=== PATIENT | female | born 1960 | race Caucasian/White ===

== ENCOUNTER 2021-05-20 06:47 | Inpatient (IN) | payer SELFPAY ==
[2021-05-20] MEDS ORDERED: LORazepam 2 MG/ML VIAL ONE (06:48)
--- OUTSIDE RECORDS SUMMARY | 2021-05-20 06:49 | XMS REPORT | Continuity of Care Document ---
:1960 Author Organization [facility] t Address [address] [place] [address] Care Team Providers Name Role Phone Martha Attending Clinician Unavailable HERMELINDO Attending Clinician Unavailable TERRELL Attending Clinician Unavailable VALDO Attending Clinician Unavailable Martha Admitting Clinician Unavailable Payers Payer Name Policy Type Policy Number Effective Date Expiration Date Jose G SMALL [id number] Problems Condition Condition Condition Status Onset Resolution Last Treating Co mments Source Name Details Category Date Date Treatment Clinician Date Hypokalemi Hypokalemi Problem Active [facility] Chronic Chronic Problem Active [facility] low back Low Back da pain [facility] Status Status Problem Active Univers post post ity of cervical cervical [place] spinal spinal Physici arthrodesi arthrodesi an s s s Osteoporos Osteoporos Problem Active U nivers [place] [facility] [place] Left knee Left knee Problem Active Uni vers pain pain ity of [place] [facility] ans Open Open Problem Active Univers Salter-Keagan Salter[facility] it y of ris type ris type [place] IV physeal IV physeal Ph ysici fracture fracture ans of second of second metatarsal metatarsal bone of bone of right foot right foot with with delayed delayed healing, healing, subsequent subsequent encounter encounter Fracture Fracture Problem Active Unive rs of 2nd of 2nd ity of [place] [facility] Pain of Pain of Problem Active [facility] right hand right hand it y of [place] [facility] ans Pain of Pain of Problem Active [facility] left left ity of shoulder shoulder [place] region region Physici ans Allergies, Adverse Reactions, Alerts Allergy Allergy Status Severity Reaction(s) Onset Inactive Treating Comm ents Source Name Type Date Date Clinician A[place]ox Allergy Active [facility] Dilantin Allergy Active [facility] Latex Allergy Active [facility] Phenobar Allergy Active [facility] bital to [facility] Social History Smoking Status Start Date Stop Date Source Heavy Tobacco Smoker [facility] Medications Ordered Filled Start Stop Current Ordering Indication Dosage Frequency Signature Comments Components Source Medication Medication Date Date Medication? Clinician (SIG) Name Name amitriptyli amitriptyli No 1 Q1D amitriptyl [place] ne 100 mg ne 100 mg ine 100 mg da tablet Take tablet Take tablet Medical 1 tablet 1 tablet Take 1 Group every day every day tablet by oral by oral every day route for route for by oral 30 days. 30 days. route for 30 days. amitriptyli amitriptyli No 1 Q1D amitriptyl [place] ne 50 mg ne 50 mg ine 50 mg da tablet Take tablet Take tablet Medical 1 tablet 1 tablet Take 1 Group every day every day tablet by oral by oral every day route at route at by oral bedtime for bedtime for route at 30 days. 30 days. bedtime for 30 days. cyclobenzap cyclobenzap No cyclobenza [place] rine 10 mg rine 10 mg trae 10 da tablet TAKE tablet TAKE mg tablet Medical 1 TABLET BY 1 TABLET BY TAKE 1 Group MOUTH THREE MOUTH THREE TABLET BY TIMES DAILY TIMES DAILY MOUTH NEEDED NEEDED THREE TIMES DAILY NEEDED gabapentin gabapentin No 1 QID gabapentin [facility] 800 mg 800 mg 800 mg da tablet Take tablet Take tablet Medical 1 tablet 4 1 tablet 4 Take 1 G roup times a day times a day tablet 4 by oral by oral times a route for route for day by 30 days. 30 days. oral route for 30 days. levetiracet levetiracet No 2 BID levetirace [facility] am 500 mg am 500 mg vera 500 mg da tablet Take tablet Take tablet Medical 2 tablets 2 tablets Take 2 [place]ino up twice a day twice a day tablets by oral by oral twice a route for route for day by 30 days. 30 days. oral route for 30 days. Lyrica 150 Lyrica 150 No 1capsul TID Lyrica 150 [facility] mg capsule mg capsule e(s) mg capsule da Take 1 Take 1 Take 1 Medical capsule 3 capsule 3 capsule 3 Group times a day times a day times a by oral by oral day by route for route for oral route 30 days. 30 days. for 30 days. pantoprazol pantoprazol No 1 BID pantoprazo [place] e 40 mg e 40 mg le 40 mg da tablet,annalee tablet,annalee tablet,del Medical yed release yed release ayed G roup Take 1 Take 1 release tablet tablet Take 1 twice a day twice a day tablet by oral by oral twice a route for route for day by 30 days. 30 days. oral route for 30 days. triamterene triamterene No 1 Q1D triamteren [facility] 75 75 e 75 da mg-hydrochl mg-hydrochl mg-hydroch Medical orothiazide orothiazide lorothiazi Group 50 mg 50 mg de 50 mg tablet Take tablet Take tablet 1 tablet 1 tablet Take 1 every day every day tablet by oral by oral every day route for route for by oral 30 days. 30 days. route for 30 days. venlafaxine venlafaxine No venlafaxin [facility] ER 150 mg ER 150 mg e ER 150 d a capsule,ext capsule,ext mg M edical ended ended capsule,ex Group release 24 release 24 tended hr TAKE 1 hr TAKE 1 release 24 CAPSULE BY CAPSULE BY hr TAKE 1 MOUTH THREE MOUTH THREE CAPSULE BY TIMES DAILY TIMES DAILY MOUTH THREE TIMES DAILY Immunizations Ordered Immunization Filled Immunization Date Status Commen ts Source Name Name influenza, influenza, 2018-02-02 Completed [place] injectable, injectable, 00:00:00 [facility] Gr[facility] p quadrivalent quadrivalent Tdap Tdap 2014-05-26 Completed [place] 00:00:00 [facility] Vital Signs Vital Name Observation Time Observation Value Comments Source BP Diastolic 2019-12-06 00:00:00 73 mm[Hg] [facility] Height 2019-12-06 00:00:00 66 [in_i] [facility] BMI (Body Mass 2019-12-06 00:00:00 21.6 kg/m2 [facility] Medical Index) Group BP Systolic 2019-12-06 00:00:00 113 mm[Hg] [facility] Body Weight 2019-12-06 00:00:00 2145.6 [oz_av] [facility] BP Diastolic 2019-04-07 00:00:00 75 mm[Hg] [facility] Height 2019-04-07 00:00:00 66 [in_i] [facility] BMI (Body Mass 2019-04-07 00:00:00 22.8 kg/m2 [facility] Medical Index) Group BP Systolic 2019-04-07 00:00:00 112 mm[Hg] [facility] Body Weight 2019-04-07 00:00:00 2256 [oz_av] [facility] BP Diastolic 2019-03-10 00:00:00 77 mm[Hg] [facility] Height 2019-03-10 00:00:00 66 [in_i] [facility] BMI (Body Mass 2019-03-10 00:00:00 21.8 kg/m2 [facility] Medical Index) Group BP Systolic 2019-03-10 00:00:00 120 mm[Hg] [facility] Body Weight 2019-03-10 00:00:00 2160 [oz_av] [facility] BP Diastolic 2018-08-11 00:00:00 60 mm[Hg] [facility] Height 2018-08-11 00:00:00 66 [in_i] [facility] BMI (Body Mass 2018-08-11 00:00:00 21.5 kg/m2 [facility] Medical Index) Group BP Systolic 2018-08-11 00:00:00 98 mm[Hg] [facility] Body Weight 2018-08-11 00:00:00 2128 [oz_av] [facility] Procedures Procedure Date / Time Performing Clinician Source Performed [U] XRAY SPINE CERVICAL 2 2019-07[facility]26 [facility] [id number] [facility] [U] XRAY FOOT MIN 3 S 2019-05-04 00:[facility] [id number] [facility] [U] XRAY KNEE 1 OR 2 S 2019-05-04 00:00:00 Uni [facility] LEFT [id number] Physicians Physical Therapy 2019-04-27 00:00:00 [facility]icians [U] XRAY SPINE CERVICAL 2 2019-04-26 00:00[facility] [address] Physicians [U] XRAY SPINE CERVICAL 2 2019-03-09 00:00:00 Un [facility] OR 3 [facility] [address] Physicians MA Bone Density Scan [id number] 2019-02-12 00:00[facility] KNEE 1 OR 2 [facility] 2019-02-12 00:00:00 [facility] LEFT [address] Physicians DEXA Bone Density with WB 2019-02-10 00:00:00 Un [facility] Composition DX Physicians [U] XRAY SPINE CERVICAL 2 2019-02-08 00:00:00 Un [facility] OR 3 [facility] [address] Physicians Tibial Arthroscopy/surgery 2018-12-26 00:00:00 [facility] Primary Fusion of Cervical 2018-12-24 00:00:00 [facility] Gastric Bypass 2012-05-26 00:00:00 [place] [facility] Colonoscopy 2011-05-26 00:00:00 [place] [facility] [place] [facility] Cholecyst[facility] [facility] Tonsillectomy [place] [facility] Hysterectomy [place] [facility] Plan of Care Planned Activity Planned Date Details Comments Source Diagnostic Test 2019-04-07 BMP, serum or [place] [facility] Pending 00:00:00 plasma [code = Group BMP, serum or plasma] Encounters Start End Encounter Admission Attending Care Care Encounter Source Date/Time Date/Time Type Type Clinicians Facility Department ID 2020-06-29 2020-06-29 Outpatient [facility]un[facility]_F [facility] [id number] [facility] 01:08:00 01:08:00 0204 [facility] Group 2020-04-27 2020-04-27 Outpatient [facility] [id number] [facility] 01:04:00 01:04:00 1203 [facility] Group 2020-04-12 2020-04-12 Outpatient [facility]_F [facility] MMG [id number] [facility] 02:32:00 02:32:00 1118 Medical Group 2020-03-23 2020-03-23 Outpatient [facility]_F [facility] MMG [id number] [facility] 01:04:00 01:04:00 1029 Medical Group 2020-02-17 2020-02-17 Outpatient [facility]_F [facility] MMG [id number] [facility] 03:07:00 03:07:00 0924 Medical Group 2020-02-16 2020-02-16 Outpatient [facility]_F [facility] MMG [id number] [facility] 11:05:00 11:05:00 0923 Medical Group 2020-02-14 2020-02-14 Outpatient [facility]_F MM[facility] MMG [id number] 2019 [facility] 09:30:00 09:30:00 0921 Medical Group 2020-02-08 2020-02-08 Outpatient [facility]_F [facility] MMG [id number] [facility] 05:04:00 05:04:00 0915 Medical Group 2020-01-12 2020-01-12 Outpatient [facility]_F [facility] MMG [id number] [facility] 12:39:00 12:39:00 0819 Medical Group 2019-12-08 2019-12-08 Outpatient [facility]_F MM[facility] MMG [id number] [facility] 12:57:00 12:57:00 0715 Medical Group 2019-12-06 2019-12-06 Outpatient Zuniga_F MMG MMG [id number] [facility] 08:05:00 08:05:00 0713 Medical Group 2019-12-06 2019-12-06 [place] [facility] [place] - [id number] M [facility] 00:00:00 00:00:00 Noman Watkins Medical APPLICATION PENETRATION TESTER: [address] [facility] [address], [place] [address] , Ph. 2019-07-27 2019-07-27 [facility] [id number] Univers 11:00:00 11:00:00 t; HIRO CASAREZ, at [facility] HIRO Morton M.D. Orthopedic Physi ci and Spine [facility] 2019-06-25 2019-06-25 Outpatient Zuniga_F [facility] [id number] [facility] 12:04:00 12:04:00 0131 [facility] 2019-05-10 2019-05-10 [facility] [id number] Univers 10:30:00 10:30:00 t; LINA ETJADA PA Trauma ity of [place] [facility] 2019-04-27 2019-04-27 [facility] [id number] Univers 09:30:00 09:30:00 t; HIRO CASAREZ, at [facility] HIRO Morton M.D. [facility] 2019-04-07 2019-04-07 [facility] [place] - [id number] [facility] 00:00:00 00:00:00 Noman Echeverria MD: [address] [place] [address] [address], [place] [address] , Ph. 2019-03-29 2019-03-29 [facility] [id number] Univers 10:30:00 10:30:00 t; LINA TEJADA PA Trauma ity of [place] [facility] 2019-03-15 2019-03-15 [facility] Ignacio [facility] [id number] Univers 10:45:00 10:45:00 t; LINA TEJADA PA ity of [place] [facility] 2019-03-11 2019-03-11 [facility] 5 [id number] Univers 12:40:00 12:40:00 t; WES at [facility] Rosa LYLE [place] WES, Orthopedic Ph juniorici P.AAmber and Spine [facility] 2019-03-10 2019-03-10 [facility] [place] - [id number] [facility] 00:00:00 00:00:00 Noman Echeverria Medical MD: [address] [facility] [address], [place] [address] , Ph. 2019-02-15 2019-02-15 Appointmen [facility] TE[facility]ADA [facility] [id number] [facility] 09:15:00 09:15:00 t; LINA TEJADA PA Trauma ity [place] [facility] 2019-02-10 2019-02-10 Appointmen [facility] L[facility] [id number] [facility] 15:20:00 15:20:00 t; WES [facility] Rosa LYLE [facility] WES Orthopedic Ph jennifer P.AAmber and Spine [facility] 2018-08-11 2018-08-11 [facility] [place] - [id number] [facility] 00:00:00 00:00:00 Noman Echeverria Medical MD: [address] [facility] [address], [place] [address] , Ph. Results Test Description Test Time Test Comments Results Result Sourc e Comments [U] XRAY SPINE 2019-04-27 Images [facility] 2 OR 3 09:42:00 acquired, not [facility] [id number] reported on Physicians this accession number. Basic metabolic 2000 panel - Serum or Plasma 2019-04-07 09:0 5:00 Test Item Value Reference Range Interpretation Comme nts glucose (test code = glucose) 57 mg/dL 74-106 L Urea nitrogen [Mass/volume] in Serum or Plasma (test code = 23 mg/d L 6-20 H 3094-0) osmolality calculated,serum (test code = osmolality 279 mOsm/kg 28 0-300 L calculated,serum) creatinine (test code = creatinine) 0.9 mg/dL 0.50-0.90 glomerular filtration rate (test code = glomerular >60.00 filtration rate) Urea nitrogen/Creatinine [Mass Ratio] in Serum or Plasma 25.6 12-20 H (test code = 3097-3) sodium level (test code = sodium level) 139 mmol/L 135-145 Potassium [Moles/volume] in Body fluid (test code = 2821-7) 4.0 mmo l/L 3.5-5.2 chloride level (test code = chloride level) 101 mmol/L 98-108 CO2 (test code = CO2) 28 mmol/L 21-32 anion gap (test code = anion gap) 14.0 mEq/L 12-20 calcium level (test code = calcium level) 9.0 mg/dL 8.6-10.0 [facility][U] XRAY HAND MIN 3 VWS RIGHT [id number] 12:19:00 Images acquired, not reported on this accession number.[facility][U] XRAY FOOT MIN 3 VWS RIGHT [id number] 10:36:00Images acquired, not reported on this accession number.[facility][U] XRAY KNEE 1 OR 2 VWS LEFT [id number] 10:36:00Images acquired, not reported on this accession number.[facility] W Auto Differential panel - [id number] 10:50:00 Test Item Value Reference Range Interpretation Comments white blood count (test code = 5.6 K/uL 4.0-11.5 white blood count) red blood count (test code = red 5.09 M/uL 3.80-5.20 blood count) hemoglobin (test code = 14.2 g/dL 10.5-15.7 hemoglobin) hematocrit (test code = 45.1 % 34.0-50.0 hematocrit) Erythrocyte mean corpuscular 88.6 fL 86-100 volume [Entitic volume] (test code = 24603-1) mean corpuscular hemoglobin (test 27.9 pg 26.2-33.4 code = mean corpuscular hemoglobin) mean corpuscular HGB conc (test 31.5 g/dL 30-34 code = mean corpuscular HGB conc) red cell distribution width (test 15.3 % 12.0-15.5 code = red cell distribution width) platelet count (test code = 349 K/uL 165-450 platelet count) mean platelet volume (test code = 8.8 fL 9.4-12.6 L mean platelet volume) Neutrophils.segmented/100 56.5 % 44.4-80.1 leukocytes in Blood (test code = 74305-8) Granulocytes Immature [#/volume] 0.0 K/uL 0.0-0.03 in Blood (test code = 58348-8) lymphocyte% (test code = 31.8 % 10.0-50.0 lymphocyte%) mono % (test code = mono %) 7.9 % 3.6-12.0 eos % (test code = eos %) 2.1 % 0.0-5.4 Basophils/100 leukocytes in 1.3 % 0.1-1.2 H Unspecified specimen (test code = 84710-9) Neutrophils.band form [#/volume] 3.17 K/uL 1.56-6.13 in Blood (test code = 77111-6) Lymphocytes [#/volume] in 1.8 K/uL 1.18-3.74 Unspecified specimen by Automated count (test code = 73518-5) mono # (test code = mono #) 0.44 K/uL 0.24-0.86 eos # (test code = eos #) 0.12 K/uL 0.04-0.36 basophil # (test code = basophil 0.07 K/uL 0.01-0.08 #) NRBC% (test code = NRBC%) 0 /100 WBC 0-0.2 NRBC# (test code = NRBC#) 0 K/uL [facility], [id number] 10:50:00 NeutrophilsBandLymphocyteAtypical LymphMonocyteEosinophilBasophilPlatelet EstimatePlatelet MorphologyHypochromasiaMatagoTallahatchie General HospitalBasic metabolic 2000 panel - Serum or [id number] 10:50:00 Test Item Value Reference Range Interpretation Comments Glucose [Mass/volume] in Serum or 74 mg/dL 74-106 Plasma (test code = 2345-7) Urea nitrogen [Mass/volume] in 33 mg/dL 6-20 H Serum or Plasma (test code = 3094-0) osmolality calculated, serum (test 276 280-300 L code = osmolality calculated, serum) creatinine (test code = 1.7 mg/dL 0.50-0.90 H creatinine) glomerular filtration rate (test 30.98 L code = glomerular filtration rate) Urea nitrogen/Creatinine [Mass 19.4 12-20 Ratio] in Serum or Plasma (test code = 3097-3) sodium level (test code = sodium 135 mmol/L 135-145 level) potassium level (test code = 4.0 mmol/L 3.5-5.2 potassium level) chloride level (test code = 99 mmol/L 98-108 chloride level) CO2 (test code = CO2) 23 mmol/L 21-32 anion gap (test code = anion gap) 17.0 mEq/L 12-20 calcium level (test code = calcium 9.2 mg/dL 8.6-10.0 level) [facility] W Auto Differential panel - [id number] 10:50:00 Test Item Value Reference Range Interpretation Comments white blood count (test code = 5.6 K/uL 4.0-11.5 white blood count) red blood count (test code = red 5.09 M/uL 3.80-5.20 blood count) hemoglobin (test code = 14.2 g/dL 10.5-15.7 hemoglobin) hematocrit (test code = 45.1 % 34.0-50.0 hematocrit) Erythrocyte mean corpuscular 88.6 fL 86-100 volume [Entitic volume] (test code = 21019-8) mean corpuscular hemoglobin (test 27.9 pg 26.2-33.4 code = mean corpuscular hemoglobin) mean corpuscular HGB conc (test 31.5 g/dL 30-34 code = mean corpuscular HGB conc) red cell distribution width (test 15.3 % 12.0-15.5 code = red cell distribution width) platelet count (test code = 349 K/uL 165-450 platelet count) mean platelet volume (test code = 8.8 fL 9.4-12.6 L mean platelet volume) Neutrophils.segmented/100 56.5 % 44.4-80.1 leukocytes in Blood (test code = 03986-6) Granulocytes Immature [#/volume] 0.0 K/uL 0.0-0.03 in Blood (test code = 46770-2) lymphocyte% (test code = 31.8 % 10.0-50.0 lymphocyte%) mono % (test code = mono %) 7.9 % 3.6-12.0 eos % (test code = eos %) 2.1 % 0.0-5.4 Basophils/100 leukocytes in 1.3 % 0.1-1.2 H Unspecified specimen (test code = 57239-5) Neutrophils.band form [#/volume] 3.17 K/uL 1.56-6.13 in Blood (test code = 53695-0) Lymphocytes [#/volume] in 1.8 K/uL 1.18-3.74 Unspecified specimen by Automated count (test code = 63957-9) mono # (test code = mono #) 0.44 K/uL 0.24-0.86 eos # (test code = eos #) 0.12 K/uL 0.04-0.36 basophil # (test code = basophil 0.07 K/uL 0.01-0.08 #) NRBC% (test code = NRBC%) 0 /100 WBC 0-0.2 NRBC# (test code = NRBC#) 0 K/uL [facility], [id number] 10:50:00 NeutrophilsBandLymphocyteAtypical LymphMonocyteEosinophilBasophilPlatelet EstimatePlatelet MorphologyHypochromasiaMatagoTallahatchie General HospitalBasic metabolic 2000 panel - Serum or [id number] 10:50:00 Test Item Value Reference Range Interpretation Comments Glucose [Mass/volume] in Serum or 74 mg/dL 74-106 Plasma (test code = 2345-7) Urea nitrogen [Mass/volume] in 33 mg/dL 6-20 H Serum or Plasma (test code = 3094-0) osmolality calculated, serum (test 276 280-300 L code = osmolality calculated, serum) creatinine (test code = 1.7 mg/dL 0.50-0.90 H creatinine) glomerular filtration rate (test 30.98 L code = glomerular filtration rate) Urea nitrogen/Creatinine [Mass 19.4 12-20 Ratio] in Serum or Plasma (test code = 3097-3) sodium level (test code = sodium 135 mmol/L 135-145 level) potassium level (test code = 4.0 mmol/L 3.5-5.2 potassium level) chloride level (test code = 99 mmol/L 98-108 chloride level) CO2 (test code = CO2) 23 mmol/L 21-32 anion gap (test code = anion gap) 17.0 mEq/L 12-20 calcium level (test code = calcium 9.2 mg/dL 8.6-10.0 level) [facility] W Auto Differential panel - [id number] 10:50:00 Test Item Value Reference Range Interpretation Comments white blood count (test code = 5.6 K/uL 4.0-11.5 white blood count) red blood count (test code = red 5.09 M/uL 3.80-5.20 blood count) hemoglobin (test code = 14.2 g/dL 10.5-15.7 hemoglobin) hematocrit (test code = 45.1 % 34.0-50.0 hematocrit) Erythrocyte mean corpuscular 88.6 fL 86-100 volume [Entitic volume] (test code = 84815-3) mean corpuscular hemoglobin (test 27.9 pg 26.2-33.4 code = mean corpuscular hemoglobin) mean corpuscular HGB conc (test 31.5 g/dL 30-34 code = mean corpuscular HGB conc) red cell distribution width (test 15.3 % 12.0-15.5 code = red cell distribution width) platelet count (test code = 349 K/uL 165-450 platelet count) mean platelet volume (test code = 8.8 fL 9.4-12.6 L mean platelet volume) Neutrophils.segmented/100 56.5 % 44.4-80.1 leukocytes in Blood (test code = 15347-1) Granulocytes Immature [#/volume] 0.0 K/uL 0.0-0.03 in Blood (test code = 51538-1) lymphocyte% (test code = 31.8 % 10.0-50.0 lymphocyte%) mono % (test code = mono %) 7.9 % 3.6-12.0 eos % (test code = eos %) 2.1 % 0.0-5.4 Basophils/100 leukocytes in 1.3 % 0.1-1.2 H Unspecified specimen (test code = 30725-1) Neutrophils.band form [#/volume] 3.17 K/uL 1.56-6.13 in Blood (test code = 52210-2) Lymphocytes [#/volume] in 1.8 K/uL 1.18-3.74 Unspecified specimen by Automated count (test code = 66605-6) mono # (test code = mono #) 0.44 K/uL 0.24-0.86 eos # (test code = eos #) 0.12 K/uL 0.04-0.36 basophil # (test code = basophil 0.07 K/uL 0.01-0.08 #) NRBC% (test code = NRBC%) 0 /100 WBC 0-0.2 NRBC# (test code = NRBC#) 0 K/uL [facility], [id number] 10:50:00 NeutrophilsBandLymphocyteAtypical LymphMonocyteEosinophilBasophilPlatelet EstimatePlatelet MorphologyHypochromasiaMaNorthwest Mississippi Medical CenterBasic metabolic 2000 panel - Serum or [id number] 10:50:00 Test Item Value Reference Range Interpretation Comments Glucose [Mass/volume] in Serum or 74 mg/dL 74-106 Plasma (test code = 2345-7) Urea nitrogen [Mass/volume] in 33 mg/dL 6-20 H Serum or Plasma (test code = 3094-0) osmolality calculated, serum (test 276 280-300 L code = osmolality calculated, serum) creatinine (test code = 1.7 mg/dL 0.50-0.90 H creatinine) glomerular filtration rate (test 30.98 L code = glomerular filtration rate) Urea nitrogen/Creatinine [Mass 19.4 12-20 Ratio] in Serum or Plasma (test code = 3097-3) sodium level (test code = sodium 135 mmol/L 135-145 level) potassium level (test code = 4.0 mmol/L 3.5-5.2 potassium level) chloride level (test code = 99 mmol/L 98-108 chloride level) CO2 (test code = CO2) 23 mmol/L 21-32 anion gap (test code = anion gap) 17.0 mEq/L 12-20 calcium level (test code = calcium 9.2 mg/dL 8.6-10.0 level) [facility] W Auto Differential panel - [id number] 10:50:00 Test Item Value Reference Range Interpretation Comments white blood count (test code = 5.6 K/uL 4.0-11.5 white blood count) red blood count (test code = red 5.09 M/uL 3.80-5.20 blood count) hemoglobin (test code = 14.2 g/dL 10.5-15.7 hemoglobin) hematocrit (test code = 45.1 % 34.0-50.0 hematocrit) MCV [Entitic volume] (test code = 88.6 fL 86-100 74235-7) mean corpuscular hemoglobin (test 27.9 pg 26.2-33.4 code = mean corpuscular hemoglobin) mean corpuscular HGB conc (test 31.5 g/dL 30-34 code = mean corpuscular HGB conc) red cell distribution width (test 15.3 % 12.0-15.5 code = red cell distribution width) platelet count (test code = 349 K/uL 165-450 platelet count) mean platelet volume (test code = 8.8 fL 9.4-12.6 L mean platelet volume) Segmented neutrophils/100 56.5 % 44.4-80.1 leukocytes in Blood (test code = 43883-5) Immature granulocytes [#/volume] 0.0 K/uL 0.0-0.03 in Blood (test code = 67311-8) lymphocyte% (test code = 31.8 % 10.0-50.0 lymphocyte%) mono % (test code = mono %) 7.9 % 3.6-12.0 eos % (test code = eos %) 2.1 % 0.0-5.4 Basophils/100 leukocytes in 1.3 % 0.1-1.2 H Unspecified specimen (test code = 75789-2) Band form neutrophils [#/volume] 3.17 K/uL 1.56-6.13 in Blood (test code = 08127-5) Lymphocytes [#/volume] in 1.8 K/uL 1.18-3.74 Unspecified specimen by Automated count (test code = 28532-8) mono # (test code = mono #) 0.44 K/uL 0.24-0.86 eos # (test code = eos #) 0.12 K/uL 0.04-0.36 basophil # (test code = basophil 0.07 K/uL 0.01-0.08 #) NRBC% (test code = NRBC%) 0 /100 WBC 0-0.2 NRBC# (test code = NRBC#) 0 K/uL [facility], method unspecified - [id number] 10:50:00NeutrophilsBandLymphocyteAtypical LymphMonocyteEosinophilBasophilPlatelet EstimatePlatelet MorphologyHypochromasia [facility] 2000 panel - Serum or [id number] 10:50:00 Test Item Value Reference Range Interpretation Comments Glucose [Mass/volume] in Serum or 74 mg/dL 74-106 Plasma (test code = 2345-7) Urea nitrogen [Mass/volume] in 33 mg/dL 6-20 H Serum or Plasma (test code = 3094-0) osmolality calculated, serum (test 276 280-300 L code = osmolality calculated, serum) creatinine (test code = 1.7 mg/dL 0.50-0.90 H creatinine) glomerular filtration rate (test 30.98 L code = glomerular filtration rate) Urea nitrogen/Creatinine [Mass 19.4 12-20 Ratio] in Serum or Plasma (test code = 3097-3) sodium level (test code = sodium 135 mmol/L 135-145 level) potassium level (test code = 4.0 mmol/L 3.5-5.2 potassium level) chloride level (test code = 99 mmol/L 98-108 chloride level) CO2 (test code = CO2) 23 mmol/L 21-32 anion gap (test code = anion gap) 17.0 mEq/L 12-20 calcium level (test code = calcium 9.2 mg/dL 8.6-10.0 level) [facility][U] XRAY KNEE 1 OR 2 VWS LEFT [id number] 10:36:00 Images acquired, not reported on this accession number.[facility]
[2021-05-20] MEDS ORDERED: LEVETIRACETAM 500 MG/5 ML VIAL IV ONE (06:51)
[2021-05-20] MEDS ORDERED: NA CHLORIDE 0.9% 50 ML ONE (06:51)
--- NOTE | 2021-05-20 07:55 | RAD REPORT ---
EXAM DESCRIPTION: CT - CTHCSPWOC - 05/20/2021 7:26 am CLINICAL HISTORY: Trauma, head and neck injury. PAIN COMPARISON: No comparisons TECHNIQUE: Axial 5 mm thick images of the head were obtained. Axial 2 mm thick images of the cervical spine were obtained with sagittal and coronal reconstruction images generated and reviewed. All CT scans are performed using dose optimization technique as appropriate and may include automated exposure control or mA/KV adjustment according to patient size. FINDINGS: CT HEAD WITHOUT CONTRAST: No acute hemorrhage, hydrocephalus or extra-axial collection is identified.Mild generalized brain atr ophy is noted.No areas of brain edema or midline shift. The paranasal sinuses and mastoids are clear.The calvarium is intact. CT CERVICAL SPINE WITHOUT CONTRAST: No fracture or subluxation.Postsurgical changes with hardware place spanning C4-6. Bony fusion has no t yet occurred.No prevertebral soft tissues swelling is identified. IMPRESSION: No acute intracranial or cervical spine findings.
[2021-05-20] MEDS ORDERED: NA CHLORIDE 0.9% 500 ML ONE (08:16)
[2021-05-20] MEDS ORDERED: FAMOTIDINE 20 MG/2 ML VIAL IV ONE (08:17)
[2021-05-20 08:24] LABS: Absolute Lymphocytes (CBC) 2.4 K/uL (0.7-4.9); Hematocrit 35.1 % (36.0-45.0); MPV 6.5 fL (7.6-11.3); RBC Red Blood Cell Count 4.04 M/uL (3.86-4.86)
[2021-05-20 08:27] LABS: Protime INR 0.98
[2021-05-20 08:56] LABS: ALT/SGPT 21 U/L (12-78); AST/SGOT 19 U/L (15-37); Albumin 3.3 g/dL (3.4-5.0); Alkaline Phosphatase 97 U/L (45-117); BUN Blood Urea Nitrogen 38 mg/dL (7-18); Bicarbonate 30 mmol/L (21-32); Bilirubin Direct < 0.1 mg/dL (0-0.2); Bilirubin Total 0.2 mg/dL (0.2-1.0); Glucose Level 84 mg/dL (74-106); Lipase 156 U/L (73-393); Magnesium 2.9 mg/dL (1.8-2.4); NT PRO-BNP 274 pg/mL (<125); Protein, Total 7.6 g/dL (6.4-8.2); Sodium Level 134 mmol/L (136-145); Troponin (Emerg Dept Use Only) < 0.02 ng/mL (0.0-0.045)
[2021-05-20 08:58] LABS: Potassium 2.4 mmol/L (3.5-5.1)
[2021-05-20] MEDS: [UNRECOGNIZED DRUG - OTHER] IV SCH ×4 (10:00→18:48)
[2021-05-20] MEDS: KCL IV SCH ×4 (10:00→18:48)
--- NOTE | 2021-05-20 10:01 | ER ---
Nurse's Notes [facility] Name: Stefanie Rudd Age: 61 yrs Sex: Female : 1960 Arrival Date: 05/20/2021 Time: 06:48 Bed 7 Private MD: Diagnosis: Chest pain, unspecified;Hypokalemia;Epileptic seizures related to external causes, not intractable Presentation: 05/20 06:55 Chief complaint: Patient states: "I was at work and I had a seizure". Coronavirus bailey screen: Vaccine status: Patient reports receiving the 2nd dose of the covid vaccine. Ebola Screen: Patient negative for fever greater than or equal to 101.5 degrees Fahrenheit, and additional compatible Ebola Virus Disease symptoms Patient denies exposure to infectious person. Patient denies travel to an Ebola-affected area in the 21 days before illness onset. No symptoms or risks identified at this time. Initial Sepsis Screen: Does the patient meet any 2 criteria? No. Patient's initial sepsis screen is negative. Risk Assessment: Do you want to hurt yourself or someone else? Patient reports no desire to harm self or others. Onset of symptoms was May 20, 2021. 06:55 Method Of Arrival: EMS: [facility] bailey 06:55 Acuity: PIPER 2 bailey Triage Assessment: 06:59 General: Appears in no apparent distress. Pt had a seizure upon arrival. . Pain: Denies bailey pain. Historical: - Allergies: 06:50 Latex, Natural Rubber; as6 06:50 Promethazine; as6 06:50 avalox; as6 06:50 Morphine; as6 - Immunization history:: Adult Immunizations unknown. - Social history:: Smoking status: Patient reports the use of cigarette tobacco products, unknown amount. Screenin:02 Abuse screen: Denies threats or abuse. Denies injuries from another. Nutritional bailey screening: No deficits noted. Tuberculosis screening: No symptoms or risk factors identified. Fall Risk Fall in past 12 months (25 points). IV access (20 points). Assessment: 07:01 General: Appears in no apparent distress. Pain: Denies pain. Neuro: No deficits noted. bailey Injury Description: No injuries sustained during seizures. 07:15 General: Appears in no apparent distress. slender, Behavior is listless. Pain: Unable bp to use pain scale. Patient is disoriented. Neuro: Level of Consciousness is stuporous. Cardiovascular: Rhythm is sinus bradycardia. Respiratory: No deficits noted. GI: No signs and/or symptoms were reported involving the gastrointestinal system. : No signs and/or symptoms were reported regarding the genitourinary system. EENT: No deficits noted. Derm: No deficits noted. Musculoskeletal: No deficits noted. 08:15 Reassessment: No changes from previously documented assessment. Patient and/or family bp updated on plan of care and expected duration. Pain level reassessed. 10:19 Reassessment: No changes from previously documented assessment. Patient and/or family bp updated on plan of care and expected duration. Pain level reassessed. ADMIT INITIATED. 12:00 Reassessment: No changes from previously documented assessment. Patient and/or family bp updated on plan of care and expected duration. Pain level reassessed. PT CLEANED OF URINARY INCONTINENCE WITH LINEN CHANGE. 13:00 Reassessment: REPORT TO HA MAGDALENO FOR RM 205. bp Vital Signs: 06:55 BP 142 / 82; Pulse 64; Resp 12; Temp 98.6; Pulse Ox 100% on NC; Weight 44.45 kg; Height bailey 5 ft. 3 in. (160.02 cm); Pain 0/10; 07:00 BP 142 / 82; Pulse 64; Resp 12; Temp 98.5; Pulse Ox 100% on 2 lpm NC; Weight 44.45 kg; bailey Height 5 ft. 3 in. (160.02 cm); Pain 0/10; 08:00 BP 132 / 79; Pulse 59; Resp 12; Pulse Ox 100% ; bp 09:00 BP 135 / 84; Pulse 59; Resp 14; Pulse Ox 100% ; bp 10:00 BP 134 / 78; Pulse 59; Resp 12; Pulse Ox 100% ; bp 12:00 BP 114 / 76; Pulse 59; Resp 12; Pulse Ox 100% ; bp 13:56 BP 150 / 78; Pulse 55; Resp 17; Pulse Ox 100% ; bp 07:00 Body Mass Index 17.36 (44.45 kg, 160.02 cm) ED Course: 06:48 Patient arrived in ED. yobani 06:48 Luis Gusman MD is Attending Physician. yobani 06:50 Side rails up X2. Seizure precautions initiated. as6 06:55 Karmen Seaman, RN is Primary Nurse. bailey 06:58 Triage completed. bailey 07:00 Arm band placed on. bp 07:06 XRAY Chest (1 view) In Process Unspecified. EDMS 07:11 Suze Holbrook FNP-C is PHCP. kb 07:26 CT Head C Spine In Process Unspecified. EDMS 08:20 Initial lab(s) drawn, by me, sent to lab. dh3 08:33 EKG done, by ED staff, reviewed by Suze LEYVA. dh3 08:44 Primary Nurse role handed off by Karmen Seaman, RASTA bp 08:44 Isaak Monroe, RASTA is Primary Nurse. bp 10:00 Bala Toussaint MD is Hospitalizing Provider. kb 13:56 No provider procedures requiring assistance completed. Patient admitted, IV remains in bp place. Administered Medications: 06:47 Drug: Ativan (LORazepam) 2 mg Route: IVP; Site: left antecubital; as6 08:51 Follow up: Response: No adverse reaction; Marked relief of symptoms bp 06:53 Drug: Keppra (levETIRAcetam) 1000 mg Route: IV; Rate: per protocol; Site: left as6 antecubital; 07:15 Follow up: IV Status: Completed infusion; IV Intake: 100ml bp 07:15 Drug: NS 0.9% 500 ml Route: IV; Rate: bolus; Site: right antecubital; bp 08:00 Follow up: IV Status: Completed infusion; IV Intake: 500ml bp 07:15 Drug: Pepcid (famotidine) 20 mg Route: IVP; Site: right antecubital; bp 10:16 Follow up: Response: No adverse reaction bp 09:15 Drug: NS 0.9% with KCl 40 mEq/L 1000 ml Route: IV; Rate: 125 ml/hr; Site: left bp antecubital; 13:58 Follow up: IV Status: Infusion continued upon admission bp 10:16 Not Given (pt somnolent): Potassium Chloride 40 mEq PO once bp Intake: 07:15 IV: 100ml; Total: 100ml. bp 08:00 IV: 500ml; Total: 600ml. bp Outcome: 10:01 Decision to Hospitalize by Provider. kb 13:56 Admitted to Med/surg accompanied by tech, via stretcher, room 202, with chart, Report bp called to HA MAGDALENO 13:56 Condition: stable 13:56 Instructed on the need for admit. 13:59 Patient left the ED. bp Signatures: Dispatcher [employer] EDSuze Escoto, BAND AID MACHINE OPERATOR-C BAND AID MACHINE OPERATOR-Ckb Luis Gusman MD MD cha Herrera, Deanna 3 Isaak Monroe RN RN bp Brown Saenz RN RN as6 Karmen Seaman RN RN bailey Corrections: (The following items were deleted from the chart) 10:16 09:15 Potassium Chloride 40 mEq PO bp bp 13:58 13:57 Arm band placed on bp bp
--- NOTE | 2021-05-20 10:02 | EDPHYS ---
Physician Documentation [facility] Name: Stefanie Rudd Age: 61 yrs Sex: Female : 1960 Arrival Date: 05/20/2021 Time: 06:48 Bed 7 Private MD: ORACIO Physician Luis Gusman HPI: 05/20 07:04 This 61 yrs old Female presents to ER via EMS with complaints of seizure. kb 07:04 The patient presents with a history of multiple seizures, a total of 2. Character of kb seizure(s): Loss of consciousness: the patient experienced loss of consciousness, Motor activity: generalized, shaking all over, Incontinence: none. Seizure onset: this morning. Context: the seizure(s) was witnessed, by co-worker(s), occurred at work, occurred while the patient was sitting, Contributing factors: missed recent doses of medications. Seizure Hx: Original onset: longstanding. Associated injury: The patient did not suffer any apparent associated injury. Current symptoms: headache, that is moderate. The patient has experienced similar episodes in the past. The patient has not recently seen a physician. Pt reports seizure x2 prior to arrival. States she has been out of her keppra for a few days. Also reports chest pain that started yesterday. . Historical: - Allergies: 06:50 Latex, Natural Rubber; as6 06:50 Promethazine; as6 06:50 avalox; as6 06:50 Morphine; as6 - Immunization history:: Adult Immunizations unknown. - Social history:: Smoking status: Patient reports the use of cigarette tobacco products, unknown amount. ROS: 07:03 Constitutional: Negative for fever, chills, and weight loss. kb 07:03 Neuro: Positive for seizure activity. 07:03 All other systems are negative. 07:06 Cardiovascular: Positive for chest pain, Negative for edema, orthopnea, palpitations, kb paroxysmal nocturnal dyspnea. Exam: 07:04 Constitutional: This is a well developed, well nourished patient who is awake, alert, kb and in no acute distress. Head/Face: Normocephalic, atraumatic. Eyes: Pupils equal round and reactive to light, extra-ocular motions intact. Lids and lashes normal. Conjunctiva and sclera are non-icteric and not injected. Cornea within normal limits. Periorbital areas with no swelling, redness, or edema. Neck: Trachea midline, no thyromegaly or masses palpated, and no cervical lymphadenopathy. Supple, full range of motion without nuchal rigidity, or vertebral point tenderness. No Meningismus. Cardiovascular: Regular rate and rhythm with a normal S1 and S2. No gallops, murmurs, or rubs. No pulse deficits. Respiratory: Respirations even and unlabored. No increased work of breathing. Talking in full sentences Skin: Warm, dry with normal turgor. Normal color. MS/ Extremity: Pulses equal, no cyanosis. Neurovascular intact. Full, normal range of motion. Neuro: Awake and alert, GCS 15, oriented to person, place, time, and situation. Moves all extremities. Normal gait. Psych: Awake, alert, with orientation to person, place and time. Behavior, mood, and affect are within normal limits. 08:45 ECG was reviewed by the Attending Physician. Vital Signs: 06:55 BP 142 / 82; Pulse 64; Resp 12; Temp 98.6; Pulse Ox 100% on NC; Weight 44.45 kg; Height bailey 5 ft. 3 in. (160.02 cm); Pain 0/10; 07:00 BP 142 / 82; Pulse 64; Resp 12; Temp 98.5; Pulse Ox 100% on 2 lpm NC; Weight 44.45 kg; bailey Height 5 ft. 3 in. (160.02 cm); Pain 0/10; 08:00 BP 132 / 79; Pulse 59; Resp 12; Pulse Ox 100% ; bp 09:00 BP 135 / 84; Pulse 59; Resp 14; Pulse Ox 100% ; bp 10:00 BP 134 / 78; Pulse 59; Resp 12; Pulse Ox 100% ; bp 12:00 BP 114 / 76; Pulse 59; Resp 12; Pulse Ox 100% ; bp 13:56 BP 150 / 78; Pulse 55; Resp 17; Pulse Ox 100% ; bp 07:00 Body Mass Index 17.36 (44.45 kg, 160.02 cm) bailey MDM: 06:48 Patient medically screened. [facility] 07:03 Data reviewed: vital signs, nurses notes. Data interpreted: Pulse oximetry: on room air kb is 100 %. Interpretation: normal. 09:59 Counseling: I had a detailed discussion with the patient and/or guardian regarding: the kb historical points, exam findings, and any diagnostic results supporting the discharge/admit diagnosis, lab results, radiology results, the need for further work-up and treatment in the hospital. Physician consultation: Bala Toussaint MD was contacted at 09:59, regarding admission, to the telemetry unit. patient's condition, and will see patient in ED. 05/20 06:51 Order name: Basic Metabolic Panel; Complete Time: 08:58 [facility] 05/20 06:51 Order name: CBC with Diff; Complete Time: 08:30 [facility] 05/20 06:51 Order name: LFT's; Complete Time: 08:58 [facility] 05/20 06:51 Order name: Magnesium; Complete Time: 08:58 [facility] 05/20 06:51 Order name: NT PRO-BNP; Complete Time: 08:58 [facility] 05/20 06:51 Order name: PT-INR; Complete Time: 08:30 [facility] 05/20 06:51 Order name: Troponin (emerg Dept Use Only); Complete Time: 08:58 [facility] 05/20 06:51 Order name: Lipase; Complete Time: 08:58 [facility] 05/20 06:51 Order name: SARS-COV-2 RT PCR (Document "Date of Onset" if Symptomatic); Complete Time: [facility] 09:17 05/20 06:53 Order name: Urine Culture [facility] 05/20 11:26 Order name: Urine Dipstick-Ancillary; Complete Time: 11:27 [facility] 05/20 11:37 Order name: Comprehensive Metabolic Panel [facility] 05/20 11:37 Order name: Comprehensive Metabolic Panel [facility] 05/20 11:37 Order name: CBC with Automated Diff [facility] 05/20 06:51 Order name: XRAY Chest (1 view); Complete Time: 12:14 [facility] 05/20 06:51 Order name: EKG; Complete Time: 06:52 [facility] 05/20 06:51 Order name: Cardiac monitoring; Complete Time: 07:07 [facility] 05/20 06:51 Order name: EKG - Nurse/Tech; Complete Time: 07:07 [facility] 05/20 06:51 Order name: IV Saline Lock; Complete Time: 07:07 [facility] 05/20 06:51 Order name: Labs collected and sent; Complete Time: 07:07 [facility] 05/20 06:51 Order name: O2 Per Protocol; Complete Time: 07:07 [facility] 05/20 06:51 Order name: CT Head C Spine; Complete Time: 08:01 [facility] 05/20 11:37 Order name: NPO EDMS 05/20 11:37 Order name: CBC with Automated Diff EDMS 05/20 06:51 Order name: O2 Sat Monitoring; Complete Time: 07:07 [facility] 05/20 06:51 Order name: Urine Dipstick-Ancillary (obtain specimen); Complete Time: 11:53 yobani EC:45 Rate is 60 beats/min. Rhythm is regular. QRS [place] is Normal. VT interval is normal at kb 166 msec. QRS interval is normal at 92 msec. QT interval is normal at 474 msec. Administered Medications: 06:47 Drug: Ativan (LORazepam) 2 mg Route: IVP; Site: left antecubital; as6 08:51 Follow up: Response: No adverse reaction; Marked relief of symptoms bp 06:53 Drug: Keppra (levETIRAcetam) 1000 mg Route: IV; Rate: per protocol; Site: left as6 antecubital; 07:15 Follow up: IV Status: Completed infusion; IV Intake: 100ml bp 07:15 Drug: NS 0.9% 500 ml Route: IV; Rate: bolus; Site: right antecubital; bp 08:00 Follow up: IV Status: Completed infusion; IV Intake: 500ml bp 07:15 Drug: Pepcid (famotidine) 20 mg Route: IVP; Site: right antecubital; bp 10:16 Follow up: Response: No adverse reaction bp 09:15 Drug: NS 0.9% with KCl 40 mEq/L 1000 ml Route: IV; Rate: 125 ml/hr; Site: left bp antecubital; 13:58 Follow up: IV Status: Infusion continued upon admission bp 10:16 Not Given (pt somnolent): Potassium Chloride 40 mEq PO once bp Disposition Summary: 05/20/21 10:01 Hospitalization Ordered Hospitalization Status: Observation kb Provider: Bala Toussaint Location: Telemetry/MedSurg (observation) kb Condition: Stable kb Problem: new kb Symptoms: are unchanged kb Bed/Room Type: Standard Room Assignment: 201(05/20/21 12:34) eb Diagnosis - Chest pain, unspecified kb - Hypokalemia kb - Epileptic seizures related to external causes, not intractable kb Forms: - Medication Reconciliation Form kb - SBAR form kb Addendum: 05/22/2021 12:49 Co-signature as Attending Physician, Luis Gusman MD I agree with the assessment and c trujillo plan of care. Signatures: Dispatcher [employer] Suze Flores, CHECK EXAMINER-C CHECK EXAMINER-Luis Beasley MD MD cha Peltier, Brian, RN RN Anna Harris Ashby, RN RN as6 Corrections: (The following items were deleted from the chart) 05/20 12:34 10:01 sandro pino
[2021-05-20 11:26] LABS: Urine Blood Negative (Negative); Urine Glucose Negative (Negative); Urine Protein Negative (Negative); Urine pH 5.5 (5.0-7.0)
--- NOTE | 2021-05-20 11:46 | P.HP ---
Certification for Inpatient Patient admitted to: Observation With expected LOS: <2 Midnights Practitioner: I am a practitioner with admitting privileges, knowledge of patient current condition, hospital course, and medical plan of care. Services: Services provided to patient in accordance with Admission requirements found in Title 42 Section 412.3 of the Code of Federal Regulations Patient History Date of Service: 05/20/21 Reason for admission: Seizures and hypokalemia History of Present Illness: Patient is 61 years of age currently unresponsive she was given some dose of b enzodiazepines apparently has a history of seizures she ran out of her medication patient had a seizure at work currently stable unresponsive unable to obtain any further information apparently she was alert on admission discussed with the admitting physician - Past Medical/Surgical History -: Seizures Review of Systems is unable to be obtained Physical Examination - Vital Signs Temperature: 98.6 F Blood Pressure: 142/82 Pulse: 64 Respirations: 12 Pulse Ox (%): 100 - Physical Exam General: Unresponsive Neck: Supple Respiratory: Clear to auscultation bilaterally Cardiovascular: No edema, Regular rate/rhythm, Normal S1 S2 Gastrointestinal: Normal bowel sounds, Soft and benign Musculoskeletal: No clubbing, No swelling - Studies Laboratory Data (last 24 hrs) 05/20/21 08:12: PT 11.3, INR 0.98 05/20/21 08:12: WBC 8.40, Hgb 11.9 L, Hct 35.1 L, Plt Count 484 H 05/20/21 08:12: Sodium 134 L, Potassium 2.4 L*, BUN 38 H, Creatinine 1.68 H, Glucose 84, Magnesium 2.9 H, Total Bilirubin 0.2, AST 19, ALT 21, Alkaline Phosphatase 97, Lipase 156 Assessment and Plan - Problems (Diagnosis) (1) Seizures Current Visit: Yes Status: Acute Plan: Patient has a history of seizures ran out of her medication had a seizure at work came here to the hospital she was given 1 dose of Keppra 1000 mg in addition to some Ativan 2 mg IV currently patient is stable patient has mild hypokalemia renal insufficiency may be volume depleted continue with IV fluid potassium replacement protocol has been ordered chest x-ray clear CT of the head and neck is also negative Discharge Plan: Home Plan to discharge in: 24 Hours - Advance Directives Does patient have a Living Will: No Does patient have a Durable POA for Healthcare: No
--- NOTE | 2021-05-20 11:58 | RAD REPORT ---
EXAM DESCRIPTION: RAD - Chest Single View - 05/20/2021 7:06 am CLINICAL HISTORY: COUGH Chest pain. COMPARISON: No comparisons FINDINGS: Portable technique limits examination quality. Interstitial lung markings are slightly prominent which is nonspecific but can be seen in a mild archie l infection. The heart is normal in size. No displaced fractures.
[2021-05-20] MEDS ORDERED: NA CHLORIDE 0.9% 1,000 ML IV SCH (12:00)
[2021-05-20 14:56] VITALS: BMI 29.5
[2021-05-20] MEDS ORDERED: INFLUENZA VACCINE (for 6+ mo) 0.5 ML DOSE IMVAC ONE (16:00)
[2021-05-20] MEDS ORDERED: PNEUMOCOCCAL VACCINE 0.5 ML IMVAC ONE (16:00)
[2021-05-20] MEDS ORDERED: levETIRAcetam 500 MG in NA CHLORIDE 0.9% 100 ML IV SCH (21:00)
[2021-05-20] MEDS ORDERED: POTASSIUM CL SA 10 MEQ TAB PO ONE (23:27)
[2021-05-20] MEDS: PREGABALIN 150 MG CAP PO SCH (23:58)
[2021-05-21] MEDS: KCL IV SCH ×4 (03:36→09:59)
[2021-05-21] MEDS: [UNRECOGNIZED DRUG - OTHER] IV SCH ×4 (03:36→09:59)
[2021-05-21 05:10] LABS: Absolute Lymphocytes (CBC) 2.5 K/uL (0.7-4.9); Hematocrit 35.5 % (36.0-45.0); Lymphocytes % 38.1 % (15.3-44.8); MPV 6.8 fL (7.6-11.3); RBC Red Blood Cell Count 4.04 M/uL (3.86-4.86)
[2021-05-21 05:27] LABS: Bilirubin Total 0.2 mg/dL (0.2-1.0); Magnesium 2.6 mg/dL (1.8-2.4); Potassium 3.4 mmol/L (3.5-5.1); Protein, Total 7.2 g/dL (6.4-8.2)
[2021-05-21] MEDS ORDERED: POTASSIUM CL SA 10 MEQ TAB PO ONE (05:38)
[2021-05-21] MEDS: LORazepam 2 MG/ML VIAL IV PRN (05:47)
--- NOTE | 2021-05-21 06:14 | P.PN ---
Date of Service: 05/21/21 Subjective: Patient feels a little bit better this morning. Still sleepy, not thinking completely clearly/slow to answer Loaded with Keppra yesterday. States she ran out of Keppra weeks ago. Lost insurance a year ago, and has not found a new neurologist. Ran out of prescription No seizure activity since admission States she also takes gabapentin and Lyrica, but not for seizures ROS: 10 point ROS as noted above, otherwise negative Physical exam GEN: Alert, orientedx3, slow to answer, loses train of thought HEENT: Normal conjunctiva, sclera anicteric CV: Regular rate and rhythm, no edema Pulm: Nonlabored respirations on room air ABD: Soft, nontender, nondistended Integumentary: No rashes Neuro: moves all extremities, PERLL, slow to respond, drowsy Problem List Breakthrough seizure with history of seizures (grand mal) Chronic pain Scoliosis History of seizures, ran out of her medication a few weeks ago, lost insurance and has not found a new neurologist Loaded with 1000 mg of Keppra in the ED yesterday and IV Ativan, which made the patient less responsive/aware More awake/alert this morning Continue Keppra, Ativan as needed Neurology consulted CT head negative Continue IV fluids, potassium replacement Full liquid diet, advance as tolerated Seizure precautions Code: full Dispo: Anticipate DC home in ~24 hours Time Spent Managing Pts Care (In Minutes): 35
[2021-05-21] MEDS ORDERED: levETIRAcetam 500 MG in NA CHLORIDE 0.9% 100 ML IV SCH (09:00)
[2021-05-21] MEDS ORDERED: NS KCL 20MEQ 1,000 ML IV ONE (09:59)
[2021-05-21] MEDS: BACLOFEN 10 MG TAB PO SCH ×3 (10:27→22:08)
[2021-05-21] MEDS: NICOTINE 21 MG/PAT TD SCH (15:59)
[2021-05-21] MEDS: GABAPENTIN 400 MG CAP PO SCH ×2 (18:11→22:03)
[2021-05-21] MEDS: levETIRAcetam 500 MG TAB PO SCH (21:00)
[2021-05-21] MEDS: PREGABALIN 150 MG CAP PO SCH (22:04)
--- NOTE | 2021-05-22 00:35 | CON ---
Reason For Consultation: Consultation called because of seizures. History Of Present Illness: Ms. Rudd is a 61-year-old right-handed patient reported long history of seizures who has been poorly compliant with her antiepileptic medication, Keppra, which s he says is up to 1000 mg 3 times daily. She said due to running out of money and not have the medica tion about 3 days prior to a seizure at work, she had stopped the Keppra. There was a reported seizu re at work with generalized shaking all over, and there was no incontinence. The seizure occurred at work in the morning, was witnessed by coworkers. She was sitting when the event occurred. She came to [facility]. Her workup included a trauma series involving her head and cervical spine, which showed no acute ischemic or hemorrhagic change. She was loaded with Keppra and replaced on a 1 000 mg 3 times daily, which is now oral. She has also been on Lyrica 150 mg twice daily. She is see n in the ICU. Since the load of Keppra, the patient has had no additional seizures. She did not get an EEG or brain MRI. She is from out of town and is followed by a primary care physician who refill s the medications. It should be noted, she is also on gabapentin 800 mg every 6 hours. Past Medical History: As noted. Allergies: LATEX, PROMETHAZINE, AVELOX, AND MORPHINE. Social History: Currently a smoker, and occasional alcohol use. Family History: Noncontributory. Review of Systems: She denies any recent fevers, chills, nausea, vomiting, myalgias, arthralgias, rash, headache, weight change, and active psychiatric issues. Physical Examination: Vital Signs: Blood pressure 108/64, pulse 78, respiratory rate 16, temperature 99.2. Oxygen saturat ion 100% on room air. Weight 167 pounds, height 5 feet 3 inches, BMI 29.6. General: Ms. Rudd is resting in bed. She says she is ready to be discharge. HEENT: She is normocephalic, atraumatic. Sclerae anicteric. Oropharynx is pink and moist. Neck: Supple. Chest: Clear. Heart: Regular. Extremities: Show no significant edema, cyanosis, or clubbing. Neurologic: She is alert and oriented to situation, place, and person. Follows commands appropriate ly. Cranial nerves show no focal deficits. On motor exam, no focal deficit in upper and lower extre mities. Sensory exam, no sensory deficit. Reflexes symmetric. Coordination is slow, but intact in upper and lower extremities. She is in ICU bed, was not isolated, and was not ambulatory. Laboratory Studies: Complete blood count with differential is essentially unremarkable except for sl ightly low hemoglobin at 11.8. Coagulation panel is normal. Chemistries on admission on the , p otassium was low at 2.4, now corrected to 5.0. Creatinine was elevated to 1.68 consistent with dehyd ration, now corrected to 0.81 after hydration. Her magnesium was slightly elevated at 2.9, now is 2. 6, otherwise liver function studies are normal. Urinalysis was unremarkable. COVID-19 test is negat marcela. Chest x-ray showed interstitial lung markings slightly prominent, may be seen in mild viral inf ection. Assessment: Ms. Rudd is a 61-year-old patient with longstanding epilepsy who was out of her medica tions and has likely had withdrawal seizure. She is now back on multiple medications for seizures an d does not have additional seizures. She did have significant electrolyte abnormalities, which may be a contributing factor to seizures. Plan: 1.Continue all medications as indicated. 2.Continue with potassium supplementation, and this may require a recheck within a week of discharge . 3.After discharge, she may follow up in Dr. Erazo's clinic within a month and may have an EEG and brain MRI done as indicated. ELLEN/AURY Voice ID: [id number] Report ID: [id number]
[2021-05-22] MEDS ORDERED: D50W 25 GM/50 ML SYRINGE IV ONE (00:53)
[2021-05-22] MEDS: LORazepam 2 MG/ML VIAL IV PRN ×2 (01:01→05:42)
[2021-05-22 05:20] LABS: Magnesium 2.4 mg/dL (1.8-2.4); Potassium 3.9 mmol/L (3.5-5.1)
[2021-05-22] MEDS ORDERED: POTASSIUM CL SA 10 MEQ TAB PO ONE (06:41)
[2021-05-22] MEDS: GABAPENTIN 400 MG CAP PO SCH ×2 (07:11→11:57)
[2021-05-22] MEDS: BACLOFEN 10 MG TAB PO SCH (08:22)
[2021-05-22] MEDS: levETIRAcetam 500 MG TAB PO SCH (08:22)
[2021-05-22] MEDS: PREGABALIN 150 MG CAP PO SCH (08:22)
[2021-05-22] MEDS: NICOTINE 21 MG/PAT TD SCH (08:23)
[2021-05-22 08:54] VITALS: O2SAT 98
[2021-05-22] MEDS ORDERED: VENLAFAXINE HCL XR 75 MG CAP PO SCH (09:24)
[2021-05-22] MEDS: PANTOPRAZOLE 40MG TABLET PO SCH ×2 (09:24→10:09)
[2021-05-22] MEDS ORDERED: HOME MED 1 EA UNK (Gabapentin [Neurontin] 800 MG Tablet) PO SCH (09:30)
[2021-05-22 09:41] VITALS: TEMP 97
--- NOTE | 2021-05-22 12:33 | P.DS ---
Admission Date: 05/20/21 Discharge Date: 05/22/21 Disposition: ROUTINE DISCHARGE Discharge Condition: FAIR Reason for Admission: Seizures and hypokalemia Consultations: Neurology-Dr. Erazo. - Problems (1) Anxiety disorder Current Visit: Yes Status: Acute (2) Depression Current Visit: Yes Status: Acute (3) Seizures Current Visit: Yes Status: Acute Brief History of Present Illness: 61-year-old woman with a history of seizure disorder was brought to the emergency department unresponsive. Patient is reported to have had a seizure at work. There is a report of noncompliance with her antiseizure medications. Patient was not able to provide any history. Her potassium level was not noted to be low. She was given a loading dose of Keppra IV, potassium replacement and admitted for further evaluation and management. Hospital Course: Patient admitted to the medical floor and put on Keppra 1000 mg 3 times daily which is a dose she takes at home she is also on gabapentin and baclofen. She became fully awake and did not experience any more seizure episodes. Patient seen in consultation by neurology who recommended to continue home medications, no changes recommended given patient was noncompliant with her medications and the seizure episode likely related to noncompliance. Her mental status was stable on her home dose antiepileptics and other psychotropic medications. Dr. Erazo recommended follow-up with him in the office within 1 month. EEG done and results to be followed by Dr. Erazo. He also recommend MRI of the brain as an outpatient. Patient is clinically stable for discharge. Vital Signs/Physical Exam: Temp Pulse Resp BP Pulse Ox 97.0 F 74 17 103/73 96 05/22/21 08:00 05/22/21 09:00 05/22/21 09:00 05/22/21 09:00 05/22/21 09:00 General: Alert, In no apparent distress, Oriented x3 HEENT: PERRLA, Mucous membr. moist/pink, EOMI Neck: JVD not distended Respiratory: Clear to auscultation bilaterally, Normal air movement Cardiovascular: No edema, Regular rate/rhythm, Normal S1 S2 Gastrointestinal: Normal bowel sounds, Soft and benign, Non-distended, No tenderness Musculoskeletal: No swelling Integumentary: No rashes, No erythema Neurological: Normal gait, Normal speech, Normal strength at 5/5 x4 extr, Cranial nerves 3-12 intact Laboratory Data at Discharge: WBC 6.60 K/uL (4.3-10.9) D 05/21/21 03:58 Hgb 11.8 g/dL (12.0-15.0) L 05/21/21 03:58 Hct 35.5 % (36.0-45.0) L 05/21/21 03:58 Plt Count 518 K/uL (152-406) H 05/21/21 03:58 PT 11.3 SECONDS (9.5-12.5) 05/20/21 08:12 INR 0.98 05/20/21 08:12 Sodium 144 mmol/L (136-145) 05/22/21 04:51 Potassium 3.9 mmol/L (3.5-5.1) 05/22/21 04:51 BUN 30 mg/dL (7-18) H 05/22/21 04:51 Creatinine 0.82 mg/dL (0.55-1.3) 05/22/21 04:51 Glucose 79 mg/dL (74-106) 05/22/21 04:51 Magnesium 2.4 mg/dL (1.8-2.4) 05/22/21 04:51 Total Bilirubin 0.2 mg/dL (0.2-1.0) 05/21/21 03:58 AST 15 U/L (15-37) 05/21/21 03:58 ALT 19 U/L (12-78) 05/21/21 03:58 Alkaline Phosphatase 92 U/L (45-117) 05/21/21 03:58 Lipase 156 U/L (73-393) 05/20/21 08:12 Home Medications: Acetaminophen [Tylenol Extra Strength] 1,000 mg PO Q8H PRN #30 05/22/21 Baclofen 20 mg PO TID #90 05/22/21 Furosemide [Lasix*] 40 mg PO DAILY #30 tab 05/22/21 Gabapentin [Neurontin] 800 mg PO Q6H #120 05/22/21 Ibuprofen 800 mg PO Q8HP #30 05/22/21 Levetiracetam [Keppra] 1,000 mg PO TID #90 05/22/21 Multivit-Min/Iron/Folic/Lutein [Centrum Silver Women Tablet] 1 each PO DAILY #30 05/22/21 Pantoprazole [Protonix Tab*] 40 mg PO BID #60 tab 05/22/21 Potassium Chloride [Klor-Con] 40 meq PO DAILY #60 packet 05/22/21 Pregabalin [Lyrica] 150 mg PO TID #90 05/22/21 Triamterene/Hydrochlorothiazid [Maxzide 75 mg-50 mg Tablet] 1 each PO DAILY #30 05/22/21 Venlafaxine HCl [Effexor XR] 150 mg PO TID #90 05/22/21 New Medications: Ibuprofen 800 mg PO Q8HP #30 Baclofen 20 mg PO TID #90 Multivit-Min/Iron/Folic/Lutein [Centrum Silver Women Tablet] 1 each PO DAILY #30 Venlafaxine HCl [Effexor XR] 150 mg PO TID #90 Levetiracetam [Keppra] 1,000 mg PO TID #90 Potassium Chloride [Klor-Con] 40 meq PO DAILY #60 packet Furosemide [Lasix*] 40 mg PO DAILY #30 tab Pregabalin [Lyrica] 150 mg PO TID #90 Triamterene/Hydrochlorothiazid [Maxzide 75 mg-50 mg Tablet] 1 each PO DAILY #30 Gabapentin [Neurontin] 800 mg PO Q6H #120 Pantoprazole [Protonix Tab*] 40 mg PO BID #60 tab Acetaminophen [Tylenol Extra Strength] 1,000 mg PO Q8H PRN #30 PRN Reason: sciatic pain Physician Discharge Instructions: Follow up with an Internal Medicine Physician of your choice: CHARISSE ACOSTA, SAMUEL [address] [place] [address] [place] [address] FABIO ACOSTA, ROSS [address] [place] [address] JESSICA DIAZ MD [address] [place] [address] HUMBERTO ACOSTA, MERCEDES [address] [facility] [address] [place], [place] [address] ELIDA ACOSTA, ESTEE [address] [place] [address] SONJA ACOSTA, MOUIN [address] [place] [address] Follow up with a Family Medicine Physician of your choice: TRINITY ACOSTA, ROSA T [address] [place] [address] RHONDA Gomes O, THERESA [address] [address] FAITH ACOSTA, KARSON Whittaker [address] [facility], [facility] [address] [place] [address] DERIC ACOSTA, REANNA [address] [place] [address] MARIBELL ACOSTA, MARITA [address] [facility], [address] [place] [address] SAPPHIRE ACOSTA, ZURI Coffey [address] [facility], [facility] [place] [address] OCTAVIO ACOSTA, YUNIOR K [address] [facility], [facility] [place] [address] KAVITA SUTTON DO LY [address] [facility], [address] [place] [address] CATHY GARCIAP, MINDY K [address] [facility], [address] [place] [address] ALENA SAMUEL JOHANN [address] [facility], [address] [place] [address] \ Do not drive until you are cleared by the Neurologist. You will need to follow with Neurology-Dr. Erazo within 1 month. Diet: AHA Activity: Seizure precautions Followup: NONE,NONE [Primary Care Provider] - Adrian Erazo MD [ASSOCIATE-ACTIVE - CAN ADMIT] - (1 month Please call [phone] for an appointment.) Time spent managing pt's care (in minutes): 34
[2021-05-22 14:11] VITALS: BP 121/69
--- NOTE | 2021-05-24 08:18 | EEG ---
CHART: [id number] TEST ID#: [id number] DATE OF STUDY: 05/22/2021 THE EEG WAS RECORDED PORTABLE IN THE ICU ON A 17 CHANNEL MACHINE. ELECTRODES WERE APPLIED IN THE USUAL MANNER USING THE INTERNATIONAL 10-20 SYSTEM. THE WAKING BACKGROUND RHYTHM IN THIS RECORD CONSISTS OF FAIRLY WELL DEVELOPED AND FAIRLY WELL ORGANIZED WAVES OF 8 HZ., MAXIMAL IN THE POSTERIOR HEAD REGIONS WHICH ATTENUATE NORMALLY WITH EYE OPENING. MODERATE VOLTAGE 1.5-3 HZ ACTIVITY IS EXPRESSED OCCASIONALLY IN THE FROTNAL REGIONS. EXCRESS LOW-VOLTAGE 15-20 HZ ACTIVITY IS EXPRESSED IN ALL REGIONS. THERE ARE NO FOCAL OR LATERALIZING FEATURES. NO EPILEPTIFORM ACTIVITY APPEARS. SLEEP OCCURRED NATURALLY. IN ADDITION NORMAL SLEEP PATTERNS ARE PRESENT. HYPERVENTILATION WAS NOT PERFORMED. PHOTIC STIMULATION PRODUCED POOR DRIVING BILATERALLY. IMPRESSION: THIS IS A MILDLY ABNORMAL EEG DUE TO A MILDLY SLOW BACKGROUND AND POSTERIOR DOMINANT RHYTHM. THESE ARE NON-SPECIFIC FINDINGS INDICATING THE PRESENCE OF A MILD DIFFUSE DISTURBANCE IN CEREBRAL ACTIVITY. THE PRESENCE IF EXCESS FAST (BETA) ACTIVITY IS LIKELY A MEDICATION EFFECT.
== END 2021-05-22 14:00 | disposition home or self-care (01) | DRG 101 ==
LOC: ER 06:47 → ERHOLD 11:35 → 2ND 13:17 → 3RD-ICU 20:15 → OBSVTOIN 20:50
PROVIDERS: ADMIT Internal Medicine Sleep Medicine; ATTEND Internal Medicine
DX: R56.9 Unspecified convulsions (principal); N17.9 Acute kidney failure, unspecified; E87.6 Hypokalemia; G89.29 Other chronic pain; F41.9 Anxiety disorder, unspecified; F32.A Depression, unspecified; M41.9 Scoliosis, unspecified; F17.210 Nicotine dependence, cigarettes, uncomplicated; Z88.5 Allergy status to narcotic agent; Z88.8 Allergy status to other drugs, medicaments and biological substances; Z88.1 Allergy status to other antibiotic agents; Z91.14 Patient's other noncompliance with medication regimen; Z91.040 Latex allergy status; Z20.822 Contact with and (suspected) exposure to COVID-19
CPT/HCPCS: 36415; 70450; 71045; 72125; 80048; 80053; 80076; 81003; 82947; 83690; 83735; 83880; 84132; 84484; 85025; 85610; 87086; 87088; 93005; 95819; 99285; G0378; J1953; J3480; J7040; U0003

== ENCOUNTER 2021-05-25 16:44 | Emergency (ER) | payer SELFPAY ==
--- OUTSIDE RECORDS SUMMARY | 2021-05-25 16:47 | XMS REPORT | Continuity of Care Document ---
:1960 Author Organization [facility] t Address [address] [place] [address] Care Team Providers Name Role Phone Daysi_F Attending Clinician Unavailable HERMELINDO Attending Clinician Unavailable TERRELL Attending Clinician Unavailable VALDO Attending Clinician Unavailable Martha Admitting Clinician Unavailable Payers Payer Name Policy Type Policy Number Effective Date Expiration Date Jose G SMALL [id number] Problems Condition Condition Condition Status Onset Resolution [...] Active Uni vers pain pain [facility] [place] [facility] ans Open Open Problem Active Univers [facility] it y of ris type ris type [place] IV physeal IV physeal Ph ysici fracture [...] Source Name Name influenza, influenza, 2018-02-02 Completed [place] injectable, injectable, 00:00:00 Medical Grou p quadrivalent quadrivalent Tdap Tdap 2014-05-26 Completed [place] 00:00:00 [facility] Vital Signs Vital Name Observation Time Observation Value Comments Source BP Diastolic 2019-12-06 00:00:00 73 mm[Hg] [facility] Height 2019-12-06 00:00:00 66 [in_i] [facility] BMI (Body Mass 2019-12-06 00:00:00 21.6 kg/m2 [facility]) Group BP Systolic 2019-12-06 00:00:00 113 mm[Hg] [facility] Body Weight 2019-12-06 00:00:00 2145.6 [facility]oz_av[facility] BP Diastolic 2019-04-07 00:00:00 75 mm[Hg] [facility] Height 2019-04-07 00:00:00 66 [in_i] [facility] BMI (Body Mass 2019-04-07 00:00:00 22.8 kg/m2 [facility] Group BP Systolic 2019-04-07 00:00:00 112 mm[Hg] [facility] Body Weight 2019-04-07 00:00:00 2256 [oz_av] [facility] BP Diastolic 2019-03-10 00:00:00 77 mm[Hg] [facility] Height 2019-03-10 00:00:00 66 [in_i] [facility] BMI (Body Mass 2019-03-10 00:00:00 21.8 kg/m2 [facility] Group BP Systolic 2019-03-10 00:00:00 120 mm[Hg] [facility] Body Weight 2019-03-10 00:00:00 2160 [oz_av] [facility] BP Diastolic 2018-08-11 00:00:00 60 mm[Hg] [facility] Height 2018-08-11 00:00:00 66 [in_i] [facility] BMI (Body Mass 2018-08-11 00:00:00 21.5 kg/m2 [facility] BP Systolic 2018-08-11 00:00:00 98 mm[Hg] [facility] Body Weight 2018-08-11 00:00:00 2128 [oz_av] [facility] Procedures Procedure Date / Time Performing Clinician Source Performed [U] XRAY SPINE CERVICAL 2 2019-07-26 00[facility] [id number] Physicians [U] XRAY FOOT MIN 3 S 2019-05-04 00:00[facility] [address] [facility] [U] XRAY KNEE 1 OR 2 S 2019-05-04 00:00:00 Uni [facility] LEFT [id number] Physicians Physical Therapy 2019-04-27 00:00:00 [facility] Physicians [U] XRAY SPINE CERVICAL 2 2019-04-26 00:00:00 Un [facility] OR 3 [facility] [address] Physicians [U] XRAY SPINE CERVICAL 2 2019-03-09 00:00:00 Un [facility] OR 3 [facility] [address] Physicians MA Bone Density Scan [id number] 2019-02-12 00:00[facility] [U] XRAY KNEE 1 OR 2 [facility] 2019-02-12 00:00:00 [facility] LEFT [address] Physicians DEXA Bone Density with WB 2019-02-10 00:00:00 Un [facility] Composition DX Physicians [U] XRAY SPINE CERVICAL 2 2019-02-08 00:00:00 Un [facility] OR 3 [facility] [address] Physicians Tibial Arthroscopy/surgery 2018-12-26 00:00:00 [facility] Primary Fusion of Cervical 2018-12-24 00:00:00 [facility] Gastric Bypass 2012-05-26 00:00:00 [facility] Colonoscopy 2011-05-26 00:00:00 [facility] Tonsillectomy [facility] Hyste[facility] Plan of Care Planned Activity Planned Date Details Comments Source Diagnostic Test 2019-04-07 BMP, serum or [place] [facility] Pending 00:00:00 plasma [code = Group BMP, serum or plasma] Encounters Start End Encounter Admission Attending Care Care Encounter Source Date/Time Date/Time Type Type Clinicians Facility Department ID 2020-06-29 2020-06-29 Outpatient Zunfransicoa_F [facility] [id number] [place] 01:08:00 01:08:00 0204 [facility] 2020-04-27 2020-04-27 Outpatient Zuniga_F [facility] MMG [id number] [place] 01:04:00 01:04:00 1203 [facility] 2020-04-12 2020-04-12 Outpatient Zuniga_F MM[facility] MMG [id number] [place] 02:32:00 02:32:00 1118 [facility] Group 2020-03-23 2020-03-23 Outpatient Zuniga_F MMG MMG [id number] [place] 01:04:00 01:04:00 1029 [facility] 2020-02-17 2020-02-17 Outpatient Zuniga_F MMG MMG [id number] [place] 03:07:00 03:07:00 0924 [facility] 2020-02-16 2020-02-16 Outpatient Zuniga_F MMG MMG [id number] [place] 11:05:00 11:05:00 0923 [facility] 2020-02-14 2020-02-14 Outpatient Zuniga_F MMG MMG [id number] [place] 09:30:00 09:30:00 0921 [facility] 2020-02-08 2020-02-08 Outpatient Zuniga_F MMG MMG [id number] [place] 05:04:00 05:04:00 0915 [facility] 2020-01-12 2020-01-12 Outpatient Zuniga_F MMG MMG [id number] [place] 12:39:00 12:39:00 0819 [facility] Group 2019-12-08 2019-12-08 Outpatient Zuniga_F MMG MMG [id number] [place] 12:57:00 12:57:00 0715 [facility] 2019-12-06 2019-12-06 Outpatient Zuniga_F MMG MMG [id number] [place] 08:05:00 08:05:00 0713 Medical [facility] 2019-12-06 2019-12-06 [place] - [id number] M [facility] 00:00:00 00:00:00 S[facility] Medical CURTAIN STITCHER: [address], [place] [address] , Ph. 2019-07-27 2019-07-27 [facility] [id number] Univers 11:00:00 11:00:00 t; HIRO CASAREZ, at [facility] HIRO Morton M.D. Orthopedic Physi ci and Spine [facility] 2019-06-25 2019-06-25 Outpatient Zuniga_F [facility] [id number] [place] 12:04:00 12:04:00 0131 [facility] 2019-05-10 2019-05-10 [facility] [id number] Univers 10:30:00 10:30:00 t; LINA TEJADA PA Trauma ity of [place] [facility] 2019-04-27 2019-04-27 [facility] [id number] Univers 09:30:00 09:30:00 t; HIRO CASAREZ, at [facility] HIRO Morton M.D. [facility] 2019-04-07 2019-04-07 [facility] [place] - [id number] [facility] 00:00:00 00:00:00 Noman Echeverria Medical MD: [address], [place] [address] , Ph. 2019-03-29 2019-03-29 [facility] [id number] Univers 10:30:00 10:30:00 t; LINA TEJADA PA Trauma ity of [place] [facility] 2019-03-15 2019-03-15 [facility] Ignacio [facility] [id number] Univers 10:45:00 10:45:00 t; LINA TEJADA PA ity of [place] [facility] 2019-03-11 2019-03-11 [facility] [id number] Univers 12:40:00 12:40:00 t; WES at [facility] Rosa LYLE [place] WES, Orthopedic Ph ysici P.AAmber and Spine [facility] 2019-03-10 2019-03-10 [facility] [place] - [id number] [facility] 00:00:00 00:00:00 Noman Echeverria Medical MD: [address] [facility] [address], [place] [address] , Ph. 2019-02-15 2019-02-15 Appointmen [facility] TE[facility]ADA [facility] [id number] Univers 09:15:00 09:15:00 t; LINA TEJADA PA Trauma ity [place] [facility] 2019-02-10 2019-02-10 Appointmen [facility] L[facility] [id number] [facility] 15:20:00 15:20:00 t; WES [facility] Rosa LYLE [place] WES, Orthopedic Ph jennifer P.AAmber and Spine [facility] 2018-08-11 2018-08-11 [facility] [place] - [id number] [place] 00:00:00 00:00:00 Noman Echeverria Medical MD: [address] [facility] [address], [place] [address] , Ph. Results Test Description Test Time Test Comments Results Result Sour e Comments [U] XRAY SPINE 2019-04-27 Images University of CERVICAL 2 OR 3 09:42:00 acquired, not [place] [facility] [id number] reported on Physicians this accession number. Basic [...] code = calcium level) 9.0 mg/dL 8.6-10.0 [facility][U] XRAY HAND MIN 3 [facility] RIGHT [id number] 12:19:00 Images acquired, not reported on this accession number.[facility]icians[U] XRAY FOOT MIN 3 VWS RIGHT [id number] 10:36:00Images acquired, not reported on this accession number.[facility][U] XRAY KNEE 1 OR 2 VWS LEFT [id number] 10:36:00Images acquired, not reported on this accession number.[facility] W Auto Differential panel - [id number] 10:50:00 Test Item Value Reference Range Interpretation Comments white blood count (test code = 5.6 K/uL 4.0-11.5 white blood count) red blood count (test code = red 5.09 M/uL 3.80-5.20 blood count) hemoglobin (test code = 14.2 g/dL 10.5-15.7 hemoglobin) hematocrit (test code = 45.1 % 34.0-50.0 hematocrit) Erythrocyte mean corpuscular 88.6 fL 86-100 volume [Entitic volume] (test code = 56163-0) mean corpuscular hemoglobin (test 27.9 pg 26.2-33.4 [...] 44.4-80.1 leukocytes in Blood (test code = 13239-6) Granulocytes Immature [#/volume] 0.0 K/uL 0.0-0.03 in Blood (test code = 68379-3) lymphocyte% (test code = 31.8 % 10.0-50.0 lymphocyte%) mono % (test code = mono %) 7.9 % 3.6-12.0 eos % (test code = eos %) 2.1 % 0.0-5.4 Basophils/100 leukocytes in 1.3 % 0.1-1.2 H Unspecified specimen (test code = 78799-1) Neutrophils.band form [#/volume] 3.17 K/uL 1.56-6.13 in Blood (test code = 25840-0) Lymphocytes [#/volume] in 1.8 K/uL 1.18-3.74 Unspecified specimen by Automated count (test code = 02912-8) mono # (test code = mono #) 0.44 K/uL 0.24-0.86 eos # (test code = eos #) 0.12 K/uL 0.04-0.36 basophil # (test code = basophil 0.07 K/uL 0.01-0.08 #) NRBC% (test code = NRBC%) 0 /100 WBC 0-0.2 NRBC# (test code = NRBC#) 0 K/uL [facility], [id number] 10:50:00 NeutrophilsBandLymphocyteAtypical LymphMonocyteEosinophilBasophilPlatelet EstimatePlatelet MorphologyHypochromasiaMatagoGreene County HospitalBasic metabolic 2000 panel - Serum or [id number] 10:50:00 Test Item Value Reference Range Interpretation [...] code = calcium 9.2 mg/dL 8.6-10.0 level) [facility] W Auto Differential panel - [id number] 10:50:00 Test Item Value Reference Range Interpretation Comments white blood count (test code = 5.6 K/uL 4.0-11.5 white blood count) red blood count (test code = red 5.09 M/uL 3.80-5.20 blood count) hemoglobin (test code = 14.2 g/dL 10.5-15.7 hemoglobin) hematocrit (test code = 45.1 % 34.0-50.0 hematocrit) Erythrocyte mean corpuscular 88.6 fL 86-100 volume [Entitic volume] (test code = 00260-9) mean corpuscular hemoglobin (test 27.9 pg 26.2-33.4 [...] 44.4-80.1 leukocytes in Blood (test code = 66763-8) Granulocytes Immature [#/volume] 0.0 K/uL 0.0-0.03 in Blood (test code = 89953-0) lymphocyte% (test code = 31.8 % 10.0-50.0 lymphocyte%) mono % (test code = mono %) 7.9 % 3.6-12.0 eos % (test code = eos %) 2.1 % 0.0-5.4 Basophils/100 leukocytes in 1.3 % 0.1-1.2 H Unspecified specimen (test code = 11567-2) Neutrophils.band form [#/volume] 3.17 K/uL 1.56-6.13 in Blood (test code = 49731-5) Lymphocytes [#/volume] in 1.8 K/uL 1.18-3.74 Unspecified specimen by Automated count (test code = 84587-0) mono # (test code = mono #) 0.44 K/uL 0.24-0.86 eos # (test code = eos #) 0.12 K/uL 0.04-0.36 basophil # (test code = basophil 0.07 K/uL 0.01-0.08 #) NRBC% (test code = NRBC%) 0 /100 WBC 0-0.2 NRBC# (test code = NRBC#) 0 K/uL [facility], [id number] 10:50:00 NeutrophilsBandLymphocyteAtypical LymphMonocyteEosinophilBasophilPlatelet EstimatePlatelet MorphologyHypochromasiaMataMethodist Olive Branch HospitalBasic metabolic 2000 panel - Serum or [id number] 10:50:00 Test Item Value Reference Range Interpretation [...] code = calcium 9.2 mg/dL 8.6-10.0 level) [facility] W Auto Differential panel - [id number] 10:50:00 Test Item Value Reference Range Interpretation Comments white blood count (test code = 5.6 K/uL 4.0-11.5 white blood count) red blood count (test code = red 5.09 M/uL 3.80-5.20 blood count) hemoglobin (test code = 14.2 g/dL 10.5-15.7 hemoglobin) hematocrit (test code = 45.1 % 34.0-50.0 hematocrit) Erythrocyte mean corpuscular 88.6 fL 86-100 volume [Entitic volume] (test code = 52584-6) mean corpuscular hemoglobin (test 27.9 pg 26.2-33.4 [...] 44.4-80.1 leukocytes in Blood (test code = 71463-8) Granulocytes Immature [#/volume] 0.0 K/uL 0.0-0.03 in Blood (test code = 00778-8) lymphocyte% (test code = 31.8 % 10.0-50.0 lymphocyte%) mono % (test code = mono %) 7.9 % 3.6-12.0 eos % (test code = eos %) 2.1 % 0.0-5.4 Basophils/100 leukocytes in 1.3 % 0.1-1.2 H Unspecified specimen (test code = 20946-2) Neutrophils.band form [#/volume] 3.17 K/uL 1.56-6.13 in Blood (test code = 89157-5) Lymphocytes [#/volume] in 1.8 K/uL 1.18-3.74 Unspecified specimen by Automated count (test code = 92441-0) mono # (test code = mono #) 0.44 K/uL 0.24-0.86 eos # (test code = eos #) 0.12 K/uL 0.04-0.36 basophil # (test code = basophil 0.07 K/uL 0.01-0.08 #) NRBC% (test code = NRBC%) 0 /100 WBC 0-0.2 NRBC# (test code = NRBC#) 0 K/uL [facility], [id number] 10:50:00 NeutrophilsBandLymphocyteAtypical LymphMonocyteEosinophilBasophilPlatelet EstimatePlatelet MorphologyHypochromasiaTurning Point Mature Adult Care UnitBasi metabolic 2000 panel - Serum or [id number] 10:50:00 Test Item Value Reference Range Interpretation [...] code = calcium 9.2 mg/dL 8.6-10.0 level) [facility] W Auto Differential panel - [id number] 10:50:00 Test Item Value Reference Range Interpretation Comments white blood count (test code = 5.6 K/uL 4.0-11.5 white blood count) red blood count (test code = red 5.09 M/uL 3.80-5.20 blood count) hemoglobin (test code = 14.2 g/dL 10.5-15.7 hemoglobin) hematocrit (test code = 45.1 % 34.0-50.0 hematocrit) MCV [Entitic volume] (test code = 88.6 fL 86-100 78187-8) mean corpuscular hemoglobin (test 27.9 pg 26.2-33.4 [...] 44.4-80.1 leukocytes in Blood (test code = 54061-7) Immature granulocytes [#/volume] 0.0 K/uL 0.0-0.03 in Blood (test code = 30796-2) lymphocyte% (test code = 31.8 % 10.0-50.0 lymphocyte%) mono % (test code = mono %) 7.9 % 3.6-12.0 eos % (test code = eos %) 2.1 % 0.0-5.4 Basophils/100 leukocytes in 1.3 % 0.1-1.2 H Unspecified specimen (test code = 91866-0) Band form neutrophils [#/volume] 3.17 K/uL 1.56-6.13 in Blood (test code = 01451-1) Lymphocytes [#/volume] in 1.8 K/uL 1.18-3.74 Unspecified specimen by Automated count (test code = 80058-3) mono # (test code = mono #) 0.44 K/uL 0.24-0.86 eos # (test code = eos #) 0.12 K/uL 0.04-0.36 basophil # (test code = basophil 0.07 K/uL 0.01-0.08 #) NRBC% (test code = NRBC%) 0 /100 WBC 0-0.2 NRBC# (test code = NRBC#) 0 K/uL [facility]Different[facility], method unspecified - [id number] 10:50:00NeutrophilsBandLymphocyteAtypical LymphMonocyteEosinophilBasophilPlatelet EstimatePlatelet MorphologyHypochromasia [facility] UnitBasic metabolic 2000 panel - Serum or [id number] 10:50:00 Test Item Value Reference Range Interpretation [...] code = calcium 9.2 mg/dL 8.6-10.0 level) [facility][U] XRAY KNEE 1 OR 2 VWS LEFT [id number] 10:36:00 Images acquired, not reported on this accession number.[facility]
== END 2021-05-25 17:30 | disposition left against medical advice (07) ==
LOC: ER 16:44
DX: Z02.89 Encounter for other administrative examinations (principal)

== ENCOUNTER 2021-06-02 19:19 | Inpatient (IN) | payer OTHER, SELFPAY ==
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
[2021-06-02 22:16] LABS: Absolute Lymphocytes (CBC) 1.8 K/uL (0.7-4.9); Hematocrit 34.1 % (36.0-45.0); Lymphocytes % 27.4 % (15.3-44.8); MPV 6.8 fL (7.6-11.3); RBC Red Blood Cell Count 3.88 M/uL (3.86-4.86)
[2021-06-02 22:42] LABS: Potassium 2.5 mmol/L (3.5-5.1)
[2021-06-02] MEDS ORDERED: POTASSIUM CL SA 10 MEQ TAB PO ONE (23:26)
[2021-06-02] MEDS ORDERED: KCL 20 MEQ/100 mL IVPB 0 ML IV ONE (23:26)
[2021-06-02] MEDS ORDERED: NA CHLORIDE 0.9% 500 ML ONE (23:32)
[2021-06-02] MEDS ORDERED: POTASSIUM 25 MEQ EFFERV TAB ONE (23:48)
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
[2021-06-03] MEDS ORDERED: KCL 20 MEQ/100 mL IVPB 100 ML IV ONE (02:11)
[2021-06-03 03:15] LABS: Protime INR 0.99
[2021-06-03 03:26] LABS: ALT/SGPT 23 U/L (12-78); AST/SGOT 21 U/L (15-37); Albumin 2.6 g/dL (3.4-5.0); Alkaline Phosphatase 82 U/L (45-117); Bilirubin Direct < 0.1 mg/dL (0-0.2); Bilirubin Total 0.3 mg/dL (0.2-1.0); Protein, Total 6.4 g/dL (6.4-8.2)
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
[2021-06-03 05:53] VITALS: BMI 16.5
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
[2021-06-03 06:28] LABS: Absolute Lymphocytes (CBC) 2.3 K/uL (0.7-4.9); Hematocrit 30.2 % (36.0-45.0); Lymphocytes % 34.4 % (15.3-44.8); MPV 6.8 fL (7.6-11.3); RBC Red Blood Cell Count 3.45 M/uL (3.86-4.86)
[2021-06-03 06:51] LABS: ALT/SGPT 24 U/L (12-78); AST/SGOT 21 U/L (15-37); Albumin 2.5 g/dL (3.4-5.0); Alkaline Phosphatase 78 U/L (45-117); BUN Blood Urea Nitrogen 18 mg/dL (7-18); Bicarbonate 32 mmol/L (21-32); Bilirubin Total 0.3 mg/dL (0.2-1.0); Glucose Level 78 mg/dL (74-106); Potassium 3.5 mmol/L (3.5-5.1); Protein, Total 6.1 g/dL (6.4-8.2); Sodium Level 140 mmol/L (136-145); Thyroid Stimulating Hormone 0.552 uIU/mL (0.360-3.740); Troponin I < 0.02 ng/mL (0.0-0.045)
[2021-06-03] MEDS ORDERED: HOME MED 1 EA UNK (Gabapentin [Neurontin] 800 MG Tablet) PO SCH (07:00)
[2021-06-03] MEDS ORDERED: INFLUENZA VACCINE (for 6+ mo) 0.5 ML DOSE IMVAC ONE (09:00)
[2021-06-03] MEDS ORDERED: PNEUMOCOCCAL VACCINE 0.5 ML IMVAC ONE (09:00)
[2021-06-03] MEDS ORDERED: HOME MED 1 EA UNK (Levetiracetam [Keppra] 1,000 MG Tablet) PO SCH (09:00)
[2021-06-03] MEDS ORDERED: HOME MED 1 EA UNK (Baclofen [Baclofen] 20 MG Tablet) PO SCH (09:00)
[2021-06-03] MEDS: ENOXAPARIN 40 MG/0.4 ML SQ SCH (09:00)
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
[2021-06-03] MEDS ORDERED: NA CHLORIDE 0.9% 250 ML IV ONE (10:00)
[2021-06-03] MEDS: BACLOFEN 10 MG TAB PO SCH ×3 (10:42→21:57)
[2021-06-03] MEDS: MULTIVITAMIN TAB PO SCH (10:42)
[2021-06-03] MEDS: ONDANSETRON 4 MG/2 ML VIAL IV PRN ×2 (10:42→18:33)
[2021-06-03] MEDS: levETIRAcetam 500 MG TAB PO SCH ×3 (10:43→21:57)
[2021-06-03 10:59] LABS: Barbiturates NEGATIVE (NEGATIVE); Benzodiazepines NEGATIVE (NEGATIVE); Cocaine NEGATIVE (NEGATIVE); METHAMPHETAM NEGATIVE (NEGATIVE); Methadone NEGATIVE (NEGATIVE); Opiates NEGATIVE (NEGATIVE); Phencyclidine NEGATIVE (NEGATIVE); THC Cannibis POSITIVE (NEGATIVE)
[2021-06-03] MEDS ORDERED: BACLOFEN 10 MG TAB PO SCH (14:00)
--- NOTE | 2021-06-03 14:38 | RAD REPORT ---
EXAM DESCRIPTION: CT - Head Brain Wo Cont - 06/03/2021 2:12 pm CLINICAL HISTORY: Head injury status post fall COMPARISON: June 02, 2021 TECHNIQUE: Computed axial tomography of the head was obtained. IV contrast was not requested. All CT scans are performed using dose optimization technique as appropriate and may include automated exposure control or mA/KV adjustment according to patient size. FINDINGS: Left frontal scalp swelling. An intracranial bleed is not seen . The ventricles are normal in caliber. No extra-axial fluid collection is noted. Fluid within the sinuses/ mastoids is not seen. IMPRESSION: No acute intracranial abnormality is seen. If patient's symptoms persist MRI of the bra in would be recommended.
[2021-06-03] MEDS: GABAPENTIN 400 MG CAP PO SCH ×2 (14:59→18:33)
[2021-06-03] MEDS: TRAMADOL HCL 50 MG TAB PO PRN (15:00)
[2021-06-03 20:12] LABS: Urine Appearance CLEAR (Clear); Urine Bilirubin NEGATIVE (Negative); Urine Blood NEGATIVE (Negative); Urine Color YELLOW (Yellow); Urine Glucose NEGATIVE (Negative); Urine Protein NEGATIVE (Negative); Urine Urobilinogen 0.2 mg/dL (0.2-1.0); Urine pH 7.5 (5.0-7.0)
[2021-06-03 20:17] LABS: Urine Microscopic Reflex NO UMIC
[2021-06-04 05:17] LABS: Absolute Lymphocytes (CBC) 1.8 K/uL (0.7-4.9); Hematocrit 30.3 % (36.0-45.0); Lymphocytes % 33.6 % (15.3-44.8); RBC Red Blood Cell Count 3.43 M/uL (3.86-4.86)
[2021-06-04 05:26] LABS: Albumin 2.3 g/dL (3.4-5.0); Bilirubin Total 0.2 mg/dL (0.2-1.0); Magnesium 2.2 mg/dL (1.8-2.4); Potassium 3.6 mmol/L (3.5-5.1); Protein, Total 6.1 g/dL (6.4-8.2)
[2021-06-04] MEDS: GABAPENTIN 400 MG CAP PO SCH ×4 (06:37→17:51)
[2021-06-04] MEDS: ENOXAPARIN 40 MG/0.4 ML SQ SCH (09:00)
[2021-06-04] MEDS ORDERED: POTASSIUM CL SA 10 MEQ TAB PO ONE (09:00)
[2021-06-04] MEDS: BACLOFEN 10 MG TAB PO SCH ×3 (09:37→22:00)
[2021-06-04] MEDS: TRAMADOL HCL 50 MG TAB PO PRN (09:38)
[2021-06-04] MEDS: levETIRAcetam 500 MG TAB PO SCH ×3 (09:38→21:58)
[2021-06-04] MEDS: MULTIVITAMIN TAB PO SCH (09:41)
[2021-06-04] MEDS: HYDROCODONE/APAP 10/325 TAB PO PRN ×2 (12:35→21:59)
[2021-06-04] MEDS: VENLAFAXINE HCL 75 MG TABLET PO SCH ×2 (14:06→21:59)
[2021-06-04] MEDS: VALPROATE SODIUM INJ 500 MG in NA CHLORIDE 0.9% 100 ML IV SCH (17:51)
--- NOTE | 2021-06-04 18:54 | P.PN ---
Subjective Date of Service: 06/04/21 Patient appears to not remember much of what is happening. She states that she works at [employer]. She refuses to stand. When I tried to stand her she pulled her weight down. Her exam is incongruent. She starts crying. SHe states that she has Parkinson's. Her tremors wax and wane. Not worsened with pointing Review of Systems 10-point ROS is otherwise unremarkable Physical Examination - Vital Signs Temperature: 97.4 F Blood Pressure: 136/72 Pulse: 66 Respirations: 16 Pulse Ox (%): 93 - Physical Exam General: Alert, In no apparent distress HEENT: Atraumatic, PERRLA, EOMI Neck: Supple, JVD not distended Respiratory: Clear to auscultation bilaterally, Normal air movement Cardiovascular: Regular rate/rhythm, Normal S1 S2 Gastrointestinal: Normal bowel sounds, No tenderness Musculoskeletal: No tenderness Integumentary: No rashes Neurological: Normal speech, Normal tone, Normal affect Lymphatics: No axilla or inguinal lymphadenopathy - Studies Medications List Reviewed: Yes Assessment & Plan - Problems (Diagnosis) (1) Anxiety disorder Current Visit: No Status: Acute (2) Depression Current Visit: No Status: Acute (3) Seizures Current Visit: No Status: Acute - Plan Plan: 1. Continue with medication from mood disorder/slight psychosomatic 2. Psych consultation 3. Neurology consultation 4. Out of bed and ambulate with physical therapy 5. Anti epileptics 6. Antidepressant 7. GI and DVT prophylaxis Discharge Plan: Home Plan to discharge in: Greater than 2 days - Advance Directives Does patient have a Living Will: No Does patient have a Durable POA for Healthcare: No - Code Status/Comfort Care Code Status Assessed: Yes Code Status: Full Code Critical Care: No Time Spent Managing PTS Care (In Minutes): 45
[2021-06-04] MEDS: QUETIAPINE 25 MG TAB PO SCH (22:00)
[2021-06-04] MEDS: clonazePAM 1 MG TAB PO SCH (22:01)
[2021-06-05] MEDS: VALPROATE SODIUM INJ 500 MG in NA CHLORIDE 0.9% 100 ML IV SCH ×4 (02:05→18:00)
[2021-06-05] MEDS: GABAPENTIN 400 MG CAP PO SCH ×3 (02:07→12:10)
[2021-06-05 05:30] LABS: Absolute Lymphocytes (CBC) 2.3 K/uL (0.7-4.9); Hematocrit 29.5 % (36.0-45.0); Lymphocytes % 47.5 % (15.3-44.8); RBC Red Blood Cell Count 3.32 M/uL (3.86-4.86)
[2021-06-05 05:55] LABS: Albumin 2.2 g/dL (3.4-5.0); Bilirubin Total 0.2 mg/dL (0.2-1.0); Magnesium 2.3 mg/dL (1.8-2.4); Protein, Total 5.9 g/dL (6.4-8.2)
[2021-06-05] MEDS: ENOXAPARIN 40 MG/0.4 ML SQ SCH (09:00)
[2021-06-05] MEDS: MULTIVITAMIN TAB PO SCH (10:02)
[2021-06-05] MEDS: VENLAFAXINE HCL 75 MG TABLET PO SCH ×2 (10:02→20:58)
[2021-06-05] MEDS: levETIRAcetam 500 MG TAB PO SCH ×3 (10:03→20:58)
[2021-06-05] MEDS: BACLOFEN 10 MG TAB PO SCH ×3 (10:03→20:59)
[2021-06-05] MEDS: clonazePAM 1 MG TAB PO SCH ×3 (10:03→20:59)
[2021-06-05] MEDS: HYDROCODONE/APAP 10/325 TAB PO PRN ×2 (10:07→18:00)
[2021-06-05] MEDS: ONDANSETRON 4 MG/2 ML VIAL IV PRN (10:16)
[2021-06-05] MEDS: QUETIAPINE 25 MG TAB PO SCH (16:26)
[2021-06-05] MEDS: GABAPENTIN 300 MG CAP PO SCH (18:16)
[2021-06-05] MEDS: ARIPiprazole 5 MG TAB PO SCH (20:58)
[2021-06-06] MEDS: GABAPENTIN 300 MG CAP PO SCH ×3 (01:24→12:00)
[2021-06-06] MEDS: VALPROATE SODIUM INJ 500 MG in NA CHLORIDE 0.9% 100 ML IV SCH ×2 (01:24→10:07)
[2021-06-06 06:00] LABS: Absolute Lymphocytes (CBC) 1.7 K/uL (0.7-4.9); Hematocrit 30.8 % (36.0-45.0); Lymphocytes % 40.5 % (15.3-44.8); MPV 7.1 fL (7.6-11.3); RBC Red Blood Cell Count 3.45 M/uL (3.86-4.86)
[2021-06-06 06:18] LABS: ALT/SGPT 17 U/L (12-78); AST/SGOT 14 U/L (15-37); Albumin 2.2 g/dL (3.4-5.0); Alkaline Phosphatase 80 U/L (45-117); BUN Blood Urea Nitrogen 19 mg/dL (7-18); Bicarbonate 25 mmol/L (21-32); Bilirubin Total 0.3 mg/dL (0.2-1.0); Glucose Level 59 mg/dL (74-106); Magnesium 2.2 mg/dL (1.8-2.4); Potassium 4.2 mmol/L (3.5-5.1); Protein, Total 6.1 g/dL (6.4-8.2); Sodium Level 141 mmol/L (136-145)
[2021-06-06 06:20] LABS: BUN Blood Urea Nitrogen 19 mg/dL (7-18); Bicarbonate 25 mmol/L (21-32); Glucose Level 60 mg/dL (74-106); Potassium 4.2 mmol/L (3.5-5.1); Sodium Level 141 mmol/L (136-145)
[2021-06-06] MEDS: MULTIVITAMIN TAB PO SCH (08:11)
[2021-06-06] MEDS: levETIRAcetam 500 MG TAB PO SCH ×3 (08:11→20:01)
[2021-06-06] MEDS: HYDROCODONE/APAP 10/325 TAB PO PRN ×2 (08:12→18:21)
[2021-06-06] MEDS: BACLOFEN 10 MG TAB PO SCH (08:12)
[2021-06-06] MEDS: clonazePAM 1 MG TAB PO SCH (08:12)
[2021-06-06] MEDS: ENOXAPARIN 40 MG/0.4 ML SQ SCH (08:13)
--- NOTE | 2021-06-06 08:16 | ECHO ---
HEIGHT: 5 ft 6 in WEIGHT: 102 lb 0 oz DATE OF STUDY: 06/05/[address]: Jarod Richardson MD 2-DIMENSIONAL: YES M.MODE: YES DOPPLER: YES COLOR FLOW: YES TDS: NO PORTABLE: NO DEFINITY: NO BUBBLE STUDY: NO DIAGNOSIS: CONGESTIVE HEART FAILURE CARDIAC HISTORY: CATHERIZATION: NO SURGERY: NO PROSTHETIC VALVE: NO PACEMAKER: NO MEASUREMENTS (cm) DIASTOLIC (NORMALS) SYSTOLIC (NORMALS) IVSd 0.8 (0.6-1.2) LA Diam 2.3 (1.9-4.0) LVEF 63% LVIDd 3.3 (3.5-5.7) LVIDs 2.2 (2.0-3.5) %FS 33% LVPWd 0.8 (0.6-1.2) Ao Diam 2.7 (2.0-3.7) 2 DIMENSIONAL ASSESSMENT: RIGHT ATRIUM: NORMAL LEFT ATRIUM: NORMAL RIGHT VENTRICLE: NORMAL LEFT VENTRICLE: NORMAL TRICUSPID VALVE: NORMAL MITRAL VALVE: NORMAL PULMONIC VALVE: NORMAL AORTIC VALVE: NORMAL PERICARDIAL EFFUSION: NONE AORTIC ROOT: NORMAL LEFT VENTRICULAR WALL MOTION: NORMAL. DOPPLER/COLOR FLOW: NORMAL. COMMENTS: NORMAL 2D ECHO WITH DOPPLER. NO WALL MOTION ABNORMALITY. NO EFFUSION. TECHNOLOGIST: NAZARIO MARVIN
[2021-06-06] MEDS: VENLAFAXINE HCL 75 MG TABLET PO SCH ×2 (10:07→20:02)
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
[2021-06-06] MEDS ORDERED: NA CHLORIDE 0.9% 500 ML IV ONE (12:55)
[2021-06-06] MEDS: DIVALPROEX DR 250 MG TAB PO SCH (20:00)
[2021-06-06] MEDS: ARIPiprazole 5 MG TAB PO SCH (20:01)
[2021-06-06] MEDS: QUETIAPINE 25 MG TAB PO SCH (20:02)
[2021-06-07] MEDS: HYDROCODONE/APAP 10/325 TAB PO PRN ×2 (05:16→11:15)
[2021-06-07] MEDS: MULTIVITAMIN TAB PO SCH (08:46)
[2021-06-07] MEDS: DIVALPROEX DR 250 MG TAB PO SCH ×2 (08:46→20:06)
[2021-06-07] MEDS: levETIRAcetam 500 MG TAB PO SCH ×3 (08:51→20:06)
[2021-06-07] MEDS: VENLAFAXINE HCL 75 MG TABLET PO SCH ×2 (08:51→20:06)
[2021-06-07] MEDS: ENOXAPARIN 40 MG/0.4 ML SQ SCH (08:52)
[2021-06-07] MEDS ORDERED: HYDROCODONE/APAP 10/325 TAB PO PRN (11:14)
[2021-06-07] MEDS: METHYLPREDNISOLONE 125 MG INJ IV SCH ×2 (12:05→17:54)
[2021-06-07] MEDS: ARIPiprazole 5 MG TAB PO SCH (20:06)
[2021-06-07] MEDS: QUETIAPINE 25 MG TAB PO SCH (20:06)
[2021-06-08] MEDS: METHYLPREDNISOLONE 125 MG INJ IV SCH ×4 (00:11→17:01)
[2021-06-08] MEDS: ENOXAPARIN 40 MG/0.4 ML SQ SCH (09:00)
[2021-06-08] MEDS: DIVALPROEX DR 250 MG TAB PO SCH ×2 (09:36→21:16)
[2021-06-08] MEDS: HYDROCODONE/APAP 5/325 MG TAB PO PRN ×2 (09:36→18:38)
[2021-06-08] MEDS: MULTIVITAMIN TAB PO SCH (09:36)
[2021-06-08] MEDS: levETIRAcetam 500 MG TAB PO SCH ×3 (09:36→21:17)
[2021-06-08] MEDS: VENLAFAXINE HCL 75 MG TABLET PO SCH ×2 (09:36→21:17)
[2021-06-08] MEDS: ARIPiprazole 5 MG TAB PO SCH (21:15)
[2021-06-08] MEDS: QUETIAPINE 25 MG TAB PO SCH (21:17)
[2021-06-09] MEDS: METHYLPREDNISOLONE 125 MG INJ IV SCH ×3 (00:58→12:31)
[2021-06-09] MEDS: HYDROCODONE/APAP 5/325 MG TAB PO PRN ×2 (06:08→18:45)
[2021-06-09] MEDS: MULTIVITAMIN TAB PO SCH (08:50)
[2021-06-09] MEDS: ONDANSETRON 4 MG/2 ML VIAL IV PRN ×2 (08:50→17:14)
[2021-06-09] MEDS: levETIRAcetam 500 MG TAB PO SCH ×3 (08:50→20:47)
[2021-06-09] MEDS: DIVALPROEX DR 250 MG TAB PO SCH ×2 (08:50→20:47)
[2021-06-09] MEDS: VENLAFAXINE HCL 75 MG TABLET PO SCH ×2 (08:50→20:48)
[2021-06-09] MEDS: ENOXAPARIN 40 MG/0.4 ML SQ SCH (08:59)
[2021-06-09] MEDS: PANTOPRAZOLE 40MG TABLET PO SCH (12:54)
[2021-06-09] MEDS: NICOTINE 21 MG/PAT TD SCH (12:55)
[2021-06-09] MEDS: QUETIAPINE 25 MG TAB PO SCH (20:47)
[2021-06-09] MEDS: ARIPiprazole 5 MG TAB PO SCH (20:47)
[2021-06-09] MEDS: predniSONE 20 MG TAB PO SCH (20:48)
[2021-06-09 23:19] VITALS: O2SAT 97
[2021-06-10] MEDS: PANTOPRAZOLE 40MG TABLET PO SCH (05:30)
[2021-06-10] MEDS: HYDROCODONE/APAP 5/325 MG TAB PO PRN ×2 (06:02→18:27)
[2021-06-10] MEDS: ENOXAPARIN 40 MG/0.4 ML SQ SCH (09:00)
[2021-06-10] MEDS: MULTIVITAMIN TAB PO SCH (09:20)
[2021-06-10] MEDS: levETIRAcetam 500 MG TAB PO SCH ×3 (09:20→20:52)
[2021-06-10] MEDS: VENLAFAXINE HCL 75 MG TABLET PO SCH ×2 (09:20→20:51)
[2021-06-10] MEDS: NICOTINE 21 MG/PAT TD SCH (09:21)
[2021-06-10] MEDS: predniSONE 20 MG TAB PO SCH ×2 (09:21→20:52)
[2021-06-10] MEDS: DIVALPROEX DR 250 MG TAB PO SCH ×2 (09:21→20:51)
[2021-06-10] MEDS: ONDANSETRON 4 MG/2 ML VIAL IV PRN ×2 (14:12→20:54)
[2021-06-10] MEDS: ARIPiprazole 5 MG TAB PO SCH (20:51)
[2021-06-10] MEDS: QUETIAPINE 25 MG TAB PO SCH (20:52)
[2021-06-10] MEDS: ENSURE HIGH PROTEIN 237 ML CAN PO SCH (21:34)
--- NOTE | 2021-06-11 00:48 | P.PN ---
Date of Service: 06/05/21 Subjective Patient still crying out whenever we go talk to her. Psych eval pending. Not moving her lower extremities Review of Systems 10-point ROS is otherwise unremarkable Physical Examination - Vital Signs Reviewed - Physical Exam General: Alert, In no apparent distress; patient cries out Respiratory: Clear to auscultation bilaterally, Normal air movement Cardiovascular: Regular rate/rhythm, Normal S1 S2 Gastrointestinal: Normal bowel sounds, No tenderness Neurological: Patient not moving her lower extremities Assessment & Plan - Problems (Diagnosis) (1) Mood disorder/psychosomatic disorder Current Visit: No Status: Acute (2) Depression Current Visit: No Status: Acute (3) Seizures Current Visit: No Status: Acute - Plan Continue with plan of care as mentioned below: 1. Continue with medication from mood disorder/slight psychosomatic 2. Psych consultation pending 3. Neurology consultation pending 4. Out of bed and ambulate with physical therapy 5. Antiepileptics 6. Antidepressant 7. GI and DVT prophylaxis
--- NOTE | 2021-06-11 00:56 | P.PN ---
Date of Service: 06/06/21 Subjective Patient started on medications for psychosomatic issues. Started on antidepressant and atypical antipsychotics. Review of Systems 10-point ROS is otherwise unremarkable Physical Examination - Vital Signs Reviewed - Physical Exam General: Alert, In no apparent distress; patient cries out Respiratory: Clear to auscultation bilaterally, Normal air movement Cardiovascular: Regular rate/rhythm, Normal S1 S2 Gastrointestinal: Normal bowel sounds, No tenderness Neurological: Patient not moving her lower extremities Assessment & Plan - Problems (Diagnosis) (1) Mood disorder/psychosomatic disorder Current Visit: No Status: Acute (2) Depression Current Visit: No Status: Acute (3) Seizures Current Visit: No Status: Acute - Plan Continue with plan of care as mentioned below: 1. Continue with Seroquel, Effexor, and Abilify 2. Psych consultation appreciated 3. Continue with physical therapy evaluation 4. Monitor neuro status 5. Antiepileptics 6. Antidepressant 7. GI and DVT prophylaxis
--- NOTE | 2021-06-11 00:58 | P.PN ---
Date of Service: 06/07/21 Subjective Patient continues to improve. Clinical symptoms are much better. Patient starting to interact more appropriately. Will speak with [facility] regarding psych eval Review of Systems 10-point ROS is otherwise unremarkable Physical Examination - Vital Signs Reviewed - Physical Exam General: Alert, In no apparent distress; patient is following commands Respiratory: Clear to auscultation bilaterally, Normal air movement Cardiovascular: Regular rate/rhythm, Normal S1 S2 Gastrointestinal: Normal bowel sounds, No tenderness Neurological: Strength is slowly improving Assessment & Plan - Problems (Diagnosis) (1) Mood disorder/psychosomatic disorder Current Visit: No Status: Acute (2) Depression Current Visit: No Status: Acute (3) Seizures Current Visit: No Status: Acute - Plan Continue with plan of care as mentioned below: 1. Continue with Seroquel, Effexor, and Abilify; 2. Psych consultation appreciated; [facility] eval 3. Continue with physical therapy evaluation; patient is not complying 4. Monitor neurostatus 5. Antiepileptics 6. Antidepressant 7. GI and DVT prophylaxis
--- NOTE | 2021-06-11 00:59 | P.PN ---
Date of Service: 06/08/21 Subjective Unable to get [facility] eval. 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 Review of Systems 10-point ROS is otherwise unremarkable Physical Examination - Vital Signs Reviewed - Physical Exam General: Alert, In no apparent distress; patient is following commands Respiratory: Clear to auscultation bilaterally, Normal air movement Cardiovascular: Regular rate/rhythm, Normal S1 S2 Gastrointestinal: Normal bowel sounds, No tenderness Neurological: Strength is slowly improving Assessment & Plan - Problems (Diagnosis) (1) Mood disorder/psychosomatic disorder Current Visit: No Status: Acute (2) Depression Current Visit: No Status: Acute (3) Seizures Current Visit: No Status: Acute - Plan Continue with plan of care as mentioned below: 1. Continue with Seroquel, Effexor, and Abilify; 2. Psych consultation appreciated; [facility] rené unable to place in inpatient psych. Social work looking for insurance verification 3. Continue with physical therapy evaluation; patient is still not complying at times 4. Monitor neurostatus 5. Antiepileptics 6. Antidepressant 7. GI and DVT prophylaxis
--- NOTE | 2021-06-11 01:03 | P.PN ---
Date of Service: 06/09/21 Subjective Unable to get [facility] eval. 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 Will try to get to jail facility placement Review of Systems 10-point ROS is otherwise unremarkable Physical Examination - Vital Signs Reviewed - Physical Exam General: Alert, In no apparent distress; patient is following commands Respiratory: Clear to auscultation bilaterally, Normal air movement Cardiovascular: Regular rate/rhythm, Normal S1 S2 Gastrointestinal: Normal bowel sounds, No tenderness Neurological: Strength is slowly improving Assessment & Plan - Problems (Diagnosis) (1) Mood disorder/psychosomatic disorder Current Visit: No Status: Acute (2) Depression Current Visit: No Status: Acute (3) Seizures Current Visit: No Status: Acute - Plan Continue with plan of care as mentioned below: 1. Continue with Seroquel, Effexor, and Abilify; 2. Psych consultation appreciated; [facility] unable to place in inpatient psych. Social work looking for insurance verification and will try to get jail facility placement 3. Continue with physical therapy evaluation; patient is still not complying at times 4. Monitor neurostatus 5. Antiepileptics 6. Antidepressant 7. GI and DVT prophylaxis
--- NOTE | 2021-06-11 01:04 | P.PN ---
Date of Service: 06/10/21 Subjective Patient doing well with no new complaints. 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 Will try to get to alf facility placement Review of Systems 10-point ROS is otherwise unremarkable Physical Examination - Vital Signs Reviewed - Physical Exam General: Alert, In no apparent distress; patient is following commands Respiratory: Clear to auscultation bilaterally, Normal air movement Cardiovascular: Regular rate/rhythm, Normal S1 S2 Gastrointestinal: Normal bowel sounds, No tenderness Neurological: Strength is slowly improving Assessment & Plan - Problems (Diagnosis) (1) Mood disorder/psychosomatic disorder Current Visit: No Status: Acute (2) Depression Current Visit: No Status: Acute (3) Seizures Current Visit: No Status: Acute - Plan Continue with plan of care as mentioned below: 1. Continue with Seroquel, Effexor, and Abilify; 2. Psych consultation appreciated; Social work looking for insurance verification and will try to get alf facility placement 3. Continue with physical therapy evaluation; patient is still not complying at times 4. Monitor neurostatus 5. Antiepileptics 6. Antidepressant 7. GI and DVT prophylaxis
[2021-06-11] MEDS: PANTOPRAZOLE 40MG TABLET PO SCH (06:01)
[2021-06-11] MEDS: HYDROCODONE/APAP 5/325 MG TAB PO PRN ×2 (06:01→18:30)
[2021-06-11] MEDS: levETIRAcetam 500 MG TAB PO SCH ×3 (08:43→21:10)
[2021-06-11] MEDS: ONDANSETRON 4 MG/2 ML VIAL IV PRN (08:43)
[2021-06-11] MEDS: VENLAFAXINE HCL 75 MG TABLET PO SCH ×2 (08:44→21:10)
[2021-06-11] MEDS: MULTIVITAMIN TAB PO SCH (08:44)
[2021-06-11] MEDS: predniSONE 20 MG TAB PO SCH ×2 (08:45→21:11)
[2021-06-11] MEDS: DIVALPROEX DR 250 MG TAB PO SCH ×2 (08:45→21:11)
[2021-06-11] MEDS: NICOTINE 21 MG/PAT TD SCH (08:45)
[2021-06-11] MEDS: ENSURE HIGH PROTEIN 237 ML CAN PO SCH ×2 (08:46→21:00)
[2021-06-11] MEDS: ENOXAPARIN 40 MG/0.4 ML SQ SCH ×2 (08:46→08:52)
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
[2021-06-11] MEDS: BACLOFEN 10 MG TAB PO PRN (13:38)
[2021-06-11] MEDS: ARIPiprazole 5 MG TAB PO SCH (21:11)
[2021-06-11] MEDS: QUETIAPINE 25 MG TAB PO SCH (21:12)
[2021-06-12] MEDS: BACLOFEN 10 MG TAB PO PRN (01:53)
[2021-06-12] MEDS: HYDROCODONE/APAP 5/325 MG TAB PO PRN (05:36)
[2021-06-12] MEDS: PANTOPRAZOLE 40MG TABLET PO SCH (05:37)
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
[2021-06-12] MEDS: NICOTINE 21 MG/PAT TD SCH (08:35)
[2021-06-12] MEDS: VENLAFAXINE HCL 75 MG TABLET PO SCH (08:36)
[2021-06-12] MEDS: levETIRAcetam 500 MG TAB PO SCH (08:36)
[2021-06-12] MEDS: DIVALPROEX DR 250 MG TAB PO SCH (08:36)
[2021-06-12] MEDS: predniSONE 20 MG TAB PO SCH (08:36)
[2021-06-12] MEDS: MULTIVITAMIN TAB PO SCH (08:37)
[2021-06-12] MEDS: ENOXAPARIN 40 MG/0.4 ML SQ SCH (08:37)
[2021-06-12] MEDS: ENSURE HIGH PROTEIN 237 ML CAN PO SCH (08:42)
[2021-06-12 09:41] VITALS: BP 121/60; TEMP 96.8
== END 2021-06-12 12:18 | disposition home or self-care (01) | DRG 641 ==
LOC: ER 19:19
PROVIDERS: ADMIT Family Medicine; ATTEND Family Medicine
DX: E87.6 Hypokalemia (principal); T50.2X5A Adverse effect of carbonic-anhydrase inhibitors, benzothiadiazides and other diuretics, initial encounter; T50.1X5A Adverse effect of loop [high-ceiling] diuretics, initial encounter; Y92.009 Unspecified place in unspecified non-institutional (private) residence as the place of occurrence of the external cause; E86.0 Dehydration; R55 Syncope and collapse; H81.09 Meniere's disease, unspecified ear; G40.909 Epilepsy, unspecified, not intractable, without status epilepticus; I95.9 Hypotension, unspecified; K21.9 Gastro-esophageal reflux disease without esophagitis; G89.29 Other chronic pain; M50.30 Other cervical disc degeneration, unspecified cervical region; F32.9 Major depressive disorder, single episode, unspecified; F41.9 Anxiety disorder, unspecified; S00.83XA Contusion of other part of head, initial encounter; W06.XXXA Fall from bed, initial encounter; Y92.230 Patient room in hospital as the place of occurrence of the external cause; F12.929 Cannabis use, unspecified with intoxication, unspecified; F17.210 Nicotine dependence, cigarettes, uncomplicated; Z20.822 Contact with and (suspected) exposure to COVID-19; Z91.040 Latex allergy status
CPT/HCPCS: 36415; 70450; 72125; 80048; 80053; 80076; 80307; 80320; 80329; 81003; 83735; 84132; 84439; 84443; 84484; 85025; 85610; 85652; 85730; 93005; 93306; 96365; 97116; 97161; 97530; 99284; J1650; J2405; J2930; J3480; J7040; J7050; J7512; U0003

== ENCOUNTER 2022-03-10 19:28 | Emergency (ER) | payer OTHER ==
[2022-03-10 19:58] LABS: Absolute Lymphocytes (CBC) 2.8 K/uL (0.7-4.9); Lymphocytes % 35.9 % (15.3-44.8); MCV 85.8 fL (80-100); MPV 6.1 fL (7.6-11.3); RBC Red Blood Cell Count 3.38 M/uL (3.86-4.86)
[2022-03-10 20:15] LABS: Troponin High Sensitivity 6.4 pg/mL (<58.9)
[2022-03-10 20:24] LABS: SARS-CoV-2 Antigen Rapid Res Negative (Negative)
--- NOTE | 2022-03-10 20:59 | RAD REPORT ---
EXAM DESCRIPTION: RAD - Chest Single View - 03/10/2022 8:49 pm CLINICAL HISTORY: CHEST PAIN COMPARISON: Chest Single View dated 05/20/2021 FINDINGS: Lines: None. Lungs: No evidence of edema or pneumonia. Pleural: No significant pleural effusions or pneumothorax. Cardiac: The heart size is within normal limits. Mediastinum: Within normal limits. Bones: No acute fractures. Other: None IMPRESSION: No acute cardiopulmonary disease.
[2022-03-10] MEDS ORDERED: KETOROLAC 30 MG/ML INJ ONE (22:16)
[2022-03-10] MEDS ORDERED: levETIRAcetam 500 MG TAB ONE (22:21)
[2022-03-10] MEDS ORDERED: GABAPENTIN 400 MG CAP ONE (22:24)
--- NOTE | 2022-03-10 23:08 | RAD REPORT ---
EXAM DESCRIPTION: CT - Chest For Pe Angio - 03/10/2022 10:52 pm CLINICAL HISTORY: chest pain, shortness of breath COMPARISON: None TECHNIQUE: Dynamically enhanced axial 3 mm thick images of the chest were obtained during administra tion of <100> mL Isovue 370 IV contrast. Coronal and oblique reconstruction images were generated and reviewed. Exam utilizes a protocol for optimal evaluation of pulmonary arterial tree. Maximum intensity projections 3D imaging was utilized All CT scans are performed using dose optimization technique as appropriate and may include automated exposure control or mA/KV adjustment according to patient size. FINDINGS: Chest Wall: No suspicious thyroid nodules or pathologic lymphadenopathy. Lungs: No acute abnormality. Pleura: No significant effusions or pneumothorax. Mediastinum/karrie: No pathologic lymphadenopathy. Pulmonary arteries/Aorta: No filling defect identified. No aortic aneurysm. Pulmonary artery is enlar ged likely reflecting pulmonary artery hypertension. Heart: No significant pericardial effusion. Normal heart size. Coronary artery calcifications. Upper abdomen: No acute abnormality.Partially imaged left upper pole renal lesion which is probably a cyst. Surgical changes at the gastroesophageal junction including partial gastrectomy. Thickened mid and distal esophagus likely reflecting esophagitis. Bones: No acute abnormality. Remote rib fractures. IMPRESSION: Negative for pulmonary embolism. Main pulmonary artery enlargement which may reflect pul monary hypertension. Echocardiography could better evaluate. Other ancillary findings as noted above.
--- NOTE | 2022-03-10 23:30 | EDPHYS ---
Physician Documentation [facility] Name: Stefanie Rudd Age: 61 yrs Sex: Female : 1960 Arrival Date: 03/10/2022 Time: 19:32 Bed 3 Private MD: ED Physician Rashawn Helm HPI: 03/10 22:30 This 61 yrs old Female presents to ER via EMS with complaints of Chest Pain. ms3 22:30 61-year-old female with past medical history of right ventricular hypertrophy, ms3 congestive heart failure, systemic mastocytosis presents for chest pain that radiates to her back and left jaw that was originally an 8/10 and now has decreased to a 3/10 and described as tight. Patient states EMS administered 324 mg of aspirin, 1 sublingual nitroglycerin. Patient endorses shortness of breath. Patient denies nausea or vomiting.. Historical: - Allergies: 19:36 Morphine; tw5 19:36 Dilantin; tw5 19:36 Phenobarbital; tw5 19:36 Avelox; tw5 19:36 Latex, Natural Rubber; tw5 - PMHx: 19:36 CHF; post -chemo; tw5 - PSHx: 19:36 Appendectomy; Total abdominal hysterectomy; Cholecystectomy; spinal surgery; tw5 19:38 gastric sleeve; tw5 - Immunization history:: Flu vaccine is not up to date. - Social history:: Smoking status: Patient reports the use of cigarette tobacco products, smokes one pack cigarettes per day. ROS: 22:30 Constitutional: Negative for fever, and chills. Neck: Negative for injury, pain, and ms3 swelling, Respiratory: Negative for shortness of breath, cough, wheezing, and pleuritic chest pain, Abdomen/GI: Negative for abdominal pain, nausea, vomiting, diarrhea, and constipation, MS/Extremity: Negative for injury and deformity, Skin: Negative for injury, rash, and discoloration. Exam: 19:42 ECG was reviewed by the Attending Physician. ms3 23:34 Constitutional: This is a well developed, well nourished patient who is awake, alert, ms3 and in no acute distress. Head/Face: Normocephalic, atraumatic. Neck: Trachea midline, no cervical lymphadenopathy. Supple, full range of motion without nuchal rigidity, or vertebral point tenderness. No Meningismus. Chest/axilla: Normal chest wall appearance and motion. Nontender with no deformity. Cardiovascular: Regular rate and rhythm with a normal S1 and S2. No gallops, murmurs, or rubs. Normal PMI, no JVD. No pulse deficits. Respiratory: Lungs have equal breath sounds bilaterally, clear to auscultation and percussion. No rales, rhonchi or wheezes noted. No increased work of breathing, no retractions or nasal flaring. Abdomen/GI: Soft, non-tender, with normal bowel sounds. No distension or tympany. No guarding or rebound. No evidence of tenderness throughout. Back: No spinal tenderness. No costovertebral tenderness. Full range of motion. Skin: Warm, dry with normal turgor. Normal color with no rashes, no lesions, and no evidence of cellulitis. Neuro: Awake and alert, GCS 15, oriented to person, place, time, and situation. Cranial nerves II-XII grossly intact. Motor strength 5/5 in all extremities. Sensory grossly intact. Cerebellar exam normal. Normal gait. Psych: Awake, alert, with orientation to person, place and time. Behavior, mood, and affect are within normal limits. Vital Signs: 19:32 BP 107 / 91; Pulse 72; Resp 16; Temp 98.7; Pulse Ox 98% on R/A; Weight 50.8 kg; Height tw5 5 ft. 5 in. (165.10 cm); Pain 3/10; 20:30 BP 124 / 79; Pulse 69; Resp 22; Pulse Ox 97% on R/A; jb4 21:45 BP 144 / 86; Pulse 69; Resp 17; Pulse Ox 99% on R/A; jb4 23:15 BP 129 / 74; Pulse 71; Resp 16; Pulse Ox 99% on R/A; jb4 19:32 Body Mass Index 18.64 (50.80 kg, 165.10 cm) tw5 MDM: 20:15 Patient medically screened. ms3 23:34 Differential diagnosis: abnormal EKG, acute myocardial infarction, coronary artery ms3 disease pulmonary embolus. HEART Score: History: Slightly Suspicious (0), ECG: Normal (0), Age: > 45 and < 65 years (1), Risk Factors: 1 or 2 risk factors (1), Troponin: < or = 1 x Normal Limit (0), Total Score = 2. The patient was not given aspirin in the Emergency Department. Administered by EMS. Data reviewed: vital signs, nurses notes, lab test result(s), EKG, radiologic studies, and as a result, I will discharge patient. Counseling: I had a detailed discussion with the patient and/or guardian regarding: the historical points, exam findings, and any diagnostic results supporting the discharge/admit diagnosis, lab results, radiology results, the need for outpatient follow up, to return to the emergency department if symptoms worsen or persist or if there are any questions or concerns that arise at home. Special discussion: Based on the patient's history, exam, and Dx evaluation, there is no indication for emergent intervention or inpatient Tx. It is understood by the patient/guardian that if the Sx's persist or worsen they need to return immediately for re-evaluation. ED course: Discussed labs, imaging, physical exam findings with patient. Patient to follow-up with Dr. Barker in 1 to 2 days. Patient understands agrees with plan. All questions were answered. Return precautions discussed include worsening symptoms, or any other concerns. On reevaluation patient is alert and oriented x4, in no apparent distress, nontoxic, ambulatory in Emergency Department, speaking full sentences. 03/10 19:37 Order name: Basic Metabolic Panel; Complete Time: 20:27 ms3 03/10 19:37 Order name: CBC with Diff; Complete Time: 20:27 ms3 03/10 19:37 Order name: Troponin HS; Complete Time: 20:27 ms3 03/10 19:42 Order name: SARS-COV-2 Antigen Rapid; Complete Time: 20:27 tw5 03/10 22:03 Order name: Troponin High Sensitivity; Complete Time: 22:51 ms3 03/10 22:03 Order name: D-Dimer; Complete Time: 22:51 ms3 03/10 19:37 Order name: XRAY Chest (1 view); Complete Time: 21:42 ms3 03/10 19:37 Order name: EKG; Complete Time: 19:38 ms3 03/10 19:37 Order name: Cardiac monitoring; Complete Time: 19:49 ms3 03/10 22:33 Order name: CT Chest For PE Angio; Complete Time: 23:23 ms3 03/10 19:37 Order name: EKG - Nurse/Tech; Complete Time: 19:49 ms3 03/10 19:37 Order name: IV Saline Lock; Complete Time: 19:49 ms3 03/10 19:37 Order name: Labs collected and sent; Complete Time: 19:49 ms3 03/10 19:37 Order name: O2 Per Protocol; Complete Time: 19:49 ms3 03/10 19:37 Order name: O2 Sat Monitoring; Complete Time: 19:49 ms3 EC:42 Rate is 66 beats/min. Rhythm is regular. QRS Chloride is Normal. [place] interval is normal. QRS ms3 interval is normal. QT interval is normal. Clinical impression: Normal ECG. Interpreted by me. Reviewed by me. Administered Medications: 19:41 Not Given (Given prior to arrivall): Aspirin Chewable Tablet 324 mg PO once; 81 mg tw5 tablets x 4 22:19 Drug: Ketorolac 10 mg Route: IVP; Site: left forearm; jb4 23:49 Follow up: Response: No adverse reaction; Marked relief of symptoms jb4 22:27 Drug: Keppra (levETIRAcetam) 1000 mg Route: PO; jb4 23:49 Follow up: Response: No adverse reaction; Marked relief of symptoms jb4 22:27 Drug: Gabapentin 800 mg Route: PO; jb4 23:48 Follow up: Response: No adverse reaction; Marked relief of symptoms jb4 Disposition Summary: 03/10/22 23:29 Discharge Ordered Location: Home ms3 Condition: Stable ms3 Diagnosis - Chest pain, unspecified ms3 - Anemia, unspecified ms3 - Medication refill ms3 - Seizure d/o ms3 Followup: ms3 - With: Abel Sampson MD - When: 1 - 2 days - Reason: Recheck today's complaints Discharge Instructions: - Discharge Summary Sheet ms3 - Anemia ms3 - Nonspecific Chest Pain, Adult ms3 Forms: - Medication Reconciliation Form ms3 - Thank You Letter ms3 - Antibiotic Education ms3 - Prescription Opioid Use ms3 - Work release form tw5 Prescriptions: - GABAPENTIN 800 mg - take 1 tablet by ORAL route 4 times per day; 56 tablet; Refills: 0, Product ms3 Selection Permitted - Keppra 500 mg Oral Tablet - take 2 tablet by ORAL route every 12 hours; 56 tablet; Refills: 0, Product ms3 Selection Permitted Signatures: Dispatcher [employer] EDMS [place], Blair, RN RN jb4 Rashawn Helm DO DO ms3 Brittany Hdz tw5
--- NOTE | 2022-03-10 23:30 | ER ---
Nurse's Notes [facility] Name: Stefanie Rudd Age: 61 yrs Sex: Female : 1960 Arrival Date: 03/10/2022 Time: 19:32 Bed 3 Private MD: Diagnosis: Chest pain, unspecified;Anemia, unspecified;Medication refill;Seizure d/o Presentation: 03/10 19:32 Chief complaint: EMS states: "Chest pain that started around 1900, 324 ASA and 0.4 tw5 nitro given. Pain was not relieved. When the pain started it was 8/10, it has gone down to a 3/10 before the nitro. It remained a 3/10. Patient was at work at [employer] when this occurred. Coronavirus screen: Vaccine status: Patient reports receiving the 2nd dose of the covid vaccine. Red Blue Voice. Ebola Screen: Patient negative for fever greater than or equal to 101.5 degrees Fahrenheit, and additional compatible Ebola Virus Disease symptoms Patient denies exposure to infectious person. Patient denies travel to an Ebola-affected area in the 21 days before illness onset. Initial Sepsis Screen: Does the patient meet any 2 criteria? No. Patient's initial sepsis screen is negative. Does the patient have a suspected source of infection? No. Patient's initial sepsis screen is negative. Risk Assessment: Do you want to hurt yourself or someone else? Patient reports no desire to harm self or others. Onset of symptoms was March 10, 2022 at 19:00. 19:32 Method Of Arrival: EMS: [facility] tw5 19:32 Acuity: PIPER 2 tw5 Triage Assessment: 19:38 General: Appears in no apparent distress. slender, Behavior is calm, cooperative, tw5 appropriate for age. Pain: Complains of pain in chest Pain currently is 3 out of 10 on a pain scale. Cardiovascular: Historical: - Allergies: 19:36 Morphine; tw5 19:36 Dilantin; tw5 19:36 Phenobarbital; tw5 19:36 Avelox; tw5 19:36 Latex, Natural Rubber; tw5 - PMHx: 19:36 CHF; post -chemo; tw5 - PSHx: 19:36 Appendectomy; Total abdominal hysterectomy; Cholecystectomy; spinal surgery; tw5 19:38 gastric sleeve; tw5 - Immunization history:: Flu vaccine is not up to date. - Social history:: Smoking status: Patient reports the use of cigarette tobacco products, smokes one pack cigarettes per day. Screenin:39 Abuse screen: Denies threats or abuse. Denies injuries from another. Nutritional tw5 screening: No deficits noted. Tuberculosis screening: No symptoms or risk factors identified. Fall Risk None identified. Assessment: 19:39 General: Appears in no apparent distress. Behavior is calm, cooperative, appropriate tw5 for age. Pain: Complains of pain in left arm Pain radiates to anterior aspect of left upper chest and left breast Quality of pain is described as "tight" Pain began suddenly. 20:30 Reassessment: Patient appears in no apparent distress at this time. Patient and/or jb4 family updated on plan of care and expected duration. Pain level reassessed. Patient is alert, oriented x 3, equal unlabored respirations, skin warm/dry/pink. 21:50 Reassessment: Patient appears in no apparent distress at this time. Patient and/or jb4 family updated on plan of care and expected duration. Pain level reassessed. Patient is alert, oriented x 3, equal unlabored respirations, skin warm/dry/pink. Pt continues to reports chest pain and discomfort. Provider notifed, no new orders at this time. 22:30 Reassessment: Patient appears in no apparent distress at this time. Patient and/or jb4 family updated on plan of care and expected duration. Pain level reassessed. Patient is alert, oriented x 3, equal unlabored respirations, skin warm/dry/pink. Patient states feeling better. 23:47 Reassessment: Patient appears in no apparent distress at this time. Patient and/or jb4 family updated on plan of care and expected duration. Pain level reassessed. Patient is alert, oriented x 3, equal unlabored respirations, skin warm/dry/pink. Patient states feeling better. Patient states symptoms have improved. Vital Signs: 19:32 BP 107 / 91; Pulse 72; Resp 16; Temp 98.7; Pulse Ox 98% on R/A; Weight 50.8 kg; Height tw5 5 ft. 5 in. (165.10 cm); Pain 3/10; 20:30 BP 124 / 79; Pulse 69; Resp 22; Pulse Ox 97% on R/A; jb4 21:45 BP 144 / 86; Pulse 69; Resp 17; Pulse Ox 99% on R/A; jb4 23:15 BP 129 / 74; Pulse 71; Resp 16; Pulse Ox 99% on R/A; jb4 19:32 Body Mass Index 18.64 (50.80 kg, 165.10 cm) tw5 ED Course: 19:32 Patient arrived in ED. tw5 19:32 Brittany Hdz is Primary Nurse. tw5 19:36 Rashawn Helm DO is Attending Physician. ms3 19:36 Triage completed. tw5 19:39 Arm band placed on right wrist. Patient placed in an exam room, on a stretcher, on tw5 cardiac surgeon, on pulse oximetry. EKG completed in triage. Results shown to MD. 19:39 Placed in gown. Bed in low position. Call light in reach. Side rails up X2. Adult w/ tw5 patient. Client placed on continuous cardiac and pulse oximetry monitoring. NIBP monitoring applied. Door closed. Noise minimized. Lights dimmed. Warm blanket given. Verbal reassurance given. 19:39 No provider procedures requiring assistance completed. Patient maintains SpO2 tw5 saturation greater than 95% on room air. 19:50 Troponin HS Sent. jb4 19:50 CBC with Diff Sent. jb4 19:50 Maintain EMS IV. Dressing intact. Site clean \\T\\ dry. Gauge \\T\\ site: 20g Left wrist. . yonatan 4 20:51 XRAY Chest (1 view) In Process Unspecified. EDMS 22:33 Notified ED physician of a critical lab result(s). DDimer of [address] Dr Helm notified. bb 22:53 CT Chest For PE Angio In Process Unspecified. EDMS 23:29 Abel Sampson MD is Referral Physician. ms3 23:48 IV discontinued, intact, bleeding controlled, No redness/swelling at site. Pressure jb4 dressing applied. Administered Medications: 19:41 Not Given (Given prior to arrivall): Aspirin Chewable Tablet 324 mg PO once; 81 mg tw5 tablets x 4 22:19 Drug: Ketorolac 10 mg Route: IVP; Site: left forearm; jb4 23:49 Follow up: Response: No adverse reaction; Marked relief of symptoms jb4 22:27 Drug: Keppra (levETIRAcetam) 1000 mg Route: PO; jb4 23:49 Follow up: Response: No adverse reaction; Marked relief of symptoms jb4 22:27 Drug: Gabapentin 800 mg Route: PO; jb4 23:48 Follow up: Response: No adverse reaction; Marked relief of symptoms jb4 Medication: 19:39 VIS not applicable for this client. tw5 Outcome: 23:29 Discharge ordered by . ms3 23:48 Discharged to home ambulatory. jb4 23:48 Condition: stable 23:48 Discharge instructions given to patient, Instructed on discharge instructions, follow up and referral plans. medication usage, Demonstrated understanding of instructions, follow-up care, medications, Prescriptions given X 2. 23:49 Patient left the ED. jb4 Signatures: Dispatcher [employer] EDKarmen Obando RN RN Blair Oden RN RN jb4 Rashawn Helm DO DO ms3 Pranav Hdzfany tw5
[2022-03-11 00:41] VITALS: TEMP 98.7
[2022-03-11 00:43] VITALS: O2SAT 99
[2022-03-11 00:45] VITALS: BP 129/74
--- NOTE | 2022-03-11 16:08 | EKG ---
Test Date: 2022-03-10 Test Time: 19:42:37 Juice Mixer: MAYRA MEASUREMENT RESULTS: Intervals: Rate: 66 IL: 154 QRSD: 76 QT: 398 QTc: 417 Mobile: P: 78 IL: 154 QRS: 70 T: 65 INTERPRETIVE STATEMENTS: Normal sinus rhythm Normal ECG Compared to ECG 06/03/2021 02:15:52 No significant changes Electronically Signed On 03-11-22 16:07:05 CDT by Maco Jay
== END 2022-03-10 23:49 | disposition home or self-care (01) ==
LOC: ER 19:28
DX: R07.9 Chest pain, unspecified (principal); D64.9 Anemia, unspecified; Z76.0 Encounter for issue of repeat prescription; F17.210 Nicotine dependence, cigarettes, uncomplicated; I50.9 Heart failure, unspecified; Z20.822 Contact with and (suspected) exposure to COVID-19; Z88.5 Allergy status to narcotic agent; Z88.8 Allergy status to other drugs, medicaments and biological substances; Z91.040 Latex allergy status; Z91.048 Other nonmedicinal substance allergy status
CPT/HCPCS: 93005; 85025; 80048; 36415; 85379; 84484 ×2; 71275; 71045; 96374; 99284; 87811; Q9967

== ENCOUNTER 2022-03-24 04:37 | Emergency (ER) | payer OTHER ==
--- OUTSIDE RECORDS SUMMARY | 2022-03-24 04:43 | XMS REPORT | Continuity of Care Document ---
:1960 Author Organization [facility] t Address [address] [place] [address] Care Team Providers Name Role Phone CourtF Attending Clinician Unavailable HIRO CASAREZ M.D. Attending Clinician Unavailable LINA TEJADA PA Attending Clinician Unavailable WES LYLE P.A. Attending Clinician Unavailable Martha Admitting Clinician Unavailable Payers Payer Name Policy Type Policy Number Effective Date Expiration Date S michele SMALL [id number] Problems Condition Condition Condition Status Onset Resolution Last Treating Co mments Source Name Details Category Date Date Treatment Clinician Date Hypokalemi Hypokalemi Problem Active [facility] Chronic Chronic Problem Active [facility] Back [facility] Status Status Problem Active [facility] cervical cervical ans spinal spinal arthrodesi arthrodesi s s Osteoporos Osteoporos Problem Active U T is is Physici screening screening ans Left knee Left knee Problem Active [facility] pain pain [facility] ans Open Open Problem Active [facility] ris type ris type ans IV physeal IV physeal fracture fracture of second of second metatarsal metatarsal bone of bone of right foot right foot with with delayed delayed healing, healing, subsequent subsequent encounter encounter Fracture Fracture Problem Active [facility] of 2nd of 2nd Physici metatarsal metatarsal an s Pain of Pain of Problem Active [facility] right hand right hand Ph [facility] ans Pain of Pain of Problem Active [facility] left left Physici shoulder shoulder ans region region Allergies, Adverse Reactions, Alerts Allergy Allergy Status [...] Source Name Name influenza, influenza, 2018-02-02 Completed [facility], injectable, 00:00:00 [facility] p quadrivalent quadrivalent Tdap Tdap 2014-05-26 Completed [facility] 00:[facility] Vital Signs Vital Name Observation Time Observation Value Comments Source BP Diastolic 2019-12-06 00:00:00 73 mm[Hg] [facility] Height 2019-12-06 00:00:00 66 [in_i] [facility] BMI (Body Mass 2019-12-06 00:00:00 21.6 kg/m2 [facility] Medical Index) Group BP Systolic 2019-12-06 00:00:00 113 mm[Hg] [facility] Body Weight 2019-12-06 00:00:00 2145.6 [facility]oz_av[facility] BP Diastolic 2019-04-07 00:00:00 75 mm[Hg] [facility] Height 2019-04-07 00:00:00 66 [in_i] [facility] BMI (Body Mass 2019-04-07 00:00:00 22.8 kg/m2 [facility] Medical Index) Group BP Systolic 2019-04-07 00:00:00 112 mm[Hg] [facility] Body Weight 2019-04-07 00:00:00 2256 [oz_av] [facility] BP Diastolic 2019-03-10 00:00:00 77 mm[Hg] [facility] Height 2019-03-10 00:00:00 66 [in_i] [facility] BMI (Body Mass 2019-03-10 00:00:00 21.8 kg/m2 [facility] Medical Index) Group BP Systolic 2019-03-10 00:00:00 120 mm[Hg] [facility] Body Weight 2019-03-10 00:00:00 2160 [oz_av] [facility] BP Diastolic 2018-08-11 00:00:00 60 mm[Hg] [facility] Height 2018-08-11 00:00:00 66 [in_i] [facility] BMI (Body Mass 2018-08-11 00:00:00 21.5 kg/m2 [facility] Medical Index) Group BP Systolic 2018-08-11 00:00:00 98 mm[Hg] [facility] Body Weight 2018-08-11 00:00:00 2128 [oz_av] [facility] Procedures Procedure Date / Time Performing Clinician Source Performed [U] XRAY SPINE CERVICAL 2 2019-07-26 00:00:00 [facility] [place] 3 V[place] [id number] [U] XRAY FOOT MIN 3 VWS 2019-05-04 00:00:00 [facility] RIGHT [id number] [U] XRAY KNEE 1 OR 2 VWS 2019-05-04 00:00:00 [facility] LEFT [id number] Physical Therapy 2019-04-27 00:00:00 [facility] [U] XRAY SPINE CERVICAL 2 2019-04-26 00:00:00 [facility] OR 3 VWS [id number] [U] XRAY SPINE CERVICAL 2 2019-03-09 00:00:00 [facility] OR 3 VWS [id number] MA Bone Density Scan [id number] 2019-02-12 00:00:00 [facility] [U] XRAY KNEE 1 OR 2 VWS 2019-02-12 00:00:00 [facility] LEFT [id number] DEXA Bone Density with WB 2019-02-10 00:00:00 [facility] Composition DX [U] XRAY SPINE CERVICAL 2 2019-02-08 00:00:00 [facility] OR 3 VWS [id number] Tibial Arthroscopy/surgery 2018-12-26 00:00:00 [facility] Primary Fusion of Cervical 2018-12-24 00:00:00 [facility] Gastric Bypass 2012-05-26 00:00:00 [facility] Colonoscopy 2011-05-26 00:00:00 [facility] Cholecyst[facility] Tonsillectomy [facility]ste[facility] Plan of Care Planned Activity Planned Date Details Comments Source Diagnostic Test 2019-04-07 BMP, serum or [facility] Pending 00:00:00 plasma [code = Group BMP, serum or plasma] Encounters Start End Encounter Admission Attending Care Care Encounter Source Date/Time Date/Time Type Type Clinicians Facility Department ID 2020-06-29 2020-06-29 Outpatient [facility]_F [facility] [id number] [facility] 01:08:00 01:08:00 0204 [facility] 2020-04-27 2020-04-27 Outpatient [facility]_F [facility] [id number] [facility] 01:04:00 01:04:00 1203 [facility] Group 2020-04-12 2020-04-12 Outpatient [facility]_F [facility] [id number] 2019 [facility] 02:32:00 02:32:00 1118 [facility] Group 2020-03-23 2020-03-23 Outpatient [facility]_F [facility] MMG [id number] [facility] 01:04:00 01:04:00 1029 [facility] Group 2020-02-17 2020-02-17 Outpatient [facility]iga_F [facility] [id number] [facility] 03:07:00 03:07:00 0924 Medical Group 2020-02-16 2020-02-16 Outpatient Zuniga_F [facility] MMG [id number] 2019 [facility] 11:05:00 11:05:00 0923 Medical Group 2020-02-14 2020-02-14 Outpatient Zuniga_F [facility] MMG [id number] [facility] 09:30:00 09:30:00 0921 [facility] Group 2020-02-08 2020-02-08 Outpatient Zuniga_F [facility] MMG [id number] 2019 [facility] 05:04:00 05:04:00 0915 [facility] Group 2020-01-12 2020-01-12 Outpatient Zuniga_F [facility] MMG [id number] [facility] 12:39:00 12:39:00 0819 [facility] Group 2019-12-08 2019-12-08 Outpatient Zuniga_F MMG MMG [id number] 2019 [facility] 12:57:00 12:57:00 0715 Medical Group 2019-12-06 2019-12-06 Linn Zuniga_F MMG [place] - [id number] [facility] 00:00:00 00:00:00 Smita Capone 0713 josephine Rodriguez [facility] Medical SAT MATH TUTOR: [address], [place] [address] , Ph. 2019-07-27 2019-07-27 [facility] [id number] [place] 11:00:00 11:00:00 t; [facility] 2019-06-25 2019-06-25 Outpatient Zrebekah_F [facility] [id number] [place] 12:04:00 12:04:00 0131 [facility] 2019-05-10 2019-05-10 AppointAVIS Reyes [facility] [id number] [place] 10:30:00 10:30:00 t; LINA TEJADA PA Trauma PhysicKEVON [facility] 2019-04-27 2019-04-27 Isi CASAREZ [facility] Orthoped[facility] [id number] [place] 09:30:00 09:30:00 t; HIRO CASAREZ at [facility] Dani ramos M.D. [facility] 2019-04-07 2019-04-07 [facility] [place] - [id number] [facility] 00:00:00 00:00:00 Chano Capone 1113 Noman Renner MD: [address], [place] [address] , Ph. 2019-03-29 2019-03-29 AVIS Ignacio [facility] [id number] [place] 10:30:00 10:30:00 t; LINA TEJADA PA Trauma KEVON [facility] 2019-03-15 2019-03-15 Appointvandana TEJADA [facility] [id number] [place] 10:45:00 10:45:00 t; LINA TEJADA PA PhysicKEVON [facility] 2019-03-11 2019-03-11 Isi LYLE [facility] Orthopedics 5 [id number] [place] 12:40:00 12:40:00 t; dariana HARVEY [facility] Rosa LYLE, [facility] 2019-03-10 2019-03-10 [facility] [place] - [id number] [facility] 00:00:00 00:00:00 Chano Capone 1016 Noman Renner MD: [address] [facility] [address], [place] [address] , Ph. 2019-02-15 2019-02-15 Appointmen AVIS TEJADA [facility] [id number] [place] 09:15:00 09:15:00 t; LINA TEJADA PA Trauma PhysicKEVON [facility] 2019-02-10 2019-02-10 Appointmen VALDO [facility] Orthopedics 5 [id number] [place] 15:20:00 15:20:00 t; dariana HARVEY [facility] VALDO PKyra [facility] WES, [facility] 2018-08-11 2018-08-11 [facility] [place] - [id number] [facility] 00[facility]00 [id number] josephine Tavarez, Medical Medical MD: [address] [facility] [address], [place] [address] , Ph. Results Test Description Test Time Test Comments Results Result Sour e Comments [U] XRAY SPINE 2019-04-27 Images [facility] CERVICAL 2 OR 3 09:42:00 acquired, not VWS [id number] reported on this accession number. Basic metabolic 2000 panel [...] code = calcium level) 9.0 mg/dL 8.6-10.0 [facility][U] XRAY HAND MIN 3 VWS RIGHT [id number] 12:19:00 Images acquired, not reported on this accession number.[facility][U] XRAY FOOT MIN 3 VWS RIGHT [id number] 10:36:00Images acquired, not reported on this accession number.[facility][U] XRAY KNEE 1 OR 2 VWS LEFT [id number] 10:36:00Images acquired, not reported on this accession number[facility] Differential panel - [id number] 10:50:00 Test Item Value Reference Range Interpretation Comments white blood count (test code = 5.6 K/uL 4.0-11.5 white blood count) red blood count (test code = red 5.09 M/uL 3.80-5.20 blood count) hemoglobin (test code = 14.2 g/dL 10.5-15.7 hemoglobin) hematocrit (test code = 45.1 % 34.0-50.0 hematocrit) Erythrocyte mean corpuscular 88.6 fL 86-100 volume [Entitic volume] (test code = 44179-6) mean corpuscular hemoglobin (test 27.9 pg 26.2-33.4 [...] 44.4-80.1 leukocytes in Blood (test code = 80822-5) Granulocytes Immature [#/volume] 0.0 K/uL 0.0-0.03 in Blood (test code = 96509-6) lymphocyte% (test code = 31.8 % 10.0-50.0 lymphocyte%) mono % (test code = mono %) 7.9 % 3.6-12.0 eos % (test code = eos %) 2.1 % 0.0-5.4 Basophils/100 leukocytes in 1.3 % 0.1-1.2 H Unspecified specimen (test code = 71657-1) Neutrophils.band form [#/volume] 3.17 K/uL 1.56-6.13 in Blood (test code = 44048-5) Lymphocytes [#/volume] in 1.8 K/uL 1.18-3.74 Unspecified specimen by Automated count (test code = 79928-3) mono # (test code = mono #) 0.44 K/uL 0.24-0.86 eos # (test code = eos #) 0.12 K/uL 0.04-0.36 basophil # (test code = basophil 0.07 K/uL 0.01-0.08 #) NRBC% (test code = NRBC%) 0 /100 WBC 0-0.2 NRBC# (test code = NRBC#) 0 K/uL [facility], [id number] 10:50:00 NeutrophilsBandLymphocyteAtypical LymphMonocyteEosinophilBasophilPlatelet EstimatePlatelet MorphologyHypochromasiaMataLackey Memorial HospitalBasic metabolic 2000 panel - Serum or [id number] 10:50:00 Test Item Value Reference Range Interpretation [...] code = calcium 9.2 mg/dL 8.6-10.0 level) [facility] W Auto Differential panel - [id number] 10:50:00 Test Item Value Reference Range Interpretation Comments white blood count (test code = 5.6 K/uL 4.0-11.5 white blood count) red blood count (test code = red 5.09 M/uL 3.80-5.20 blood count) hemoglobin (test code = 14.2 g/dL 10.5-15.7 hemoglobin) hematocrit (test code = 45.1 % 34.0-50.0 hematocrit) Erythrocyte mean corpuscular 88.6 fL 86-100 volume [Entitic volume] (test code = 27798-8) mean corpuscular hemoglobin (test 27.9 pg 26.2-33.4 [...] 44.4-80.1 leukocytes in Blood (test code = 61106-2) Granulocytes Immature [#/volume] 0.0 K/uL 0.0-0.03 in Blood (test code = 17810-2) lymphocyte% (test code = 31.8 % 10.0-50.0 lymphocyte%) mono % (test code = mono %) 7.9 % 3.6-12.0 eos % (test code = eos %) 2.1 % 0.0-5.4 Basophils/100 leukocytes in 1.3 % 0.1-1.2 H Unspecified specimen (test code = 40000-7) Neutrophils.band form [#/volume] 3.17 K/uL 1.56-6.13 in Blood (test code = 83356-5) Lymphocytes [#/volume] in 1.8 K/uL 1.18-3.74 Unspecified specimen by Automated count (test code = 12038-0) mono # (test code = mono #) 0.44 K/uL 0.24-0.86 eos # (test code = eos #) 0.12 K/uL 0.04-0.36 basophil # (test code = basophil 0.07 K/uL 0.01-0.08 #) NRBC% (test code = NRBC%) 0 /100 WBC 0-0.2 NRBC# (test code = NRBC#) 0 K/uL [facility], [id number] 10:50:00 NeutrophilsBandLymphocyteAtypical LymphMonocyteEosinophilBasophilPlatelet EstimatePlatelet MorphologyHypochromasiaMaMemorial Hospital at Stone CountyBasic metabolic 2000 panel - Serum or [id number] 10:50:00 Test Item Value Reference Range Interpretation [...] code = calcium 9.2 mg/dL 8.6-10.0 level) [facility] W Auto Differential panel - [id number] 10:50:00 Test Item Value Reference Range Interpretation Comments white blood count (test code = 5.6 K/uL 4.0-11.5 white blood count) red blood count (test code = red 5.09 M/uL 3.80-5.20 blood count) hemoglobin (test code = 14.2 g/dL 10.5-15.7 hemoglobin) hematocrit (test code = 45.1 % 34.0-50.0 hematocrit) Erythrocyte mean corpuscular 88.6 fL 86-100 volume [Entitic volume] (test code = 70599-9) mean corpuscular hemoglobin (test 27.9 pg 26.2-33.4 [...] 44.4-80.1 leukocytes in Blood (test code = 29322-0) Granulocytes Immature [#/volume] 0.0 K/uL 0.0-0.03 in Blood (test code = 80653-8) lymphocyte% (test code = 31.8 % 10.0-50.0 lymphocyte%) mono % (test code = mono %) 7.9 % 3.6-12.0 eos % (test code = eos %) 2.1 % 0.0-5.4 Basophils/100 leukocytes in 1.3 % 0.1-1.2 H Unspecified specimen (test code = 00262-5) Neutrophils.band form [#/volume] 3.17 K/uL 1.56-6.13 in Blood (test code = 59942-2) Lymphocytes [#/volume] in 1.8 K/uL 1.18-3.74 Unspecified specimen by Automated count (test code = 41129-2) mono # (test code = mono #) 0.44 K/uL 0.24-0.86 eos # (test code = eos #) 0.12 K/uL 0.04-0.36 basophil # (test code = basophil 0.07 K/uL 0.01-0.08 #) NRBC% (test code = NRBC%) 0 /100 WBC 0-0.2 NRBC# (test code = NRBC#) 0 K/uL [facility], [id number] 10:50:00 NeutrophilsBandLymphocyteAtypical LymphMonocyteEosinophilBasophilPlatelet EstimatePlatelet MorphologyHypochromasiaMatagoNoxubee General HospitalBasi metabolic 2000 panel - Serum or [id number] 10:50:00 Test Item Value Reference Range Interpretation [...] code = calcium 9.2 mg/dL 8.6-10.0 level) [facility] W Auto Differential panel - [id number] 10:50:00 Test Item Value Reference Range Interpretation Comments white blood count (test code = 5.6 K/uL 4.0-11.5 white blood count) red blood count (test code = red 5.09 M/uL 3.80-5.20 blood count) hemoglobin (test code = 14.2 g/dL 10.5-15.7 hemoglobin) hematocrit (test code = 45.1 % 34.0-50.0 hematocrit) MCV [Entitic volume] (test code = 88.6 fL 86-100 84700-2) mean corpuscular hemoglobin (test 27.9 pg 26.2-33.4 [...] 44.4-80.1 leukocytes in Blood (test code = 76691-8) Immature granulocytes [#/volume] 0.0 K/uL 0.0-0.03 in Blood (test code = 64711-3) lymphocyte% (test code = 31.8 % 10.0-50.0 lymphocyte%) mono % (test code = mono %) 7.9 % 3.6-12.0 eos % (test code = eos %) 2.1 % 0.0-5.4 Basophils/100 leukocytes in 1.3 % 0.1-1.2 H Unspecified specimen (test code = 41760-8) Band form neutrophils [#/volume] 3.17 K/uL 1.56-6.13 in Blood (test code = 36142-9) Lymphocytes [#/volume] in 1.8 K/uL 1.18-3.74 Unspecified specimen by Automated count (test code = 76444-5) mono # (test code = mono #) 0.44 K/uL 0.24-0.86 eos # (test code = eos #) 0.12 K/uL 0.04-0.36 basophil # (test code = basophil 0.07 K/uL 0.01-0.08 #) NRBC% (test code = NRBC%) 0 /100 WBC 0-0.2 NRBC# (test code = NRBC#) 0 K/uL [facility], method unspecified - [id number] 10:50:00NeutrophilsBandLymphocyteAtypical LymphMonocyteEosinophilBasophilPlatelet EstimatePlatelet MorphologyHypochromasia [facility]Basic [facility] 2000 panel - Serum or [id number] 10:50:00 Test Item Value Reference Range Interpretation [...] code = calcium 9.2 mg/dL 8.6-10.0 level) [facility][U] XRAY KNEE 1 OR 2 VWS LEFT [id number] 10:36:00 Images acquired, not reported on this accession number.[facility]
[2022-03-24 05:21] LABS: Absolute Lymphocytes (CBC) 2.2 K/uL (0.7-4.9); Hematocrit 28.9 % (36.0-45.0); Lymphocytes % 29.9 % (15.3-44.8); MCV 85.5 fL (80-100); MPV 6.3 fL (7.6-11.3); RBC Red Blood Cell Count 3.38 M/uL (3.86-4.86)
[2022-03-24 05:45] LABS: Albumin 3.2 g/dL (3.4-5.0); Bilirubin Total 0.1 mg/dL (0.2-1.0); Magnesium 2.2 mg/dL (1.8-2.4); Potassium 4.1 mmol/L (3.5-5.1); Protein, Total 7.1 g/dL (6.4-8.2)
--- NOTE | 2022-03-24 09:52 | EDPHYS ---
Physician Documentation [facility] Name: Stefanie Rudd Age: 61 yrs Sex: Female : 1960 Arrival Date: 03/24/2022 Time: 04:40 Bed 14 Private MD: ED Physician Delano Chavarria HPI: 03/24 04:48 This 61 yrs old Female presents to ER via Unassigned with complaints of Chest Pain. sd2 04:48 61 yo F presents via EMS from work at [employer] with CC of chest pain. Pain is located in sd2 midsternal area radiating to back and patient describes it as a "ripping" feeling. Endorses associated SOB, nausea and vomiting. No diaphoresis. No hx of UT in the past per patient. Pt was given 2 NTG by staff at her [facility] and her pain significantly improved to a 2 out of 10 currently. 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 Historical: - Allergies: 04:56 Avelox; ke1 04:56 Dilantin; ke1 04:56 Latex, Natural Rubber; ke1 04:56 Morphine; ke1 04:56 Phenobarbital; ke1 - PMHx: 04:56 CHF; post -chemo; ke1 - PSHx: 04:56 Appendectomy; Cholecystectomy; gastric sleeve; Spinal surgery; Total abdominal ke1 hysterectomy; - Immunization history:: Client reports receiving the 2nd dose of the Covid vaccine. - Social history:: Smoking status: Patient reports the use of cigarette tobacco products, smokes one-half pack cigarettes per day. ROS: 04:48 Constitutional: Negative for fever, chills, and weight loss, Eyes: Negative for injury, sd2 pain, redness, and discharge, Cardiovascular: Positive for chest pain,Negative for palpitations, and edema, Respiratory: Negative for shortness of breath, cough, wheezing. Abdomen/GI: Negative for abdominal pain, nausea, vomiting, diarrhea. MS/Extremity: Negative for injury and deformity, Skin: Negative for injury, rash, and discoloration, Neuro: Negative for headache, numbness and tingling. Exam: 04:48 Constitutional: This is a well developed, well nourished patient who is awake, alert, sd2 and in no acute distress. Head/Face: Normocephalic, atraumatic. Eyes: EOMI, normal conjunctiva bilaterally Chest/axilla: Normal chest wall appearance and motion. Nontender with no deformity. Cardiovascular: Regular rate and rhythm with a normal S1 and S2. No gallops, murmurs, or rubs. 2+ distal pulses. Respiratory: Lungs have equal breath sounds bilaterally, clear to auscultation and percussion. No rales, rhonchi or wheezes noted. No increased work of breathing, no retractions or nasal flaring. Abdomen/GI: Soft, non-tender, with normal bowel sounds. No guarding or rebound. No evidence of tenderness throughout. Back: No spinal tenderness. No costovertebral tenderness. Full range of motion. Skin: Warm, dry with normal turgor. Normal color with no rashes, no lesions, and no evidence of cellulitis. MS/ Extremity: Pulses equal, no cyanosis. Neurovascular intact. Full, normal range of motion. Ambulatory without difficulty. Psych: Awake, alert, with orientation to person, place and time. Behavior, mood, and affect are within normal limits. 06:43 ECG was reviewed by the Attending Physician. NSR, rate 70, no STEMI criteria sd2 Vital Signs: 04:50 BP 115 / 74; Pulse 85; Resp 17; Temp 98.4; Pulse Ox 97% on R/A; Weight 51.71 kg; Height ke1 5 ft. 6 in. (167.64 cm); Pain 3/10; 05:09 BP 111 / 84; Pulse 72; Resp 20; Pulse Ox 97% ; mm9 07:38 BP 111 / 74; Pulse 78; Resp 12; Pulse Ox 96% on 3 lpm NC; ll1 09:01 BP 129 / 69; Pulse 62; Resp 13; Pulse Ox 95% on 3 lpm NC; ll1 10:00 BP 109 / 69; Pulse 68; Resp 15; ll1 04:50 Body Mass Index 18.40 (51.71 kg, 167.64 cm) ke1 MDM: 04:46 Patient medically screened. sd2 04:48 Differential Diagnosis Differential diagnosis includes but is not limited to: ACS, sd2 DVT/PE, pneumothorax, dissection, musculoskeletal, anxiety, anemia, electrolyte abnormality, pneumonia, CHF, COPD among others. Data reviewed: vital signs, nurses notes, EMS record. 03/24 04:47 Order name: CBC with Diff; Complete Time: :50 sd2 03/24 04:47 Order name: CMP; Complete Time: 05:50 sd2 03/24 04:47 Order name: Magnesium; Complete Time: 05:50 sd2 03/24 04:47 Order name: Troponin High Sensitivity; Complete Time: 05:50 sd2 03/24 04:47 Order name: BNP; Complete Time: 05:50 sd2 03/24 08:29 Order name: Troponin High Sensitivity; Complete Time: 09:51 kdr 03/24 04:47 Order name: EKG - Nurse/Tech; Complete Time: 05:07 sd2 03/24 04:47 Order name: XRAY Chest (1 view) sd2 03/24 05:47 Order name: Angio Aorta For Dissection EDMS Administered Medications: No medications were administered Disposition Summary: 03/24/22 09:51 Discharge Ordered Location: Home kdr Problem: new kdr Symptoms: are resolved kdr Condition: Stable kdr Diagnosis - Chest pain, unspecified kdr Followup: kdr - With: Private Physician - When: 2 - 3 days - Reason: If symptoms return, Further diagnostic work-up, Recheck today's complaints, Continuance of care, Re-evaluation by your physician Discharge Instructions: - Discharge Summary Sheet kdr - Chest Wall Pain, [id number] kdr - Nonspecific Chest Pain, Adult, [id number] kdr Forms: - Medication Reconciliation Form kdr - Thank You Letter kdr - Work release form ll1 Signatures: Dispatcher [employer] EDMS Delano Chavarria MD MD kdr Patti Mauricio RN RN ke1 Norah Karimi MD MD sd2 Corrections: (The following items were deleted from the chart) 05:47 04:49 Dissection W/ Wo Con+CT.RAD.BRZ ordered. EDMS EDMS
--- NOTE | 2022-03-24 09:52 | ER ---
Nurse's Notes [facility] Name: Stefanie Rudd Age: 61 yrs Sex: Female : 1960 Arrival Date: 03/24/2022 Time: 04:40 Bed 14 Private MD: Diagnosis: Chest pain, unspecified Presentation: 03/24 04:50 Chief complaint: EMS states: CP at work with SOB at around 0415, relieved by Nitro X 2 ke1 prior to EMS arrival. Coronavirus screen: Vaccine status: Patient reports receiving the 2nd dose of the covid vaccine. Ebola Screen: No symptoms or risks identified at this time. Initial Sepsis Screen: Does the patient meet any 2 criteria? No. Patient's initial sepsis screen is negative. Does the patient have a suspected source of infection? No. Patient's initial sepsis screen is negative. Risk Assessment: Do you want to hurt yourself or someone else? Patient reports no desire to harm self or others. Onset of symptoms was March 24, 2022 at 04:15. 04:50 Method Of Arrival: EMS: [facility] ke1 04:50 Acuity: PIPER 3 ke1 Triage Assessment: 04:55 General: Appears comfortable, Behavior is appropriate for age. Pain: Complains of pain ke1 in chest Pain does not radiate. Pain currently is 3 out of 10 on a pain scale. Quality of pain is described as stabbing, Alleviated by medications. Respiratory: Airway is patent Trachea midline Respiratory effort is even, unlabored, Respiratory pattern is. Historical: - Allergies: 04:56 Avelox; ke1 04:56 Dilantin; ke1 04:56 Latex, Natural Rubber; ke1 04:56 Morphine; ke1 04:56 Phenobarbital; ke1 - PMHx: 04:56 CHF; post -chemo; ke1 - PSHx: 04:56 Appendectomy; Cholecystectomy; gastric sleeve; Spinal surgery; Total abdominal ke1 hysterectomy; - Immunization history:: Client reports receiving the 2nd dose of the Covid vaccine. - Social history:: Smoking status: Patient reports the use of cigarette tobacco products, smokes one-half pack cigarettes per day. Screenin:24 Abuse screen: Denies threats or abuse. Nutritional screening: No deficits noted. ke1 Tuberculosis screening: No symptoms or risk factors identified. Fall Risk None identified. Assessment: 05:37 Reassessment: CT called to inform of green top at bedside. ke1 06:06 Reassessment: Patient is alert, oriented x 3, equal unlabored respirations, skin ke1 warm/dry/pink. Patient denies pain at this time. Patient states feeling better. Patient states symptoms have improved. 07:02 Reassessment: No changes from previously documented assessment. report received from 1 shift nurse manager RN. Patient resting. 07:39 Reassessment: No changes from previously documented assessment. ll1 08:40 Reassessment: No changes from previously documented assessment. 2nd troponin done ll1 Patient states feeling better. 10:08 Reassessment: No changes from previously documented assessment. Patient and/or family ll1 updated on plan of care and expected duration. Pain level reassessed. Patient is alert, oriented x 3, equal unlabored respirations, skin warm/dry/pink. Vital Signs: 04:50 BP 115 / 74; Pulse 85; Resp 17; Temp 98.4; Pulse Ox 97% on R/A; Weight 51.71 kg; Height ke1 5 ft. 6 in. (167.64 cm); Pain 3/10; 05:09 BP 111 / 84; Pulse 72; Resp 20; Pulse Ox 97% ; mm9 07:38 BP 111 / 74; Pulse 78; Resp 12; Pulse Ox 96% on 3 lpm NC; ll1 09:01 BP 129 / 69; Pulse 62; Resp 13; Pulse Ox 95% on 3 lpm NC; ll1 10:00 BP 109 / 69; Pulse 68; Resp 15; ll1 04:50 Body Mass Index 18.40 (51.71 kg, 167.64 cm) ke1 ED Course: 04:40 Patient arrived in ED. as6 04:45 Maintain EMS IV. Gauge \T\ site: 20 g L wrist. ke1 04:46 Norah Karimi MD is Attending Physician. sd2 04:49 Patti Mauricio, RASTA is Primary Nurse. ke1 04:49 EKG done, by ED staff, reviewed by Norah Karimi MD. mm9 04:55 Triage completed. ke1 05:07 Patient has correct armband on for positive identification. Placed in gown. Bed in low mm9 position. Call light in reach. Side rails up X 1. Warm blanket given. security monitor on. Pulse ox on. NIBP on. 05:08 Initial lab(s) drawn, by ED staff, sent to lab. Maintain EMS IV. Dressing intact. Good mm9 blood return noted. Site clean \T\ dry. 05:24 Arm band placed on. ke1 06:02 XRAY Chest (1 view) In Process Unspecified. EDMS 06:18 Angio Aorta For Dissection In Process Unspecified. EDMS 07:05 Attending Physician role handed off by Norah Karimi MD kdr 07:05 Delano Chavarria MD is Attending Physician. kdr 07:07 Primary Nurse role handed off by Patti Mauricio RN eb 07:11 Carl Noyola, RN is Primary Nurse. ll1 10:05 No provider procedures requiring assistance completed. IV discontinued, intact, ll1 bleeding controlled, No redness/swelling at site. Pressure dressing applied. Administered Medications: No medications were administered Medication: 09:02 VIS not applicable for this client. ll1 Outcome: 09:51 Discharge ordered by . kdr 10:05 Patient left the ED. ll1 10:05 Discharged to home ambulatory. ll1 10:05 Condition: stable 10:05 Discharge instructions given to patient, Instructed on discharge instructions, follow up and referral plans. Demonstrated understanding of instructions, follow-up care. Signatures: Dispatcher [employer] Delano Winkler MD MD [facility] Anna Ayers Lynsay, RN RN ll1 Brown Saenz RN RN as6 Patti Mauricio RN RN ke Norah Karimi MD MD sd2 Martinez, Maria mm9
[2022-03-24 10:11] VITALS: TEMP 98.4
[2022-03-24 10:14] VITALS: BP 129/69; O2SAT 95
--- NOTE | 2022-03-25 15:59 | EKG ---
Test Date: 2022-03-24 Test Time: 04:57:47 Language And Literature Division Chair: DIVINA MEASUREMENT RESULTS: Intervals: Rate: 70 WI: 150 QRSD: 80 QT: 404 QTc: 436 [place]: P: 83 WI: 150 QRS: 69 T: 66 INTERPRETIVE STATEMENTS: Normal sinus rhythm Normal ECG Compared to ECG 03/10/2022 19:42:37 No significant changes Electronically Signed On 03-25-22 15:57:16 CDT by Maco Jay
--- NOTE | 2022-03-26 15:11 | RAD REPORT ---
EXAM DESCRIPTION: CT - Angio Aorta For Dissection - 03/24/2022 6:16 am CLINICAL HISTORY: Tearing CP radiating to back, r/o dissection and PE, pt has history of Saddle PE COMPARISON: March 10, 2022 TECHNIQUE: CT angiogram of the chest, abdomen and pelvis were obtained after the administration of i ntravenous contrast followed by reconstruction images. Sagittal and coronal maximum intensity project ion images are generated for review. The exam was performed according to our departmental dose-optimi zation program, which includes automated exposure control, adjustment of the mA and/or kV according t o patient size and/or use of iterative reconstruction technique. FINDINGS: CTA CHEST: The heart size is normal without pericardial effusion. The aorta demonstrates normal course and calib er without dissection or aneurysm. There are no pathologically enlarged intrathoracic or axillary lym ph nodes. Postsurgical changes at the GE junction. The central airways are patent. The lungs demonstrate dependent appearing atelectasis bilaterally lef t greater than right. No nodule or mass. No lung cavitation. No pleural effusion. No pneumothorax not ed. CTA ABDOMEN: The aorta demonstrates no dissection or aneurysm. There are scattered atherosclerotic changes. The schmidt perior mesenteric and celiac artery origins remain patent. The right and left renal artery origins re main patent. The inferior mesenteric artery origin is patent. An IVC filter is in place. The liver, and spleen are normal. The gallbladder has been resected. Pancreas and adrenal glands are intact. The kidneys enhance symmetrically. The left kidney demonstrates a mid pole simple cyst requir ing no follow-up evaluation measuring approximately 2.2 cm. At the level of the mid pole along the le ft anterior and lateral margin of the kidney, there is a rim calcified structure measuring approximat lupillo 2.1 cm. This suggests a calcified aneurysm likely arising from the peripheral arteries of the lef t kidney. Within the superior pole left kidney there is an indeterminate slightly lateral contoured c ystic mass is identified coronal image #[id number]. This measures approximately 9.8 mm. No intraperitoneal free air or free fluid. No mesenteric or retroperitoneal lymphadenopathy. Postsurg ical changes involving the stomach. There are no findings of small bowel obstruction. The appendix is not appreciated. There is a midline ventral abdominal wall hernia containing mesenteric fat. The wal l defect measures 2.3 cm in width. CTA PELVIS: The iliac arteries demonstrate normal course and caliber without aneurysm or dissection. The bladder and rectum are normal. No pelvic free fluid or pelvic lymphadenopathy. S-shaped curvature of the lumbar spine with moderate multilevel degenerative disc disease. IMPRESSION: No aortic dissection or aneurysm. Small complex cystic-appearing lesion superior pole left kidney measuring 9.8 mm. While this likely r epresents a hemorrhagic cyst, however, cystic neoplasm is not excluded. Recommend dedicated MRI imagi ng. 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 Atherosclerosis. Constipation. RECOMMENDATIONS: Electronically signed by: Slava Del Toro MD 03/24/2022 7:18 AM CDT Due to temporary technical issues with the PACS/Fluency reporting system, reports are being signed by the in house radiologists without review as a courtesy to insure prompt reporting. The interpreting radiologist is fully responsible for the content of the report.
--- NOTE | 2022-03-26 15:13 | RAD REPORT ---
EXAM DESCRIPTION: RAD - Chest Single View - 03/24/2022 6:00 am CLINICAL HISTORY: CHEST PAIN COMPARISON: March 10, 2022 FINDINGS: The lungs are clear. There is no pleural effusion or pneumothorax. The cardiomediastinal s ilhouette is without acute process. The osseous structures are without acute process. IMPRESSION: No acute process. RECOMMENDATIONS: Electronically signed by: Slava Del Toro MD 03/24/2022 6:59 AM CDT Due to temporary technical issues with the PACS/Fluency reporting system, reports are being signed by the in house radiologists without review as a courtesy to insure prompt reporting. The interpreting radiologist is fully responsible for the content of the report.
== END 2022-03-24 10:05 | disposition home or self-care (01) ==
LOC: ER 04:37
DX: R07.9 Chest pain, unspecified (principal); I50.9 Heart failure, unspecified; F17.210 Nicotine dependence, cigarettes, uncomplicated
CPT/HCPCS: 93005; 85025; 36415; 83735; 84484 ×2; 80053; 83880; 71275; 74175; 71045; 99284; Q9967

== ENCOUNTER 2023-02-12 14:01 | Emergency (ER) | payer BC, SELFPAY ==
--- OUTSIDE RECORDS SUMMARY | 2023-02-12 14:06 | XMS REPORT | Continuity of Care Document ---
:1960 Author Organization [facility] t Address [address] [place] [address] [address] [place] [address] Care Team Providers Name Role Phone Norah Sutherland Primary Care Physician ALEJA VIDALES Attending Clinician Unavailable Jonah ACOSTA, Charmaine Romo Attending Clinician [phone] Cathy Pacheco LVN Attending Clinician LENORE WRIGHT Attending Clinician Unavailable Lianne Corrigan Attending Clinician Carlos Patrick DO Attending Clinician [phone] Keshawn Parisi MD, Ludin Sharif Attending Clinician [phone] Lenore Wright MD Attending Clinician Rosalva Smith DNP Attending Clinician Jorge A Mckeon MD Attending Clinician Maico Morrison MD Attending Clinician Babar Antony MD Attending Clinician BABAR ANTONY Attending Clinician Unavailable ZRoosevelt Attending Clinician Unavailable Taran Tavarez Attending Clinician Unavailable HIRO CASAREZ M.D. Attending Clinician Unavailable LINA TEJADA PA Attending Clinician Unavailable WES LYLE P.A. Attending Clinician Unavailable RICHI MAXWELL Attending Clinician Unavailable YOLANDA ENCARNACION Attending Clinician Unavailable YUDELKA GARCIA Attending Clinician Unavailable NANY CLEMENTS Attending Clinician Unavailable CINTHIA BELL Attending Clinician Unavailable ADEEL FRAZIER Attending Clinician Unavailable ZAIN SPAIN Attending Clinician Unavailable DEQUAN COPELAND Attending Clinician Unavailable CHINYERE LEPE Attending Clinician Unavailable ALEJA VIDALES Admitting Clinician Unavailable LENORE WRIGHT Admitting Clinician Unavailable Lenore Wright MD Admitting Clinician BABAR ANTONY Admitting Clinician Unavailable ZRoosevelt Admitting Clinician Unavailable Taran Tavarez Admitting Clinician Unavailable RICHI MAXWELL Admitting Clinician Unavailable YOLANDA ENCARNACION Admitting Clinician Unavailable CHINYERE LEPE Admitting Clinician Unavailable Payers Payer Name Policy Type Policy Number Effective Date Expiration Date Jose G SMALL [id number] Problems Condition Condition Condition Status Onset Resolution Last Treating Co mments Source Name Details Category Date Date Treatment Clinician Date E46 E46 Disease Active Univers Unspecifie Unspecifie 731 it y of d severe d severe 00:00: [place] protein-ca protein-ca 00 Me dical colby colby Branch malnutriti malnutriti on on Lower Lower Disease Active Univers extremity extremity 7-29 ity of edema edema 00:00: [place] 00 Medical Branch Abdominal Abdominal Disease Active Uni vers pain, pain, 7-28 ity of unspecif[place] Medical abdominal abdominal Bran ch location location Coffee Coffee Disease Active Univers ground ground 12-20 ity of emesis emesis 00:00: 00 [facility] Branch Hypokalemi Hypokalemi Problem Active M atagor a [...] ents Source Name Type Date Date Clinician LATEX DRUG Active Unknown-Cmnt Univ ers INGREDI 12-23 ity of 00:00: 00 [facility] Latex Propensi Active Unknown - Unive rs ty to See comments 12-23 ity of adverse 00:00: [place] reaction 00 [facility] Morphine Propensi Active Anaphylaxis U nivers ty to 12-20 ity of adverse 00:: [place] reaction 00 [facility] MORPHINE DRUG Active Anaphylaxis Uni vers INGREDI 12-20 ity of 00:00: 00 Medical Branch Dilantin Allergy Active [facility] Latex Allergy Active [facility] Phenobar Allergy Active [facility] NO KNOWN Drug Active Univers ALLERGIE Class ity of S [facility] Avelox Allergy Active [facility] Social History Social Habit Start Date Stop Date Quantity Comments Source Gender identity Universit y [facility] Sexual orientation Univer sity of [facility] History of tobacco Cigarette Smoker University of [facility] History of Social 2022-12-23 2022-12-23 Univers ity of function 00:00:00 00:00:00 [facility] Tobacco use and 2022-12-21 2022-12-21 User of smokeless Un iversity of exposure 00:00:00 00:00:00 tobacco [facility] Tobacco Comment 2022-12-21 2022-12-21 Patient states Unive rsity of 00:00:00 00:00:00 using an [facility] e-cigarette and Branch half-a-pack/day of cigarettes Sex Ass[birth year] At [birth year] Universit y of 00:00:00 00:00:00 [facility] Smoking Status Start Date Stop Date Source Heavy Tobacco Smoker Cordelia Crews [facility] Tobacco smoking consumption Univ ersity of [facility] Branch Smokes tobacco daily 2022-12-21 00:00:00 Univers ity [facility] Medications Ordered Filled Start Stop Current Ordering Indication Dosage Frequency Signature Comments Components Source Medication Medication Date Date Medication? Clinician (SIG) Name Name omeprazole 2022- Yes 40mg 40 mg, Unive rs (PRILOSEC) 12-24 Oral, BID, ity of capsule 40 01:00: [place] 00 on [facility] 12/23/22 at [place] 1999, Until Discontinu ed, Routine omeprazole 2022-0 2022- No 40mg 40 mg, Univ ers (PRILOSEC) 12-24 08 Oral, BID, it y of capsule 40 01:00: 01:22 First dose [place] mg 00 :18 on [facility] 12/23/22 at [place] 1999, Until Discontinu ed, Routine furosemide 2022-0 Yes 20mg Take 1 Unive rs 20 mg 7-31 tablet by ity of tablet 18:21: mouth as [place] [address] needed Medical (leg Branch swelling). QUEtiapine 3-0 Yes 100mg Take 1 Univ ers 100 mg 7-31 tablet by ity of tablet 18:21: mouth in [place] [address] the Medical morning Branch and 1 tablet in the evening. gabapentin 2023-0 Yes 100mg Take 1 Univ ers 100 mg 7-31 capsule by ity of capsule 18:21: mouth in [place] [address] the Medical morning. Branch mirtazapine 2022-0 Yes 30mg Take 1 Univ ers 30 mg 7-31 tablet by ity of tablet 18:21: mouth at [place] [address] bedtime. Medical Branch pregabalin 2023-0 Yes 100mg Take 1 Univ ers 100 mg 7-31 capsule by ity of capsule 18:21: mouth in [place] [address] the Medical morning Branch and 1 capsule at noon and 1 capsule in the evening. dicyclomine 2023-0 Yes 10mg Take 1 Univ ers 10 mg 7-31 capsule by ity of capsule 18:21: mouth in [place] [address] the Medical morning. Branch levETIRAcet 2023-0 Yes 500mg Take 1 Uni vers am (KEPPRA) 7-31 tablet by ity of 500 mg 18:21: mouth in [facility] 22 the Medical morning Branch and 1 tablet in the evening. venlafaxine 2023-0 Yes 300mg Take 3 Uni vers 100 mg 7-31 tablets by ity of tablet 18:21: mouth in [place] [address] the Medical morning Branch and 3 tablets in the evening. tiZANidine 2023-0 Yes 4mg Take 1 Unive rs 4 mg 7-31 capsule by ity of capsule 18:21: mouth in [place] [address] the Medical morning Branch and 1 capsule at noon and 1 capsule in the evening. baclofen 10 2023-0 Yes 10mg Take 1 Univ ers mg tablet 7-31 tablet by ity o f 18:21: mouth in [place] [address] the Medical morning. Branch HYDROcodone 2023-0 Yes 1{tbl} Take 1 Un moe -acetaminop 7-31 tablet by ity of hen (NORCO) 18:21: mouth [place] 10-325 mg 22 every 6 Medical tablet (six) Branch hours as needed for Pain (scale 7-10). furosemide 2023-0 Yes 20mg Take 1 Unive rs 20 mg 7-31 tablet by ity of tablet 18:21: mouth as [place] 22 needed Medical (leg Branch swelling). QUEtiapine 2023-0 Yes 100mg Take 1 Univ ers 100 mg 7-31 tablet by ity of tablet 18:21: mouth in [place] [address] the Medical morning Branch and 1 tablet in the evening. gabapentin 2023-0 Yes 100mg Take 1 Univ ers 100 mg 7-31 capsule by ity of capsule 18:21: mouth in [place] [address] the Medical morning. Branch mirtazapine 2023-0 Yes 30mg Take 1 Univ ers 30 mg 7-31 tablet by ity of tablet 18:21: mouth at [place] [address] bedtime. Medical Branch pregabalin 2023-0 Yes 100mg Take 1 Univ ers 100 mg 7-31 capsule by ity of capsule 18:21: mouth in [place] [address] the Medical morning Branch and 1 capsule at noon and 1 capsule in the evening. dicyclomine 2023-0 Yes 10mg Take 1 Univ ers 10 mg 7-31 capsule by ity of capsule 18:21: mouth in [place] [address] the Medical morning. Branch levETIRAcet 2023-0 Yes 500mg Take 1 Uni vers am (KEPPRA) 7-31 tablet by ity of 500 mg 18:21: mouth in [facility] 22 the Medical morning Branch and 1 tablet in the evening. venlafaxine 2023-0 Yes 300mg Take 3 Uni vers 100 mg 7-31 tablets by ity of tablet 18:21: mouth in [place] [address] the Medical morning Branch and 3 tablets in the evening. tiZANidine 2023-0 Yes 4mg Take 1 Unive rs 4 mg 7-31 capsule by ity of capsule 18:21: mouth in [place] [address] the Medical morning Branch and 1 capsule at noon and 1 capsule in the evening. baclofen 10 2023-0 Yes 10mg Take 1 Univ ers mg tablet 7-31 tablet by ity o f 18:21: mouth in [place] [address] the Medical morning. Branch HYDROcodone 2023-0 Yes 1{tbl} Take 1 Un moe -acetaminop 7-31 tablet by ity of hen (NORCO) 18:21: mouth [place] 10-325 mg 22 every 6 Medical tablet (six) Branch hours as needed for Pain (scale 7-10). furosemide 2023-0 Yes 20mg Take 1 Unive rs 20 mg 7-31 tablet by ity of tablet 18:21: mouth as [place] 22 needed Medical (leg Branch swelling). QUEtiapine 2023-0 Yes 100mg Take 1 Univ ers 100 mg 7-31 tablet by ity of tablet 18:21: mouth in [place] [address] the Medical morning Branch and 1 tablet in the evening. gabapentin 2023-0 Yes 100mg Take 1 Univ ers 100 mg 7-31 capsule by ity of capsule 18:21: mouth in [place] [address] the Medical morning. Branch mirtazapine 2023-0 Yes 30mg Take 1 Univ ers 30 mg 7-31 tablet by ity of tablet 18:21: mouth at [place] [address] bedtime. Medical Branch pregabalin 2023-0 Yes 100mg Take 1 Univ ers 100 mg 7-31 capsule by ity of capsule 18:21: mouth in [place] [address] the Medical morning Branch and 1 capsule at noon and 1 capsule in the evening. dicyclomine 2023-0 Yes 10mg Take 1 Univ ers 10 mg 7-31 capsule by ity of capsule 18:21: mouth in [place] [address] the Medical morning. Branch levETIRAcet 2023-0 Yes 500mg Take 1 Uni vers am (KEPPRA) 7-31 tablet by ity of 500 mg 18:21: mouth in [facility] 22 the Medical morning Branch and 1 tablet in the evening. venlafaxine 2023-0 Yes 300mg Take 3 Uni vers 100 mg 7-31 tablets by ity of tablet 18:21: mouth in [place] [address] the Medical morning Branch and 3 tablets in the evening. tiZANidine 2023-0 Yes 4mg Take 1 Unive rs 4 mg 7-31 capsule by ity of capsule 18:21: mouth in [place] [address] the Medical morning Branch and 1 capsule at noon and 1 capsule in the evening. baclofen 10 2023-0 Yes 10mg Take 1 Univ ers mg tablet 7-31 tablet by ity o f 18:21: mouth in [place] [address] the Medical morning. Branch HYDROcodone 2023-0 Yes 1{tbl} Take 1 Un moe -acetaminop 7-31 tablet by ity of hen (NORCO) 18:21: mouth [place] 10-325 mg 22 every 6 Medical tablet (six) Branch hours as needed for Pain (scale 7-10). furosemide 2023-0 Yes 20mg Take 1 Unive rs 20 mg 7-31 tablet by ity of tablet 18:21: mouth as [place] 22 needed Medical (leg Branch swelling). QUEtiapine 2023-0 Yes 100mg Take 1 Univ ers 100 mg 7-31 tablet by ity of tablet 18:21: mouth in [place] [address] the Medical morning Branch and 1 tablet in the evening. gabapentin 2023-0 Yes 100mg Take 1 Univ ers 100 mg 7-31 capsule by ity of capsule 18:21: mouth in [place] [address] the Medical morning. Branch mirtazapine 2023-0 Yes 30mg Take 1 Univ ers 30 mg 7-31 tablet by ity of tablet 18:21: mouth at [place] [address] bedtime. Medical Branch pregabalin 2022-0 Yes 100mg Take 1 Univ ers 100 mg 7-31 capsule by ity of capsule 18:21: mouth in [place] [address] the Medical morning Branch and 1 capsule at noon and 1 capsule in the evening. dicyclomine 2022-0 Yes 10mg Take 1 Univ ers 10 mg 7-31 capsule by ity of capsule 18:21: mouth in [place] [address] the Medical morning. Branch levETIRAcet 2022-0 Yes 500mg Take 1 Uni vers am (KEPPRA) 7-31 tablet by ity of 500 mg 18:21: mouth in [facility] 22 the Medical morning Branch and 1 tablet in the evening. venlafaxine 2022-0 Yes 300mg Take 3 Uni vers 100 mg 7-31 tablets by ity of tablet 18:21: mouth in [place] [address] the [facility] morning Branch and 3 tablets in the evening. tiZANidine 2022-0 Yes 4mg Take 1 Unive rs 4 mg 7-31 capsule by ity of capsule 18:21: mouth in [place] [address] the Medical morning Branch and 1 capsule at noon and 1 capsule in the evening. baclofen 10 2022-0 Yes 10mg Take 1 Univ ers mg tablet 7-31 tablet by ity o f 18:21: mouth in [place] [address] the Medical morning. Branch HYDROcodone 2022-0 Yes 1{tbl} Take 1 Un moe -acetaminop 7-31 tablet by ity of hen (NORCO) 18:21: mouth [place] 10-325 mg 22 every 6 Medical tablet (six) Branch hours as needed for Pain (scale 7-10). sulfur 0 2022- No [id number] 5mL 5 mL, Univ ers hexafluorid 12-23 Intravenou i ty of e microsphr 16:15: 16:15 s, ONCE, 1 [place] (LUMASON) 00 :00 dose, On Medica l injection 5 Mon Branch mL 12/23/22 at 1115, Routine
member services coordinator approving Restricted medication : JAKE FREED pantoprazol 2022-0 2022- No 40mg Take 2 Uni vers e 20 mg EC 12-23 tablets by it y of tablet 14:45: 00:00 mouth in [place] 35 :00 the Medical morning. Branch carvediloL 202-0 2022- No 3.125mg Take 1 U nivers (COREG) -23 12- tablet by ity of 3.125 mg 14:45: 00:00 mouth in [facility] tablet 35 :00 the Medical morning Branch and 1 tablet in the evening. Take with meals. pantoprazol 3-0 2022- No 40mg Take 2 Uni vers e 20 mg EC 12-23 tablets by it y of tablet 14:45: 00:00 mouth in [place] 35 :00 the Medical morning. Branch carvediloL 2022-0 2022- No 3.125mg Take 1 U nivers (COREG) 12-23 tablet by ity of 3.125 mg 14:45: 00:00 mouth in [facility] tablet 35 :00 the Medical morning Branch and 1 tablet in the evening. Take with meals. furosemide 2023-0 Yes 20mg Take 1 Unive rs 20 mg -31 tablet by ity of tablet 14:45: mouth as [place] [address] needed Medical (leg Branch swelling). QUEtiapine 2023-0 Yes 100mg Take 1 Univ ers 100 mg 7-31 tablet by ity of tablet 14:45: mouth in [place] [address] the Medical morning Branch and 1 tablet in the evening. gabapentin 2023-0 Yes 100mg Take 1 Univ ers 100 mg 7-31 capsule by ity of capsule 14:45: mouth in [place] [address] the Medical morning. Branch mirtazapine 2023-0 Yes 30mg Take 1 Univ ers 30 mg 7-31 tablet by ity of tablet 14:45: mouth at [place] [address] bedtime. Medical Branch pregabalin 2023-0 Yes 100mg Take 1 Univ ers 100 mg 7-31 capsule by ity of capsule 14:45: mouth in [place] [address] the Medical morning Branch and 1 capsule at noon and 1 capsule in the evening. dicyclomine 2023-0 Yes 10mg Take 1 Univ ers 10 mg 7-31 capsule by ity of capsule 14:45: mouth in [place] [address] the Medical morning. Branch levETIRAcet 2023-0 Yes 500mg Take 1 Uni vers am (KEPPRA) 7-31 tablet by ity of 500 mg 14:45: mouth in [place] [address] the Medical morning Branch and 1 tablet in the evening. venlafaxine 2022-0 Yes 300mg Take 3 Uni vers 100 mg 7-31 tablets by ity of tablet 14:45: mouth in [place] [address] the Medical morning Branch and 3 tablets in the evening. tiZANidine 2022-0 Yes 4mg Take 1 Unive rs 4 mg 7-31 capsule by ity of capsule 14:45: mouth in [place] [address] the Medical morning Branch and 1 capsule at noon and 1 capsule in the evening. baclofen 10 2022-0 Yes 10mg Take 1 Univ ers mg tablet 7-31 tablet by ity o f 14:45: mouth in [place] [address] the Medical morning. Branch HYDROcodone 0 Yes 1{tbl} Take 1 Un moe -acetaminop 7-31 tablet by ity of hen (NORCO) 14:45: mouth [place] 10-325 mg 34 every 6 Medical tablet (six) Branch hours as needed for Pain (scale 7-10). propofoL IV 2022- No IV Unive rs infusion 12-23 Infusion, ity o f 13:27: 13:51 CONTINUOUS [place] 00 :38 PRN, Medical Starting Branch on Fri12/23/22 at 0827, Until Fri12/23/22 at 0851, Routine, Intra-op propofoL IV 2022- No Intravenou Univers infusion 12-23 s, ONCE ity of 13:24: 13:51 INTRA [place] 00 :38 PROCEDURE, Medical Starting Branch on Fri12/23/22 at 0824, Until Fri12/23/22 at 0851, Routine, Intra-op lidocaine 2022- No Intravenou U nivers 1% 12-23 s, ONCE ity of (XYLOCAINE) 13:24: 13:51 INTRA [place] 100 mg/10 00 :38 PROCEDURE, Medi nii mL (1 %) Starting Branch injection on Fri12/23/22 at 0824, Until Fri12/23/22 at 0851, Routine, Intra-op lactated 2022- No IV Univers ringers IV 12-23 Infusion, ity of infusion 13:17: 13:51 CONTINUOUS [place] 00 :38 PRN, Medical Starting Branch on Fri12/23/22 at 0817, Until Fri12/23/22 at 0851, Routine, Intra-op furosemide 2023-0 Yes 20mg Take 1 Unive rs 20 mg 7-31 tablet by ity of tablet 09:47: mouth as [place] [address] needed Medical (leg Branch swelling). QUEtiapine 2023-0 Yes 100mg Take 1 Univ ers 100 mg 7-31 tablet by ity of tablet 09:47: mouth in [place] [address] the Medical morning Branch and 1 tablet in the evening. gabapentin 2023-0 Yes 100mg Take 1 Univ ers 100 mg 7-31 capsule by ity of capsule 09:47: mouth in [place] [address] the Medical morning. Branch mirtazapine 2023-0 Yes 30mg Take 1 Univ ers 30 mg 7-31 tablet by ity of tablet 09:47: mouth at [place] [address] bedtime. Medical Branch pantoprazol 2023-0 Yes 40mg Take 2 Univ ers e 20 mg EC 7-31 tablets by ity of tablet 09:47: mouth in [place] [address] the Medical morning. Branch pregabalin 2023-0 Yes 100mg Take 1 Univ ers 100 mg 7-31 capsule by ity of capsule 09:47: mouth in [place] [address] the [facility] morning Branch and 1 capsule at noon and 1 capsule in the evening. dicyclomine 2023-0 Yes 10mg Take 1 Univ ers 10 mg 7-31 capsule by ity of capsule 09:47: mouth in [place] [address] the Medical morning. Branch levETIRAcet 2023-0 Yes 500mg Take 1 Uni vers am (KEPPRA) 7-31 tablet by ity of 500 mg 09:47: mouth in [place] [address] the [facility] morning Branch and 1 tablet in the evening. venlafaxine 2023-0 Yes 300mg Take 3 Uni vers 100 mg 7-31 tablets by ity of tablet 09:47: mouth in [place] [address] the [facility] morning Branch and 3 tablets in the evening. carvediloL 2023-0 Yes 3.125mg Take 1 Un moe (COREG) 7-31 tablet by ity of 3.125 mg 09:47: mouth in [place] [address] the [facility] morning Branch and 1 tablet in the evening. Take with meals. tiZANidine 2023-0 Yes 4mg Take 1 Unive rs 4 mg 7-31 capsule by ity of capsule 09:47: mouth in [place] [address] the [facility] morning [place] and 1 capsule at noon and 1 capsule in the evening. baclofen 10 0 Yes 10mg Take 1 Univ ers mg tablet 7-31 tablet by ity o f 09:47: mouth in [place] 18 the Medical morning. Branch HYDROcodone Yes 1{tbl} Take 1 Un moe -acetaminop 7-31 tablet by ity of hen (NORCO) 09:47: mouth [place] 10-325 mg 18 every 6 Medical tablet (six) Branch hours as needed for Pain (scale 7-10). omeprazole 2022- Yes [id number] 40mg Take 1 Univers 40 mg 7-31 10-30 capsule by ity of capsule 00:00: 04:59 mouth in [place] 00 :00 the Medical morning Branch and 1 capsule in the evening. Do all this for 90 days. omeprazole 2022-2022- Yes [id number] 40mg Take 1 Univers 40 mg 7-31 10-30 capsule by ity of capsule 00:00: 04:59 mouth in [place] 00 :00 the [facility] morning Branch and 1 capsule in the evening. Do all this for 90 days. omeprazole 2022- Yes [id number] 40mg Take 1 Univers 40 mg 7-31 10-30 capsule by ity of capsule 00:00: 04:59 mouth in [place] 00 :00 the Medical morning Branch and 1 capsule in the evening. Do all this for 90 days. omeprazole 2022- Yes [id number] 40mg Take 1 Univers 40 mg 7-31 10-30 capsule by ity of capsule 00:00: 04:59 mouth in [place] 00 :00 the [facility] morning Branch and 1 capsule in the evening. Do all this for 90 days. omeprazole 2022- Yes [id number] 40mg Take 1 Univers 40 mg 7-31 10-30 capsule by ity of capsule 00:00: 04:59 mouth in [place] 00 :00 the [facility] morning Branch and 1 capsule in the evening. Do all this for 90 days. baclofen 2022-0 Yes 10mg 10 mg, Univers (LIORESAL) 7-30 Oral, ity of tablet 10 14:00: DAILY, [place] mg 00 First dose Medical on [place] Branch 12/22/22 at 0900, Until Discontinu ed, Routine dicyclomine 0 Yes 10mg 10 mg, Univ ers (BENTYL) 7-30 Oral, ity of capsule 10 14:00: DAILY, [place] mg 00 First dose Medical on On [facility] 12/22/22 at 0900, Until Discontinu ed, Routine gabapentin 2023-0 Yes 100mg 100 mg, Uni vers (NEURONTIN) 12-22 Oral, ity of capsule 100 14:00: [place]ILY, [place] 00 First dose Medical on [facility] 12/22/22 at 0900, Until Discontinu ed, Routine baclofen 3-0 2023- No 10mg 10 mg, Univer s (LIORESAL) 12-22 Oral, ity of tablet 10 14:00: 01:22 DAILY, [place] mg 00 :18 First dose Medical on [facility] 12/22/22 at 0900, Until Discontinu ed, Routine dicyclomine 3-0 2023- No 10mg 10 mg, Uni vers (BENTYL) 12-22 Oral, ity of capsule 10 14:00: 01:22 [place]ILY, [place] mg 00 :18 First dose Medical on [facility] 12/22/22 at 0900, Until Discontinu ed, Routine gabapentin 3-0 2023- No 100mg 100 mg, Un moe (NEURONTIN) 12-22 Oral, ity of capsule 100 14:00: 01:22 DAILY, [place] mg 00 :18 First dose Medical on [facility] 12/22/22 at 0900, Until Discontinu ed, Routine mirtazapine 2023-0 Yes 30mg 30 mg, Univ ers (REMERON) 12-22 Oral, QHS, ity of tablet 30 02:00: [place] dose [place] mg 00 on [facility] 12/21/22 at Branch 2100, Until Discontinu ed, Routine mirtazapine 3-0 2023- No 30mg 30 mg, Uni vers (REMERON) 12-22 Oral, QHS, ity of tablet 30 02:00: 01:22 First dose [place] mg 00 :18 on [facility] 12/21/22 at Branch 2100, Until Discontinu ed, Routine QUEtiapine 2023-0 Yes 100mg 100 mg, Uni vers (SEROQUEL) 12-22 Oral, BID, ity of tablet 100 01:00: First dose [place] mg 00 on [facility] 12/21/22 at [place] 2000, Until Discontinu ed, Routine levETIRAcet 3-0 Yes 500mg 500 mg, Un moe am (KEPPRA) 12-22 Oral, BID, it y of tablet 500 01:00: First dose [place] mg 00 on [facility] 12/21/22 at [place] 2000, Until Discontinu ed, Routine QUEtiapine 2022-0 3- No 100mg 100 mg, Un moe (SEROQUEL) 12-22 Oral, BID, it y of tablet 100 01:00: 01:22 First dose [place] mg 00 :18 on [facility] 12/21/22 at [place] 2000, Until Discontinu ed, Routine levETIRAcet 2022-0 2022- No 500mg 500 mg, U nivers am (KEPPRA) 12-22 Oral, BID, i ty of tablet 500 01:00: 01:22 First dose [place] mg 00 :18 on [facility] 12/21/22 at [place] 1999, Until Discontinu ed, Routine venlafaxine 2022-0 Yes 75mg 75 mg, Univ ers (EFFEXOR) 12-21 Oral, TID, ity of tablet 75 19:00: First dose [place] mg 00 on [facility] 12/21/22 at Branch 1400, Until Discontinu ed, Routine pregabalin 2022-0 Yes 100mg 100 mg, Uni vers (LYRICA) 12-21 Oral, TID, ity o f capsule 100 19:00: First dose [place] mg 00 on [facility] 12/21/22 at Branch 1400, Until Discontinu ed, Routine tiZANidine 2022-0 Yes 4mg 4 mg, Univer s (ZANAFLEX) 12-21 Oral, TID, ity of tablet 4 mg 19:00: First dose [place] 00 on [facility] 12/21/22 at [place] 1400, Until Discontinu ed venlafaxine 3-0 2023- No 75mg 75 mg, Uni vers (EFFEXOR) 12-21 Oral, TID, ity of tablet 75 19:00: 01:22 First dose [place] mg 00 :18 on [facility] 12/21/22 at Branch 1400, Until Discontinu ed, Routine pregabalin 3-0 2023- No 100mg 100 mg, Un moe (LYRICA) 12-21 Oral, TID, ity of capsule 100 19:00: 01:22 First dose [place] mg 00 :18 on [facility] Medical 12/21/22 at Branch 1400, Until Discontinu ed, Routine tiZANidine 2022- No 4mg 4 mg, Unive rs (ZANAFLEX) 12-21 Oral, TID, it y of tablet 4 mg 19:00: 01:22 First dose [place] 00 :18 on [facility] Medical 12/21/22 at Branch 1400, Until Discontinu ed HYDROcodone 2022-0 Yes 1{tbl} 1 tablet, Univers -acetaminop 12-21 Oral, ity of hen (NORCO) 17:14: Q6HPRN, [place] 10-325 mg 44 Starting Medica l tablet 1 on [facility] Branch tablet 12/21/22 at 1214, Until Discontinu ed, Routine, Pain (scale 7-10) HYDROcodone 2022- No 1{tbl} 1 tablet, Univers -acetaminop 12-21 Oral, ity of hen (NORCO) 17:14: 01[place]22 [place] 10-325 mg 44 :18 Starting Medica l tablet 1 on [facility] Branch tablet 12/21/22 at 1214, Until 12/23/22 at 2021, Routine, Pain (scale 7-10) nicotine 2022-0 Yes 1{patch 1 Patch, Un moe (NICODERM) 12-21 } Topical, ity o f 21 mg/24 hr 16:00: Administer [place] patch 1 00 over 24 Medical Patch Hours, Branch Q24H, First dose on [facility] 12/21/22 at 1100, Until Discontinu ed, Routine nicotine 2022-0 2022- No 1{patch 1 Patch, U nivers (NICODERM) 12-21 } Topical, ity of 21 mg/24 hr 16:00: 01:22 Administer [place] patch 1 00 :18 over 24 Medical Patch Hours, Branch Q24H, First dose on [facility] 12/21/22 at 1100, Until Discontinu ed, Routine iron 2022-0 2022- No 25mg 25 mg, IV Univers dextran 12-21 Piggyback, ity o f (INFED) 25 14:00: 14:08 ONCE, 1 Gian as mg in NaCl 00 :00 dose, On Medic al 0.9% (NS) Sat Branch 100 mL IV 12/21/22 at piggyback 0900, Administer over 15 Minutes, 100 mL iron 2022- No 1000mg 1,000 mg, Unive rs dextran 12-21 IV ity of (INFED) 14:00: 15:41 Infusion, [place] 1,000 mg in 00 :00 ONCE, 1 Medic al NaCl 0.9% dose, On Branch (NS) 500 mL Sat IV infusion 12/21/22 at 0900, Administer over 1.5 Hours, 500 mL glycerin/mi 2022- No 225mL 225 mL, U nivers neral oil 12-21 Rectal, ity of (AGLO 08:45: 09:28 ONCE, 1 [place] ENEMA) 00 :00 dose, On Medical (COMPOUNDED Sat Branch ) Enem 225 12/21/22 at mL 0345, Routine lactated 2022- No 500mL at 100 Unive rs ringers IV 12-21 mL/hr, 500 it y of infusion 08:15: 13:38 mL, [place] 500 mL 00 :00 Intravenou Medical s, ONCE, 1 Branch dose, On 12/21/22 at 0315, Routine acetaminoph 2022- No 741mg 741 mg, IV Univers en ADULT 12-21 Infusion, ity o f (OFIRMEV) 07:00: 07:18 at 296.4 Gian as injection 00 :00 mL/hr Medical 741 mg Administer Branch over 15 Minutes, ONCE, 1 dose, On 12/21/22 at 0200, Routine
Indicatio n: Non-periop erative Patient
Approved by: Per Policy (NPO Status) ondansetron Yes 4mg 4 mg, Slow Univers (ZOFRAN 12-21 IV Push, ity of (PF)) 06:02: Q6HPRN, [place] injection 4 25 Nausea and Me dical mg Vomiting Branch (N/V), Starting on 12/21/22 at 0102
Do ses of ondansetro n 16 mg and above need to be administer ed via IV piggyback. For Dose >=24mg ECG monitoring is advisable.
ondansetron 0 Yes 4mg 4 mg, Slow Univers (ZOFRAN 12-21 IV Push, ity of (PF)) 06:02: Q6HPRN, [place] injection 4 25 Nausea and Me dical mg Vomiting Branch (N/V), Starting on 12/21/22 at 0102
Do ses of ondansetro n 16 mg and above need to be administer ed via IV piggyback. For Dose >=24mg ECG monitoring is advisable.
ondansetron 0 2022- No 4mg 4 mg, Slow Univers (ZOFRAN 12-21 IV Push, ity of (PF)) 06:02: 01:22 Q6HPRN, [place] injection 4 25 :18 Nausea and Me dical mg Vomiting Branch (N/V), Starting on 12/21/22 at 010
Do ses of ondansetro n 16 mg and above need to be administer ed via IV piggyback. For Dose >=24mg ECG monitoring is advisable.
acetaminoph Yes 650mg 650 mg, Un moe en 12-21 Oral, ity of (TYLENOL) 05:47: Q6HPRN, [place] tablet 650 47 Starting Medic al mg on Sat Branch 12/21/22 at 0047, Until Discontinu ed, Routine, Pain (scale 1-3) acetaminoph 2022- No 650mg 650 mg, U nivers en 12-21 08 Oral, ity of (TYLENOL) 05:47: 01:22 Q6HPRN[place] tablet 650 47 :18 Starting Medic al mg on Sat Branch 12/21/22 at 0047, Until 12/23/22 at 2021, Routine, Pain (scale 1-3) polyethylen 0 Yes 17g 17 g, Unive rs e glycol 12-21 Oral, ity of 3350 powder 05:15: DAILY, [place] 17 g 00 First dose Medical on Sat Branch 12/21/22 at 0015, Until Discontinu ed, Routine sennosides- 0 Yes 1{tbl} 1 tablet, [facility] docusate 12-21 Oral, ity of sodium 05:15: DAILY, [place] (SENOKOT-S) 00 First dose Me dical 8.6-50 mg on Sat Branch per tablet 12/21/22 at 1 tablet 0015, Until Discontinu ed, Routine polyethylen 2022- No 17g 17 g, Univ ers e glycol 12-21 Oral, ity of 3350 powder 05:15: 01:22 DAILY, Gian as 17 g 00 :18 First dose Medical on Sat Branch 12/21/22 at 0015, Until Discontinu ed, Routine sennosides- 2022- No 1{tbl} 1 tablet, [facility] docusate 12-21 Oral, ity of sodium 05:15: 01:22 DAILY, [place] (SENOKOT-S) 00 :18 First dose Me dical 8.6-50 mg on Sat Branch per tablet 12/21/22 at 1 tablet 0015, Until Discontinu ed, Routine pantoprazol No 40mg 40 mg, Uni vers e 12-21 Slow IV ity of (PROTONIX) 05:15: 17:31 Push, [place] injection 00 :43 Q12H, Medical 40 mg First dose Branch on 12/21/22 at 0015, Until Discontinu ed NaCl 0.9% 2022- No 1000mL at 999 Uni vers (NS) bolus 12-21 mL/hr, ity of infusion 03:30: 03:30 1,000 mL, Gian as 1,000 mL 00 :00 IV Medical Infusion, Branch ONCE, 1 dose, On Fri12/20/22 at 2230, STAT FENTanyl PF No 50ug 50 mcg, Un moe (SUBLIMAZE 12-21 Slow IV ity o f (PF)) 03:15: 02:31 Push, [place] injection 00 :00 ONCE, 1 Medical 50 mcg dose, On Branch Fri12/20/22 at 2215, Routine ondansetron 2022- No 4mg 4 mg, Slow Univers (ZOFRAN 12-21 IV Push, ity of (PF)) 01:15: 01:40 ONCE, 1 [place] injection 4 00 :00 dose, On Medi nii mg Fri Branch 12/20/22 at 2015, RAMEZ iopamidol 2022- No [id number] 100mL 100 mL, Univers (ISOVUE 12-20 Intravenou ity o f 370-500 mL) 11:15: 11:15 s, ONCE, 1 [place] injection 00 :00 dose, On Medica l 100 mL 12/20/22 at 0615, Routine NaCl 0.9% 2022- No 250mL at 999 Univ ers (NS) IV 12-20 mL/hr, ity of infusion 10:15: 09:44 Intravenou [place] 250 mL 00 :00 s, ONCE, 1 Medical dose, On Branch Fri12/20/22 at 0515, Routine FENTanyl PF 2022- No 50ug 50 mcg, Un moe (SUBLIMAZE 12-20 Slow IV ity o f (PF)) 10:15: 09:22 Push, [place] injection 00 :00 ONCE, 1 Medical 50 mcg dose, On Branch Fri12/20/22 at 0515, Routine ondansetron 2022- No 4mg 4 mg, Slow Univers (ZOFRAN 12-20 IV Push, ity of (PF)) 09:15: 09:21 ONCE, 1 [place] injection 4 00 :00 dose, On Medi nii mg Fri Branch 12/20/22 at 0415, RAMEZ amitriptyli amitriptyli No 1 Q1D amitriptyl [place] [...] DAILY TIMES DAILY MOUTH THREE TIMES DAILY Vital Signs Vital Name Observation Time Observation Value Comments Source Systolic blood 2022-12-23 20:35:00 116 mm[Hg] Univer sity of pressure [place] [facility] Diastolic blood 2022-12-23 20:35:00 76 mm[Hg] Unive rsity of pressure [place] [facility] Heart rate 2022-12-23 20:35:00 65 /min Universi ty of [place] [facility] Body temperature 2022-12-23 20:35:00 35.94 Ashley Univ ersity of [place] [facility] Respiratory rate 2022-12-23 20:35:00 18 /min Univ ersity of [place] [facility] Oxygen saturation in 2022-12-23 20:35:00 95 /min University of Arterial blood by [place] [employer] Pulse oximetry Branch Body height 2022-12-21 14:14:00 167.6 cm Universi ty [facility] [place] [facility] Body weight 2022-12-21 14:14:00 49.4 kg Universi ty [facility] [place] [facility] BMI 2022-12-21 14:14:00 17.58 kg/m2 [facility]i ty [facility] [place] [facility] Systolic blood 2022-12-23 12:45:00 107 mm[Hg] Univer sity of [facility] Medical Branch Diastolic blood 2022-12-23 12:45:00 62 mm[Hg] Unive rsity of pressure [place] [facility] Heart rate 2022-12-23 12:45:00 65 /min Universi ty [facility] [place] [facility] Body temperature 2022-12-23 12:45:00 36.11 Ashley Univ ersity of [place] [facility] Respiratory rate 2022-12-23 12:45:00 14 /min Univ ersity of [place] [facility] Oxygen saturation in 2022-12-23 12:45:00 94 /min University of Arterial blood by [place] [employer] Pulse oximetry Branch Body height 2022-12-21 14:14:00 167.6 cm [facility]i ty [facility] [place] [facility] Body weight 2022-12-21 14:14:00 49.4 kg [facility] [place] [facility] BMI 2022-12-21 14:14:00 17.58 kg/m2 [facility] ty [facility] [place] [facility] Systolic blood 2022-12-20 08:50:00 111 mm[Hg] Univer sity of pressure [facility] Diastolic blood 2022-12-20 08:50:00 65 mm[Hg] Unive rsity of [facility] Heart rate 2022-12-20 08:50:00 91 /min [facility] Body temperature 2022-12-20 08:50:00 37 Ashley [facility] Res[facility] rate 2022-12-20 08:50:00 16 /min [facility] Oxygen saturation in 2022-12-20 08:50:00 99 /min [facility] blood by [facility] Pulse oximetry [place] Body height 2022-12-20 08:48:00 167.6 cm [facility] Body weight 2022-12-20 08:48:00 49.442 kg [facility] BMI 2022-12-20 08:48:00 17.59 kg/m2 [facility] BP Diastolic 2019-12-06 00:00:00 73 mm[Hg] [facility] Height 2019-12-06 00:00:00 66 [in_i] [facility] BMI (Body Mass 2019-12-06 00:00:00 21.6 kg/m2 [facility] BP Systolic 2019-12-06 00:00:00 113 mm[Hg] [facility] Body Weight 2019-12-06 00:00:00 2145.6 [oz_av] [facility] BP Diastolic 2019-04-07 00:00:00 75 mm[Hg] [facility] Height 2019-04-07 00:00:00 66 [in_i] [facility] BMI (Body Mass 2019-04-07 00:00:00 22.8 kg/m2 [facility] BP Systolic 2019-04-07 00:00:00 112 mm[Hg] [facility] Body Weight 2019-04-07 00:00:00 2256 [oz_av] [facility] BP Diastolic 2019-03-10 00:00:00 77 mm[Hg] [facility] Height 2019-03-10 00:00:00 66 [in_i] [facility] BMI (Body Mass 2019-03-10 00:00:00 21.8 kg/m2 [facility] Medical Index) Group BP Systolic 2019-03-10 00:00:00 120 mm[Hg] [facility] Body Weight 2019-03-10 00:00:00 2160 [facility]oz_av] [facility] BP Diastolic 2018-08-11 00:00:00 60 mm[Hg] [facility] Height 2018-08-11 00:00:00 66 [in_i] [facility] BMI (Body Mass 2018-08-11 00:00:00 21.5 kg/m2 [facility] business 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 Medical Index) Group BP Systolic 2018-08-11 00:00:00 98 mm[facility]Hg] [facility] Body Weight 2018-08-11 00:00:00 2128 [oz_av] [facility] Procedures Procedure Date / Time Performing Source Performed Clinician TRANSTHORACIC ECHO (TTE) COMPLETE 2022-12-23 [facility] of W/ CONTRAST 16:02:03 [facility] TRANSTHORACIC ECHO (TTE) COMPLETE 2022-12-23 [facility] of W/ CONTRAST 16:02:03 [facility] ESOPHAGOGASTRODUODENOSCOPY 2022-12-23 [facility] 13:09:00 [facility] EGD (ENDO) 2022-12-23 [facility] 12:55:53 Unassigned, No [facility] EGD (ENDO) 2022-12-23 [facility] 12:55:53 Unassigned, No [facility] MAGNESIUM 2022-12-23 Jalen Vega [place] of 09:15:00 [facility] BASIC METABOLIC PANEL (NA, K, CL, 2022-12-23 Terrie Vega University of CO2, GLUCOSE, BUN, CREATININE, CA) 09:15:00 [facility] MAGNESIUM 2022-12-23 Jalen Vega [place] of 09:15:00 [facility] BASIC METABOLIC PANEL (NA, K, CL, 2022-12-23 Terrie Vega University of CO2, GLUCOSE, BUN, CREATININE, CA) 09:15:00 [facility] ENDOSCOPY PROCEDURE DOCUMENTATION 2022-12-23 [facility] of 05:01:00 Unassigned, No [facility] CBC WITHOUT DIFF 2022-12-22 Jessica [facility] of 13:41:00 [facility] CBC WITHOUT DIFF 2022-12-22 Jessica, [facility] of 13:41:00 [facility] CBC WITHOUT DIFF 2022-12-22 Jessica [facility] of 09:29:00 [facility] CBC WITHOUT DIFF 2022-12-22 Jessica, [facility] of 09:29:00 [facility] CBC WITHOUT DIFF 2022[facility]12-21 [facility] 14:08[facility]00 [facility] CBC WITHOUT DIFF 2022-12-21 [place] [facility] of 14:08:00 [facility] PREPARE PACKED RBC 2022-12-21 [place] [facility] of 08:09:44 [facility] PREPARE PACKED RBC 2022-12-21 [place] [facility] of 08:09:44 [facility] HB ECG ROUTINE & RHYTHM STRIP 2022-12-21 Jf Calabrese iversity of 06:54:09 [facility] HB ECG ROUTINE & RHYTHM STRIP 2022-12-21 [place] [facility] iversity of 06:54:09 [facility] MAGNESIUM 2022-12-21 [place] [facility] of 05:50:00 [facility] FERRITIN SERUM 2022-12-21 [place] [facility] of 05:50:00 [facility] VITAMIN B12, LEVEL 2022-12-21 [place] [facility] of 05:50:00 [facility] FOLATE 2022-12-21 [place] [facility] of 05:50:00 [facility] HEPATIC FUNCTION PANEL ([id number]) 2022-12-21 Jf Calabrese niversity of (ALB,T.PRO,BILI 05:50:00 [facility],BU/BC,ALT,AST,ALK PHOS) [place] IRON PANEL 2022-12-21 Jf Calabrese [place] of 05:50:00 [facility] DIFF CONSULT BY PATHOLOGIST 2022-12-21 [place] Jf [facility] ersity of 05:50:00 [facility] CBC WITH DIFF 2022-12-21 [place] [facility] of 05:50:00 [facility] PROTHROMBIN TIME / INR 2022-12-21 Jf Calabrese y of 05:50:00 [facility] ACTIVATED PARTIAL THRMPLAS CHINMAY 2022-12-21 [place], Jf niversity of 05:50:00 [facility] FIBRINOGEN 2022-12-21 [place], [facility] of 05:50:00 [facility] RETICULOCYTES AUTOMATED 2022-12-21 [place], [facility] ty of 05:50:00 [facility] DIFF CONSULT INTERPRETATION 2022-12-21 [place], [facility] ersity of 05:50:00 [facility] MRSA / MSSA SCREEN BY PCR, YURI 2022-12-21 [place], [facility] of 05:50:00 [facility] MAGNESIUM 2022-12-21 [place], [facility] of 05:50:00 [facility] FERRITIN SERUM 2022-12-21 [place], [facility] of 05:50:00 [facility] VITAMIN B12, LEVEL 2022-12-21 [place], [facility] of 05:50:00 [facility] FOLATE 2022-12-21 [place], [facility] of 05:50:00 [facility] HEPATIC FUNCTION PANEL ([id number]) 2022-12-21 Jf Cal[facility]rese [facility] of (ALB,T.PRO,BILI 05:50:00 [facility],BU/BC,ALT,AST,ALK PHOS) [place] IRON PANEL 2022-12-21 [place] [facility] of 05:50:00 [facility] DIFF CONSULT BY PATHOLOGIST 2022-12-[address] [facility] ersity of 05:50:00 [facility] CBC WITH DIFF 2022-12-21 [place] [facility] of 05:50:00 [facility] PROTHROMBIN TIME / INR 2022-12-21 Jf Calabrese y of 05:50:00 [facility] ACTIVATED PARTIAL THRMPLAS CHINMAY 2022-12-21 Jf Calabrese niversity of 05:50:00 [facility] FIBRINOGEN 2022-12-21 [place], [facility] of 05:50:00 [facility] RETICULOCYTES AUTOMATED 2022-12-21 [place], Jf [facility] ty of 05:50:00 [facility] DIFF CONSULT INTERPRETATION 2022-12-21 Jf Calabrese [facility] ersity of 05:50:00 [facility] MRSA / MSSA SCREEN BY PCR, YURI 2022-12-21 Jf Calabrese [place] of 05:50:00 [facility] ABORH CONFIRMATION (LAB ONLY) 2022-12-21 [facility] 03:20:00 [facility] ABORH CONFIRMATION (LAB ONLY) 2022-12-21 Too Junior, [facility] 03:20:00 [facility] XR CHEST 2 VW 2022-12-21 Dorcasl Vernon, [facility] 02:58:00 [facility] XR CHEST 2 VW 2022-12-21 Too Junior, [facility] 02:58:00 [facility] HB ECG ROUTINE & RHYTHM STRIP 2022-12-21 [facility] 02:39:08 [facility] HB ECG ROUTINE & RHYTHM STRIP 2022-12-21 Too Junior, [facility] 02:39:08 [facility] BLOOD CULTURE SCREEN 2022-12-21 Dorcasl Vernon, [facility] of 02:30:00 [facility] HB ABO GROUPING 2022-12-21 Too Junior, [facility] 02:30:00 [facility] BLOOD CULTURE SCREEN 2022-12-21 Dorcasl Vernon, [facility] 02:30:00 [facility] HB ABO GROUPING 2022-12-21 [facility] 02:30:00 [facility] LIPASE 2022-12-21 Too Junior, [facility] 01:38:00 [facility] TROPONIN I 2022-12-21 [facility] 01:38:00 [facility] COMP. METABOLIC PANEL ([id number]) 2022-12-21 Too Junior, [facility] 01:38:00 [facility] CBC WITH DIFF 2022-12-21 Too Junior, [facility] 01:38:00 [facility] URINALYSIS 2022-12-21 Too Junior, [facility] 01:38:00 [facility] EXTRA TUBE URINE CULTURE 2022-12-21 Too [facility] rs[facility] of 01:38:00 [facility] LIPASE 2022-12-21 [facility] 01:38:00 [facility] TROPONIN I 2022-12-21 [facility] 01:38:00 [facility] COMP. METABOLIC PANEL ([id number]) 2022-12-21 Too HoffFormerly [facility] 01:38:00 [facility] CBC WITH DIFF 2022-12-21 [facility] 01:38:00 [facility] URINALYSIS 2022-12-21 [facility] [place] 01:38:00 [facility] EXTRA TUBE URINE CULTURE 2022-12-21 [facility] rsity of 01:38:00 [facility] CONSENT/REFUSAL FOR DIAGNOSIS AND 2022-12-20 [facility] 23:26:30 Unassigned, No [facility] CONSENT/REFUSAL FOR DIAGNOSIS AND 2022-12-20 [facility] 23:26:30 Unassigned, No [facility] COVID-19 (ID NOW RAPID TESTING) 2022-12-20 Babar Antony [facility] 09:44:00 [facility] LIPASE 2022-12-20 [facility] 09:18:00 [facility] COMP. METABOLIC PANEL ([id number]) 2022-12-20 Babar Antony U niversity of 09:18:00 [facility] CBC WITH DIFF 2022-12-20 Babar Antony [facility] 09:18:00 [facility] URINALYSIS 2022-12-20 Bernicewi Scjulius [facility] 09:18:00 [facility] NOTICE OF PRIVACY PRACTICES 2022-12-20 [facility] ersity of 08:43:33 Unassigned, No [facility] CONSENT/REFUSAL FOR DIAGNOSIS AND 2022-12-20 [facility] 08:43:03 Unassigned, No [facility] AGREEMENTS AUTHORIZATIONS AND 2022-12-20 Doctor Un iversity of IRREVOCABLE ASSIGNMENTS (FORM 05:01:00 Unassigned, No [facility]) Name Branch [U] XRAY SPINE CERVICAL 2 OR 3 VWS 2019-07-26 [facility] [id number] 00:00:00 [U] XRAY FOOT MIN 3 VWS RIGHT 2019-05-04 [facility] [id number] 00:00:00 [U] XRAY KNEE 1 OR 2 VWS LEFT 2019-05-04 [facility] [id number] 00:00:00 Physical Therapy 2019-04-27 [facility] 00:00:00 [U] XRAY SPINE CERVICAL 2 OR 3 VWS 2019-04-26 [facility] [id number] 00:00:00 [U] XRAY SPINE CERVICAL 2 OR 3 VWS 2019-03-09 [facility] [id number] 00:00:00 MA Bone Density Scan [id number] 2019-02-12 [facility] 00:00:00 [U] XRAY KNEE 1 OR 2 VWS LEFT 2019-02-12 [facility] [id number] 00:00:00 DEXA Bone Density with WB 2019-02-10 [facility] Composition DX 00:00:00 [U] XRAY SPINE CERVICAL 2 OR 3 VWS 2019-02-08 [facility] [id number] 00:00:00 Tibial [facility]th[facility]opy[facility] Primary Fusion of Cervical Spine 2018-12-24 [facility] 00:00:00 Group Gastric Bypass 2012-05-26 [facility] 00:00:00 Group Colonoscopy 2011-05-26 [facility] 00:00:00 Group Appendectomy [facility] Cholecystectomy [facility] Tonsillectomy [facility] Hysterectomy [facility] Plan of Care Planned Activity Planned Date Details Comments Source Diagnostic Test 2019-04-07 BMP, serum or [facility] Pending 00:00:00 plasma [code = Group BMP, serum or plasma] Encounters Start End Encounter Admission Attending Care Care Encounter Source Date/Time Date/Time Type Type Clinicians Facility Department ID 2023-02-04 2023-02-06 Inpatient ER FLASH [facility] [id number] 78 [place] 12:30:00 15:41:00 ALEJA [id number] [facility] 2023-01-31 2023-01-31 RONI Cid [id number] Univers 00:00:00 00:00:00 Charmaine FISHMAN [id number] ity of [facility] [id number] Te [facility] AT [phone] Nh maye LIGHT 072 [facility] 2023-01-06 2023-01-06 Outpatient [facility] Smith 16:34:59 16:34:59 [id number] F Peralta 2023-01-01 2023-01-01 Outpatient [facility] Smith 16:20:55 16:20:55 [id number] F Peralta 2022-12-30 2022-12-30 Telephone Mckenzie NINA [id number] Univers 00:00:00 00:00:00 Charmaine BOYD [id number] it y of [facility] [id number] [place] [id number] [facility] 009 Branch 2022-12-24 2022-12-24 Transition VALERIE Pacheco [id number] Univers 00:00:00 00:00:00 of Care Cathy PÉREZ [id number] ity of [place] 4.2.7.2.686 [facility] [id number] [facility] 403 Branch 2022-12-20 2022-12-23 Inpatient X LENORE WRIGHT [facility] [id number] Univers 18:44:00 18:20:00 ity of [facility] 2022-12-20 2022-12-23 Hospital Lianne Garcia [id number] Univers 18:44:00 18:20:00 Encounter Carlos Patrick 35 [id number] ity of [facility] [id number] [facility] [id number] Medical 3 Branch 2022-12-23 2022-12-23 Anesthesia Rosalva Smith [facility] [id number] Univers 08:18:00 08:53:00 Event Jorge A Mckeon [id number] ity of SCIENCES 4.2.7.2.686 Gian as BLDG [id number] [facility] 020 Branch 2022-12-23 2022-12-[address] [facility] [id number] Univers 07:15:00 07:55:00 Maico Hobbs ICAL [id number] ity of [facility] 4.2.7.2.686 Gian as BLDG [id number] [facility] 020 Branch 2022-12-20 2022-12-20 Emergency [facility] [id number] Univers 03:43:00 06:50:00 Babar HORN [id number] ity [facility] [id number] [place] [facility] [id number] [facility] 084 Branch 2022-12-20 2022-12-20 Emergency X [facility] ERT [id number] Univers 03:43:00 06:50:00 BABAR ity [facility] 2022-11-13 2022-11-[address] [facility] [id number] Smith 11:10:07 11:10:07 [id number] F Po 2020-06-29 2020-06-29 Outpatient Zuniga_F MMG MM [id number] [place] 01:08:00 01:08:00 0204 [facility] 2020-04-27 2020-04-27 Outpatient Zuniga_F MMG MM[facility] [id number] [place] 01:04:00 01:04:00 1203 [facility] 2020-04-12 2020-04-12 Outpatient Zuniga_F MM[facility] MMG [id number] [place] 02:32:00 02:32:00 1118 [facility] 2020-03-23 2020-03-23 Outpatient Zuniga_F MMG MMG [id number] [place] 01:04:00 01:04:00 1029 [facility] 2020-02-17 2020-02-17 Outpatient Zuniga_F MMG MMG [id number] [place] 03:07:00 03:07:00 0924 [facility] 2020-02-16 2020-02-16 Outpatient Zuniga_F MMG MMG [id number] [place] 11:05:00 11:05:00 0923 [facility] 2020-02-14 2020-02-14 Outpatient Zuniga_F MMG MMG [id number] [place] 09:30:00 09:30:00 0921 [facility] 2020-02-06 2020-02-08 Inpatient ER Colin [facility] [id number] [place] 14:34:00 16:39:00 Taran -[id number] [facility] 2020-02-08 2020-02-08 Outpatient Zuniga_F MMG MMG [id number] [place] 05:04:00 05:04:00 0915 [facility] 2020-01-12 2020-01-12 Outpatient Zuniga_F MMG MMG [id number] [place] 12:39:00 12:39:00 0819 [facility] 2019-12-08 2019-12-08 Outpatient Zuniga_F MMG MMG [id number] [place] 12:57:00 12:57:00 0715 [facility] 2019-12-06 2019-12-06 Linn Zuniga_F MMG [place] - [id number] [place] 00:00:00 00:00:00 Smita Capone 0713 Michael [facility] Medical STAFF ACCOUNTANT: [address], [place] [address] , Ph. 2019-07-27 2019-07-27 AppointAVIS [facility] [id number] [place] 11:00:00 11:00:00 t; HIRO CASAREZ at [facility] Dani ramos M.D. [facility] 2019-06-25 2019-06-25 Outpatient Zuniga_F MMG MMG [id number] [place] 12:04:00 12:04:00 0131 [facility] 2019-05-10 2019-05-10 AppointAVIS [facility] [id number] [place] 10:30:00 10:30:00 t; LINA TEJADA PA Trauma KEVON Huff [facility] 2019-04-27 2019-04-27 Appointvandana CASAREZ [facility] Orthopedics [id number] [place] 09:30:00 09:30:00 t; HIRO CASAREZ at [facility] Dani ramos M.D. [facility] 2019-04-07 2019-04-07 Outpatient VICTORIANO Tavarez [facility] [id number] [place] 09:36:00 09:36:00 Taran [id number] [facility] 2019-04-07 2019-04-07 Taran [facility] [place] [place] - [id number] [place] 00:00:00 00:00:00 Chano Capone 1113 Noman Renner MD: [address] [address], [place] [address] , Ph. 2019-03-29 2019-03-29 Appointvandana TEJADA [facility] Orthopedics [id number] [place] 10:30:00 10:30:00 t; LINA TEJADA PA Trauma KEVON Huff [facility] 2019-03-15 2019-03-15 Appointvandana TEJADA [facility] [id number] [place] 10:45:00 10:45:00 t; LINA TEJADA PA PhysicKEVON Briones [facility] 2019-03-11 2019-03-11 Appointvandana LYLE [facility] Orthopedics [id number] [place] 12:40:00 12:40:00 t; dariana HARVEY [facility] Rosa LYLE [place] rachel HARVEY, [facility] 2019-03-10 2019-03-10 Outpatient VICTORIANO Tavarez [facility] [id number] [place] 12:31:00 12:31:00 Taran [id number] [facility] 2019-03-10 2019-03-10 Taran [facility] [place] [place] - [id number] [place] 00:00:00 00:00:00 Chano Capone 1016 Noman Renner MD: [address], [place] [address] , Ph. 2019-02-15 2019-02-15 AVIS [facility] [id number] [place] 09:15:00 09:15:00 t; LINA TEJADA PA [facility] [place] KEVON Huff [facility] 2019-02-10 2019-02-10 Isi LYLE [facility] Orthopedics [id number] [place] 15:20:00 15:20:00 t; dariana HARVEY [facility] Physicleslie LYLE PKyra [facility] 2018-08-11 2018-08-11 [facility] [place] - [id number] [place] 00:00:00 00:00:00 Chano Capone 0319 josephine Tavarez Medical Medical MD: [address] [place] [address], Family [address], [place] [address] , Ph. 2007-01-08 2007-01-08 Inpatient ER AHNS, [facility] [id number] [place] 11:20:00 18:58:00 RICHI -[id number] [facility] 2006-07-02 2006-07-04 Inpatient ER SHASHANK, [facility] [id number] [place] 02:00:00 08:45:00 YOLANDA -[id number] [facility] 2005-07-25 2005-07-25 Outpatient UR RADHA, [facility] [id number] [place] 11:38:00 11:38:00 YUDELKA -[id number] [facility] 2005-07-17 2005-07-17 Outpatient UR RADHA, [facility] [id number] [place] 16:17:00 16:17:00 YUDELKA -[id number] [facility] 2005-05-31 2005-05-31 Emergency ER STARR, [facility] [id number] [place] 18:15:00 22:55:00 NANY -[id number] [facility] 2005-01-04 2005-01-04 Outpatient UR RADHA, [facility] [id number] [place] 12:15:00 12:15:00 YUDELKA -[id number] [facility] 2004-03-09 2004-03-09 Outpatient UR RADHA, [facility] [id number] [place] 16:40:00 16:40:00 YUDELKA -[id number] [facility] 2003-08-05 2003-08-05 Outpatient UR RADHA, [facility] [id number] [place] 10:06:00 10:06:00 YUDELKA -[id number] [facility] 2003-06-27 2003-06-27 Emergency ER CINTHIA BELL [facility] [id number] [place] 14:55:00 15:30:00 -[id number] [facility] 2003-06-13 2003-06-13 Outpatient UR FREDDIE, [facility] [id number] [place] 17:52:00 17:52:00 ADEEL -[id number] [facility] 2002-08-02 2002-08-02 Emergency ER JUDIT, [facility] [id number] [place] 07:13:00 09:42:00 PITTMAN -[id number] [facility] 2002-05-08 2002-05-09 Emergency ER MIN, DEQUAN [facility] [id number] [place] 22:33:00 00:15:00 -[id number] [facility] 2000-11-08 2000-11-09 Inpatient UR ROBERTH, [facility] MSUR [id number] [place] 13:16:00 13:32:00 CHINYERE -[id number] [facility] Results Test Description Test Time Test Comments Results Result [facility] e Comments DIFF CONSULT 2022-11-25 LEUKOCYTOSIS WITH Unive rsity of INTERPRETATION 1 IMMATURE [facility] 19:27:27 GRANULOCYTOSIS/LE Branch FT SHIFT. MICROCYTIC, HYPOCHROMIC ANEMIA CONSISTENT WITH PATIENT'S KNOWN HISTORY BLEEDING. THROMBOCYTES ARE UNREMARKABLE. DIFF CONSULT 2022-11-25 LEUKOCYTOSIS WITH Unive rsity of INTERPRETATION 1 IMMATURE [facility] 19:27:27 GRANULOCYTOSIS/LE Branch FT SHIFT. MICROCYTIC, HYPOCHROMIC ANEMIA CONSISTENT WITH PATIENT'S KNOWN HISTORY BLEEDING. THROMBOCYTES ARE UNREMARKABLE. CBC WITHOUT DIFF 2022-12-21 14:17:02 Test Item Value Reference Range Interpretation Comme nts WBC (test code = 6690-2) 9.88 See_Comment [A utomated message] The system which generated this result transmitted ref erence range: 4.30 - 11.10 10 *3/?L. The reference range was not used to interpret this result as normal/abnormal . RBC (test code = 789-8) 3.54 See_Comment L [Au tomated message] The system which generated this result transmitted ref erence range: 3.93 - 5.25 10* 6/?L. The reference range was not used to interpret this result as normal/abnormal . HGB (test code = 718-7) 8.0 g/dL 11.6-15.0 L HCT (test code = 4544-3) 25.6 % 35.7-45.2 L MCH (test code = 785-6) 22.6 pg 25.9-32.8 L MCV (test code = 787-2) 72.3 fL 80.6-95.5 L MCHC (test code = 786-4) 31.3 g/dL 31.6-35.1 L PLT (test code = 777-3) 339 See_Comment [Au tomated message] The system which generated this result transmitted ref erence range: 166 - 358 10*3/ ?L. The reference range was not used to interpret this result as normal/abnormal . MPV (test code = 22494-0) 9.6 fL 9.5-12.9 RDW-CV (test code = 788-0) 20.3 % 12.0-15.5 H RDW-SD (test code = 66907-5) 51.7 fL 39.0-49.9 H NRBC x10^3 (test code = See_Comment [Au tomated message] The system [id number]) which generated this result transmitted ref erence range: 10*3/?L. The re ference range was not used to interpret this result as nahed l/abnormal. NRBC/100 WBC (test code = 0.0 See_Comment [ Automated message] The system [id number]) which generated this result transmitted ref erence range: 0.0 - 10.0 /100 WBCs. The reference range was not used to interpret this result as normal/abnormal . IPF % (test code = 8110618969) Lab Interpretation (test code Abnormal = 22867-0) [facility] WITHOUT [id number] 14:17:02 Test Item Value Reference Range Interpretation Comments WBC (test code = 6690-2) 9.88 See_Comment [A utomated message] The system [employer] generated this result transmit nany reference range : 4.30 - 11.10 10*3/?L. The reference range was not used to interpret this result as normal/abnormal . RBC (test code = 789-8) 3.54 See_Comment L [Au tomated message] The system [employer] generated this result transmit nany reference range : 3.93 - 5.25 10* 6/?L. The reference r joao was not used to interpret this result as normal/abnormal . HGB (test code = 718-7) 8.0 g/dL 11.6-15.0 L HCT (test code = 4544-3) 25.6 % 35.7-45.2 L MCH (test code = 785-6) 22.6 pg 25.9-32.8 L MCV (test code = 787-2) 72.3 fL 80.6-95.5 L MCHC (test code = 786-4) 31.3 g/dL 31.6-35.1 L PLT (test code = 777-3) 339 See_Comment [Au tomated message] The system [employer] generated this result transmit nany reference range : 166 - 358 10*3/?L. The reference range was not used to interpret this result as normal/abnormal . MPV (test code = 9.6 fL 9.5-12.9 21951-2) RDW-CV (test code = 20.3 % 12.0-15.5 H 788-0) RDW-SD (test code = 51.7 fL 39.0-49.9 H 73802-9) NRBC x10^3 (test code = See_Comment [Au tomated message] 1159552519) The system [employer] generated this result transmit nany reference range : 10*3/?L. The reference range was not used to interpret this result as normal/abnormal . NRBC/100 WBC (test code 0.0 See_Comment [Au tomated message] = 8439864496) The system [employer] generated this result transmit nany reference range : 0.0 - 10.0 /100 WBC s. The reference r joao was not used to interpret this result as normal/abnormal . IPF % (test code = 3751115430) Lab Interpretation (test Abnormal code = 85698-8) [facility] (ALB,T.PRO,BILI T,BU/BC,ALT,AST,ALK PHOS)2022-12-21 09:59:29 Test Item Value Reference Range Interpretation Comments TOTAL BILI (test code = 0.1-1.1 L 0689334758) BILI UNCON (test code = Inte rfering 6489420815) substance. Refe r to TBIL BILI CONJ (test code = Inter fering 2498448357) substance. Refe r to TBIL T PROTEIN (test code = 7.0 g/dL 6.3-8.2 4017952308) ALBUMIN (test code = 3.7 g/dL 3.5-5.0 8729247857) ALK PHOS (test code = 97 U/L 34-122 1765273219) ALTv (test code = 30 U/L 5-35 1742-6) AST(SGOT) (test code = 26 U/L 13-40 8133556498) Lab Interpretation (test Abnormal code = 59125-2) [facility] (59763) (ALB,T.PRO,BILI T,BU/BC,ALT,AST,ALK PHOS)2022-12-21 09:59:29 Test Item Value Reference Range Interpretation Comments TOTAL BILI (test code = 0.1-1.1 L 1309472114) BILI UNCON (test code = Inte rfering 8156127360) substance. Refe r to TBIL BILI CONJ (test code = Inter fering 3703366549) substance. Refe r to TBIL T PROTEIN (test code = 7.0 g/dL 6.3-8.2 4708954038) ALBUMIN (test code = 3.7 g/dL 3.5-5.0 9372858801) ALK PHOS (test code = 97 U/L 34-122 5786465818) ALTv (test code = 30 U/L 5-35 1742-6) AST(SGOT) (test code = 26 U/L 13-40 9820624032) Lab Interpretation (test Abnormal code = 45082-2) [facility], [id number] 09:07:55 Test Item Value Reference Range Interpretation Comments VIT B12 (test code = 587 pg/mL 240-930 3999441952) KINGA (test code = KINGA) Biotin has been reported to cause a positive bias, interpret results relative to patient's use of biotin. Lab Interpretation (test Normal code = 01050-6) [facility] B[facility], [id number] 09:07:55 Test Item Value Reference Range Interpretation Comments VIT B12 (test code = 587 pg/mL 240-930 2059442942) KINGA (test code = KINGA) Biotin has been reported to cause a positive bias, interpret results relative to patient's use of biotin. Lab Interpretation (test Normal code = 86388-5) [facility] 08:37:48 Test Item Value Reference Range Interpretation Comments FOLATE SER (test code = 9349836701) 5.1 ng/mL 3.0-20.0 Lab Interpretation (test code = Normal 65557-2) [facility] 08:37:48 Test Item Value Reference Range Interpretation Comments FOLATE SER (test code = 6082718351) 5.1 ng/mL 3.0-20.0 Lab Interpretation (test code = Normal 57461-1) [facility] Packed RBC (in units), 1 Units 2022-12-21 08:09:44 Test Item Value Reference Range Interpretation Comments Cross Match Result Compatible (test code = 4409) ISBT Blood Type Code 5100 (test code = 525634) Unit Blood Type (test O Pos code = 4410) Unit Number (test [id number] code = 4411) Blood Expiration Date & Time (test code = 046276) Status Information Issued (test code = 4412) Product Red Blood Cells Identification (test code = 4413) Product Code (test [id number] Performed at [facility] code = 4414) Laboratory Services - [facility] Blood [address] [place] [address] s [address]Ksft Free: [phone] A No. [id number] [facility] Packed RBC (in units), 1 Units 2022-12-21 08:09:44 Test Item Value Reference Range Interpretation Comments Cross Match Result Compatible (test code = 4409) ISBT Blood Type Code 5100 (test code = 385908) Unit Blood Type (test O Pos code = 4410) Unit Number (test [id number] code = 4411) Blood Expiration Date [id number] & Time (test code = 392532) Status Information Issued (test code = 4412) Product Red Blood Cells Identification (test code = 4413) Product Code (test [id number] Performed at [facility] code = 4414) Laboratory Services - [facility] Blood [address] s [address]Kwkg Free: [phone] A No. [id number] [facility]ERR[facility]IN [id number] 08:06:48 Test Item Value Reference Range Interpretation Comments FERRITIN (test code = 8.2 ng/mL 11.0-264.0 L 7978914421) KINGA (test code = KINGA) Biotin has been reported to cause a negative bias, interpret results relative to patient's use of biotin. Lab Interpretation (test Abnormal code = 69723-9) [facility] [id number] 08:06:48 Test Item Value Reference Range Interpretation Comments FERRITIN (test code = 8.2 ng/mL 11.0-264.0 L 6305741276) KINGA (test code = KINGA) Biotin has been reported to cause a negative bias, interpret results relative to patient's use of biotin. Lab Interpretation (test Abnormal code = 42256-0) [facility] HospitalProthrombin Time / [id number] 07:44:04 Test Item Value Reference Range Interpretation Comments PROTIME PATIENT (test 11.5 See_Comment [Auto mated message] code = 5964-2) The system [employer] generated this result transmitted ref erence range: 10.1 - 1 2.6 Seconds. The re ference range was not u sed to interpret this result as normal/abnor mal. INR (test code = 6301-6) 1.0 Nor mal INR <1.1; Warfarin Therap eutic range 2.0 to 3. 0 or 2.5 to 3.5, dep ending upon the indica tions. Lab Interpretation (test Normal code = 11009-7) [place] [id number] 07:44:04 Test Item Value Reference Range Interpretation Comments APTT Patient (test code = 32 See_Comment [ Automated message] 7273-2) The system [employer] generated this result transmitted ref erence range: 26 - 36 Seconds. The re ference range was not u sed to interpret this result as normal/abnor mal. Lab Interpretation (test Normal code = 69542-0) [facility] Time / [id number] 07:44:04 Test Item Value Reference Range Interpretation Comments PROTIME PATIENT (test 11.5 See_Comment [Auto mated message] code = 5964-2) The system [employer] generated this result transmitted ref erence range: 10.1 - 1 2.6 Seconds. The re ference range was not u sed to interpret this result as normal/abnor mal. INR (test code = 6301-6) 1.0 Nor mal INR <1.1; Warfarin Therap eutic range 2.0 to 3. 0 or 2.5 to 3.5, dep ending upon the indica tions. Lab Interpretation (test Normal code = 10491-5) [place] [id number] 07:44:04 Test Item Value Reference Range Interpretation Comments APTT Patient (test code = 32 See_Comment [ Automated message] 5723-2) The system [employer] generated this result transmitted ref erence range: 26 - 36 Seconds. The re ference range was not u sed to interpret this result as normal/abnor mal. Lab Interpretation (test Normal code = 31304-5) [facility] HospitalIRON [id number] 07:18:02 Test Item Value Reference Range Interpretation Comments IRON (test code = 1006753641) 13 ug/dL 50-160 L TIBC (test code = 8444916566) 492 ug/dL 250-410 H % FE SAT (test code = 4711038259) 3 % 20-50 L Lab Interpretation (test code = Abnormal 37935-8) [facility] Hospital[facility]ON [id number] 07:18:02 Test Item Value Reference Range Interpretation Comments IRON (test code = 5611335037) 13 ug/dL 50-160 L TIBC (test code = 1805813670) 492 ug/dL 250-410 H % FE SAT (test code = 2884832112) 3 % 20-50 L Lab Interpretation (test code = Abnormal 74867-0) [facility]2023-07-29 07:09:00 Test Item Value Reference Range Interpretation Comments MAGNESIUM (test code = 9829877507) 2.1 mg/dL 1.7-2.4 Lab Interpretation (test code = Normal 22806-0) [facility] 07:09[facility]00 Test Item Value Reference Range Interpretation Comments MAGNESIUM (test code = 1581887111) 2.1 mg/dL 1.7-2.4 Lab Interpretation (test code = Normal 18218-9) [facility]IB[facility]INOGEN2023-07-29 06:15:08 Test Item Value Reference Range Interpretation Comments Fibrinogen (test code = 8275679643) 395 mg/dL 167-453 Lab Interpretation (test code = Normal 50077-8) [facility]2023-07-29 06:15:08 Test Item Value Reference Range Interpretation Comments Fibrinogen (test code = 8631527083) 395 mg/dL 167-453 Lab Interpretation (test code = Normal 22294-4) [facility] HospitalRETICULOCYTES [id number] 06:11:50 Test Item Value Reference Range Interpretation Comments RETIC Count Automated 1.53 % 0.51-1.90 (test code = 1066302357) RETIC Absolute Count 0.0494 See_Comment [Autom ated message] (test code = 5948350458) The system which generated this result transmitted ref erence range: 0.0230 - 0.0950 10*6/?L. The reference range was not used to int erpret this result as normal/abnormal . IRF % (test code = 16.80 % 2.10-12.60 H 8475990710) RETIC-HE (test code = 20.6 pg 28.1-35.8 L 5835675114) Lab Interpretation (test Abnormal code = 63559-2) [facility] WITH [id number] 06:11:50 Test Item Value Reference Range Interpretation Comments WBC (test code = 13.62 See_Comment H [Automated 6690-2) message] The sy stem which generated this result transmitted reference range : 4.30 - 11.10 10*3/?L. The reference range was not used to interpret this result as normal/abnormal . RBC (test code = 3.23 See_Comment L [Automated 789-8) message] The sy stem which generated this result transmitted reference range : 3.93 - 5.25 10*6/?L. The reference range was not used to interpret this result as normal/abnormal . HGB (test code = 6.9 g/dL 11.6-15.0 L 718-7) HCT (test code = 22.8 % 35.7-45.2 L 4544-3) MCV (test code = 70.6 fL 80.6-95.5 L 787-2) MCH (test code = 21.4 pg 25.9-32.8 L 785-6) MCHC (test code = 30.3 g/dL 31.6-35.1 L 786-4) RDW-SD (test code = 50.3 fL 39.0-49.9 H 21495-1) RDW-CV (test code = 20.0 % 12.0-15.5 H 788-0) PLT (test code = 374 See_Comment H [Automated 777-3) message] The sy stem which generated this result transmitted reference range : 166 - 358 10*3/ ?L. The reference r joao was not used to interpret this result as normal/abnormal . MPV (test code = 9.5 fL 9.5-12.9 65326-3) NRBC/100 WBC (test 0.0 See_Comment [Automat ed code = 4691934492) message] The system which generated this result transmitted reference range : 0.0 - 10.0 /100 WBCs. The refer ence range was not u sed to interpret th is result as normal/abnormal . NRBC x10^3 (test code See_Comment [Auto mated = 4108549231) message] The s ystem which generated this result transmitted reference range : 10*3/?L. The reference range was not used to interpret this result as normal/abnormal . GRAN MAT (NEUT) % 68.9 % (test code = 770-8) IMM GRAN % (test code 0.40 % = 2454938620) LYMPH % (test code = 21.1 % 736-9) MONO % (test code = 6.8 % 5905-5) EOS % (test code = 2.2 % 713-8) BASO % (test code = 0.6 % 706-2) GRAN MAT x10^3(ANC) 9.39 10*3/uL 1.88-7.09 H (test code = 4672296720) IMM GRAN x10^3 (test 0.05 10*3/uL 0.00-0.06 code = 9566059159) LYMPH x10^3 (test code 2.88 10*3/uL 1.32-3.29 = 731-0) MONO x10^3 (test code 0.92 10*3/uL 0.33-0.92 = 742-7) EOS x10^3 (test code = 0.30 10*3/uL 0.03-0.39 711-2) BASO x10^3 (test code 0.08 10*3/uL 0.01-0.07 H = 704-7) Lab Interpretation Abnormal (test code = 54612-7) [facility]RETICULOC[facility]TES [id number] 06:11:50 Test Item Value Reference Range Interpretation Comments RETIC Count Automated 1.53 % 0.51-1.90 (test code = 2677443023) RETIC Absolute Count 0.0494 See_Comment [Autom ated message] (test code = 7065687753) The system which generated this result transmitted ref erence range: 0.0230 - 0.0950 10*6/?L. The reference range was not used to int erpret this result as normal/abnormal . IRF % (test code = 16.80 % 2.10-12.60 H 6294205815) RETIC-HE (test code = 20.6 pg 28.1-35.8 L 0057343033) Lab Interpretation (test Abnormal code = 76159-0) [facility] WITH [id number] 06:11:50 Test Item Value Reference Range Interpretation Comments WBC (test code = 13.62 See_Comment H [Automated 6690-2) message] The sy stem which generated this result transmitted reference range : 4.30 - 11.10 10*3/?L. The reference range was not used to interpret this result as normal/abnormal . RBC (test code = 3.23 See_Comment L [Automated 789-8) message] The sy stem which generated this result transmitted reference range : 3.93 - 5.25 10*6/?L. The reference range was not used to interpret this result as normal/abnormal . HGB (test code = 6.9 g/dL 11.6-15.0 L 718-7) HCT (test code = 22.8 % 35.7-45.2 L 4544-3) MCV (test code = 70.6 fL 80.6-95.5 L 787-2) MCH (test code = 21.4 pg 25.9-32.8 L 785-6) MCHC (test code = 30.3 g/dL 31.6-35.1 L 786-4) RDW-SD (test code = 50.3 fL 39.0-49.9 H 05070-2) RDW-CV (test code = 20.0 % 12.0-15.5 H 788-0) PLT (test code = 374 See_Comment H [Automated 777-3) message] The sy stem which generated this result transmitted reference range : 166 - 358 10*3/ ?L. The reference r joao was not used to interpret this result as normal/abnormal . MPV (test code = 9.5 fL 9.5-12.9 23183-2) NRBC/100 WBC (test 0.0 See_Comment [Automat ed code = 0191460945) message] The system which generated this result transmitted reference range : 0.0 - 10.0 /100 WBCs. The refer ence range was not u sed to interpret th is result as normal/abnormal . NRBC x10^3 (test code See_Comment [Auto mated = 7349767925) message] The s ystem which generated this result transmitted reference range : 10*3/?L. The reference range was not used to interpret this result as normal/abnormal . GRAN MAT (NEUT) % 68.9 % (test code = 770-8) IMM GRAN % (test code 0.40 % = 8921889303) LYMPH % (test code = 21.1 % 736-9) MONO % (test code = 6.8 % 5905-5) EOS % (test code = 2.2 % 713-8) BASO % (test code = 0.6 % 706-2) GRAN MAT x10^3(ANC) 9.39 10*3/uL 1.88-7.09 H (test code = 0368784114) IMM GRAN x10^3 (test 0.05 10*3/uL 0.00-0.06 code = 1355915619) LYMPH x10^3 (test code 2.88 10*3/uL 1.32-3.29 = 731-0) MONO x10^3 (test code 0.92 10*3/uL 0.33-0.92 = 742-7) EOS x10^3 (test code = 0.30 10*3/uL 0.03-0.39 711-2) BASO x10^3 (test code 0.08 10*3/uL 0.01-0.07 H = 704-7) Lab Interpretation Abnormal (test code = 53588-1) [facility] - ONCE [id number] 02:43:00 Test Item Value Reference Range Interpretation Comments ABO & RH (test code = 20) O POSITIVE IAT (test code = 1185) Negative [facility] - ONCE [id number] 02:43:00 Test Item Value Reference Range Interpretation Comments ABO & RH (test code = 20) O POSITIVE IAT (test code = 1185) Negative [facility][U] XRAY SPINE CERVICAL 2 OR 3 [id number] [id number] 2019-04-27 09:42:00Images acquired, not reported on this accession number.[facility] PhysiciansBasi metabolic 2000 panel - Serum or [id number] 09:05:00 Test Item Value Reference Range Interpretation Comments glucose (test code = glucose) 57 mg/dL 74-106 L Urea nitrogen [Mass/volume] in 23 mg/dL 6-20 H Serum or Plasma (test code = 3094-0) osmolality calculated,serum (test 279 mOsm/kg 280-300 L code = osmolality calculated,serum) creatinine (test code = 0.9 mg/dL 0.50-0.90 creatinine) glomerular filtration rate (test >60.00 code = glomerular filtration rate) Urea nitrogen/Creatinine [Mass 25.6 12-20 H Ratio] in Serum or Plasma (test code = 3097-3) sodium level (test code = sodium 139 mmol/L 135-145 level) Potassium [Moles/volume] in Body 4.0 mmol/L 3.5-5.2 fluid (test code = 2821-7) chloride level (test code = 101 mmol/L 98-108 chloride level) CO2 (test code = CO2) 28 mmol/L 21-32 anion gap (test code = anion gap) 14.0 mEq/L 12-20 calcium level (test code = 9.0 mg/dL 8.6-10.0 calcium level) [facility][U] XRAY HAND MIN 3 VWS RIGHT [id number] 12:19:00 Images acquired, not reported on this accession number.[facility][U] XRAY FOOT MIN 3 VWS RIGHT [id number] 10:36:00Images acquired, not reported on this accession number.[facility][U] XRAY KNEE 1 OR 2 VWS LEFT [id number] 10:36:00Images acquired, not reported on this accession number.[facility] PhysiciansCBC W Auto Differential panel - [id number] 10:50:00 Test Item Value Reference Range Interpretation Comments white blood count (test code = 5.6 K/uL 4.0-11.5 white blood count) red blood count (test code = red 5.09 M/uL 3.80-5.20 blood count) hemoglobin (test code = 14.2 g/dL 10.5-15.7 hemoglobin) hematocrit (test code = 45.1 % 34.0-50.0 hematocrit) Erythrocyte mean corpuscular 88.6 fL 86-100 volume [Entitic volume] (test code = 70569-9) mean corpuscular hemoglobin (test 27.9 pg 26.2-33.4 [...] 44.4-80.1 leukocytes in Blood (test code = 68315-1) Granulocytes Immature [#/volume] 0.0 K/uL 0.0-0.03 in Blood (test code = 83918-9) lymphocyte% (test code = 31.8 % 10.0-50.0 lymphocyte%) mono % (test code = mono %) 7.9 % 3.6-12.0 eos % (test code = eos %) 2.1 % 0.0-5.4 Basophils/100 leukocytes in 1.3 % 0.1-1.2 H Unspecified specimen (test code = 99161-5) Neutrophils.band form [#/volume] 3.17 K/uL 1.56-6.13 in Blood (test code = 64456-0) Lymphocytes [#/volume] in 1.8 K/uL 1.18-3.74 Unspecified specimen by Automated count (test code = 46522-1) mono # (test code = mono #) 0.44 K/uL 0.24-0.86 eos # (test code = eos #) 0.12 K/uL 0.04-0.36 basophil # (test code = basophil 0.07 K/uL 0.01-0.08 #) NRBC% (test code = NRBC%) 0 /100 WBC 0-0.2 NRBC# (test code = NRBC#) 0 K/uL [facility] Groupdifferential panel, [id number] 10:50:00 NeutrophilsBandLymphocyteAtypical LymphMonocyteEosinophilBasophilPlatelet EstimatePlatelet MorphologyHypochromasiaMatagorda [facility] GroupBasic metabolic 2000 panel - Serum or [id number] 10:50:00 Test Item Value Reference Range Interpretation [...] code = calcium 9.2 mg/dL 8.6-10.0 level) [facility] W Auto Differential panel - [id number] 10:50:00 Test Item Value Reference Range Interpretation Comments white blood count (test code = 5.6 K/uL 4.0-11.5 white blood count) red blood count (test code = red 5.09 M/uL 3.80-5.20 blood count) hemoglobin (test code = 14.2 g/dL 10.5-15.7 hemoglobin) hematocrit (test code = 45.1 % 34.0-50.0 hematocrit) Erythrocyte mean corpuscular 88.6 fL 86-100 volume [Entitic volume] (test code = 28073-2) mean corpuscular hemoglobin (test 27.9 pg 26.2-33.4 [...] 44.4-80.1 leukocytes in Blood (test code = 49352-5) Granulocytes Immature [#/volume] 0.0 K/uL 0.0-0.03 in Blood (test code = 28283-6) lymphocyte% (test code = 31.8 % 10.0-50.0 lymphocyte%) mono % (test code = mono %) 7.9 % 3.6-12.0 eos % (test code = eos %) 2.1 % 0.0-5.4 Basophils/100 leukocytes in 1.3 % 0.1-1.2 H Unspecified specimen (test code = 55526-2) Neutrophils.band form [#/volume] 3.17 K/uL 1.56-6.13 in Blood (test code = 76394-2) Lymphocytes [#/volume] in 1.8 K/uL 1.18-3.74 Unspecified specimen by Automated count (test code = 03774-4) mono # (test code = mono #) 0.44 K/uL 0.24-0.86 eos # (test code = eos #) 0.12 K/uL 0.04-0.36 basophil # (test code = basophil 0.07 K/uL 0.01-0.08 #) NRBC% (test code = NRBC%) 0 /100 WBC 0-0.2 NRBC# (test code = NRBC#) 0 K/uL [facility], [id number] 10:50:00 NeutrophilsBandLymphocyteAtypical LymphMonocyteEosinophilBasophilPlatelet EstimatePlatelet MorphologyHypochromasiaMataEncompass Health Rehabilitation HospitalBasic metabolic 2000 panel - Serum or [id number] 10:50:00 Test Item Value Reference Range Interpretation [...] code = calcium 9.2 mg/dL 8.6-10.0 level) [facility] W Auto Differential panel - [id number] 10:50:00 Test Item Value Reference Range Interpretation Comments white blood count (test code = 5.6 K/uL 4.0-11.5 white blood count) red blood count (test code = red 5.09 M/uL 3.80-5.20 blood count) hemoglobin (test code = 14.2 g/dL 10.5-15.7 hemoglobin) hematocrit (test code = 45.1 % 34.0-50.0 hematocrit) Erythrocyte mean corpuscular 88.6 fL 86-100 volume [Entitic volume] (test code = 17450-1) mean corpuscular hemoglobin (test 27.9 pg 26.2-33.4 [...] 44.4-80.1 leukocytes in Blood (test code = 42423-3) Granulocytes Immature [#/volume] 0.0 K/uL 0.0-0.03 in Blood (test code = 99321-2) lymphocyte% (test code = 31.8 % 10.0-50.0 lymphocyte%) mono % (test code = mono %) 7.9 % 3.6-12.0 eos % (test code = eos %) 2.1 % 0.0-5.4 Basophils/100 leukocytes in 1.3 % 0.1-1.2 H Unspecified specimen (test code = 89129-0) Neutrophils.band form [#/volume] 3.17 K/uL 1.56-6.13 in Blood (test code = 31734-5) Lymphocytes [#/volume] in 1.8 K/uL 1.18-3.74 Unspecified specimen by Automated count (test code = 80453-9) mono # (test code = mono #) 0.44 K/uL 0.24-0.86 eos # (test code = eos #) 0.12 K/uL 0.04-0.36 basophil # (test code = basophil 0.07 K/uL 0.01-0.08 #) NRBC% (test code = NRBC%) 0 /100 WBC 0-0.2 NRBC# (test code = NRBC#) 0 K/uL [facility], [id number] 10:50:00 NeutrophilsBandLymphocyteAtypical LymphMonocyteEosinophilBasophilPlatelet EstimatePlatelet MorphologyHypochromasiaMataEncompass Health Rehabilitation HospitalBasi metabolic 2000 panel - Serum or [id number] 10:50:00 Test Item Value Reference Range Interpretation [...] code = calcium 9.2 mg/dL 8.6-10.0 level) [facility] W Auto Differential panel - [id number] 10:50:00 Test Item Value Reference Range Interpretation Comments white blood count (test code = 5.6 K/uL 4.0-11.5 white blood count) red blood count (test code = red 5.09 M/uL 3.80-5.20 blood count) hemoglobin (test code = 14.2 g/dL 10.5-15.7 hemoglobin) hematocrit (test code = 45.1 % 34.0-50.0 hematocrit) MCV [Entitic volume] (test code = 88.6 fL 86-100 02673-4) mean corpuscular hemoglobin (test 27.9 pg 26.2-33.4 [...] 44.4-80.1 leukocytes in Blood (test code = 41362-4) Immature granulocytes [#/volume] 0.0 K/uL 0.0-0.03 in Blood (test code = 45741-4) lymphocyte% (test code = 31.8 % 10.0-50.0 lymphocyte%) mono % (test code = mono %) 7.9 % 3.6-12.0 eos % (test code = eos %) 2.1 % 0.0-5.4 Basophils/100 leukocytes in 1.3 % 0.1-1.2 H Unspecified specimen (test code = 45076-5) Band form neutrophils [#/volume] 3.17 K/uL 1.56-6.13 in Blood (test code = 09887-0) Lymphocytes [#/volume] in 1.8 K/uL 1.18-3.74 Unspecified specimen by Automated count (test code = 37180-1) mono # (test code = mono #) 0.44 K/uL 0.24-0.86 eos # (test code = eos #) 0.12 K/uL 0.04-0.36 basophil # (test code = basophil 0.07 K/uL 0.01-0.08 #) NRBC% (test code = NRBC%) 0 /100 WBC 0-0.2 NRBC# (test code = NRBC#) 0 K/uL [facility]Different[facility], method unspecified - [id number] 10:50:00NeutrophilsBandLymphocyteAtypical LymphMonocyteEosinophilBasophilPlatelet EstimatePlatelet MorphologyHypochromasia [facility] HospitalBasic metabolic 2000 panel - Serum or [id number] 10:50:00 Test Item Value Reference Range Interpretation [...] code = calcium 9.2 mg/dL 8.6-10.0 level) [facility][U] XRAY KNEE 1 OR 2 VWS LEFT [id number] 10:36:00 Images acquired, not reported on this accession number.[facility] Consult Notes Date/Time Note Provider Source 2022-12-21 10:40:56 [id number]:40:56Associated Order(s): [facility] - [facility] CONSULT GASTROENTEROLOGY Department of Gastroenterology & Hepatology Consult NoteRequesting Physician: Ludin Sharif*Service: MICUReason for Consultation: Coffee ground emesisDate of Service: 3CHIEF COMPLAINT: VomitingHistory of Present IllnessStefanie Rudd is a 62 year old female with PMH of gastric sleeve, scoliosis on multiple pain medications who presents with coffee ground emesis. Patient states that her emesis occurred three days ago. She had two episodes of dark colored emesis at that time. She has not had any additional vomiting, but continues to have nausea. She notes dark colored stools, one formed BM per day over the last several days. She felt week yesterday, prompting ED presentation. Patient states that she is taking ibuprofen 800mg q8h over the last four days. She denies any alcohol use.Upon presentation, patient had an initial low BP that responded to IVF. She denies any further emesis.PAST MEDICAL HISTORY No past medical history on file. Gastric sleevePAST SURGICAL HISTORYNo past surgical history on file. Gastric sleeveFAMILY HISTORY No family history on file. No FH colon cancerALLERGIES Allergies Allergen Reactions Morphine Anaphylaxis MEDICATIONSCurrent Facility-Administered Medications Medication Dose Route Frequency Last Rate Last Admin acetaminophen (TYLENOL) tablet 650 mg 650 mg Oral Q6HPRN iron dextran (INFED) 1,000 mg in NaCl 0.9% (NS) 500 mL IV infusion 1,000 mg IV Infusion ONCE 333.33 mL/hr at 12/21/22 0911 1,000 mg at 12/21/22 0911 nicotine (NICODERM) 21 mg/24 hr patch 1 Patch 1 Patch Topical Q24H ondansetron (ZOFRAN (PF)) injection 4 mg 4 mg Slow IV Push Q6HPRN 4 mg at 12/21/22 0855 pantoprazole (PROTONIX) injection 40 mg 40 mg Slow IV Push Q12H 40 mg at 12/21/22 0839 polyethylene glycol 3350 powder 17 g 17 g Oral DAILY sennosides-docusate sodium (SENOKOT-S) 8.6-50 mg per tablet 1 tablet 1 tablet Oral DAILY SOCIAL HISTORYSocial History Socioeconomic History Marital status: Spouse name: Not on file Number of children: Not on file Years of education: Not on file Highest education level: Not on file Occupational History Not on file Tobacco Use Smoking status: Every Day Types: Cigarettes Passive exposure: Never Smokeless tobacco: Current Tobacco comments: Patient states using an e-cigarette and half-a-pack/day of cigarettes Substance and Sexual Activity Alcohol use: Not on file Drug use: Not on file Sexual activity: Not on file Other Topics Concern Not on file Social History Narrative Not on file Social Determinants of Health Financial Resource Strain: Not on file Food Insecurity: Not on file Transportation Needs: Not on file Physical Activity: Not on file Stress: Not on file Social Connections: Not on file Intimate Partner Violence: Not on file Housing Stability: Not on file ROS: Constitutional: Negative HEENT: Negative CV: Negative Resp: Negative GI: See above : Negative MSK: Negative Skin: Negative Neuro: Negative Endo: Negative Heme: Negative PE:BP 95/71 | Pulse 63 | Temp 35.8 ?C (96.5 ?F) (Axillary) | Resp 12 | Ht 1.676 m (5' 6") | Wt 49.4 kg (108 lb 14.5 oz) | SpO2 95% | BMI 17.58 kg/m? Gen: Alert, no acute distressHEENT: No scleral icterusHeart: Appears well perfusedLungs: Normal work of breathingAbdomen: soft, non-tender, non-distendedBLEs: no edemaLABORATORYHGB (g/dL) Date Value 12/21/2022 8.0 (L) 12/21/2022 6.9 (L) 12/20/2022 7.9 (L) PLT (10*3/?L) Date Value 12/21/2022 339 12/21/2022 374 (H) 12/20/2022 487 (H) INR (no units) Date Value 12/21/2022 1.0 Hepatic Function PanelALBUMIN (g/dL) Date Value 12/21/2022 3.7 T PROTEIN (g/dL) Date Value 12/21/2022 7.0 TOTAL BILI (mg/dL) Date Value 12/21/2022 <0.1 (L) BILI UNCON (no units) Date Value 12/21/2022 Comment: Interfering substance. Refer to TBIL BILI CONJ (no units) Date Value 12/21/2022 Comment: Interfering substance. Refer to TBIL ALTv (U/L) Date Value 12/21/2022 30 AST(SGOT) (U/L) Date Value 12/21/2022 26 ALK PHOS (U/L) Date Value 12/21/2022 97 BMPNA (mmol/L) Date Value 12/20/2022 142 K (mmol/L) Date Value 12/20/2022 4.3 CALCIUM (mg/dL) Date Value 12/20/2022 8.9 CL (mmol/L) Date Value 12/20/2022 110 (H) BUN (mg/dL) Date Value 12/20/2022 27 (H) CREATININE (mg/dL) Date Value 12/20/2022 0.92 GLUCOSE (mg/dL) Date Value 12/20/2022 79 CO2 TOTAL (mmol/L) Date Value 12/20/2022 20 (L) RADIOLOGY:CT abdomen/pelvis 12/20/2022:IMPRESSION 1. Large stool burden in the rectum and colon, suggestive of constipationand fecal impaction. 2. Mucosal thickening and minimal enhancement of the gastric antrumduodenal, could be seen with gastritis and duodenitis. Moderate hiatalhernia. Changes of gastric sleeve. 3. A 1.0 cm intermediate density lesion arising from the left upper pole,a small RCC cannot be excluded. Further evaluation is recommended. 4. Contracted/residual gallbladder is seen with suspected stones.Prominent extrahepatic CBD. Clinical correlation is recommended. 5. Scoliosis and degenerative changes. IVC filter is in place.Previous Endoscopy: No recordsASSESSMENT and [facility]udd is a 62 year old female with PMH as listed above, GI consulted for: Coffee ground emesisAcute blood loss anemiaPatient presents with coffee-ground emesis and acute blood loss anemia. She is hemodynamically stable at this time. Likely upper GI bleeding from PUD vs gastritis in the setting of ongoing NSAID use. Mucosal antral thickening is also seen on CT abdomen. Will continue PPI and evaluate further with endoscopy.- EGD tentatively Friday- Maintain 2 large bore IV lines- Monitor Hgb q6h, transfuse if there is active bleeding or Hb<7- Maintain active type and cross at all times - Protonix 80 mg IV bolus and then 8 mg/hr or 40mg IV BID- Hold all anti-platelet agents and anticoagulation at this time- Clear liquid diet- Avoid NSAIDs- TTE with unknown CHF disease- Notify GI fellow controller repairer and tester with any changesPatient was seen and discussed with Dr. Morrison. Please call with any questions.Sundeep Toney MDGastroenterology and hepatology fellow, PGY-5 ssociated attestation - Maico Morrison MD - 12/21/2022 9:07 PM CDT I personally examined the patient on 12/21/[address] Toney's note as written . I actively participated in the decision-making process. Please see the fellow's note for additional details. Maico Morrison [facility] Professor of Internal MedicineDivision of Gastroenterology and Hepatology [id number] [id number], Gabriel [id number] duxcztCAY4311-96-95R28:07:54Consult noteTXT1.2.840.629472.1.13.104.2.7.2.75208 9|[id number] for patient rhqc16787-3Hulzrng noteLNUTMBUT - [address] Au[id number] YTMAYFEJPKVWVCAK4148-63-79O93:07:541.2.840 .313709.1.72.3.15|1.2.840.764149.1.13.104. [id number] History and Physical Notes Date/Time Note Provider Source 2022-12-23 2550-32-70C70:56:47Formatting of this IM-GASTROE NTERO [facility] 07:56:47 note is different from the LOGY original.Endoscopy H & PAge: 62 year old Sex: female ASA Class: 2Indication: coffee ground emesis, acute blood loss anemia Blood thinners: nonePrevious Endoscopy:No recordsSubjective/Interval history:Stefanie Rudd is a 62 year old female with PMH of gastric sleeve, scoliosis on multiple pain medications who presents with coffee ground emesis in the setting of ongoing NSAID use. Current Facility-Administered Medications Medication Dose Route Frequency Last Rate Last Admin acetaminophen (TYLENOL) tablet 650 mg 650 mg Oral Q6HPRN baclofen (LIORESAL) tablet 10 mg 10 mg Oral DAILY 10 mg at 12/22/22 0828 dicyclomine (BENTYL) capsule 10 mg 10 mg Oral DAILY 10 mg at 12/22/22 0828 gabapentin (NEURONTIN) capsule 100 mg 100 mg Oral DAILY 100 mg at 12/22/2228 HYDROcodone-acetaminophen (NORCO) 10-325 mg tablet 1 tablet 1 tablet Oral Q6HPRN 1 tablet at 12/23/22 0118 levETIRAcetam (KEPPRA) tablet 500 mg 500 mg Oral BID 500 mg at 12/22/222040 mirtazapine (REMERON) tablet 30 mg 30 mg Oral QHS 30 mg at 12/22/222040 nicotine (NICODERM) 21 mg/24 hr patch 1 Patch 1 Patch Topical Q24H 1 Patch at 12/22/22 1021 ondansetron (ZOFRAN (PF)) injection 4 mg 4 mg Slow IV Push Q6HPRN 4 mg at 12/23/22 0111 pantoprazole (PROTONIX) injection 40 mg 40 mg Slow IV Push Q12H 40 mg at 12/22/22 2041 polyethylene glycol 3350 powder 17 g 17 g Oral DAILY pregabalin (LYRICA) capsule 100 mg 100 mg Oral TID 100 mg at 12/22/222040 QUEtiapine (SEROQUEL) tablet 100 mg 100 mg Oral BID 100 mg at 12/22/222048 sennosides-docusate sodium (SENOKOT-S) 8.6-50 mg per tablet 1 tablet 1 tablet Oral DAILY 1 tablet at 12/22/22 0828 tiZANidine (ZANAFLEX) tablet 4 mg 4 mg Oral TID 4 mg at 12/22/222039 venlafaxine (EFFEXOR) tablet 75 mg 75 mg Oral TID 75 mg at 12/22/222040 Allergies Allergen Reactions Morphine Anaphylaxis Social History Socioeconomic History Marital status: Tobacco Use Smoking status: Every Day Types: Cigarettes Passive exposure: Never Smokeless tobacco: Current Tobacco comments: Patient states using an e-cigarette and half-a-pack/day of cigarettes Mental Status: NAD, alert, answering questions appropriately Chest: no increased WOB or respiratory distressCardiovascular: warm, well perfused, no LE edema Abdomen: soft, non tender Impression and Plan: Stefanie Rudd is a 62 year old female with PMH of gastric sleeve, scoliosis on multiple pain medications who presents with coffee ground emesis in the setting of ongoing NSAID use. Plan to proceed with EGD.Education provided to the patient and family about the procedure. Benefits, risks, alternatives, and likelihood of achieving patient's goals of care discussed. Risks discussed including but not limited to aspiration, infection, bleeding, perforation, missed polyps/lesions, failure to obtain a diagnosis, failure to complete the procedure, cardiovascular complications such as [place], stroke, arrhythmia, and . Informed consent obtained.Charmaine Mckenzie MDGastroenterology Fellow, [id number] signed by Maico Morrison MD at 12/23/2022 8:04 AM CDTAssociated attestation - Maico Morrison MD - 12/23/2022 8:04 AM CDT I personally examined the patient on 12/23/[address] Mckenzie' note with the following addition(s): pt presents with coffee ground emesis and acute blood loss anemia consistent with upper GI bleed, will proceed with EGD to further evaluate/treat bleeding. ASA class is III, not II. I actively participated in the decision-making process. Please see the fellow's note for additional details. Maico Morrison MDAssayot Professor of Internal MedicineDivision of Gastroenterology and Hepatology 40778-3Uektxlt and physical [id number], Gabriel [id number]w vJinfmnfNMJ1006-19-68P07:04:58History and physical noteTXT1.2.840.552686.1.13.104.2.7.2.727 879|[id number] for patient zpuv35539-1Ydsmygr and physical tvpkVROE-GGERVHZYYGDINTNETI-RZKFOTAOWWQF [address] Ap[id number] NDHHNBTGOFMBOWYMYZ4123-31-43K66:04:581.2 .840.504668.1.72.3.15|1.2.840.360573.1.1 [id number] 2022-12-20 7804-91-54Z82:44:37Formatting of this [facility] 23:44:37 note is different from the original.Medicine Intensive Care History and Physical Date of Service: 12/20/2022 23:44ICU Admit date: 12/21/22 Intubation Date: N/ACHIEF COMPLAINT: Coffee ground emesisHISTORY OF PRESENT ILLNESSStefanie Rudd is a 62 year old female with a PMH of Scoliosis, gastric sleeve, CHF, systemic mastocytosis diagnosed 2001 and now in remission presenting for syncope and coffee ground emesis. Earlier today she stated feeling very nauseous and lighted headed. Had large volume coffee ground emesis x2. Also reported palpitations and syncope. She felt weak in her legs, lost consciousness and remembers waking up on the ground. She then reported to the ED. She also complains of abdominal pain that is more localized in her RUQ. Denies radiation. Says she has also been taking ibuprofen for her back pain even though she was told not to due to her gastric sleeve operation. Could not tell me how much or for how long she was taking the ibuprofen. She denied any blood per rectum or melena. In the ED her BP was normotensive, HGB 7.9, WBCs 21.15. CXR showed moderate cardiomegaly with mild pulmonary edema. CTAP showing large stool burden, residual gallbladder with suspected stones with extrahepatic CBD. Was given 1L bolus.Upon further questioning she states having a history of bone marrow cancer that was diagnosed in 2001. Said that she went through 14 rounds of chemotherapy and was told she was in remission. 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 She is seen by pain specialist for her severe scoliosis and is prescribed baclofen and other muscle relaxers. REVIEW OF SYSTEMSNegative except per HPIPHYSICAL EXAMINATIONVitals: 12/20/22 1839 12/20/22 2100 12/20/22 2200 12/20/22 2330 BP: 126/78 104/76 106/71 104/71 Pulse: 91 77 77 76 Resp: 18 16 18 20 Temp: 36.8 ?C (98.3 ?F) SpO2: 94% 96% 95% 95% Weight: 49.4 kg (109 lb) Physical ExamConstitutional: General: She is not in acute distress. Comments: Appeared frail and less than ideal weight HENT: Nose: Nose normal. Mouth/Throat: Mouth: Mucous membranes are moist. Pharynx: Oropharynx is clear. Eyes: General: No scleral icterus. Pupils: Pupils are equal, round, and reactive to light. Cardiovascular: Rate and Rhythm: Normal rate and regular rhythm. Pulses: Normal pulses. Heart sounds: Murmur heard. Pulmonary: Effort: Pulmonary effort is normal. Breath sounds: No wheezing. Abdominal: General: Bowel sounds are normal. Palpations: Abdomen is soft. Tenderness: There is abdominal tenderness. Musculoskeletal: General: Normal range of motion. Right lower leg: Edema (1+) present. Left lower leg: Edema (1+) present. Skin: General: Skin is warm. Coloration: Skin is not jaundiced. Neurological: Mental Status: She is alert and oriented to person, place, and time. Labs (pertinent only)/Imaging: ReviewedAssessment/Plan:Stefanie Rudd is a 62 year old female admitted with:NeuroSyncopeStates LOC at home after emesis. Could be multifactorial. Orthostatic positive. Given 1L bolus in the ED.- EKG- 500 mL NS bolus- Possible TTERespDyspneaSelf reported at home. Sating well in the hospital. Monitor closely.- Z9OBEubeiapsqkrjsgMh CHFLower extremity edemaSelf reported CHF with her last TTE down 3 years ago. States her legs are always swollen, but PCP won't start her on diuretics. 1+ pitting edema noted in bilateral LEs.- Potential TTEGICoffee ground emesisRUQ abdominal painMicrocytic AnemiaNauseaConstipationReported 2 episodes of coffee ground emesis at home. No other signs of GI bleeding at this time. Denied melena. Hgb once admitted 6.9 so will consent and transfuse as needed. Will monitor closely for further signs of GI bleeding. Retic count WNL. Severe stool burden seen on CTAP, however, patient stated having a very large BM just after the CTAP.- NPO- Maintain 2 large bore IV's at all times with active type and screen - Transfuse to keep Hgb >7- Check INR and if >1.5 give vitamin K 10 mg IV- Check fibrinogen and if <150 give cryoprecipitate - Give platelets if <50- Protonix 40 mg IV bid- Full infectious workup- Hold blood thinners and anti-platelet agents- Anemia workup- F/u RUQ US- Aggressive bowel regimenIDNo acute problemsRenal/LytesNo acute problemsHemeLeukocytosisHx of systemic mastocytosis diagnosed 2001 s/p 14 rounds of chemotherapyElevated WBCs without any signs of systemic infectious, however infectious workup gathered in the ED. Has history of "bone marrow cancer", but has been in remission after treatment. - Diff consult- Monitor for further infectious symptomsEndoNo acute problemsOtherScoliosisTreated by pain specialist for her scoliosis. - Pain management- UDSICU packet:Ventilation / Pressors Sedation / Paralyzation DIET: NPODVT PPX: Contraindicated: GI bleedBowel Regimen: Miralax and SennokotGI PPX: PantoprazoleTherapy: Not indicatedPain: Controlled TylenolCode Status: DNR/DNI - no escalation of careDispo: MICUPrognosis: JAVIER FrancisGY-2 | Department of Internal MedicineDaniels Team ssociated attestation - Ludin Liao Jr., MD - 12/21/2022 12:30 PM CDT I personally examined the patient on 12/[address] Calabrese's resident note with the following addition(s): date of service is 12/21 . I actively participated in the decision-making process. Please see the resident's note for additional details. [id number] and physical [id number], Victor [id number] Ortiz MD2023-07-29T12:30:16History and physical [id number] for patient [id number] and physical noteLNUT00 Owens [id number] [id number]:[id number]
--- NOTE | 2023-02-12 15:20 | RAD REPORT ---
EXAM DESCRIPTION: CT - Spine Lumbar Wo Con - 02/12/2023 2:53 pm CLINICAL HISTORY: PAIN COMPARISON: Thoracic Spine W/o Cont dated 02/12/2023; Abdomen Pelvis W Contrast dated 09/03/2022 TECHNIQUE: Axial noncontrast CT imaging of the lumbar spine was performed with coronal and sagittal re-formatted images. All CT scans are performed using dose optimization technique as appropriate and may include automated exposure control or mA/KV adjustment according to patient size. FINDINGS: No acute lumbar spine fracture seen. No aggressive marrow pattern. No spondylolisthesis. Dextroconvex scoliosis with Gould angle measuring 36 degrees between inferior en dplate of T12 and superior endplate of L4, with less than 1 cm right lateral listhesis of L3 over L4. Paraspinal tissues are normal in thickness. No paraspinal abscess or hematoma seen. Intervertebral disc disease assessment is inherently limited by CT. Allowing for these limitations, m ultilevel disc height loss is noted, with asymmetric disc height loss on the left at L2-3 and L3-4, a nd on the right at L4-5 and L5-S1, with asymmetric endplate osteophytosis respectively as well. Broad-based disc bulge noted at L2-3 with a left central/subarticular superimposed extrusion, asymmet rically narrowing the left lateral recess. Mild left neural foraminal narrowing at that level. Mild left neural foraminal narrowing at L3-4 secondary to asymmetric disc herniation and facet arthro anisa. Broad-based posterior disc protrusion with superimposed central disc extrusion contributing to at quan st mild central canal stenosis. Bilateral facet arthropathy contribute to this finding. Right moderat e neural foraminal narrowing are noted at L4-5 and L5-S1. Prominence of the common bile duct, and a calcified left renal interpolar lesion are stable. IVC filt er in place. IMPRESSION: No acute osseous abnormality. Multilevel degenerative changes contributing to degrees of canal and foraminal stenosis, as detailed above.
--- NOTE | 2023-02-12 15:28 | RAD REPORT ---
EXAM DESCRIPTION: CT - Thoracic Spine W/o Cont - 02/12/2023 2:53 pm CLINICAL HISTORY: PAIN COMPARISON: Spine Lumbar Wo Con dated 02/12/2023; Abdomen Pelvis W Contrast dated 09/03/2022; Chest For Pe Angio dated 03/10/2022 TECHNIQUE: Axial noncontrast CT imaging of the thoracic spine was performed with coronal and sagitta l re-formatted images. All CT scans are performed using dose optimization technique as appropriate and may include automated exposure control or mA/KV adjustment according to patient size. FINDINGS: No acute thoracic spine fracture seen. Vertebral body heights are well preserved. Multilev el Schmorl's node formation. No aggressive marrow pattern or malalignment. Paraspinal tissues are normal in thickness. No paraspinal abscess or hematoma seen. Intervertebral disc disease assessment is inherently limited by CT. Within these limitations, no high -grade canal stenosis or foraminal narrowing suspected. Small hiatal hernia is noted. IMPRESSION: No acute osseous abnormality of the thoracic spine. No significant bony canal stenosis o r foraminal narrowing.
--- NOTE | 2023-02-12 16:15 | EDPHYS ---
Physician Documentation [facility] Name: Stefanie Rudd Age: 62 yrs Sex: Female : 1960 Arrival Date: 02/12/2023 Time: 14:01 Bed 12 Private MD: ED Physician Maricarmen Cooney HPI: 02/12 16:05 This 62 yrs old Female presents to ER via Ambulatory with complaints of Fall Injury - ci from 12 ft. 16:05 Patient is a 62-year-old female with PMH CHF, seizure who presents with lower back pain ci s/p fall that occurred about 3 days ago. Patient was already evaluated outside facility, found to have a sternal fracture. She reports she was discharged but since discharge she has had back pain and she does not believe they got imaging of her thoracic and lumbar spine. Patient requesting imaging of back. Denies any paresthesias, denies IVDU, denies history of cancer, denies fever, chills.. Historical: - Allergies: 14:17 Avelox; ph 14:17 Dilantin; ph 14:17 Latex; ph 14:17 Morphine; ph 14:17 Phenobarbital; ph - PMHx: 14:17 CHF; post -chemo; Seizure; ph - PSHx: 14:17 Appendectomy; Cholecystectomy; gastric sleeve; Spinal surgery; Total abdominal ph hysterectomy; - Immunization history:: Adult Immunizations unknown. - Social history:: Smoking status: Patient reports the use of cigarette tobacco products, smokes one-half pack cigarettes per day. ROS: 16:05 Constitutional: Negative for chills, fatigue, fever, ci 16:05 Cardiovascular: Negative for chest pain, orthopnea, palpitations, 16:05 Respiratory: Negative for cough, shortness of breath, wheezing, 16:05 Back: Positive for pain at rest, 16:05 All other systems are negative, Exam: 16:05 Constitutional: This is a well developed, well nourished patient who is awake, alert, ci and in no acute distress. Head/Face: Normocephalic, atraumatic. Eyes: Pupils equal round and reactive to light, extra-ocular motions intact. Lids and lashes normal. Conjunctiva and sclera are non-icteric and not injected. Cornea within normal limits. Periorbital areas with no swelling, redness, or edema. ENT: Nares patent. No nasal discharge, no septal abnormalities noted. Tympanic membranes are normal and external auditory canals are clear. Oropharynx with no redness, swelling, or masses, exudates, or evidence of obstruction, uvula midline. Mucous membranes moist. Neck: Trachea midline, no thyromegaly or masses palpated, and no cervical lymphadenopathy. Supple, full range of motion without nuchal rigidity, or vertebral point tenderness. No Meningismus. Chest/axilla: Normal chest wall appearance and motion. Nontender with no deformity. No lesions are appreciated. Cardiovascular: Regular rate and rhythm with a normal S1 and S2. No gallops, murmurs, or rubs. Normal PMI, no JVD. No pulse deficits. Respiratory: Lungs have equal breath sounds bilaterally, clear to auscultation and percussion. No rales, rhonchi or wheezes noted. No increased work of breathing, no retractions or nasal flaring. Abdomen/GI: Soft, non-tender, with normal bowel sounds. No distension or tympany. No guarding or rebound. No evidence of tenderness throughout. Back: + T/L spinal tenderness. No costovertebral tenderness. Full range of motion. Ambulates with a steady gait. Skin: Warm, dry with normal turgor. Normal color with no rashes, no lesions, and no evidence of cellulitis. MS/ Extremity: Pulses equal, no cyanosis. Neurovascular intact. Full, normal range of motion. Neuro: Awake and alert, GCS 15, oriented to person, place, time, and situation. Cranial nerves II-XII grossly intact. Motor strength 5/5 in all extremities. Sensory grossly intact. Cerebellar exam normal. Normal gait. Psych: Awake, alert, with orientation to person, place and time. Behavior, mood, and affect are within normal limits. Vital Signs: 14:15 BP 110 / 84; Pulse 80; Resp 18; Temp 98.7; Pulse Ox 95% on R/A; Weight 49.44 kg; Height ph 5 ft. 5 in. ; 14:15 Body Mass Index 18.14 (49.44 kg, 165.1 cm) ph MDM: 14:20 Patient medically screened. ci 16:05 Differential diagnosis: contusion, fracture, sprain, strain. Data reviewed: vital ci signs, nurses notes, old medical records, radiologic studies, CT scan. I considered the following discharge prescriptions or medication management in the emergency department Medications were administered in the Emergency Department. See MAR. Care significantly affected by the following chronic conditions: Congestive Heart Failure, Seizure. ED course: Patient presents for evaluation of back pain s/p 12 feet fall that occurred a few days ago. She is nontoxic-appearing, vital signs stable. Patient is ambulatory. She does have reproducible midline tenderness on exam, imaging was obtained which showed degenerative changes but no acute fractures. Low suspicion for cauda equina, epidural abscess as she denies fever, bowel/bladder dysfunction, saddle anesthesia. She was given ibuprofen. Stable for discharge with close PCP follow-up.. 16:10 Care significantly affected by the following Social Determinants of Health: Tobacco ci abuse. 16:25 External Records Reviewed: Outpatient record: Previous ED visit for abdominal pain, ci colitis.. Response to treatment: the patient's symptoms have mildly improved after treatment. Special discussion: I discussed with the patient/guardian in detail that at this point there is no indication for admission to the hospital. It is understood, however, that if the symptoms persist or worsen the patient needs to return immediately for re-evaluation. 16:26 Counseling: I had a detailed discussion with the patient and/or guardian regarding the ci historical points, exam findings, and any diagnostic results supporting the discharge/admit diagnosis, radiology results, the need for outpatient follow up, to return to the emergency department if symptoms worsen or persist or if there are any questions or concerns that arise at home. 02/12 14:35 Order name: CT Lumbar Spine Wo Con; Complete Time: 15:26 ci 02/12 15:41 Interpretation: No acute disease: Per Radiologist's finding(s): IMPRESSION: No acute ci osseous abnormality. Multilevel degenerative changes contributing to degrees of canal and foraminal stenosis, as detailed above. Signed By: Jerson Coto Signed AT: 02/12/23 1520. 02/12 14:35 Order name: CT Thoracic Spine Wo Cont; Complete Time: 15:41 ci Administered Medications: 16:11 Drug: Ibuprofen PO 600 mg PO once Route: PO; ph 16:33 Follow up: Response: No adverse reaction ll1 Disposition Summary: 02/12/23 16:15 Discharge Ordered Notes: Location: Home ci Condition: Stable ci Diagnosis - Low back pain ci Followup: ci - With: Private Physician - When: 1 - 2 days - Reason: Recheck today's complaints, Re-evaluation by your physician Discharge Instructions: - Discharge Summary Sheet ci - Acute Back Pain, Adult ci - Musculoskeletal Pain ci Forms: - Medication Reconciliation Form ci - Thank You Letter ci - Prescription Opioid Use ci - Patient Portal Instructions ci - Leadership Thank You Letter ci Signatures: Dispatcher [employer] Meg Cristobal RN RN [facility] HospitalCarl Parikh RN ll1 Corrections: (The following items were deleted from the chart) 18:23 18:22 Counseling: I had a detailed discussion with the patient and/or guardian ci regarding the historical points, exam findings, and any diagnostic results supporting the discharge/admit diagnosis, radiology results, the need for outpatient follow up, to return to the emergency department if symptoms worsen or persist or if there are any questions or concerns that arise at home, ci 18:24 18:24 Care significantly affected by the following Social Determinants of Health: ci Tobacco abuse. ci
--- NOTE | 2023-02-12 16:15 | ER ---
Nurse's Notes [facility] Name: Stefanie Rudd Age: 62 yrs Sex: Female : 1960 Arrival Date: 02/12/2023 Time: 14:01 Bed 12 Private MD: Diagnosis: Low back pain Presentation: 02/12 14:15 Chief complaint: Patient states: Fell approx 12 feet from a ladder 3 days ago, was ph evaluated at [facility] in [place], states, " The only imaging they did was of my upper back, chest and head, I have a sternal fracture. But I am having severe pain in my tailbone and I'm worried that I have fracture there.". Coronavirus screen: Vaccine status: Patient reports receiving the 2nd dose of the covid vaccine. Ebola Screen: No symptoms or risks identified at this time. Initial Sepsis Screen: Does the patient meet any 2 criteria? No. Patient's initial sepsis screen is negative. Does the patient have a suspected source of infection? No. Patient's initial sepsis screen is negative. Risk Assessment: Do you want to hurt yourself or someone else? Patient reports no desire to harm self or others. Onset of symptoms was February 12, 2023. 14:15 Method Of Arrival: Ambulatory ph 14:15 Acuity: PIPER 4 ph Triage Assessment: 14:18 General: Appears in no apparent distress. uncomfortable, Behavior is calm, cooperative. ph Pain: Complains of pain in lumbar area and sacrum. Historical: - Allergies: 14:17 Avelox; ph 14:17 Dilantin; ph 14:17 Latex; ph 14:17 Morphine; ph 14:17 Phenobarbital; ph - PMHx: 14:17 CHF; post -chemo; Seizure; ph - PSHx: 14:17 Appendectomy; Cholecystectomy; gastric sleeve; Spinal surgery; Total abdominal ph hysterectomy; - Immunization history:: Adult Immunizations unknown. - Social history:: Smoking status: Patient reports the use of cigarette tobacco products, smokes one-half pack cigarettes per day. Screenin:32 [facility] ED Fall Risk Assessment (Adult) History of falling in the last 3 months, ph including since admission Yes- single mechanical fall (1 pt) Confusion or Disorientation No (0 pts) Intoxicated or Sedated No (0 pts) Impaired Gait No (0 pts) Mobility Assist Device Used No (0 pt) Altered Elimination No (0 pt) Score/Fall Risk Level 0 - 2 = Low Risk Oriented to surroundings, Maintained a safe environment, Provided non-skid footwear, Hourly rounding (assess needs \\T\\ fall precautionary measures) done. Abuse screen: Denies threats or abuse. Denies injuries from another. Nutritional screening: No deficits noted. Tuberculosis screening: No symptoms or risk factors identified. Assessment: 15:31 General: Appears in no apparent distress. uncomfortable, Behavior is calm, cooperative, ph appropriate for age. Pain: Complains of pain in sacrum and lumbar area. Neuro: Level of Consciousness is awake, alert, obeys commands, Oriented to person, place, time, situation. Cardiovascular: Capillary refill < 3 seconds in bilateral fingers Patient's skin is warm and dry. Respiratory: Airway is patent Respiratory effort is even, unlabored. Derm: Skin is pink, warm \\T\\ dry. 16:13 Reassessment: No changes from previously documented assessment. Patient and/or family ll1 updated on plan of care and expected duration. Pain level reassessed. Patient is alert, oriented x 3, equal unlabored respirations, skin warm/dry/pink. Vital Signs: 14:15 BP 110 / 84; Pulse 80; Resp 18; Temp 98.7; Pulse Ox 95% on R/A; Weight 49.44 kg; Height ph 5 ft. 5 in. ; 14:15 Body Mass Index 18.14 (49.44 kg, 165.1 cm) ph ED Course: 14:05 Patient arrived in ED. im 14:17 Triage completed. ph 14:18 Arm band placed on Patient placed in waiting room, Patient notified of wait time. ph 14:19 Maricarmen Cooney is Attending Physician. ci 14:48 CT Lumbar Spine Wo Con In Process Unspecified. EDMS 14:48 CT Thoracic Spine Wo Cont In Process Unspecified. EDMS 15:30 Meg Royal, RN is Primary Nurse. ph 15:32 Patient has correct armband on for positive identification. Bed in low position. Call ph light in reach. Side rails up X 1. Pulse ox on. NIBP on. Door closed. Noise minimized. Warm blanket given. 15:32 No provider procedures requiring assistance completed. Patient did not have IV access ph during this emergency room visit. 16:25 Provided Education on: n/a. [facility] Administered Medications: 16:11 Drug: Ibuprofen PO 600 mg PO once Route: PO; ph 16:33 Follow up: Response: No adverse reaction [facility] Medication: 15:32 VIS not applicable for this client. ph Outcome: 16:15 Discharge ordered by . ci 16:25 Patient left the ED. [facility] 16:25 Discharged to home ambulatory, [facility] 16:25 Condition: stable 16:25 Discharge instructions given to patient, Instructed on discharge instructions, follow up and referral plans. Demonstrated understanding of instructions, follow-up care, Signatures: Dispatcher [employer] Meg Cristobal RN RN ph Lewis, Lynsay, RN RN [facility] Karrie Keenan Chizite ci
[2023-02-12] MEDS ORDERED: IBUPROFEN 400 MG TAB ONE (16:18)
[2023-02-12] MEDS ORDERED: IBUPROFEN 200 MG TAB PO ONE (16:19)
[2023-02-12 16:57] VITALS: BP 132/73; TEMP 98.6; O2SAT 99
== END 2023-02-12 16:25 | disposition home or self-care (01) ==
LOC: ER 14:01
DX: M54.50 Low back pain, unspecified (principal); I50.9 Heart failure, unspecified; F17.210 Nicotine dependence, cigarettes, uncomplicated; Z88.5 Allergy status to narcotic agent; Z88.6 Allergy status to analgesic agent; Z88.8 Allergy status to other drugs, medicaments and biological substances; Z91.040 Latex allergy status
CPT/HCPCS: 72128; 72131

== ENCOUNTER 2023-04-06 09:02 | Emergency (ER) | payer SELFPAY ==
--- OUTSIDE RECORDS SUMMARY | 2023-04-06 09:07 | XMS REPORT | Continuity of Care Document ---
:1960 [facility] [address] [facility] [address] [place] [address] Support Name Relationship Address Phone YESSENIA BRICEÑO Friend Unavailable Unavailable RADHA ACOSTA, SYD Emergency Provider [address] [phone] [place] [address] DAYSI ACOSTA, TARAN Primary Care Physician [address] ( [phone] [address] [place] [address] KARI ESTEVEZ Next of Kin [address] [place] [address] MD [address] [facility] A Emergency Provider [facility] [place] [address] MD DAYSI TARAN Admitting Provider [address] [phone] [place] [address] REBECCA BRICEÑO [place]ib[place] [address] OTHER, ENTER NAME IN Primary Care Physician Unavailable Unav ailable NOTES DO ALEJA VIDALES Emergency Provider [facility] [place] [address] MD SID GOTTLIEB Emergency Provider [facility] [place] [address] MD Tiara Linda Emergency Provider [address] [place] [address] PRAKASH SCHNEIDER [place] [address] STEFANIE RUDD V Guarantor [address] [place] [address] Prakash Arce Child Unavailable Care Team Providers Name Role Phone Norah Sutherland Primary Care Physician Tiara Linda Attending Clinician Unavailable Zuniga_F Attending Clinician Unavailable SID GOTTLIEB Attending Clinician Unavailable ALEJA VIDALES Attending Clinician Unavailable Jonah ACOSTA, Charmaine Romo Attending Clinician [phone] Cathy Pacheco LVN Attending Clinician LENORE WRIGHT Attending Clinician Unavailable Jose GARCIAP, Lianne Cotton Attending Clinician Carlos Patrick DO Attending Clinician [phone] Keshawn Parisi MD, Ludin Sharif Attending Clinician [phone] Lenore Wright MD Attending Clinician Rosalva Smith DNP Attending Clinician Jorge A Mckeon MD Attending Clinician Maico Morrison MD Attending Clinician Babar Antony MD Attending Clinician BABAR ANTONY Attending Clinician Unavailable Taran Shaw Attending Clinician Unavailable HIRO CASAREZ M.D. Attending [...] Clinician Unavailable CHINYERE LEPE Attending Clinician Unavailable Zunfransicoa_F Admitting Clinician Unavailable ALEJA VIDALES Admitting Clinician Unavailable LENORE WRIGHT Admitting Clinician Unavailable Lenore Wright MD Admitting Clinician BABAR ANTONY Admitting Clinician Unavailable Taran Shaw Admitting Clinician Unavailable RICHI MAXWELL Admitting Clinician Unavailable YOLANDA ENCARNACION Admitting Clinician Unavailable CHINYERE LEPE Admitting Clinician Unavailable Payers Payer Name Policy Type Policy Number Effective Date Expiration Date Jose G SMALL [id number] Problems Condition Condition Condition Status Onset Resolution Last Treating Co mments Source Name Details Category Date Date Treatment Clinician Date E46 E46 Disease Active Univers Unspecifie Unspecifie 12-23 it y of d severe d severe 00:00: [place] protein-ca protein-ca 00 Me dical colby colby Branch malnutriti malnutriti on on Lower Lower Disease Active Univers extremity extremity 12-21 ity of edema edema 00:00: Medical Branch Abdominal Abdominal Disease Active Uni vers pain, pain, 12-20 ity of unspecifie [place] Medical abdominal abdominal Bran ch location location Coffee Coffee Disease Active Univers ground ground 12-20 ity of emesis emesis 00:00: Medical Branch Status Status Problem Active [place] post post [...] left Physici shoulder shoulder ans region region Hypokalemi Hypokalemi Problem Active [facility] Chronic Chronic Problem Active [place] low back Low Back da [facility] Allergies, Adverse Reactions, Alerts Allergy Allergy Status Severity Reaction(s) Onset Inactive Treating Comm ents Source Name Type Date Date Clinician LATEX DRUG Active Unknown-Cmnt Univ ers INGREDI 12-23 ity of 00:00: [place] Medical [facility] Latex Propensi Active Unknown - Unive rs ty to See comments 12-23 ity of adverse 00:00: [place] reaction [facility] Morphine Propensi Active Anaphylaxis U nivers ty to 12-20 ity of adverse 00:00: [place] reaction [facility] MORPHINE DRUG Active Anaphylaxis Uni vers INGREDI 12-20 ity of 00:00: [place] 00 Medical Branch NO KNOWN Drug Active Univers ALLERGIE Class ity of S [facility] Avelox Allergy Active [place] to [facility] Dilantin Allergy Active [place] [facility] Latex Allergy Active [place] [facility] Phenobar Allergy Active [place] [facility] to [facility] Social History Social Habit Start Date Stop Date Quantity Comments Source [facility] History of tobacco Cigarette Smoker [facility] History of Social 2022-12-23 2022-12-23 Univers ity of function 00:00:00 00:00:00 [facility] Tobacco use and 2022-12-21 2022-12-21 User of smokeless Un iversity of exposure 00:00:00 00:00:00 tobacco [facility] Tobacco Comment 2022-12-21 2022-12-21 Patient states Unive rsity of 00:00:00 00:00:00 using an [facility] e-cigarette and Branch half-a-pack/day of cigarettes Sex Ass[birth year] At [birth year] Universit y of 00:00:00 00:00:00 [facility] Smoking Status Start Date Stop Date Source Heavy Tobacco Smoker [facility] Tobacco [facility] daily 2022-12-21 00:00:00 Univers ity [facility] Medications Ordered Filled Start Stop Current Ordering Indication Dosage Frequency Signature Comments Components Source Medication Medication Date Date Medication? Clinician (SIG) Name Name omeprazole Yes 40mg 40 mg, Unive rs (PRILOSEC) 12-24 Oral, BID, ity of capsule 40 01:00: [place] 00 on [facility] 12/23/22 at [place] 1999, Until Discontinu ed, Routine omeprazole 2023-0 2023- No 40mg 40 mg, Univ ers (PRILOSEC) 812-24 Oral, BID, it y of capsule 40 01:00: 01:22 First dose [place] mg 00 :18 on [facility] 12/23/22 at [place] 1999, Until Discontinu ed, Routine furosemide 2023-0 Yes 20mg Take 1 Unive rs 20 mg 7-31 tablet by ity of tablet 18:21: mouth as [place] [address] needed Medical (leg Branch swelling). QUEtiapine 2023-0 Yes 100mg Take 1 Univ ers 100 mg 7-31 tablet by ity of tablet 18:21: mouth in [place] [address] the [facility] morning Branch and 1 tablet in the evening. gabapentin 2023-0 Yes 100mg Take 1 Univ ers 100 mg 7-31 capsule by ity of capsule 18:21: mouth in [place] [address] the Medical morning. Branch mirtazapine 2023-0 Yes 30mg Take 1 Univ ers 30 mg 7-31 tablet by ity of tablet 18:21: mouth at [place] [address] bedtime. [facility] Branch pregabalin 2023-0 Yes 100mg Take 1 Univ ers 100 mg 7-31 capsule by ity of capsule 18:21: mouth in [place] [address] the [facility] and 1 capsule at noon and 1 capsule in the evening. dicyclomine 2023-0 Yes 10mg Take 1 Univ ers 10 mg 7-31 capsule by ity of capsule 18:21: mouth in [place] [address] the Medical morning. Branch levETIRAcet 3-0 Yes 500mg Take 1 Uni vers am (KEPPRA) 7-31 tablet by ity of 500 mg 18:21: mouth in [place] [address] the [facility] and 1 tablet in the evening. venlafaxine 2023-0 Yes 300mg Take 3 Uni vers 100 mg 7-31 tablets by ity of tablet 18:21: mouth in [place] [address] the [facility] Branch and 3 tablets in the evening. tiZANidine 2023-0 Yes 4mg Take 1 Unive rs 4 mg 7-31 capsule by ity of capsule 18:21: mouth in [place] [address] the [facility] morning Branch and 1 capsule at noon and 1 capsule in the evening. baclofen 10 2023-0 Yes 10mg Take 1 Univ ers mg tablet 7-31 tablet by ity o f 18:21: mouth in [place] [address] the Medical morning. Branch HYDROcodone 2023-0 Yes 1{tbl} Take 1 Un moe -acetaminop 7-31 tablet by ity of hen (NORCO) 18:21: mouth [place] 10-325 mg 22 every 6 Medical tablet (six) Branch hours as needed for Pain (scale 7-10). furosemide 2023-0 Yes 20mg Take 1 Unive rs 20 mg 7-31 tablet by ity of tablet 18:21: mouth as [place] 22 needed Medical (leg Branch swelling). QUEtiapine 2023-0 Yes 100mg Take 1 Univ ers 100 mg 7-31 tablet by ity of tablet 18:21: mouth in [place] [address] the Medical morning Branch and 1 tablet in the evening. gabapentin 2023-0 Yes 100mg Take 1 Univ ers 100 mg 7-31 capsule by ity of capsule 18:21: mouth in [place] [address] the Medical morning. Branch mirtazapine 2023-0 Yes 30mg Take 1 Univ ers 30 mg 7-31 tablet by ity of tablet 18:21: mouth at [place] [address] bedtime. Medical Branch pregabalin 2023-0 Yes 100mg Take 1 Univ ers 100 mg 7-31 capsule by ity of capsule 18:21: mouth in [place] [address] the Medical morning Branch and 1 capsule at noon and 1 capsule in the evening. dicyclomine 2023-0 Yes 10mg Take 1 Univ ers 10 mg 7-31 capsule by ity of capsule 18:21: mouth in [place] [address] the Medical morning. Branch levETIRAcet 3-0 Yes 500mg Take 1 Uni vers am (KEPPRA) 7-31 tablet by ity of 500 mg 18:21: mouth in [place] [address] the Medical morning Branch and 1 tablet in the evening. venlafaxine 2023-0 Yes 300mg Take 3 Uni vers 100 mg 7-31 tablets by ity of tablet 18:21: mouth in [place] [address] the Medical morning Branch and 3 tablets in the evening. tiZANidine 2023-0 Yes 4mg Take 1 Unive rs 4 mg 7-31 capsule by ity of capsule 18:21: mouth in [place] [address] the Medical morning Branch and 1 capsule at noon and 1 capsule in the evening. baclofen 10 3-0 Yes 10mg Take 1 Univ ers mg tablet 7-31 tablet by ity o f 18:21: mouth in [place] [address] the Medical morning. Branch HYDROcodone 2023-0 Yes 1{tbl} Take 1 Un moe -acetaminop 7-31 tablet by ity of hen (NORCO) 18:21: mouth [place] 10-325 mg 22 every 6 Medical tablet (six) Branch hours as needed for Pain (scale 7-10). furosemide 2023-0 Yes 20mg Take 1 Unive rs 20 mg 7-31 tablet by ity of tablet 18:21: mouth as [place] 22 needed Medical (leg Branch swelling). QUEtiapine 2023-0 Yes 100mg Take 1 Univ ers 100 mg 7-31 tablet by ity of tablet 18:21: mouth in [place] [address] the Medical morning Branch and 1 tablet in the evening. gabapentin 2023-0 Yes 100mg Take 1 Univ ers 100 mg 7-31 capsule by ity of capsule 18:21: mouth in [place] [address] the Medical morning. Branch mirtazapine 2023-0 Yes 30mg Take 1 Univ ers 30 mg 7-31 tablet by ity of tablet 18:21: mouth at [place] [address] bedtime. Medical Branch pregabalin 2023-0 Yes 100mg Take 1 Univ ers 100 mg 7-31 capsule by ity of capsule 18:21: mouth in [place] [address] the Medical morning Branch and 1 capsule at noon and 1 capsule in the evening. dicyclomine 2023-0 Yes 10mg Take 1 Univ ers 10 mg 7-31 capsule by ity of capsule 18:21: mouth in [place] [address] the Medical morning. Branch levETIRAcet 3-0 Yes 500mg Take 1 Uni vers am (KEPPRA) 7-31 tablet by ity of 500 mg 18:21: mouth in [place] [address] the Medical morning Branch and 1 tablet in the evening. venlafaxine 2023-0 Yes 300mg Take 3 Uni vers 100 mg 7-31 tablets by ity of tablet 18:21: mouth in [place] [address] the Medical morning Branch and 3 tablets in the evening. tiZANidine 2023-0 Yes 4mg Take 1 Unive rs 4 mg 7-31 capsule by ity of capsule 18:21: mouth in [place] [address] the Medical morning Branch and 1 capsule at noon and 1 capsule in the evening. baclofen 10 3-0 Yes 10mg Take 1 Univ ers mg tablet 7-31 tablet by ity o f 18:21: mouth in [place] [address] the Medical morning. Branch HYDROcodone 2023-0 Yes 1{tbl} Take 1 Un moe -acetaminop 7-31 tablet by ity of hen (NORCO) 18:21: mouth [place] 10-325 mg 22 every 6 Medical tablet (six) Branch hours as needed for Pain (scale 7-10). furosemide 2023-0 Yes 20mg Take 1 Unive rs 20 mg 7-31 tablet by ity of tablet 18:21: mouth as [place] 22 needed Medical (leg Branch swelling). QUEtiapine 2023-0 Yes 100mg Take 1 Univ ers 100 mg 7-31 tablet by ity of tablet 18:21: mouth in [place] [address] the Medical morning Branch and 1 tablet in the evening. gabapentin 2023-0 Yes 100mg Take 1 Univ ers 100 mg 7-31 capsule by ity of capsule 18:21: mouth in [place] [address] the Medical morning. Branch mirtazapine 2023-0 Yes 30mg Take 1 Univ ers 30 mg 7-31 tablet by ity of tablet 18:21: mouth at [place] [address] bedtime. Medical Branch pregabalin 2023-0 Yes 100mg Take 1 Univ ers 100 mg 7-31 capsule by ity of capsule 18:21: mouth in [place] [address] the Medical morning Branch and 1 capsule at noon and 1 capsule in the evening. dicyclomine 2023-0 Yes 10mg Take 1 Univ ers 10 mg 7-31 capsule by ity of capsule 18:21: mouth in [place] [address] the Medical morning. Branch levETIRAcet 3-0 Yes 500mg Take 1 Uni vers am (KEPPRA) 7-31 tablet by ity of 500 mg 18:21: mouth in [place] [address] the Medical morning Branch and 1 tablet in the evening. venlafaxine 2023-0 Yes 300mg Take 3 Uni vers 100 mg 7-31 tablets by ity of tablet 18:21: mouth in [place] [address] the Medical morning Branch and 3 tablets in the evening. tiZANidine 2023-0 Yes 4mg Take 1 Unive rs 4 mg 7-31 capsule by ity of capsule 18:21: mouth in [place] [address] the Medical morning Branch and 1 capsule at noon and 1 capsule in the evening. baclofen 10 3-0 Yes 10mg Take 1 Univ ers mg tablet 7-31 tablet by ity o f 18:21: mouth in [place] [address] the Medical morning. Branch HYDROcodone 2023-0 Yes 1{tbl} Take 1 Un moe -acetaminop 12-23 tablet by ity of hen (NORCO) 18:21: mouth [place] 10-325 mg 22 every 6 Medical tablet (six) Branch hours as needed for Pain (scale 7-10). sulfur 2022- No [id number] 5mL 5 mL, Univ ers hexafluorid 12-23 Intravenou i ty of e microsphr 16:15: 16:15 s, ONCE, 1 [place] (LUMASON) 00 :00 dose, On Medica l injection 5 Mon Branch mL 12/23/22 at 1115, Routine
tribal council member approving Restricted medication : JAKE FREED pantoprazol 2022- No 40mg Take 2 Uni vers e 20 mg EC 12-23 tablets by it y of tablet 14:45: 00:00 mouth in [place] 35 :00 the Medical morning. Branch carvediloL 2022- No 3.125mg Take 1 U nivers (COREG) 12-23 tablet by ity of 3.125 mg 14:45: 00:00 mouth in [facility] s tablet 35 :00 the Medical morning Branch and 1 tablet in the evening. Take with meals. pantoprazol 2022- No 40mg Take 2 Uni vers e 20 mg EC 12-23 tablets by it y of tablet 14:45: 00:00 mouth in [place] 35 :00 the Medical morning. Branch carvediloL 2022- No 3.125mg Take 1 U nivers (COREG) 12-23 tablet by ity of 3.125 mg 14:45: 00:00 [place] tablet 35 :00 the Medical morning Branch and 1 tablet in the evening. Take with meals. furosemide 2022-0 Yes 20mg Take 1 Unive rs 20 mg - tablet by ity of tablet 14:45: mouth as [place] 34 needed Medical (leg Branch swelling). QUEtiapine 2022-0 Yes 100mg Take 1 Univ ers 100 mg 7-31 tablet by ity of tablet 14:45: mouth in [place] 34 the Medical morning Branch and 1 tablet in the evening. gabapentin 3-0 Yes 100mg Take 1 Univ ers 100 mg 7-31 capsule by ity of capsule 14:45: mouth in [place] [address] the Medical morning. Branch mirtazapine 3-0 Yes 30mg Take 1 Univ ers 30 mg 7-31 tablet by ity of tablet 14:45: mouth at [place] [address] bedtime. Medical Branch pregabalin 2023-0 Yes 100mg Take 1 Univ ers 100 mg 7-31 capsule by ity of capsule 14:45: mouth in [place] [address] the Medical morning Branch and 1 capsule at noon and 1 capsule in the evening. dicyclomine 2023-0 Yes 10mg Take 1 Univ ers 10 mg 7-31 capsule by ity of capsule 14:45: mouth in [place] [address] the Medical morning. Branch levETIRAcet 3-0 Yes 500mg Take 1 Uni vers am (KEPPRA) 7-31 tablet by ity of 500 mg 14:45: mouth in [place] [address] the Medical morning Branch and 1 tablet in the evening. venlafaxine 2023-0 Yes 300mg Take 3 Uni vers 100 mg 7-31 tablets by ity of tablet 14:45: mouth in [place] [address] the Medical morning Branch and 3 tablets in the evening. tiZANidine 3-0 Yes 4mg Take 1 Unive rs 4 mg 7-31 capsule by ity of capsule 14:45: mouth in [place] [address] the Medical morning Branch and 1 capsule at noon and 1 capsule in the evening. baclofen 10 2022-0 Yes 10mg Take 1 Univ ers mg tablet 7-31 tablet by ity o f 14:45: mouth in [place] [address] the Medical morning. Branch HYDROcodone 2022-0 Yes 1{tbl} Take 1 Un moe -acetaminop 7-31 tablet by ity of hen (NORCO) 14:45: mouth [place] 10-325 mg 34 every 6 Medical tablet (six) Branch hours as needed for Pain (scale 7-10). propofoL IV 2022-0 3- No IV Unive rs infusion 12-23 Infusion, ity o f 13:27: 13:51 CONTINUOUS [place] 00 :38 PRN, Medical Starting Branch on Fri12/23/22 at 0827, Until Fri12/23/22 at 0851, Routine, Intra-op propofoL IV 2022-0 2023- No Intravenou Univers infusion 12-23 s, ONCE ity of 13:24: 13:51 INTRA [place] 00 :38 PROCEDURE, Medical Starting Branch on Fri12/23/22 at 0824, Until Fri12/23/22 at 0851, Routine, Intra-op lidocaine 2022-0 2022- No Intravenou U nivers 1% 12-23 s, ONCE ity of (XYLOCAINE) 13:24: 13:51 INTRA [place] 100 mg/10 00 :38 PROCEDURE, Medi nii mL (1 %) Starting Branch injection on Fri12/23/22 at 0824, Until Fri12/23/22 at 0851, Routine, Intra-op lactated 2022-0 2022- No IV Univers ringers IV 12-23 Infusion, ity of infusion 13:17: 13:51 CONTINUOUS [place] 00 :38 PRN, Medical Starting Branch on Fri12/23/22 at 0817, Until Fri12/23/22 at 0851, Routine, Intra-op furosemide 3-0 Yes 20mg Take 1 Unive rs 20 mg 7-31 tablet by ity of tablet 09:47: mouth as [place] [address] needed Medical (leg Branch swelling). QUEtiapine 2023-0 Yes 100mg Take 1 Univ ers 100 mg 7-31 tablet by ity of tablet 09:47: mouth in [place] [address] the Medical morning Branch and 1 tablet in the evening. gabapentin 2023-0 Yes 100mg Take 1 Univ ers 100 mg 7-31 capsule by ity of capsule 09:47: mouth in [place] [address] the Medical morning. Branch mirtazapine 2023-0 Yes 30mg Take 1 Univ ers 30 mg 7-31 tablet by ity of tablet 09:47: mouth at [place] [address] bedtime. Medical Branch pantoprazol 2023-0 Yes 40mg Take 2 Univ ers e 20 mg EC 7-31 tablets by ity of tablet 09:47: mouth in [place] [address] the Medical morning. Branch pregabalin 2023-0 Yes 100mg Take 1 Univ ers 100 mg 7-31 capsule by ity of capsule 09:47: mouth in [place] [address] the Medical morning Branch and 1 capsule at noon and 1 capsule in the evening. dicyclomine 2023-0 Yes 10mg Take 1 Univ ers 10 mg 7-31 capsule by ity of capsule 09:47: mouth in [place] [address] the Medical morning. Branch levETIRAcet 2023-0 Yes 500mg Take 1 Uni vers am (KEPPRA) 7-31 tablet by ity of 500 mg 09:47: mouth in [place] tablet 18 the Medical morning Branch and 1 tablet in the evening. venlafaxine 3-0 Yes 300mg Take 3 Uni vers 100 mg 7-31 tablets by ity of tablet 09:47: mouth in [place] 18 the Medical morning Branch and 3 tablets in the evening. carvediloL 3-0 Yes 3.125mg Take 1 Un moe (COREG) 7-31 tablet by ity of 3.125 mg 09:47: mouth in [place] tablet 18 the Medical morning Branch and 1 tablet in the evening. Take with meals. tiZANidine 3-0 Yes 4mg Take 1 Unive rs 4 mg 7-31 capsule by ity of capsule 09:47: mouth in [place] [address] the [facility] morning Branch and 1 capsule at noon and 1 capsule in the evening. baclofen 10 2022-0 Yes 10mg Take 1 Univ ers mg tablet 7-31 tablet by ity o f 09:47: mouth in [place] [address] the [facility]. Branch HYDROcodone 2022-0 Yes 1{tbl} Take 1 Un moe -acetaminop 7-31 tablet by ity of hen (NORCO) 09:47: mouth [place] 10-325 mg 18 every 6 Medical tablet (six) Branch hours as needed for Pain (scale 7-10). omeprazole 3-0 3- No [id number] 40mg Take 1 Univers 40 mg 7-31 10-30 capsule by ity of capsule 00:00: 04:59 mouth in [place] 00 :00 the [facility] and 1 capsule in the evening. Do all this for 90 days. omeprazole 2023-0 2023- No [id number] 40mg Take 1 Univers 40 mg 7-31 10-30 capsule by ity of capsule 00:00: 04:59 mouth in [place] 00 :00 the [facility] morning [place] and 1 capsule in the evening. Do all this for 90 days. omeprazole 2023-0 2023- No [id number] 40mg Take 1 Univers 40 mg 7-31 10-30 capsule by ity of capsule 00:00: 04:59 mouth in [place] 00 :00 the [facility] morning [place] and 1 capsule in the evening. Do all this for 90 days. omeprazole 2023-0 2023- No [id number] 40mg Take 1 Univers 40 mg -31 10-30 capsule by ity of capsule 00:00: 04:59 mouth in [place] 00 :00 the [facility] morning Branch and 1 capsule in the evening. Do all this for 90 days. omeprazole 2022- No [id number] 40mg Take 1 Univers 40 mg 7-31 10-30 capsule by ity of capsule 00:00: 04:59 mouth in [place] 00 :00 the [facility] Branch and 1 capsule in the evening. Do all this for 90 days. baclofen Yes 10mg 10 mg, Univers (LIORESAL) 12-22 Oral, ity of tablet 10 14:00: DAILY, [place] mg 00 First dose Medical on [facility] 12/22/22 at 0900, Until Discontinu ed, Routine dicyclomine Yes 10mg 10 mg, Univ ers (BENTYL) 12-22 Oral, ity of capsule 10 14:00: DAILY, [place] mg 00 First dose Medical on [facility] 12/22/22 at 0900, Until Discontinu ed, Routine gabapentin Yes 100mg 100 mg, Uni vers (NEURONTIN) 12-22 Oral, ity of capsule 100 14:00: [place]ILY, [place] 00 First dose Medical on [facility] 12/22/22 at 0900, Until Discontinu ed, Routine baclofen 2022- No 10mg 10 mg, Univer s (LIORESAL) 12-22 Oral, ity of tablet 10 14:00: 01:22 DAILY, [place] mg 00 :18 First dose Medical on [facility] 12/22/22 at 0900, Until Discontinu ed, Routine dicyclomine 2022- No 10mg 10 mg, Uni vers (BENTYL) 12-22 Oral, ity of capsule 10 14:00: 01:22 [place]ILY, [place] mg 00 :18 First dose Medical on [facility] 12/22/22 at 0900, Until Discontinu ed, Routine gabapentin 0 2022- No 100mg 100 mg, Un moe (NEURONTIN) 12-22 Oral, ity of capsule 100 14:00: 01:22 DAILY, [place] mg 00 :18 First dose Medical on [facility] 12/22/22 at 0900, Until Discontinu ed, Routine mirtazapine 2023-0 Yes 30mg 30 mg, Univ ers (REMERON) 12-22 Oral, QHS, ity of tablet 30 02:00: First dose [place] 00 on [facility] 12/21/22 at Branch 2100, Until Discontinu ed, Routine mirtazapine 2023-0 2023- No 30mg 30 mg, Uni vers (REMERON) 12-22 Oral, QHS, ity of tablet 30 02:00: 01:22 First dose [place] mg 00 :18 on [facility] 12/21/22 at Branch 2100, Until Discontinu ed, Routine QUEtiapine 3-0 Yes 100mg 100 mg, Uni vers (SEROQUEL) 12-22 Oral, BID, ity of tablet 100 01:00: First dose [place] mg 00 on [facility] 12/21/22 at [place] 2000, Until Discontinu ed, Routine levETIRAcet 3-0 Yes 500mg 500 mg, Un moe am (KEPPRA) 12-22 Oral, BID, it y of tablet 500 01:00: First dose [place] mg 00 on [facility] 12/21/22 at Branch 2000, Until Discontinu ed, Routine QUEtiapine 3-0 2023- No 100mg 100 mg, Un moe (SEROQUEL) 12-22 Oral, BID, it y of tablet 100 01:00: 01:22 First dose [place] mg 00 :18 on [facility] 12/21/22 at [place] 2000, Until Discontinu ed, Routine levETIRAcet 2023-0 2023- No 500mg 500 mg, U nivers am (KEPPRA) 12-22 Oral, BID, i ty of tablet 500 01:00: 01:22 First dose [place] mg 00 :18 on [facility] 12/21/22 at Branch 2000, Until Discontinu ed, Routine venlafaxine 2023-0 Yes 75mg 75 mg, Univ ers (EFFEXOR) 12-21 Oral, TID, ity of tablet 75 19:00: First dose [place] 00 on [facility] 12/21/22 at Branch 1400, Until Discontinu ed, Routine pregabalin 2023-0 Yes 100mg 100 mg, Uni vers (LYRICA) 12-21 Oral, TID, ity o f capsule 100 19:00: First dose [place] mg 00 on [facility] 12/21/22 at [place] [address], Until Discontinu ed, Routine tiZANidine Yes 4mg 4 mg, Univer s (ZANAFLEX) 12-21 Oral, TID, ity of tablet 4 mg 19:00: First dose [place] 00 on [facility] 12/21/22 at [place] 1400, Until Discontinu ed venlafaxine 2022- No 75mg 75 mg, Uni vers (EFFEXOR) 12-21 Oral, TID, ity of tablet 75 19:00: 01:22 First dose [place] mg 00 :18 on [facility] 12/21/22 at [place] [address], Until Discontinu ed, Routine pregabalin 2022- No 100mg 100 mg, Un moe (LYRICA) 12-21 Oral, TID, ity of capsule 100 19:00: 01:22 First dose [place] mg 00 :18 on [facility] 12/21/22 at [place] [address], Until Discontinu ed, Routine tiZANidine 2022- No 4mg 4 mg, Unive rs (ZANAFLEX) 12-21 Oral, TID, it y of tablet 4 mg 19:00: 01:22 First dose [place] 00 :18 on [facility] 12/21/22 at [place] [address], Until Discontinu ed HYDROcodone 0 Yes 1{tbl} 1 tablet, Univers -acetaminop 12-21 Oral, ity of hen (NORCO) 17:14: Q6HPRN, Gian as 10-325 mg 44 Starting Medica l tablet 1 on [facility] tablet 12/21/22 at 1214, Until Discontinu ed, Routine, Pain (scale 7-10) HYDROcodone 2022-0 2022- No 1{tbl} 1 tablet, Univers -acetaminop 12-21 Oral, ity of hen (NORCO) 17:14: 01:22 Q6[place]PRN, [place] 10-325 mg 44 :18 Starting Medica l tablet 1 on [facility] tablet 12/21/22 at 1214, Until 12/23/22 at 2021, Routine, Pain (scale 7-10) nicotine 2022-0 Yes 1{patch 1 Patch, Un moe (NICODERM) 12-21 } Topical, ity o f 21 mg/24 hr 16:00: Administer [place] patch 1 00 over 24 Medical Patch Hours, Branch Q24H, First dose on 12/21/22 at 1100, Until Discontinu ed, Routine nicotine 2022-0 2023- No 1{patch 1 Patch, U nivers (NICODERM) 12-21 } Topical, ity of 21 mg/24 hr 16:00: 01:22 Administer [place] patch 1 00 :18 over 24 Medical Patch Hours, Branch Q24H, First dose on 12/21/22 at 1100, Until Discontinu ed, Routine iron 2022-0 2022- No 25mg 25 mg, IV Univers dextran 12-21 Piggyback, ity o f (INFED) 25 14:00: 14:08 ONCE, 1 Gian as mg in NaCl 00 :00 dose, On Medic al 0.9% (NS) [facility] 100 mL IV 12/21/22 at piggyback 0900, Administer over 15 Minutes, 100 mL iron 2022-2022- No 1000mg 1,000 mg, Unive rs dextran 12-21 IV ity of (INFED) 14:00: 15:41 Infusion, [place] 1,000 mg in 00 :00 ONCE, 1 Medic al NaCl 0.9% dose, On Branch (NS) 500 mL Sat IV infusion 12/21/22 at 0900, Administer over 1.5 Hours, 500 mL glycerin/mi 2022-2022- No 225mL 225 mL, U nivers neral oil 12-21 Rectal, ity of (AGLO 08:45: 09:28 ONCE, 1 [place] ENEMA) 00 :00 dose, On Medical (COMPOUNDED [facility] ) Enem 225 12/21/22 at mL 0345, Routine lactated 2022-0 2022- No 500mL at 100 Unive rs ringers IV 12-21 mL/hr, 500 it y of infusion 08:15: 13:38 mL, [place] 500 mL 00 :00 Intravenou Medical s, ONCE, 1 Branch dose, On [facility] 12/[facility]/22 at 0315, Routine acetaminoph 2022-0 2022- No 741mg 741 mg, IV Univers en ADULT 12-21 0729 Infusion, ity o f ([facility]) 07:00: 07:18 at 296.4 Gian as injection 00 :00 mL/hr Medical 741 mg Administer Branch over 15 Minutes, ONCE, 1 dose, On 12/21/22 at 0200, Routine
Indicatio n: Non-periop erative Patient
Approved by: Per Policy (NPO Status) ondansetron 3-0 Yes 4mg 4 mg, Slow Univers (ZOFRAN 12-21 IV Push, ity of (PF)) 06:02: Q6HPRN, [place] injection 4 25 Nausea and Me dical mg Vomiting Branch (N/V), Starting on 12/21/22 at 0102
Do ses of ondansetro n 16 mg and above need to be administer ed via IV piggyback. For Dose >=24mg ECG monitoring is advisable.
ondansetron 3-0 Yes 4mg 4 mg, Slow Univers (ZOFRAN 12-21 IV Push, ity of (PF)) 06:02: Q6HPRN, [place] injection 4 25 Nausea and Me dical mg Vomiting Branch (N/V), Starting on 12/21/22 at 0102
Do ses of ondansetro n 16 mg and above need to be administer ed via IV piggyback. For Dose >=24mg ECG monitoring is advisable.
ondansetron 3-0 3- No 4mg 4 mg, Slow Univers (ZOFRAN 12-21 08 IV Push, ity of (PF)) 06:02: 01:22 Q6HPRN, [place] injection 4 25 :18 Nausea and Me dical mg Vomiting Branch (N/V), Starting on 12/21/22 at 0102
Do ses of ondansetro n 16 mg and above need to be administer ed via IV piggyback. For Dose >=24mg ECG monitoring is advisable.
acetaminoph 3-0 Yes 650mg 650 mg, Un moe en 12-21 Oral, ity of (TYLENOL) 05:47: Q6HPRN, [place] tablet 650 47 Starting Medic al mg on Sat Branch 12/21/22 at 0047, Until Discontinu ed, Routine, Pain (scale 1-3) acetaminoph 2022- No 650mg 650 mg, U nivers en 12-21 Oral, ity of (TYLENOL) 05:47: 01:22 Q6HPRN, [place] tablet 650 47 :18 Starting Medic al mg on Sat Branch 12/21/22 at 0047, Until 12/23/22 at 2021, Routine, Pain (scale 1-3) polyethylen Yes 17g 17 g, Unive rs e glycol 12-21 Oral, ity of 3350 powder 05:15: DAILY, [place] 17 g 00 First dose Medical on [facility] 12/21/22 at 0015, Until Discontinu ed, Routine sennosides- Yes 1{tbl} 1 tablet, [facility] docusate 12-21 Oral, ity of sodium 05:15: DAILY, [place] (SENOKOT-S) 00 First dose Me dical 8.6-50 mg on Sat Branch per tablet 12/21/22 at 1 tablet 0015, Until Discontinu ed, Routine polyethylen 2022- No 17g 17 g, Univ ers e glycol 12-21 Oral, ity of 3350 powder 05:15: 01:22 DAILY, Gian as 17 g 00 :18 First dose Medical on [facility] 12/21/22 at 0015, Until Discontinu ed, Routine sennosides- 2022- No 1{tbl} 1 tablet, [facility] docusate 12-21 Oral, ity of sodium 05:15: 01:22 DAILY, [place] (SENOKOT-S) 00 :18 First dose Me dical 8.6-50 mg on Sat Branch per tablet 12/21/22 at 1 tablet 0015, Until Discontinu ed, Routine pantoprazol 2022- No 40mg 40 mg, Uni vers e 12-21 Slow IV ity of (PROTONIX) 05:15: 17:31 Push, [place] injection 00 :43 Q12H, Medical 40 mg First dose Branch on 12/21/22 at 0015, Until Discontinu ed NaCl 0.9% 2022-0 2022- No 1000mL at 999 Uni vers (NS) bolus 12-21 mL/hr, ity of infusion 03:30: 03:30 1,000 mL, Gian as 1,000 mL 00 :00 IV Medical Infusion, Branch ONCE, 1 dose, On Fri12/20/22 at 2230, STAT FENTanyl PF 2022-0 2022- No 50ug 50 mcg, Un moe (SUBLIMAZE 12-21 Slow IV ity o f (PF)) 03:15: 02:31 Push, [place] injection 00 :00 ONCE, 1 Medical 50 mcg dose, On Branch Fri12/20/22 at 2215, Routine ondansetron 2022-0 2022- No 4mg 4 mg, Slow Univers (ZOFRAN 12-21 IV Push, ity of (PF)) 01:15: 01:40 ONCE, 1 [place] injection 4 00 :00 dose, On Medi nii mg 12/20/22 at 2015, RAMEZ iopamidol 2022-0 2022- No [id number] 100mL 100 mL, Univers (ISOVUE 12-20 Intravenou ity o f 370-500 mL) 11:15: 11:15 s, ONCE, 1 [place] injection 00 :00 dose, On Medica l 100 mL 12/20/22 at 0615, Routine NaCl 0.9% 0 2022- No 250mL at 999 Univ ers (NS) IV 12-20 mL/hr, ity of infusion 10:15: 09:44 Intravenou [place] 250 mL 00 :00 s, ONCE, 1 Medical dose, On Branch Fri12/20/22 at 0515, Routine FENTanyl PF 2022-0 2022- No 50ug 50 mcg, Un moe (SUBLIMAZE 12-20 Slow IV ity o f (PF)) 10:15: 09:22 Push, [place] injection 00 :00 ONCE, 1 Medical 50 mcg dose, On Branch Fri12/20/22 at 0515, Routine ondansetron 2022-0 2023- No 4mg 4 mg, Slow Univers (ZOFRAN 12-20 IV Push, ity of (PF)) 09:15: 09:21 ONCE, 1 [place] injection 4 00 :00 dose, On Medi [...] Systolic blood 2022-12-23 20:35:00 116 mm[facility]Hg[facility] 2022-12-23 20:35:00 76 mm[Hg] Unive [facility] Heart rate 2022-12-23 20:35:00 65 /min [facility] Body temperature 2022-12-23 20:35:00 35.94 Ashley [facility] Respiratory rate 2022-12-23 20:35:00 18 /min [facility] Oxygen saturation in 2022-12-23 20:35:00 95 /min [facility] Arterial blood by [facility] Pulse oximetry Branch Body height 2022-12-21 14:14:[address] [facility] Body weight 2022-12-21 14:14:[address] [facility] BMI 2022-12-21 14:14:00 17.58 kg/m2 [facility] Systolic blood 2022-12-23 12:45:00 107 mm[Hg] [facility] Diastolic blood 2022-12-23 12:45:00 62 mm[Hg] Unive rsity of pressure [place] [facility] Heart rate 2022-12-23 12:45:00 65 /min [facility] [place] [facility] Body temperature 2022-12-23 12:45:00 36.11 Ashley [facility] [place] [facility] Respiratory rate 2022-12-23 12:45:00 14 /min Univ [facility] [place] [facility] Oxygen saturation in 2022-12-23 12:45:00 94 /min University of Arterial blood by [facility] nii Pulse oximetry Branch Body height 2022-12-21 14:14:00 167.6 cm [facility] [place] [facility] Body weight 2022-12-21 14:14:00 49.4 kg [facility] [place] [facility] BMI 2022-12-21 14:14:00 17.58 kg/m2 [facility] [place] [facility] Systolic blood 2022-12-20 08:50:00 111 mm[Hg] Univer sity of pressure [place] [facility] Diastolic blood 2022-12-20 08:50:00 65 mm[Hg] Unive rsity of pressure [place] [facility] Heart rate 2022-12-20 08:50:00 91 /min [facility] [place] [facility] Body temperature 2022-12-20 08:50:00 37 Ashley [facility] [place] [facility] Respiratory rate 2022-12-20 08:50:00 16 /min Univ [facility] [place] [facility] Oxygen saturation in 2022-12-20 08:50:00 99 /min University of Arterial blood by [facility] nii Pulse oximetry Branch Body height 2022-12-20 08:48:00 167.6 cm [facility] [place] [facility] Body weight 2022-12-20 08:48:00 49.442 kg [facility] [place] [facility] BMI 2022-12-20 08:48:00 17.59 kg/m2 [facility] [place] [facility] BP Diastolic 2019-12-06 00:00:00 73 mm[Hg] [facility] Height 2019-12-06 00:00:00 66 [in_i] [facility] BMI (Body Mass 2019-12-06 00:00:00 21.6 kg/m2 [facility] BP Systolic 2019-12-06 00:00:00 113 mm[Hg] [facility] Body Weight 2019-12-06 00:00:00 2145.6 [oz_av] [facility] BP Diastolic 2019-04-07 00:00:00 75 mm[Hg] [facility] Height 2019-04-07 00:00:00 66 [in_i] [facility] BMI (Body Mass 2019-04-07 00:00:00 22.8 kg/m2 [facility]) Group BP Systolic 2019-04-07 00:00:00 112 mm[Hg] [facility] Body Weight 2019-04-07 00:00:00 2256 [oz_av] [facility] BP Diastolic 2019-03-10 00:00:00 77 mm[Hg] [facility] Height 2019-03-10 00:00:00 66 [in_i] [facility] BMI (Body Mass 2019-03-10 00:00:00 21.8 kg/m2 [facility]) Group BP Systolic 2019-03-10 00:00:00 120 mm[Hg] [facility] Body Weight 2019-03-10 00:00:00 2160 [oz_av] [facility] BP Diastolic 2018-08-11 00:00:00 60 mm[Hg] [facility] Height 2018-08-11 00:00:00 66 [in_i] [facility] BMI (Body Mass 2018-08-11 00:00:00 21.5 kg/m2 [facility] Medical Index) Group BP Systolic 2018-08-11 00:00:00 98 mm[Hg] [facility] Body Weight 2018-08-11 00:00:00 2128 [oz_av] [facility] Procedures Procedure Date / Time Performing Source Performed Clinician TRANSTHORACIC ECHO (TTE) COMPLETE 2022-12-23 [facility] W/ CONTRAST 16:02:03 [facility] TRANSTHORACIC ECHO (TTE) COMPLETE 2022-12-23 [facility] W/ CONTRAST 16:02:03 [facility] ESOPHAGOGASTRODUODENOSCOPY 2022-12-23 Maico Morrison rsity of 13:09:00 [facility] EGD (ENDO) 2022-12-23 [facility] 12:55:53 Unassigned, No [facility] EGD (ENDO) 2022-12-23 [facility] 12:55:53 Unassigned, No [facility] MAGNESIUM 2022-12-23 [facility] of 09:15:00 [facility] BASIC METABOLIC PANEL (NA, K, CL, 2022-12-23 [facility] of CO2, GLUCOSE, BUN, CREATININE, [place]) 09:15:00 [facility] MAGNESIUM 2022-12-23 [facility] of 09:15:00 [facility] BASIC METABOLIC PANEL (NA, K, CL, 2022-12-23 [facility] University of CO2, GLUCOSE, BUN, CREATININE, CA) 09:15:00 [facility] ENDOSCOPY PROCEDURE DOCUMENTATION 2022-12-23 [facility] 05:01:00 Unassigned, No [facility] CBC WITHOUT DIFF 2022-12-22 Jessica [facility] of 13:41:00 [facility] CBC WITHOUT DIFF 2022-12-22 [facility] of 13:41:00 [facility] CBC WITHOUT DIFF 2022-12-22 [facility] of 09:29:00 [facility] CBC WITHOUT DIFF 2022-12-22 [facility] of 09:29:00 [facility] CBC WITHOUT DIFF 2022-12-21 Odin [facility] of 14:08:00 [facility] CBC WITHOUT DIFF 2022-12-21 [place] [facility] of 14:08:00 [facility] PREPARE PACKED RBC 2022-12-21 Jf Calabrese [facility] of 08:09:44 [facility] PREPARE PACKED RBC 2022-12-21 Jf Calabrese [facility] of 08:09:44 [facility] HB ECG ROUTINE & RHYTHM STRIP 2022-12-21 Jf Calabrese Un iversity of 06:54:09 [facility] HB ECG ROUTINE & RHYTHM STRIP 2022-12-21 Jf Calabrese iversity of 06:54:09 [facility] MAGNESIUM 2022-12-21 Jf Calabrese of 05:50:00 [facility] FERRITIN SERUM 2022-12-21 [place], [facility] of 05:50:00 [facility] VITAMIN B12, LEVEL 2022-12-21 [place], [facility] of 05:50:00 [facility] FOLATE 2022-12-21 [place], [facility] of 05:50:00 [facility] HEPATIC FUNCTION PANEL ([id number]) 2022-12-21 Jf Calabrese niversity of (ALB,T.PRO,BILI 05:50:00 [facility] T,BU/BC,ALT,AST,ALK PHOS) [place] IRON PANEL 2022-12-21 [place], [facility] of 05:50:00 [facility] DIFF CONSULT BY PATHOLOGIST 2022-12-21 [place], [facility] ersity of 05:50:00 [facility] CBC WITH DIFF 2022-12-21 [place], [facility] of 05:50:00 [facility] PROTHROMBIN TIME / INR 2022-12-21 [place], [facility] y of 05:50:00 [facility] ACTIVATED PARTIAL THRMPLAS CHINMAY 2022-12-21 Jf Calabrese niversity of 05:50:00 [facility] FIBRINOGEN 2022-12-21 [place], [facility] of 05:50:00 [facility] RETICULOCYTES AUTOMATED 2022-12-21 [place] [facility] ty of 05:50:00 [facility] DIFF CONSULT INTERPRETATION 2022-12-21 [place] [facility] ersity of 05:50:00 [facility] MRSA / MSSA SCREEN BY PCR, YURI 2022-12-21 [place] [facility] of 05:50:00 [facility] MAGNESIUM 2022-12-21 [place], [facility] of 05:50:00 [facility] FERRITIN SERUM 2022-12-21 [place], [facility] of 05:50:00 [facility] VITAMIN B12, LEVEL 2022-12-21 [place], [facility] of 05:50:00 [facility] FOLATE 2022-12-21 [place], [facility] of 05:50:00 [facility] HEPATIC FUNCTION PANEL ([id number]) 2022-12-21 Jf Calabrese niversity of (ALB,T.PRO,BILI 05:50:00 [facility] T,BU/BC,ALT,AST,ALK PHOS) [place] IRON PANEL 2022-12-21 [place] [facility] of 05:50:00 [facility] DIFF CONSULT BY PATHOLOGIST 2022-12-21 [place] [facility] ersity of 05:50:00 [facility] CBC WITH DIFF 2022-12-21 [place] [facility] of 05:50:00 [facility] PROTHROMBIN TIME / INR 2022-12-21 [place] [facility] y of 05:50:00 [facility] ACTIVATED PARTIAL THRMPLAS CHINMAY 2022-12-21 Guan[place]ito [facility] niversity of 05:50:00 [facility] FIBRINOGEN 2022-12-21 [place] [facility] of 05:50:00 [facility] RETICULOCYTES AUTOMATED 2022-12-21 [place] Jf [facility] ty of 05:50:00 [facility] DIFF CONSULT INTERPRETATION 2022-12-21 [place] [facility] ersity of 05:50:00 [facility] MRSA / MSSA SCREEN BY YURI LUO 2022-12-21 [place] [facility] of 05:50:00 [facility] ABORH CONFIRMATION (LAB ONLY) 2022-12-21 [facility] 03:[facility]00 [facility] ABORH CONFIRMATION (LAB ONLY) 2022-12-21 Too Junior, [facility] 03:20:00 [facility] XR CHEST 2 VW 2022-12-21 [facility] 02:58:00 [facility] XR CHEST 2 VW 2022-12-21 Too Junior, [facility] 02:58:00 [facility] HB ECG ROUTINE & RHYTHM STRIP 2022-12-21 Too Junior, [facility] 02:39:08 [facility] HB ECG ROUTINE & RHYTHM STRIP 2022-12-21 Too Junior, [facility] 02:39:08 [facility] BLOOD CULTURE SCREEN 2022-12-21 [facility] 02:30:00 [facility] HB ABO GROUPING 2022-12-21 Too Junior, [facility] of 02:30:00 [facility] BLOOD CULTURE SCREEN 2022-12-21 Banipal Morrical, [facility] 02:30:00 [facility] HB ABO GROUPING 2022-12-21 Banipal Morrical, [facility] 02:30:00 [facility] LIPASE 2022-12-21 Banipal Morrical, [facility] 01:38:00 [facility] TROPONIN I 2022-12-21 Banipal Morrical, [facility] 01:38:00 [facility] COMP. METABOLIC PANEL ([id number]) 2022-12-21 Banipal Morrical, [facility] 01:38:00 [facility] CBC WITH DIFF 2022-12-21 Banipal Morrical, [facility] 01:38:00 [facility] URINALYSIS 2022-12-21 Banipal Morrical, [facility] 01:38:00 [facility] EXTRA TUBE URINE CULTURE 2022-12-21 Banipal Luis Eduardorical, Unive rsity of 01:38:00 [facility] LIPASE 2022-12-21 Banipal Morrical, [facility] 01:38:00 [facility] TROPONIN I 2022-12-21 Banipal Morrical, [facility] 01:38:00 [facility] COMP. METABOLIC PANEL ([id number]) 2022-12-21 Banipal Morrical, [facility] 01:38:00 [facility] CBC WITH DIFF 2022-12-21 Banipal Morrical, [facility] 01:38:00 [facility] URINALYSIS 2022-12-21 Banipal Morrical, [facility] 01:38:00 [facility] EXTRA TUBE URINE CULTURE 2022-12-21 Banipal Morrical, Unive rsity of 01:38:00 [facility] CONSENT/REFUSAL FOR DIAGNOSIS AND 2022-12-20 Doctor [facility] 23:26:30 Unassigned, No [facility] CONSENT/REFUSAL FOR DIAGNOSIS AND 2022-12-20 [facility] 23:26:30 Unassigned, No [facility] COVID-19 (ID NOW RAPID TESTING) 2022-12-20 Babar Antony [facility] 09:44:00 [facility] LIPASE 2022-12-20 Babar Antony [facility] 09:18:00 [facility] COMP. METABOLIC PANEL ([id number]) 2022-12-20 Babar Antony U niversity of 09:18:00 [facility] CBC WITH DIFF 2022-12-20 Babar Antony [facility] of 09:18:00 [facility] URINALYSIS 2022-12-20 Babar Antony [facility] of 09:18:00 [facility] NOTICE OF PRIVACY PRACTICES 2022-12-20 Doctor Univ ersity of 08:43:33 Unassigned, No [facility] CONSENT/REFUSAL FOR DIAGNOSIS AND 2022-12-20 Doctor University of TREATMENT 08:43:03 Unassigned, No [facility] AGREEMENTS AUTHORIZATIONS AND 2022-12-20 Doctor Un iversity of IRREVOCABLE ASSIGNMENTS (FORM 05:01:00 Unassigned, No [facility] 2000) Name Branch [U] XRAY SPINE CERVICAL 2 OR 3 VWS 2019-07-26 [facility] [id number] 00:00:00 [U] XRAY FOOT MIN 3 VWS RIGHT 2019-05-04 [facility] [id number] 00:00:00 [U] XRAY KNEE 1 OR 2 VWS LEFT 2019-05-04 [facility] [id number] 00:00:00 Physical Therapy 2019-04-27 [facility] 00:00:00 [U] XRAY SPINE CERVICAL 2 OR 3 VWS 2019-04-26 [facility] [id number] 00:00:00 [U] XRAY SPINE CERVICAL 2 OR 3 VWS 2019-03-09 [facility] [id number] 00:00:00 [place] Bone Density Scan [id number] 2019-02-12 [facility] 00:00:00 [U] XRAY KNEE 1 OR 2 VWS LEFT 2019-02-12 [facility] [id number] 00:00:00 DEXA Bone Density with WB 2019-02-10 [facility] Composition DX 00:00:00 [U] XRAY SPINE CERVICAL 2 OR 3 VWS 2019-02-08 [facility] [id number] 00:00:00 Tibial Arthroscopy/surgery 2018-12-26 [facility] 00:00:00 Group Primary Fusion of Cervical Spine 2018-12-24 [facility] 00:00:00 Group Gastric Bypass 2012-05-26 [facility] 00:[facility]:00 Group Colonoscopy 2011-05-26 [facility] 00:[facility]:00 [facility]end[facility]omy [facility] Plan of Care Planned Activity Planned Date Details Comments Source Diagnostic Test 2019-04-07 BMP, serum or [facility] Pending 00:00:00 plasma [code = Group BMP, serum or plasma] Encounters Start End Encounter Admission Attending Care Care Encounter Source Date/Time Date/Time Type Type Clinicians Facility Department ID 2023-04-04 2023-04-04 emergency [facility] [id number] 15:21:00 21:10:00 [facility] [id number] [place] [id number] Ctr 5eb 2023-04-04 2023-04-04 Emergency ER Alexei, [facility] [id number] [facility] 15:21:00 21:10:00 Tiara -[id number] Count includes the [facility] 2023-04-02 2023-04-02 Outpatient SFA SFA [id number] [facility] 07:52:01 07:52:01 [id number] F Po 2023-03-21 2023-03-21 Outpatient SFA SFA [id number] [facility] 14:15:28 14:15:28 [id number] F Po 2023-03-11 2023-03-11 Outpatient Zuniga_F MMG MMG [id number] [facility] 00:00:00 00:00:00 [facility] 2023-02-24 2023-02-25 Emergency ER CHERY [facility] [id number] [facility] 22:19:00 05:05:00 SID -[id number] Count includes the [facility] 2023-02-04 2023-02-06 Inpatient ER [facility] [id number] [place] 12:30:00 15:41:00 ALEJA -[id number] Count includes the [facility] 2023-01-31 2023-01-31 Telephone Jonah [facility] [[email or web address]] [id number] Univers 00:00:00 00:00:00 [id number] [id number] [place] DILLER AT [id number] Ga maye LIGHT 072 [facility] 2023-01-06 2023-01-06 Outpatient [facility] Smith 16:34:59 16:34:59 [id number] F Po 2023-01-01 2023-01-01 Outpatient [facility] Smith 16:20:55 16:20:55 [id number] F Po 2022-12-30 2022-12-30 Telephone NINA Mckenzie [id number] Univers 00:00:00 00:00:00 Charmaine BOYD [id number] it y of [facility] [id number] T cathie [id number] [facility] 009 Branch 2022-12-24 2022-12-24 Transition VALERIE Pacheco [id number] Univers 00:00:00 00:00:00 of Care Cathy PÉREZ [id number] ity of [place] [id number] [id number] [facility] 403 Branch 2022-12-20 2022-12-23 Inpatient X LENORE WRIGHT [facility] [[email or web address]] BRADY [id number] Univers 18:44:00 18:20:00 ity of [facility] 2022-12-20 2022-12-23 Hospital Lianne Garcia [id number] Univers 18:44:00 18:20:00 Encounter Carlos Patrick 35 0.1.13.10 [facility] 4.2.7.2.686 [place] Lenore Wrightbeth [phone] Medical 093 Branch 2022-12-23 2022-12-23 Anesthesia Rosalva Smith [email or web address] 1.2.8 40.114 [id number] Univers 08:18:00 08:53:00 Event Jorge A Mckeon 350.1.13.10 ity of SCIENCES 4.2.7.2.686 Gian as BLDG [id number] [facility] 020 Branch 2022-12-23 2022-12-23 Surgery [facility] 1.2.470.744 [id number] Univers 07:15:00 07:55:00 Maico Hobbs UMU 350.1.13.10 ity of [place] 4.2.7.2.686 Gian as BL [id number] [facility] 020 Branch 2022-12-20 2022-12-20 Emergency [facility] 1.2.895.835 [id number] Univers 03:43:00 06:50:00 Babar Jose G KORY 350.1.13.10 ity [facility] 4.2.7.2.686 [facility] [id number] [facility] 084 Branch 2022-12-20 2022-12-20 Emergency X [facility] ERT [id number] Univers 03:43:00 06:50:00 [facility]22-11-13 2022-11-13 Outpatient [facility] [id number] [place] 11:10:07 11:10:07 35605 F Po 2020-06-29 2020-06-29 Outpatient Zuniga_F MMG MMG [id number] [place] 01:08:00 01:08:00 0204 [facility] 2020-04-27 2020-04-27 Outpatient Zuniga_F MMG MMG [id number] [place] 01:04:00 01:04:00 1203 [facility] 2020-04-12 2020-04-12 Outpatient Zuniga_F MMG MMG [id number] [place] 02:32:00 02:32:00 1118 [facility] 2020-03-23 2020-03-23 Outpatient Zuniga_F MMG MMG [id number] [place] 01:04:00 01:04:00 1029 [facility] 2020-02-17 2020-02-17 Outpatient Zuniga_F MMG MMG [id number] [place] 03:07:00 03:07:00 0924 [facility] 2020-02-16 2020-02-16 Outpatient Zuniga_F MMG MMG [id number] [place] 11:05:00 11:05:00 0923 [facility] 2020-02-14 2020-02-14 Outpatient Zuniga_F MMG MMG [id number] [place] 09:30:00 09:30:00 0921 [facility] 2020-02-06 2020-02-08 Inpatient ER Daysi [facility] [id number] [place] 14:34:00 16:39:00 Taran -[id number] Count includes the [facility] 2020-02-08 2020-02-08 Outpatient Zuniga_F MMG MMG [id number] [place] 05:04:00 05:04:00 0915 Medical Group 2020-01-12 2020-01-12 Outpatient Zuniga_F MMG MMG [id number] [place] 12:39:00 12:39:00 0819 Medical Group 2019-12-08 2019-12-08 Outpatient Zuniga_F MMG MMG [id number] [place] 12:57:00 12:57:00 0715 Medical Group 2019-12-06 2019-12-06 Linn Zuniga_F MMG [place] - [id number] [place] 00:00:00 00:00:00 Ordoñez Discovery 0713 [facility] Medical BUMBOATER: [address], [place] [address] , Ph. 2019-07-27 2019-07-27 AVIS [facility] [id number] [place] 11:00:00 11:00:00 t; HIRO CASAREZ at [facility] Dani ramos M.D. [facility] 2019-06-25 2019-06-25 Outpatient Zuniga_F MMG MMG [id number] [place] 12:04:00 12:04:00 0131 Medical Group 2019-05-10 2019-05-10 AVIS Ignacio [facility] [id number] [place] 10:30:00 10:30:00 t; LINA TEJADA PA [facility] PhysicKEVON Briones [facility] 2019-04-27 2019-04-27 [facility] [id number] [place] 09:30:00 09:30:00 t; HIRO CASAREZ at [facility] Dani ramos M.D. [facility] 2019-04-07 2019-04-07 Outpatient VICTORIANO Shaw [facility] [id number] [place] 09:36:00 09:36:00 Taran [id number] Count includes the [facility] 2019-04-07 2019-04-07 Taran [facility] [place] [place] - [id number] [place] 00:00:00 00:00:00 Chano Capone 1113 Noman Renner MD: [address] [address], [place] [address] , Ph. 2019-03-29 2019-03-29 Isi TEJADA [facility] Orthopedics [id number] [place] 10:30:00 10:30:00 t; LINA TEJADA PA [facility] KEVON Huff [facility] 2019-03-15 2019-03-15 Isi TEJADA [facility] [id number] [place] 10:45:00 10:45:00 t; LINA TEJADA PA Physici DENISE, PA [facility] 2019-03-11 2019-03-11 Isi LYLE [facility] Orthopedics [id number] [place] 12:40:00 12:40:00 t; dariana HARVEY [facility] Rosa LYLE, [facility] 2019-03-10 2019-03-10 Outpatient VICTORIANO Shaw, [facility] [id number] [place] 12:31:00 12:31:00 Taran [id number] Count includes the [facility] 2019-03-10 2019-03-10 Taran [facility] [place] - [id number] [place] 00:00:00 00:00:00 Chano Capone 1016 Noman Renner MD: [address] [address], [place] [address] , Ph. 2019-02-15 2019-02-15 Isi TEJADA [facility] Orthopedics [id number] [place] 09:15:00 09:15:00 t; LINA TEJADA PA [facility] KEVON MILLS [facility] 2019-02-10 2019-02-10 AVIS [facility] 5 [id number] [place] 15:20:00 15:20:00 t; dariana HARVEY [facility] Rosa [facility] WES, [facility] 2018-08-11 2018-08-11 [facility] [place] - [id number] 9 [place] 00:00:00 00:00:00 Chano Capone 0319 Noman Renner Medical MD: [address] [place] [address], Family [address], [place] [address] , Ph. 2007-01-08 2007-01-[address] [facility] [id number] [place] 11:20:00 18:58:00 RICHI -[id number] Count includes the [facility] 2006-07-02 2006-07-04 [facility] [id number] [place] 02:00:00 08:45:00 YOLANDA -[id number] Count includes the [facility] 2005-07-25 2005-07-25 Outpatient UR RADHA, [facility] [id number] [place] 11:38:00 11:38:00 YUDELKA -[id number] Count includes the [facility] 2005-07-17 2005-07-17 Outpatient UR RADHA, [facility] [id number] [place] 16:17:00 16:17:00 YUDELKA -[id number] Count includes the [facility] 2005-05-31 2005-05-31 Emergency ER STARR, [facility] [id number] [place] 18:15:00 22:55:00 NANY -[id number] Count includes the [facility] 2005-01-04 2005-01-04 Outpatient UR RADHA, [facility] [id number] [place] 12:15:00 12:15:00 YUDELKA -[id number] Count includes the [facility] 2004-03-09 2004-03-09 Outpatient UR RADHA, [facility] [id number] [place] 16:40:00 16:40:00 YUDELKA -[id number] Count includes the [facility] 2003-08-05 2003-08-05 Outpatient UR RADHA, [facility] [id number] [place] 10:06:00 10:06:00 YUDELKA -[id number] Count includes the [facility] 2003-06-27 2003-06-27 Emergency ER CINTHIA BELL [facility] [id number] [place] 14:55:00 15:30:00 -[id number] Count includes the [facility] 2003-06-13 2003-06-13 Outpatient UR FREDDIE, [facility] [id number] [place] 17:52:00 17:52:00 ADEEL -[id number] Count includes the [facility] 2002-08-02 2002-08-02 Emergency ER JUDIT, [facility] [id number] [place] 07:13:00 09:42:00 ZAIN -[id number] Count includes the [facility] 2002-05-08 2002-05-09 Emergency ER DEQUAN COPELAND [facility] [id number] [place] 22:33:00 00:15:00 -[id number] Count includes the [facility] 2000-11-08 2000-11-09 Inpatient UR ROBERTH, [facility] MSUR [id number] [place] 13:16:00 13:32:00 CHINYERE -[id number] Count includes the [facility] Results Test Description Test Time Test Comments Results Result [facility] e Comments DIFF CONSULT 2022-11-25 LEUKOCYTOSIS WITH Unive rsity of INTERPRETATION 1 IMMATURE [facility] 19:27:27 GRANULOCYTOSIS/LE Branch FT SHIFT. MICROCYTIC, HYPOCHROMIC ANEMIA CONSISTENT WITH PATIENT'S KNOWN HISTORY BLEEDING. THROMBOCYTES ARE UNREMARKABLE. DIFF CONSULT 2022-11-25 LEUKOCYTOSIS WITH Unive rsity of INTERPRETATION 1 IMMATURE [facility] 19:27:27 GRANULOCYTOSIS/LE Branch FT SHIFT. MICROCYTIC, HYPOCHROMIC [...] as normal/abnormal . MPV (test code = 35881-5) 9.6 fL 9.5-12.9 RDW-CV (test code = 788-0) 20.3 % 12.0-15.5 H RDW-SD (test code = 37443-0) 51.7 fL 39.0-49.9 H NRBC x10^3 (test code = See_Comment [Au tomated message] The system [id number]) which generated this result transmitted ref erence range: 10*3/?L. The re ference range was not used to interpret this result as nahed l/abnormal. NRBC/100 WBC (test code = 0.0 See_Comment [ Automated message] The system 5838490522) which generated this result transmitted ref erence range: 0.0 - 10.0 /100 WBCs. The reference range was not used to interpret this result as normal/abnormal . IPF % (test code = 8644536138) Lab Interpretation (test code Abnormal = 53491-6) [facility] WITHOUT [id number] 14:17:02 Test Item Value Reference Range Interpretation Comments WBC (test code = 6690-2) 9.88 See_Comment [A utomated message] The system [employer] generated this result transmit nany reference range : 4.30 - 11.10 10*3/?L. The reference range was not used to interpret this result as normal/abnormal . RBC (test code = 789-8) 3.54 See_Comment L [Au tomated message] The system [employer] generated this result transmit nany reference range [...] 339 See_Comment [Au tomated message] The system [employer] generated this result transmit nany reference range : 166 - 358 10*3/?L. The reference range was not used to interpret this result as normal/abnormal . MPV (test code = 9.6 fL 9.5-12.9 89408-7) RDW-CV (test code = 20.3 % 12.0-15.5 H 788-0) RDW-SD (test code = 51.7 fL 39.0-49.9 H 57166-4) NRBC x10^3 (test code = See_Comment [Au tomated message] 6167006522) The system [employer] generated this result transmit nany reference range : 10*3/?L. The reference range was not used to interpret this result as normal/abnormal . NRBC/100 WBC (test code 0.0 See_Comment [Au tomated message] = 3191086396) The system [facility] generated this result transmit nany reference range : 0.0 - 10.0 /100 WBC s. The reference r joao was not used to interpret this result as normal/abnormal . IPF % (test code = 1581351970) Lab Interpretation (test Abnormal code = 13505-8) [facility]80419[facility] (ALB,T.PRO,BILI T,BU/BC,ALT,AST,ALK PHOS)2022-12-21 09:59:29 Test Item Value Reference Range Interpretation Comments TOTAL BILI (test code = 0.1-1.1 L 2834669363) BILI UNCON (test code = Inte rfering 8244790101) substance. Refe r to TBIL BILI CONJ (test code = Inter fering 2710562505) substance. Refe r to TBIL T PROTEIN (test code = 7.0 g/dL 6.3-8.2 0362426909) ALBUMIN (test code = 3.7 g/dL 3.5-5.0 9719710399) ALK PHOS (test code = 97 U/L 34-122 9197670902) ALTv (test code = 30 U/L 5-35 1742-6) AST(SGOT) (test code = 26 U/L 13-40 5822647261) Lab Interpretation (test Abnormal code = 24772-0) [facility] (85608) (ALB,T.PRO,BILI T,BU/BC,ALT,AST,ALK PHOS)2022-12-21 09:59:29 Test Item Value Reference Range Interpretation Comments TOTAL BILI (test code = 0.1-1.1 L 7773275867) BILI UNCON (test code = Inte rfering 4190081082) substance. Refe r to TBIL BILI CONJ (test code = Inter fering 3748246125) substance. Refe r to TBIL T PROTEIN (test code = 7.0 g/dL 6.3-8.2 8337102657) ALBUMIN (test code = 3.7 g/dL 3.5-5.0 9790557605) ALK PHOS (test code = 97 U/L 34-122 0831451611) ALTv (test code = 30 U/L 5-35 1742-6) AST(SGOT) (test code = 26 U/L 13-40 2414990440) Lab Interpretation (test Abnormal code = 86056-8) [facility] B12, [id number] 09:07:55 Test Item Value Reference Range Interpretation Comments VIT B12 (test code = 587 pg/mL 240-930 3101393678) KINGA (test code = KINGA) Biotin has been reported to cause a positive bias, interpret results relative to patient's use of biotin. Lab Interpretation (test Normal code = 21806-2) [facility] B12, [id number] 09:07:55 Test Item Value Reference Range Interpretation Comments VIT B12 (test code = 587 pg/mL 240-930 2692284422) KINGA (test code = KINGA) Biotin has been reported to cause a positive bias, interpret results relative to patient's use of biotin. Lab Interpretation (test Normal code = 10899-6) [facility]FOLATE2023-07-29 08:37:48 Test Item Value Reference Range Interpretation Comments FOLATE SER (test code = 3466907229) 5.1 ng/mL 3.0-20.0 Lab Interpretation (test code = Normal 59816-9) [facility]2023-[facility]-29 08:37:48 Test Item Value Reference Range Interpretation Comments FOLATE SER (test code = 5460692924) 5.1 ng/mL 3.0-20.0 Lab Interpretation (test code = Normal 68822-8) [facility] Center[facility] Packed RBC (in units), 1 Units 2022-12-21 08:09:44 Test Item Value Reference Range Interpretation Comments Cross Match Result Compatible (test code = 4409) ISBT Blood Type Code 5100 (test code = 527423) Unit Blood Type (test O Pos code = 4410) Unit Number (test [id number] code = 4411) Blood Expiration Date [id number] & Time (test code = 344473) Status Information Issued (test code = 4412) Product Red Blood Cells Identification (test code = 4413) Product Code (test [id number] Performed at [facility] [[email or web address] code = 4414) Laboratory Services - [facility] Blood [address] [place] [address] 245[address]Fbjt Free: [phone] A No. [id number] [facility] Center[facility] Packed RBC (in units), 1 Units 2022-12-21 08:09:44 Test Item Value Reference Range Interpretation Comments Cross Match Result Compatible (test code = 4409) ISBT Blood Type Code 5100 (test code = 458087) Unit Blood Type (test O Pos code = 4410) Unit Number (test [id number] code = 4411) Blood Expiration Date & Time (test code = 457875) Status Information Issued (test code = 4412) Product Red Blood Cells Identification (test code = 4413) Product Code (test J0760H52 Performed at [facility] [[email or web address] code = 4414) Laboratory Services - [facility] Blood [address] [place] [address] 600[address]Eeko Free: [phone] A No. [id number] [facility] CenterFERRITIN [id number] 08:06:48 Test Item Value Reference Range Interpretation Comments FERRITIN (test code = 8.2 ng/mL 11.0-264.0 L 0700098903) KINGA (test code = KINGA) Biotin has been reported to cause a negative bias, interpret results relative to patient's use of biotin. Lab Interpretation (test Abnormal code = 55745-5) [facility] CenterFERRITIN [id number] 08:06:48 Test Item Value Reference Range Interpretation Comments FERRITIN (test code = 8.2 ng/mL 11.0-264.0 L 1111004401) KINGA (test code = KINGA) Biotin has been reported to cause a negative bias, interpret results relative to patient's use of biotin. Lab Interpretation (test Abnormal code = 03090-2) [facility] CenterProthrombin Time / [id number] 07:44:04 Test Item Value Reference Range Interpretation Comments PROTIME PATIENT (test 11.5 See_Comment [Auto mated message] code = 5964-2) The system [employer] generated this result transmitted ref erence range: 10.1 - 1 2.6 Seconds. The re ference range was not u sed to interpret this result as normal/abnor mal. INR (test code = 6301-6) 1.0 Nor mal INR <1.1; Warfarin Therap eutic range 2.0 to 3. 0 or 2.5 to 3.5, dep ending upon the indica tions. Lab Interpretation (test Normal code = 82842-1) [facility] CenteraPTT2023-07-29 07:44:04 Test Item Value Reference Range Interpretation Comments APTT Patient (test code = 32 See_Comment [ Automated message] 7243-2) The system [employer] generated this result transmitted ref erence range: 26 - 36 Seconds. The re ference range was not u sed to interpret this result as normal/abnor mal. Lab Interpretation (test Normal code = 35707-3) [facility] CenterProthrombin Time / [id number] 07:44:04 Test Item Value Reference Range Interpretation Comments PROTIME PATIENT (test 11.5 See_Comment [Auto mated message] code = 5964-2) The system [employer] generated this result transmitted ref erence range: 10.1 - 1 2.6 Seconds. The re ference range was not u sed to interpret this result as normal/abnor mal. INR (test code = 6301-6) 1.0 Nor mal INR <1.1; Warfarin Therap eutic range 2.0 to 3. 0 or 2.5 to 3.5, dep ending upon the indica tions. Lab Interpretation (test Normal code = 30850-0) [place] [id number] 07:44:04 Test Item Value Reference Range Interpretation Comments APTT Patient (test code = 32 See_Comment [ Automated message] 1343-2) The system [employer] generated this result transmitted ref erence range: 26 - 36 Seconds. The re ference range was not u sed to interpret this result as normal/abnor mal. Lab Interpretation (test Normal code = 77222-2) [facility] [id number] 07:18:02 Test Item Value Reference Range Interpretation Comments IRON (test code = 7972776274) 13 ug/dL 50-160 L TIBC (test code = 3330229507) 492 ug/dL 250-410 H % FE SAT (test code = 8086439800) 3 % 20-50 L Lab Interpretation (test code = Abnormal 96544-6) [facility] [id number] 07:18:02 Test Item Value Reference Range Interpretation Comments IRON (test code = 5130392109) 13 ug/dL 50-160 L TIBC (test code = 6703121031) 492 ug/dL 250-410 H % FE SAT (test code = 4850646171) 3 % 20-50 L Lab Interpretation (test code = Abnormal 51724-2) [facility] CenterMAGNESIUM2023-07-29 07:09:00 Test Item Value Reference Range Interpretation Comments MAGNESIUM (test code = 4545543171) 2.1 mg/dL 1.7-2.4 Lab Interpretation (test code = Normal 02608-6) [facility] 07:[facility]00 Test Item Value Reference Range Interpretation Comments MAGNESIUM (test code = 6011327824) 2.1 mg/dL 1.7-2.4 Lab Interpretation (test code = Normal 33997-3) [facility] CenterFIBRINOGEN2023-07-29 06:15:08 Test Item Value Reference Range Interpretation Comments Fibrinogen (test code = 0496468437) 395 mg/dL 167-453 Lab Interpretation (test code = Normal 30049-2) [facility] CenterFIBRINOGEN2023-07-29 06:15:08 Test Item Value Reference Range Interpretation Comments Fibrinogen (test code = 8672656422) 395 mg/dL 167-453 Lab Interpretation (test code = Normal 26885-7) [facility] CenterRETICULOCYTES [id number] 06:11:50 Test Item Value Reference Range Interpretation Comments RETIC Count Automated 1.53 % 0.51-1.90 (test code = 7922346129) RETIC Absolute Count 0.0494 See_Comment [Autom ated message] (test code = 0434910610) The system which generated this result transmitted ref erence range: 0.0230 - 0.0950 10*6/?L. The reference range was not used to int erpret this result as normal/abnormal . IRF % (test code = 16.80 % 2.10-12.60 H 6865482170) RETIC-HE (test code = 20.6 pg 28.1-35.8 L 7450045702) Lab Interpretation (test Abnormal code = 96395-5) [facility] CenterCB WITH [id number] 06:11:50 Test Item Value Reference Range Interpretation [...] (test code = 50.3 fL 39.0-49.9 H 84092-4) RDW-CV (test code = 20.0 % 12.0-15.5 H 788-0) PLT (test code = 374 See_Comment H [Automated 777-3) message] The sy stem which generated this result transmitted reference range : 166 - 358 10*3/ ?L. The reference r joao was not used to interpret this result as normal/abnormal . MPV (test code = 9.5 fL 9.5-12.9 38299-2) NRBC/100 WBC (test 0.0 See_Comment [Automat ed code = 9626871136) message] The system which generated this result transmitted reference range : 0.0 - 10.0 /100 WBCs. The refer ence range was not u sed to interpret th is result as normal/abnormal . NRBC x10^3 (test code See_Comment [Auto mated = 1745689038) message] The s ystem which generated this result transmitted reference range : 10*3/?L. The reference range was not used to interpret this result as normal/abnormal . GRAN MAT (NEUT) % 68.9 % (test code = 770-8) IMM GRAN % (test code 0.40 % = 0486076520) LYMPH % (test code = 21.1 % 736-9) MONO % (test code = 6.8 % 5905-5) EOS % (test code = 2.2 % 713-8) BASO % (test code = 0.6 % 706-2) GRAN MAT x10^3(ANC) 9.39 10*3/uL 1.88-7.09 H (test code = 4750118604) IMM GRAN x10^3 (test 0.05 10*3/uL 0.00-0.06 code = 7757587473) LYMPH x10^3 (test code 2.88 10*3/uL 1.32-3.29 = 731-0) MONO x10^3 (test code 0.92 10*3/uL 0.33-0.92 = 742-7) EOS x10^3 (test code = 0.30 10*3/uL 0.03-0.39 711-2) BASO x10^3 (test code 0.08 10*3/uL 0.01-0.07 H = 704-7) Lab Interpretation Abnormal (test code = 60181-1) [facility] CenterRETICULOCYTES [id number] 06:11:50 Test Item Value Reference Range Interpretation Comments RETIC Count Automated 1.53 % 0.51-1.90 (test code = 3637761918) RETIC Absolute Count 0.0494 See_Comment [Autom ated message] (test code = 4308233957) The system which generated this result transmitted ref erence range: 0.0230 - 0.0950 10*6/?L. The reference range was not used to int erpret this result as normal/abnormal . IRF % (test code = 16.80 % 2.10-12.60 H 0200254434) RETIC-HE (test code = 20.6 pg 28.1-35.8 L 1992622053) Lab Interpretation (test Abnormal code = 32290-4) [facility] WITH [id number] 06:11:50 Test Item Value Reference Range Interpretation [...] (test code = 50.3 fL 39.0-49.9 H 41182-6) RDW-CV (test code = 20.0 % 12.0-15.5 H 788-0) PLT (test code = 374 See_Comment H [Automated 777-3) message] The sy stem which generated this result transmitted reference range : 166 - 358 10*3/ ?L. The reference r joao was not used to interpret this result as normal/abnormal . MPV (test code = 9.5 fL 9.5-12.9 94524-5) NRBC/100 WBC (test 0.0 See_Comment [Automat ed code = 3475060387) message] The system which generated this result transmitted reference range : 0.0 - 10.0 /100 WBCs. The refer ence range was not u sed to interpret th is result as normal/abnormal . NRBC x10^3 (test code See_Comment [Auto mated = 3650109281) message] The s ystem which generated this result transmitted reference range : 10*3/?L. The reference range was not used to interpret this result as normal/abnormal . GRAN MAT (NEUT) % 68.9 % (test code = 770-8) IMM GRAN % (test code 0.40 % = 2576345676) LYMPH % (test code = 21.1 % 736-9) MONO % (test code = 6.8 % 5905-5) EOS % (test code = 2.2 % 713-8) BASO % (test code = 0.6 % 706-2) GRAN MAT x10^3(ANC) 9.39 10*3/uL 1.88-7.09 H (test code = 5293736133) IMM GRAN x10^3 (test 0.05 10*3/uL 0.00-0.06 code = 2197863793) LYMPH x10^3 (test code 2.88 10*3/uL 1.32-3.29 = 731-0) MONO x10^3 (test code 0.92 10*3/uL 0.33-0.92 = 742-7) EOS x10^3 (test code = 0.30 10*3/uL 0.03-0.39 711-2) BASO x10^3 (test code 0.08 10*3/uL 0.01-0.07 H = 704-7) Lab Interpretation Abnormal (test code = 72771-5) [facility] CenterType [facility] Screen - ONCE [id number] 02:43:00 Test Item Value Reference Range Interpretation Comments ABO & RH (test code = 20) O POSITIVE IAT (test code = 1185) Negative [facility] CenterType [facility] - ONCE [id number] 02:43:00 Test Item Value Reference Range Interpretation Comments ABO & RH (test code = 20) O POSITIVE IAT (test code = 1185) Negative [facility][U] XRAY SPINE CERVICAL 2 OR 3 VWS [id number] 2019-04-27 09:42:00Images acquired, not reported on this accession number.[facility] metabolic 2000 panel - Serum or [id number] 09:05:00 Test Item Value Reference Range Interpretation [...] code = 9.0 mg/dL 8.6-10.0 calcium level) [facility][U] XRAY HAND MIN 3 VWS RIGHT [id number] 12:19:00 Images acquired, not reported on this accession number.[facility][U] XRAY FOOT MIN 3 VWS RIGHT [id number] 10:36:00Images acquired, not reported on this accession number.[facility][U] XRAY KNEE 1 OR 2 VWS LEFT [id number] 10:36:00Images acquired, not reported on this accession number.[facility] Basic metabolic 2000 panel - Serum or [id number] 10:50:00 Test Item Value Reference Range Interpretation [...] code = calcium 9.2 mg/dL 8.6-10.0 level) [facility] W Auto Differential panel - [id number] 10:50:00 Test Item Value Reference Range Interpretation Comments white blood count (test code = 5.6 K/uL 4.0-11.5 white blood count) red blood count (test code = red 5.09 M/uL 3.80-5.20 blood count) hemoglobin (test code = 14.2 g/dL 10.5-15.7 hemoglobin) hematocrit (test code = 45.1 % 34.0-50.0 hematocrit) Erythrocyte mean corpuscular 88.6 fL 86-100 volume [Entitic volume] (test code = 01683-8) mean corpuscular hemoglobin (test 27.9 pg 26.2-33.4 [...] 44.4-80.1 leukocytes in Blood (test code = 06694-9) Granulocytes Immature [#/volume] 0.0 K/uL 0.0-0.03 in Blood (test code = 10393-5) lymphocyte% (test code = 31.8 % 10.0-50.0 lymphocyte%) mono % (test code = mono %) 7.9 % 3.6-12.0 eos % (test code = eos %) 2.1 % 0.0-5.4 Basophils/100 leukocytes in 1.3 % 0.1-1.2 H Unspecified specimen (test code = 66600-8) Neutrophils.band form [#/volume] 3.17 K/uL 1.56-6.13 in Blood (test code = 92284-4) Lymphocytes [#/volume] in 1.8 K/uL 1.18-3.74 Unspecified specimen by Automated count (test code = 07981-8) mono # (test code = mono #) 0.44 K/uL 0.24-0.86 eos # (test code = eos #) 0.12 K/uL 0.04-0.36 basophil # (test code = basophil 0.07 K/uL 0.01-0.08 #) NRBC% (test code = NRBC%) 0 /100 WBC 0-0.2 NRBC# (test code = NRBC#) 0 [facility] [id number] 10:50:00 NeutrophilsBandLymphocyteAtypical LymphMonocyteEosinophilBasophilPlatelet EstimatePlatelet MorphologyHypochromasiaMa[facility] 2000 panel - Serum or [id number] 10:50:00 Test Item Value Reference Range Interpretation [...] code = calcium 9.2 mg/dL 8.6-10.0 level) [facility] W Auto Differential panel - [id number] 10:50:00 Test Item Value Reference Range Interpretation Comments white blood count (test code = 5.6 K/uL 4.0-11.5 white blood count) red blood count (test code = red 5.09 M/uL 3.80-5.20 blood count) hemoglobin (test code = 14.2 g/dL 10.5-15.7 hemoglobin) hematocrit (test code = 45.1 % 34.0-50.0 hematocrit) Erythrocyte mean corpuscular 88.6 fL 86-100 volume [Entitic volume] (test code = 42144-7) mean corpuscular hemoglobin (test 27.9 pg 26.2-33.4 [...] 44.4-80.1 leukocytes in Blood (test code = 16102-3) Granulocytes Immature [#/volume] 0.0 K/uL 0.0-0.03 in Blood (test code = 75134-4) lymphocyte% (test code = 31.8 % 10.0-50.0 lymphocyte%) mono % (test code = mono %) 7.9 % 3.6-12.0 eos % (test code = eos %) 2.1 % 0.0-5.4 Basophils/100 leukocytes in 1.3 % 0.1-1.2 H Unspecified specimen (test code = 29146-1) Neutrophils.band form [#/volume] 3.17 K/uL 1.56-6.13 in Blood (test code = 48398-4) Lymphocytes [#/volume] in 1.8 K/uL 1.18-3.74 Unspecified specimen by Automated count (test code = 41851-5) mono # (test code = mono #) 0.44 K/uL 0.24-0.86 eos # (test code = eos #) 0.12 K/uL 0.04-0.36 basophil # (test code = basophil 0.07 K/uL 0.01-0.08 #) NRBC% (test code = NRBC%) 0 /100 WBC 0-0.2 NRBC# (test code = NRBC#) 0 K/uL [facility], [id number] 10:50:00 NeutrophilsBandLymphocyteAtypical LymphMonocyteEosinophilBasophilPlatelet EstimatePlatelet MorphologyHypochromasiaMagoFrank[facility] 2000 panel - Serum or [id number] 10:50:00 Test Item Value Reference Range Interpretation [...] code = calcium 9.2 mg/dL 8.6-10.0 level) [facility] W Auto Differential panel - [id number] 10:50:00 Test Item Value Reference Range Interpretation Comments white blood count (test code = 5.6 K/uL 4.0-11.5 white blood count) red blood count (test code = red 5.09 M/uL 3.80-5.20 blood count) hemoglobin (test code = 14.2 g/dL 10.5-15.7 hemoglobin) hematocrit (test code = 45.1 % 34.0-50.0 hematocrit) MCV [Entitic volume] (test code = 88.6 fL 86-100 17689-7) mean corpuscular hemoglobin (test 27.9 pg 26.2-33.4 [...] 44.4-80.1 leukocytes in Blood (test code = 17296-0) Immature granulocytes [#/volume] 0.0 K/uL 0.0-0.03 in Blood (test code = 97059-2) lymphocyte% (test code = 31.8 % 10.0-50.0 lymphocyte%) mono % (test code = mono %) 7.9 % 3.6-12.0 eos % (test code = eos %) 2.1 % 0.0-5.4 Basophils/100 leukocytes in 1.3 % 0.1-1.2 H Unspecified specimen (test code = 57625-9) Band form neutrophils [#/volume] 3.17 K/uL 1.56-6.13 in Blood (test code = 20609-1) Lymphocytes [#/volume] in 1.8 K/uL 1.18-3.74 Unspecified specimen by Automated count (test code = 15049-1) mono # (test code = mono #) 0.44 K/uL 0.24-0.86 eos # (test code = eos #) 0.12 K/uL 0.04-0.36 basophil # (test code = basophil 0.07 K/uL 0.01-0.08 #) NRBC% (test code = NRBC%) 0 /100 WBC 0-0.2 NRBC# (test code = NRBC#) 0 K/uL [facility], method unspecified - [id number] 10:50:00NeutrophilsBandLymphocyteAtypical LymphMonocyteEosinophilBasophilPlatelet EstimatePlatelet MorphologyHypochromasia [facility] 2000 panel - Serum or [id number] 10:50:00 Test Item Value Reference Range Interpretation [...] code = calcium 9.2 mg/dL 8.6-10.0 level) [facility] W Auto Differential panel - [id number] 10:50:00 Test Item Value Reference Range Interpretation Comments white blood count (test code = 5.6 K/uL 4.0-11.5 white blood count) red blood count (test code = red 5.09 M/uL 3.80-5.20 blood count) hemoglobin (test code = 14.2 g/dL 10.5-15.7 hemoglobin) hematocrit (test code = 45.1 % 34.0-50.0 hematocrit) Erythrocyte mean corpuscular 88.6 fL 86-100 volume [Entitic volume] (test code = 40779-5) mean corpuscular hemoglobin (test 27.9 pg 26.2-33.4 [...] 44.4-80.1 leukocytes in Blood (test code = 20811-7) Granulocytes Immature [#/volume] 0.0 K/uL 0.0-0.03 in Blood (test code = 67106-0) lymphocyte% (test code = 31.8 % 10.0-50.0 lymphocyte%) mono % (test code = mono %) 7.9 % 3.6-12.0 eos % (test code = eos %) 2.1 % 0.0-5.4 Basophils/100 leukocytes in 1.3 % 0.1-1.2 H Unspecified specimen (test code = 86825-2) Neutrophils.band form [#/volume] 3.17 K/uL 1.56-6.13 in Blood (test code = 93673-2) Lymphocytes [#/volume] in 1.8 K/uL 1.18-3.74 Unspecified specimen by Automated count (test code = 49660-3) mono # (test code = mono #) 0.44 K/uL 0.24-0.86 eos # (test code = eos #) 0.12 K/uL 0.04-0.36 basophil # (test code = basophil 0.07 K/uL 0.01-0.08 #) NRBC% (test code = NRBC%) 0 /100 WBC 0-0.2 NRBC# (test code = NRBC#) 0 K/uL [facility], [id number] 10:50:00 NeutrophilsBandLymphocyteAtypical LymphMonocyteEosinophilBasophilPlatelet EstimatePlatelet MorphologyHypochromasiaMatagoEast [facility][U] XRAY KNEE 1 OR 2 VWS LEFT [id number] 10:36:00Images acquired, not reported on this accession number.[place] [facility] Consult Notes Date/Time Note Provider Source 2022-12-21 10:40:56 [id number]:40:56Associated Order(s): [facility] CONSULT GASTROENTEROLOGY Department of Gastroenterology & Hepatology Consult NoteRequesting Physician: Ludin Sharif*Service: MICUReason for Consultation: Coffee ground emesisDate of Service: 12/21/2022HIEF COMPLAINT: VomitingHistory of Present IllnessStefanie Rudd is [...] is in place.Previous Endoscopy: No recordsASSESSMENT and [facility]Hn[facility] Jimena Rudd is a 62 year old [...] with unknown CHF disease- Notify GI fellow home demonstration agent with any changesPatient was seen and discussed [...] fellow's note for additional details. Maico Morrison [facility] Professor of Internal MedicineDivision of Gastroenterology and Hepatology 89083-7Ctrgvbv [id number], Gabriel L1.2.840.756043.1.13.104.2.7.2.771418UgodB khdxbdUWT5087-36-25L91:07:54Consult noteTXT1.2.840.297399.1.13.104.2.7.2.25052 9|[id number] for patient qthc87793-2Etprouh noteLNUT[address] Nw[id number] AYPRSCPWRVYKPORG8828-17-06G70:07:541.2.840 .847711.1.72.3.15|1.2.840.995302.1.13.104. 2.7.2.727879_[id number] History and Physical Notes Date/Time Note Provider Source 2022-12-23 [id number]:56:47Formatting of this IM-[facility] 07:56:47 note is different from [...] 10 mg Oral DAILY 10 mg at 12/22/2228 dicyclomine (BENTYL) capsule 10 mg 10 mg Oral DAILY 10 mg at 12/22/22827 gabapentin (NEURONTIN) capsule 100 mg 100 mg Oral DAILY 100 mg at 12/22/22827 HYDROcodone-acetaminophen (NORCO) 10-325 mg tablet 1 tablet 1 tablet Oral Q6HPRN 1 tablet at 12/23/228 levETIRAcetam (KEPPRA) tablet 500 mg 500 mg Oral BID 500 mg at 12/22/222040 mirtazapine (REMERON) tablet 30 mg 30 mg Oral QHS 30 mg at 12/22/222040 nicotine (NICODERM) 21 mg/24 hr patch 1 Patch 1 Patch Topical Q24H 1 Patch at 12/22/22 1021 ondansetron (ZOFRAN (PF)) injection 4 mg 4 mg Slow IV Push Q6HPRN 4 mg at 12/23/22110 pantoprazole (PROTONIX) injection 40 mg 40 mg Slow IV Push Q12H 40 mg at 12/22/222040 polyethylene glycol 3350 powder 17 g 17 g Oral DAILY pregabalin (LYRICA) capsule 100 mg 100 mg Oral TID 100 mg at 12/22/222040 QUEtiapine (SEROQUEL) tablet 100 mg 100 mg Oral BID 100 mg at 12/22/222048 sennosides-docusate sodium (SENOKOT-S) 8.6-50 mg per tablet 1 tablet 1 tablet Oral DAILY 1 tablet at 12/22/2228 tiZANidine (ZANAFLEX) tablet 4 mg 4 mg [...] complete the procedure, cardiovascular complications such as ND, stroke, arrhythmia, and . Informed consent obtained.Charmaine Mckenzie MDGastroenterology Fellow, HST2Nwyocddzyignpw signed by Maico Morrison MD at 12/23/2022 [...] fellow's note for additional details. Maico Morrison MDAayot Professor of Internal MedicineDivision of Gastroenterology and Hepatology 37342-8Pdrlywy and physical [id number], Gabriel L1.2.840.690330.1.13.104.2.7.2.209781Psd vDlfbskuISN1194-06-98R96:04:58History and physical noteTXT1.2.840.335069.1.13.104.2.7.2.727 879|[id number] for patient ahfv59129-0Xnrsesk and physical exrtFKQL-LKKBPIJMJRKTRPNDCD-MCFRNSAVQPKC [address] Lg[id number] YQYRGUSOOEWLAIYJPG3951-81-16A59:04:581.2 .840.097847.1.72.3.15|1.2.840.195504.1.1 3.104.2.7.2.727879_[id number] 2022-12-20 5294-98-27V07:44:37Formatting of this [facility] 23:44:37 note is different from the original.Medicine [...] Sating well in the hospital. Monitor closely.- E2MBIzwxkampxkalvhKh CHFLower extremity edemaSelf reported CHF with her [...] DNR/DNI - no escalation of careDispo: MICUPrognosis: MOSES Francis-2 | Department of Internal MedicineDaniels Team ssociated attestation - Ludin Liao Jr., MD - 12/21/2022 12:30 PM CDT I personally examined the patient on 12/[address] Calabrese's resident note with the following addition(s): date of service is 12/21 . I actively participated in the decision-making process. Please see the resident's note for additional details. 20402-9Aliijey and physical [id number], Victor J1.2.840.593354.1.13.104.2.7.2.833317PguDiomedes Ortiz MD2023-07-29T12:30:16History and physical noteTXT1.2.840.943932.1.13.104.2.7.2.727 879|[id number] for patient lume00026-2Oszpbfn and physical noteLNUT[address] StreetWyxmC[id number] VHGZHBSBNWECXXOUGH8085-63-98Y29:30:161.2 .840.666098.1.72.3.15|1.2.840.364464.1.1 3.104.2.7.2.727879_[id number]
[2023-04-06] MEDS ORDERED: ALBUTEROL 2.5 MG/3 ML NEB SOL ONE (09:36)
[2023-04-06] MEDS ORDERED: IPRATROPIUM BROM 0.5MG/2.5ML ONE (09:36)
[2023-04-06] MEDS ORDERED: dexAMETHasone 4 MG TAB ONE (09:36)
[2023-04-06 10:18] LABS: Absolute Lymphocytes (CBC) 1.3 K/uL (0.7-4.9); Hematocrit 35.7 % (36.0-45.0); Lymphocytes % 27.3 % (15.3-44.8); MCV 92.1 fL (80-100); MPV 7.2 fL (7.6-11.3); Platelets 279 thou/uL (152-406); RBC Red Blood Cell Count 3.87 M/uL (3.86-4.86)
[2023-04-06 10:50] LABS: Anisocytosis SLIGHT; Blood Morphology Comment NOTED (NOT SEEN); Platelet Estimate ADEQ
--- NOTE | 2023-04-06 10:53 | RAD REPORT ---
EXAM DESCRIPTION: Rufino Single View04/06/2023 9:52 am CLINICAL HISTORY: Shortness of breath COMPARISON: 2021 FINDINGS: Lung bases are mildly hazy Heart is normal size IMPRESSION: Lung bases are mildly which may indicate mild pneumonia
--- NOTE | 2023-04-06 11:07 | EDPHYS ---
Physician Documentation [facility] Name: Stefanie Rudd Age: 62 yrs Sex: Female : 1960 Arrival Date: 04/06/2023 Time: 09:02 Bed 6 Private MD: ED Physician Erlin Hadley HPI: 04/06 09:18 This 62 yrs old Female presents to ER via Ambulatory with complaints of ec2 Oxygen Level 86%, COVID Positive. 09:18 Patient arrives today for evaluation of cough and cold symptoms along with shortness of ec2 breath. States that she was diagnosed with COVID approximately 1 week ago, states that she is having persistent cough but what prompted evaluation today is that she checked her home pulse ox and noted to be saturation at 86%. Patient reports no issues with p.o. intake, no vomiting, no diarrhea, has been seen by her primary care doctor and has been treated with antiviral, albuterol solution. She reports a history of COPD.. Historical: - Allergies: 09:17 Avelox; ll1 09:17 Dilantin; ll1 09:17 Latex; ll1 09:17 Phenobarbital; ll1 09:17 Morphine; ll1 - PMHx: 09:17 CHF; post -chemo; Seizure; COPD (Total abdominal hysterectomy); PVD (Total abdominal ll1 hysterectomy); - PSHx: 09:17 Appendectomy; Cholecystectomy; gastric sleeve; Spinal surgery; Total abdominal ll1 hysterectomy; - Immunization history:: Adult Immunizations up to date. - Social history:: Smoking status: . ROS: 09:18 Constitutional: as per hpi ec2 Exam: 09:18 Constitutional: GEN: NAD Head: atraumatic Eyes: EOMI Ears: External ears are ec2 normal. CV: regular rate LUNGS: no respiratory distress, clear lung sounds throughout, no wheezes, no rales, no rhonchi ABD: non-distended SKIN: no evidence of rashes MSK: no evidence of trauma NEURO: moves all extremities equally Vital Signs: 09:15 BP 132 / 82; Pulse 83; Resp 18; Temp 98.1; Pulse Ox 100% ; Pain 4/10; ll1 10:49 BP 120 / 68; Pulse 84; Resp 20; Pulse Ox 98% on R/A; hb 11:41 BP 112 / 72; Pulse 88; Resp 18; Temp 97.8; Pulse Ox 98% on R/A; ph 09:15 Pain Scale: Adult ll1 MDM: 09:06 Patient medically screened. ec2 09:18 Data reviewed: vital signs. ED course: Patient arrives today due to concern for ec2 subjective shortness of breath. Examination remarkable for well-appearing nontoxic individual is in no acute distress with reassuring cardiopulmonary examination and reassuring saturations and vital signs. Will obtain lab work, chest x-ray, treat the patient's symptoms with DuoNeb as well as Decadron. Suspect this is all sequela from her known COVID diagnosis. I have a low suspicion for bacterial pneumonia and low suspicion for use of antibiotics at this time.. 10:33 ED course: CBC is reassuring, metabolic profile with appropriate electrolytes and renal ec2 function. . 11:05 ED course: Chest x-ray with bilateral lower patchy opacities, consistent with the ec2 patient's known COVID status. Will discharge home with prescription for Decadron and have her follow-up with primary care doctor. Patient with no evidence of hypoxia here in emergency department. Return precautions given. 04/06 09:18 Order name: CBC with Diff; Complete Time: 11:05 ec2 04/06 09:18 Order name: BMP; Complete Time: 10:32 ec2 04/06 10:51 Order name: Manual Differential; Complete Time: 11:05 EDMS 04/06 09:18 Order name: CXR XRAY; Complete Time: 11:05 ec2 Administered Medications: 09:43 Drug: DuoNeb Nebulize (3:1) (2.5 mg - 0.5 mg) 3 ml Nebulizer once Route: Nebulizer; hb 11:40 Follow up: Response: No adverse reaction ph 09:43 Drug: Dexamethasone PO 6 mg PO once Route: PO; hb 11:40 Follow up: Response: No adverse reaction ph Disposition Summary: 04/06/23 11:06 Discharge Ordered Notes: Location: Home ec2 Condition: Stable ec2 Diagnosis - Covid ec2 Discharge Instructions: - Discharge Summary Sheet eb - COVID-19 ec2 Forms: - SBAR form eb - Medication Reconciliation Form ec2 - Thank You Letter ec2 - Antibiotic Education ec2 - Prescription Opioid Use ec2 - Patient Portal Instructions ec2 - Leadership Thank You Letter ec2 Prescriptions: - dexamethasone 6 mg Oral tablet - take 1 tablet ORAL route every morning; 9 tablet; Refills: 0, Product Selection ec2 Permitted Signatures: Dispatcher [employer] Radha Guadalupe RN RN Carl Noyola RN RN 1 Erlin Hadley MD MD ec2 Meg Royal RN
--- NOTE | 2023-04-06 11:07 | ER ---
Nurse's Notes [facility] Name: Stefanie Rudd Age: 62 yrs Sex: Female : 1960 Arrival Date: 04/06/2023 Time: 09:02 Bed 6 Private MD: Diagnosis: Covid Presentation: 04/06 09:15 Chief complaint: Patient states: Covid + for 6 days. Weak, fatigue, SOB, cough. O2 sat ll1 86% at home. Coronavirus screen: Client denies travel out of the [place] in the last 14 days. congestion, cough unrelated to allergies, difficulty breathing, fatigue, headache, Client presents with at least one sign or symptom that may indicate coronavirus-19. Standard/surgical mask placed on the client. Ebola Screen: Patient denies travel to an Ebola-affected area in the 21 days before illness onset. Initial Sepsis Screen: Does the patient meet any 2 criteria? No. Patient's initial sepsis screen is negative. Does the patient have a suspected source of infection? Yes: Productive cough/pneumonia. Risk Assessment: Do you want to hurt yourself or someone else? Patient reports no desire to harm self or others. Onset of symptoms was March 30, 2023. 09:15 Method Of Arrival: Ambulatory ll1 09:15 Acuity: PIPER 3 ll1 Historical: - Allergies: 09:17 Avelox; ll1 09:17 Dilantin; ll1 09:17 Latex; ll1 09:17 Phenobarbital; ll1 09:17 Morphine; ll1 - PMHx: 09:17 CHF; post -chemo; Seizure; COPD (Total abdominal hysterectomy); PVD (Total abdominal ll1 hysterectomy); - PSHx: 09:17 Appendectomy; Cholecystectomy; gastric sleeve; Spinal surgery; Total abdominal ll1 hysterectomy; - Immunization history:: Adult Immunizations up to date. - Social history:: Smoking status: . Screenin:06 [facility] ED Fall Risk Assessment (Adult) Score/Fall Risk Level 0 - 2 = Low Risk hb Oriented to surroundings, Maintained a safe environment. Abuse screen: Denies threats or abuse. Denies injuries from another. Nutritional screening: No deficits noted. Tuberculosis screening: No symptoms or risk factors identified. Assessment: 09:16 General: Appears in no apparent distress. Behavior is calm, cooperative. Pain: Pain hb currently is 4 out of 10 on a pain scale. Neuro: Level of Consciousness is awake, alert, obeys commands, Oriented to person, place, time, situation. Cardiovascular: Patient's skin is warm and dry. Respiratory: Respiratory effort is even, mildly labored Respiratory pattern is regular, symmetrical. GI: No signs and/or symptoms were reported involving the gastrointestinal system. : No signs and/or symptoms were reported regarding the genitourinary system. EENT: No signs and/or symptoms were reported regarding the EENT system. Derm: Skin is pink, warm \T\ dry. Musculoskeletal: No signs and/or symptoms reported regarding the musculoskeletal system. 10:06 Reassessment: Patient appears in no apparent distress at this time. Patient and/or hb family updated on plan of care and expected duration. Pain level reassessed. Patient is alert, oriented x 3, equal unlabored respirations, skin warm/dry/pink. Vital Signs: 09:15 BP 132 / 82; Pulse 83; Resp 18; Temp 98.1; Pulse Ox 100% ; Pain 4/10; ll1 10:49 BP 120 / 68; Pulse 84; Resp 20; Pulse Ox 98% on R/A; hb 11:41 BP 112 / 72; Pulse 88; Resp 18; Temp 97.8; Pulse Ox 98% on R/A; ph 09:15 Pain Scale: Adult ll1 ED Course: 09:06 Patient arrived in ED. mg5 09:06 Erlin Hadley MD is Attending Physician. ec2 09:15 Arm band placed on Patient placed in an exam room, on a stretcher. ll1 09:17 Triage completed. ll1 09:54 CXR XRAY In Process Unspecified. EDMS 10:00 Missed attempt(s): 24 gauge in right upper arm. Bleeding controlled, band aid applied, ll1 catheter tip intact. 10:06 Radha Sullivan, RN is Primary Nurse. hb 10:06 Patient has correct armband on for positive identification. Provided Education on: hb medications, tests, result times. 11:40 No provider procedures requiring assistance completed. IV discontinued, intact, ph bleeding controlled, No redness/swelling at site. Pressure dressing applied. Administered Medications: 09:43 Drug: DuoNeb Nebulize (3:1) (2.5 mg - 0.5 mg) 3 ml Nebulizer once Route: Nebulizer; 11:40 Follow up: Response: No adverse reaction ph 09:43 Drug: Dexamethasone PO 6 mg PO once Route: PO; hb 11:40 Follow up: Response: No adverse reaction ph Medication: 11:40 VIS not applicable for this client. ph Outcome: 11:06 Discharge ordered by . ec2 11:40 Discharged to home ambulatory, ph 11:40 Condition: good 11:40 Discharge instructions given to patient, Instructed on discharge instructions, follow up and referral plans. medication usage, Demonstrated understanding of instructions, follow-up care, medications, Prescriptions given X 1, 11:41 Patient left the ED. ph Signatures: Dispatcher [employer] Meg Cristobal RN RN Radha Sullivan RN RN Carl Noyola RN RN [facility] Gabrielle Menendez mg5 Erlin Hadley MD MD ec2
[2023-04-06 11:51] VITALS: O2SAT 98
[2023-04-06 11:52] VITALS: BP 112/72; TEMP 97.8
== END 2023-04-06 11:41 | disposition home or self-care (01) ==
LOC: ER 09:02
DX: U07.1 COVID-19 (principal)
CPT/HCPCS: 36415; 71045; 80048; 85025; 94640; 99284; J7613; J7644; J8540

== ENCOUNTER 2023-05-05 14:50 | Emergency (ER) | payer SELFPAY ==
--- OUTSIDE RECORDS SUMMARY | 2023-05-05 14:55 | XMS REPORT | Continuity of Care Document ---
Author Name Unknown Address [address] [facility] [address] [place] [address] [facility] thconnect Address [address] [facility] [address] [place] [address] Care Team Providers Care Research Assistant Member Name Role Phone Norah Sutherland Primary Care Physician Zuniga_F Attending Clinician Unavailable Tiara Linda Attending Clinician Unavailab SID Roche Attending Clinician Unavailable ALEJA VIDALES Attending Clinician Unavailable Charmaine Mckenzie MD Attending Clinician Cathy Pacheco LVN Attending Clinician [phone] LENORE GONSALEZ Attending Clinician Unavaila Lianne Daugherty Attending Clinician + [phone] Carlos Patrick DO Attending Clinician Keshawn Parisi MD, Ludin Sharif Attending Clinician + Lenore Gonsalez MD Attending Clinician + [phone] Rosalva Smith DNP Attending Clinician [phone] Jorge A Mckeon MD Attending Clinician [phone] Maico Morrison MD Attending Clinician [phone] Babar Antony MD Attending Clinician [phone] BABAR ANTONY Attending Clinician Unavailable Taran Tavarez Attending Clinician Unavailab HIRO Israel M.D. Attending Clinician Lola LINA Salinas PA Attending Clinician Unavailab WES Rodrigues, PKyra Attending Clinician Un available RICHI MAXWELL Attending Clinician Unavailab YOLANDA Brumfield Attending Clinician Unavail able YUDELKA GARCIA Attending Clinician UnaNANY Luque Attending Clinician Unavailable CINTHIA BELL Attending Clinician Unavailable ADEEL FRAZIER Attending Clinician Unavailable ZAIN SPAIN Attending Clinician Unavailable DEQUAN COPELAND Attending Clinician Unavailable CHINYERE LEPE Attending Clinician Unavailable Martha Admitting Clinician Unavailable ALEJA VIDALES Admitting Clinician Unavailable LENORE GONSALEZ Admitting Clinician UnavailLenore Buenrostro MD Admitting Clinician BABAR ANTONY Admitting Clinician Unavailable Taran Tavarez Admitting Clinician Unavailab RICHI Longoria Admitting Clinician Unavailab YOLANDA Brumfield Admitting Clinician Unavail CHINYERE Sauer Admitting Clinician Unavailable Payers Payer Name Policy Type Policy Number Effective Date Expirati on Date Source [id number] Problems Condition Name Condition Details Condition Category Status Onset Date Resolution Date Last Treatment Date Treating Clinician Comments Source 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 Disease Active 12-23 00:00: 00 [facility] Lower extremity edema Lower extremity edema Disease Active 12-21 00:00: 00 [facility] Abdominal pain, unspecifie d abdominal location Abdominal pain, unspecifie d abdominal location Disease Active 12-20 00:00: 00 [facility] Coffee ground emesis Coffee ground emesis Disease Active 12-20 00:00: 00 [facility] Osteoporos is screening Osteoporos is screening Problem Active [facility] Left knee pain Left knee pain Problem Active [facility] Open Salter-Keagan ris type IV physeal fracture of second metatarsal bone of right foot with delayed healing, subsequent encounter Open Salter-Keagan ris type IV physeal fracture of second metatarsal bone of right foot with delayed healing, subsequent encounter Problem Active [facility] Fracture of 2nd metatarsal Fracture of 2nd metatarsal Problem Active [facility] Pain of right hand Pain of right hand Problem Active [facility] Pain of left shoulder region Pain of left shoulder region Problem Active [facility] Hypokalemi a Hypokalemi a Problem Active [facility] Chronic low back pain Chronic Low Back Pain Problem Active [facility] Status post cervical spinal arthrodesi s Status post cervical spinal arthrodesi s Problem Active [facility] Allergies, Adverse Reactions, Alerts Allergy Name Allergy Type Status Severity Reaction(s) Onset Date Inactive Date Treating Clinician Comments Source LATEX DRUG INGREDI Active Unknown-Cmnt 12-23 00:00: 00 [facility] Latex Propensi ty to adverse reaction s Active Unknown - See comments 12-23 00:00: 00 [facility] Morphine Propensi ty to adverse reaction s Active Anaphylaxis 12-20 00:00: 00 [facility] MORPHINE DRUG INGREDI Active Anaphylaxis 12-20 00:00: 00 [facility] NO KNOWN ALLERGIE S Drug Class Active [facility] Avelox Allergy to substanc e Active [facility] Dilantin Allergy to substanc e Active [facility] Latex Allergy to substanc e Active [facility] Phenobar bital Allergy to substanc e [facility] Social History Social Habit Start Date Stop Date Quantity Comments Source Gender identity [facility] Sexual orientation [facility] History of tobacco use Cigarette Smoker [facility] History of Social function 2022-12-23 00:00:00 2022-12-23 00:00:00 [facility] Tobacco use and exposure 2022-12-21 00:00:00 2022-12-21 00:00:00 User of smokeless tobacco [facility] Tobacco Comment 2022-12-21 00:00:00 2022-12-21 00:00:00 Patient states using an e-cigarette and half-a-pack/day of cigarettes [facility] Sex Assigned At 1960 00:00:00 1960 00:00:00 [facility] Smoking Status Start Date Stop Date Source Heavy Tobacco Smoker [facility] Tobacco smoking consumption unknown [facility] Smokes tobacco daily 2022-12-21 00:00:00 [facility] Medications Ordered Medication Name Filled Medication Name Start Date Stop Date Current Medication? Ordering Clinician Indication Dosage Frequency Signature (SIG) Comments Components Source omeprazole (PRILOSEC) capsule 40 mg 12-24 01:00: 00 Yes 40mg 40 mg, Oral, BID, First dose on Fri12/23/22 at 2000, Until Discontinu ed, Routine [facility] omeprazole (PRILOSEC) capsule 40 mg 12-24 01:00: 00 12-24 01:22 :18 No 40mg 40 mg, Oral, BID, First dose on Fri12/23/22 at 1999, Until Discontinu ed, Routine [facility] furosemide 20 mg tablet 12-23 18:21: 22 Yes 20mg Take 1 tablet by mouth as needed (leg swelling). [facility] QUEtiapine 100 mg tablet 12-23 18:21: 22 Yes 100mg Take 1 tablet by mouth in the morning and 1 tablet in the evening. [facility] gabapentin 100 mg capsule 12-23 18:21: 22 Yes 100mg Take 1 capsule by mouth in the morning. [facility] mirtazapine 30 mg tablet 12-23 18:21: 22 Yes 30mg Take 1 tablet by mouth at bedtime. [facility] pregabalin 100 mg capsule 12-23 18:21: 22 Yes 100mg Take 1 capsule by mouth in the morning and 1 capsule at noon and 1 capsule in the evening. [facility] dicyclomine 10 mg capsule 12-23 18:21: 22 Yes 10mg Take 1 capsule by mouth in the morning. [facility] levETIRAcet am (KEPPRA) 500 mg tablet 12-23 18:21: 22 Yes 500mg Take 1 tablet by mouth in the morning and 1 tablet in the evening. [facility] venlafaxine 100 mg tablet 12-23 18:21: 22 Yes 300mg Take 3 tablets by mouth in the morning and 3 tablets in the evening. [facility] tiZANidine 4 mg capsule 12-23 18:21: 22 Yes 4mg Take 1 capsule by mouth in the morning and 1 capsule at noon and 1 capsule in the evening. [facility] baclofen 10 mg tablet 12-23 18:21: 22 Yes 10mg Take 1 tablet by mouth in the morning. [facility] HYDROcodone -acetaminop hen (NORCO) 10-325 mg tablet 12-23 18:21: 22 Yes 1{tbl} Take 1 tablet by mouth every 6 (six) hours as needed for Pain (scale 7-10). [facility] furosemide 20 mg tablet 12-23 18:21: 22 Yes 20mg Take 1 tablet by mouth as needed (leg swelling). [facility] QUEtiapine 100 mg tablet 12-23 18:21: 22 Yes 100mg Take 1 tablet by mouth in the morning and 1 tablet in the evening. [facility] gabapentin 100 mg capsule 12-23 18:21: 22 Yes 100mg Take 1 capsule by mouth in the morning. [facility] mirtazapine 30 mg tablet 12-23 18:21: 22 Yes 30mg Take 1 tablet by mouth at bedtime. [facility] pregabalin 100 mg capsule 12-23 18:21: 22 Yes 100mg Take 1 capsule by mouth in the morning and 1 capsule at noon and 1 capsule in the evening. [facility] dicyclomine 10 mg capsule 12-23 18:21: 22 Yes 10mg Take 1 capsule by mouth in the morning. [facility] levETIRAcet am (KEPPRA) 500 mg tablet 12-23 18:21: 22 Yes 500mg Take 1 tablet by mouth in the morning and 1 tablet in the evening. [facility] venlafaxine 100 mg tablet 12-23 18:21: 22 Yes 300mg Take 3 tablets by mouth in the morning and 3 tablets in the evening. [facility] tiZANidine 4 mg capsule 12-23 18:21: 22 Yes 4mg Take 1 capsule by mouth in the morning and 1 capsule at noon and 1 capsule in the evening. [facility] baclofen 10 mg tablet 12-23 18:21: 22 Yes 10mg Take 1 tablet by mouth in the morning. [facility] HYDROcodone -acetaminop hen (NORCO) 10-325 mg tablet 12-23 18:21: 22 Yes 1{tbl} Take 1 tablet by mouth every 6 (six) hours as needed for Pain (scale 7-10). [facility] furosemide 20 mg tablet 12-23 18:21: 22 Yes 20mg Take 1 tablet by mouth as needed (leg swelling). [facility] QUEtiapine 100 mg tablet 12-23 18:21: 22 Yes 100mg Take 1 tablet by mouth in the morning and 1 tablet in the evening. [facility] gabapentin 100 mg capsule 12-23 18:21: 22 Yes 100mg Take 1 capsule by mouth in the morning. [facility] mirtazapine 30 mg tablet 12-23 18:21: 22 Yes 30mg Take 1 tablet by mouth at bedtime. [facility] pregabalin 100 mg capsule 12-23 18:21: 22 Yes 100mg Take 1 capsule by mouth in the morning and 1 capsule at noon and 1 capsule in the evening. [facility] dicyclomine 10 mg capsule 12-23 18:21: 22 Yes 10mg Take 1 capsule by mouth in the morning. [facility] levETIRAcet am (KEPPRA) 500 mg tablet 12-23 18:21: 22 Yes 500mg Take 1 tablet by mouth in the morning and 1 tablet in the evening. [facility] venlafaxine 100 mg tablet 12-23 18:21: 22 Yes 300mg Take 3 tablets by mouth in the morning and 3 tablets in the evening. [facility] tiZANidine 4 mg capsule 12-23 18:21: 22 Yes 4mg Take 1 capsule by mouth in the morning and 1 capsule at noon and 1 capsule in the evening. [facility] baclofen 10 mg tablet 12-23 18:21: 22 Yes 10mg Take 1 tablet by mouth in the morning. [facility] HYDROcodone -acetaminop hen (NORCO) 10-325 mg tablet 12-23 18:21: 22 Yes 1{tbl} Take 1 tablet by mouth every 6 (six) hours as needed for Pain (scale 7-10). [facility] furosemide 20 mg tablet 12-23 18:21: 22 Yes 20mg Take 1 tablet by mouth as needed (leg swelling). [facility] QUEtiapine 100 mg tablet 12-23 18:21: 22 Yes 100mg Take 1 tablet by mouth in the morning and 1 tablet in the evening. [facility] gabapentin 100 mg capsule 12-23 18:21: 22 Yes 100mg Take 1 capsule by mouth in the morning. [facility] mirtazapine 30 mg tablet 12-23 18:21: 22 Yes 30mg Take 1 tablet by mouth at bedtime. [facility] pregabalin 100 mg capsule 12-23 18:21: 22 Yes 100mg Take 1 capsule by mouth in the morning and 1 capsule at noon and 1 capsule in the evening. [facility] dicyclomine 10 mg capsule 12-23 18:21: 22 Yes 10mg Take 1 capsule by mouth in the morning. [facility] levETIRAcet am (KEPPRA) 500 mg tablet 12-23 18:21: 22 Yes 500mg Take 1 tablet by mouth in the morning and 1 tablet in the evening. [facility] venlafaxine 100 mg tablet 12-23 18:21: 22 Yes 300mg Take 3 tablets by mouth in the morning and 3 tablets in the evening. [facility] tiZANidine 4 mg capsule 12-23 18:21: 22 Yes 4mg Take 1 capsule by mouth in the morning and 1 capsule at noon and 1 capsule in the evening. [facility] baclofen 10 mg tablet 12-23 18:21: 22 Yes 10mg Take 1 tablet by mouth in the morning. [facility] HYDROcodone -acetaminop hen (NORCO) 10-325 mg tablet 12-23 18:21: 22 Yes 1{tbl} Take 1 tablet by mouth every 6 (six) hours as needed for Pain (scale 7-10). [facility] sulfur hexafluorid e microsphr (LUMASON) injection 5 mL 12-23 16:15: 00 12-23 16:15 :00 No [id number] 5mL 5 mL, Intravenou s, ONCE, 1 dose, On Fri12/23/22 at 1115, Routine
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 [facility] carvediloL (COREG) 3.125 mg tablet 12-23 14:45: 35 12-23 00:00 :00 No 3.125mg Take 1 tablet by mouth in the morning and 1 tablet in the evening. Take with meals. [facility] pantoprazol e 20 mg EC tablet 12-23 14:45: 35 12-23 00:00 :00 No 40mg Take 2 tablets by mouth in the morning. [facility] carvediloL (COREG) 3.125 mg tablet 12-23 14:45: 35 12-23 00:00 :00 No 3.125mg Take 1 tablet by mouth in the morning and 1 tablet in the evening. Take with meals. [facility] furosemide 20 mg tablet 12-23 14:45: 34 Yes 20mg Take 1 tablet by mouth as needed (leg swelling). [facility] QUEtiapine 100 mg tablet 12-23 14:45: 34 Yes 100mg Take 1 tablet by mouth in the morning and 1 tablet in the evening. [facility] gabapentin 100 mg capsule 12-23 14:45: 34 Yes 100mg Take 1 capsule by mouth in the morning. [facility] mirtazapine 30 mg tablet 12-23 14:45: 34 Yes 30mg Take 1 tablet by mouth at bedtime. [facility] pregabalin 100 mg capsule 12-23 14:45: 34 Yes 100mg Take 1 capsule by mouth in the morning and 1 capsule at noon and 1 capsule in the evening. [facility] dicyclomine 10 mg capsule 12-23 14:45: 34 Yes 10mg Take 1 capsule by mouth in the morning. [facility] levETIRAcet am (KEPPRA) 500 mg tablet 12-23 14:45: 34 Yes 500mg Take 1 tablet by mouth in the morning and 1 tablet in the evening. [facility] venlafaxine 100 mg tablet 12-23 14:45: 34 Yes 300mg Take 3 tablets by mouth in the morning and 3 tablets in the evening. [facility] tiZANidine 4 mg capsule 12-23 14:45: 34 Yes 4mg Take 1 capsule by mouth in the morning and 1 capsule at noon and 1 capsule in the evening. [facility] baclofen 10 mg tablet 12-23 14:45: 34 Yes 10mg Take 1 tablet by mouth in the morning. [facility] HYDROcodone -acetaminop hen (NORCO) 10-325 mg tablet 12-23 14:45: 34 Yes 1{tbl} Take 1 tablet by mouth every 6 (six) hours as needed for Pain (scale 7-10). [facility] propofoL IV infusion 12-23 13:27: 00 12-23 13:51 :38 No IV Infusion, CONTINUOUS PRN, Starting on Fri12/23/22 at 0827, Until Fri12/23/22 at 0851, Routine, Intra-op [facility] propofoL IV infusion 12-23 13:24: 00 12-23 13:51 :38 No Intravenou s, ONCE INTRA PROCEDURE, Starting on Fri12/23/22 at 0824, Until Fri12/23/22 at 0851, Routine, Intra-op [facility] lidocaine 1% (XYLOCAINE) 100 mg/10 mL (1 %) injection 12-23 13:24: 00 12-23 13:51 :38 No Intravenou s, ONCE INTRA PROCEDURE, Starting on Fri12/23/22 at 0824, Until Fri12/23/22 at 0851, Routine, Intra-op [facility] lactated ringers IV infusion 12-23 13:17: 00 12-23 13:51 :38 No IV Infusion, CONTINUOUS PRN, Starting on Fri12/23/22 at 0817, Until Fri12/23/22 at 0851, Routine, Intra-op [facility] furosemide 20 mg tablet 12-23 09:47: 18 Yes 20mg Take 1 tablet by mouth as needed (leg swelling). [facility] QUEtiapine 100 mg tablet 12-23 09:47: 18 Yes 100mg Take 1 tablet by mouth in the morning and 1 tablet in the evening. [facility] gabapentin 100 mg capsule 12-23 09:47: 18 Yes 100mg Take 1 capsule by mouth in the morning. [facility] mirtazapine 30 mg tablet 12-23 09:47: 18 Yes 30mg Take 1 tablet by mouth at bedtime. [facility] pantoprazol e 20 mg EC tablet 12-23 09:47: 18 Yes 40mg Take 2 tablets by mouth in the morning. [facility] pregabalin 100 mg capsule 12-23 09:47: 18 Yes 100mg Take 1 capsule by mouth in the morning and 1 capsule at noon and 1 capsule in the evening. [facility] dicyclomine 10 mg capsule 12-23 09:47: 18 Yes 10mg Take 1 capsule by mouth in the morning. [facility] levETIRAcet am (KEPPRA) 500 mg tablet 12-23 09:47: 18 Yes 500mg Take 1 tablet by mouth in the morning and 1 tablet in the evening. [facility] venlafaxine 100 mg tablet 12-23 09:47: 18 Yes 300mg Take 3 tablets by mouth in the morning and 3 tablets in the evening. [facility] carvediloL (COREG) 3.125 mg tablet 12-23 09:47: 18 Yes 3.125mg Take 1 tablet by mouth in the morning and 1 tablet in the evening. Take with meals. [facility] tiZANidine 4 mg capsule 12-23 09:47: 18 Yes 4mg Take 1 capsule by mouth in the morning and 1 capsule at noon and 1 capsule in the evening. [facility] baclofen 10 mg tablet 12-23 09:47: 18 Yes 10mg Take 1 tablet by mouth in the morning. [facility] HYDROcodone -acetaminop hen (NORCO) 10-325 mg tablet 12-23 09:47: 18 Yes 1{tbl} Take 1 tablet by mouth every 6 (six) hours as needed for Pain (scale 7-10). [facility] omeprazole 40 mg capsule 12-23 00:00: 00 03-24 04:59 :00 No [id number] 40mg Take 1 capsule by mouth in the morning and 1 capsule in the evening. Do all this for 90 days. [facility] omeprazole 40 mg capsule 12-23 00:00: 00 03-24 04:59 :00 No [id number] 40mg Take 1 capsule by mouth in the morning and 1 capsule in the evening. Do all this for 90 days. [facility] omeprazole 40 mg capsule 12-23 00:00: 00 03-24 04:59 :00 No [id number] 40mg Take 1 capsule by mouth in the morning and 1 capsule in the evening. Do all this for 90 days. [facility] omeprazole 40 mg capsule 12-23 00:00: 00 03-24 04:59 :00 No [id number] 40mg Take 1 capsule by mouth in the morning and 1 capsule in the evening. Do all this for 90 days. [facility] omeprazole 40 mg capsule 12-23 00:00: 00 03-24 04:59 :00 No [id number] 40mg Take 1 capsule by mouth in the morning and 1 capsule in the evening. Do all this for 90 days. [facility] baclofen (LIORESAL) tablet 10 mg 2022-0 30 14:00: 00 Yes 10mg 10 mg, Oral, DAILY, First dose on 12/22/22 at 0900, Until Discontinu ed, Routine [facility] dicyclomine (BENTYL) capsule 10 mg 2022-0 12-22 14:00: 00 Yes 10mg 10 mg, Oral, DAILY, First dose on 12/22/22 at 0900, Until Discontinu ed, Routine [facility] gabapentin (NEURONTIN) capsule 100 mg 2022-0 12-22 14:00: 00 Yes 100mg 100 mg, Oral, DAILY, First dose on 12/22/22 at 0900, Until Discontinu ed, Routine [facility] baclofen (LIORESAL) tablet 10 mg 2022-0 12-22 14:00: 00 12-24 01:22 :18 No 10mg 10 mg, Oral, DAILY, First dose on 12/22/22 at 0900, Until Discontinu ed, Routine [facility] dicyclomine (BENTYL) capsule 10 mg 2022-0 12-22 14:00: 00 12-24 01:22 :18 No 10mg 10 mg, Oral, DAILY, First dose on 12/22/22 at 0900, Until Discontinu ed, Routine [facility] gabapentin (NEURONTIN) capsule 100 mg 2022-0 12-22 14:00: 00 12-24 01:22 :18 No 100mg 100 mg, Oral, DAILY, First dose on 12/22/22 at 0900, Until Discontinu ed, Routine [facility] mirtazapine (REMERON) tablet 30 mg 2022-0 12-22 02:00: 00 Yes 30mg 30 mg, Oral, QHS, First dose on 12/21/22 at 2100, Until Discontinu ed, Routine [facility] mirtazapine (REMERON) tablet 30 mg 3-0 30 02:00: 00 12-24 01:22 :18 No 30mg 30 mg, Oral, QHS, First dose on 12/21/22 at 2100, Until Discontinu ed, Routine [facility] QUEtiapine (SEROQUEL) tablet 100 mg 12-22 01:00: 00 Yes 100mg 100 mg, Oral, BID, First dose on 12/21/22 at 1999, Until Discontinu ed, Routine [facility] levETIRAcet am (KEPPRA) tablet 500 mg 12-22 01:00: 00 Yes 500mg 500 mg, Oral, BID, First dose on 12/21/22 at 1999, Until Discontinu ed, Routine [facility] QUEtiapine (SEROQUEL) tablet 100 mg 12-22 01:00: 00 12-24 01:22 :18 No 100mg 100 mg, Oral, BID, First dose on 12/21/22 at 1999, Until Discontinu ed, Routine [facility] levETIRAcet am (KEPPRA) tablet 500 mg 12-22 01:00: 00 12-24 01:22 :18 No 500mg 500 mg, Oral, BID, First dose on 12/21/22 at 1999, Until Discontinu ed, Routine [facility] venlafaxine (EFFEXOR) tablet 75 mg 12-21 19:00: 00 Yes 75mg 75 mg, Oral, TID, First dose on Fri12/21/22 at 1400, Until Discontinu ed, Routine [facility] pregabalin (LYRICA) capsule 100 mg 12-21 19:00: 00 Yes 100mg 100 mg, Oral, TID, First dose on 12/21/22 at 1400, Until Discontinu ed, Routine [facility] tiZANidine (ZANAFLEX) tablet 4 mg 12-21 19:00: 00 Yes 4mg 4 mg, Oral, TID, First dose on 12/21/22 at 1400, Until Discontinu ed [facility] venlafaxine (EFFEXOR) tablet 75 mg 12-21 19:00: 00 12-24 01:22 :18 No 75mg 75 mg, Oral, TID, First dose on Fri12/21/22 at 1400, Until Discontinu ed, Routine [facility] pregabalin (LYRICA) capsule 100 mg 12-21 19:00: 00 12-24 01:22 :18 No 100mg 100 mg, Oral, TID, First dose on 12/21/22 at 1400, Until Discontinu ed, Routine [facility] tiZANidine (ZANAFLEX) tablet 4 mg 12-21 19:00: 00 12-24 01:22 :18 No 4mg 4 mg, Oral, TID, First dose on Fri12/21/22 at 1400, Until Discontinu ed [facility] HYDROcodone -acetaminop hen (NORCO) 10-325 mg tablet 1 tablet 12-21 17:14: 44 Yes 1{tbl} 1 tablet, Oral, Q6HPRN, Starting on Fri12/21/22 at 1214, Until Discontinu ed, Routine, Pain (scale 7-10) [facility] HYDROcodone -acetaminop hen (NORCO) 10-325 mg tablet 1 tablet 12-21 17:14: 44 12-24 01:22 :18 No 1{tbl} 1 tablet, Oral, Q6HPRN, Starting on 12/21/22 at 1214, Until 12/23/22 at 2021, Routine, Pain (scale 7-10) [facility] nicotine (NICODERM) 21 mg/24 hr patch 1 Patch 12-21 16:00: 00 Yes 1{patch } 1 Patch, Topical, Administer over 24 Hours, Q24H, First dose on Fri12/21/22 at 1100, Until Discontinu ed, Routine [facility] nicotine (NICODERM) 21 mg/24 hr patch 1 Patch 12-21 16:00: 00 12-24 01:22 :18 No 1{patch } 1 Patch, Topical, Administer over 24 Hours, Q24H, First dose on Fri12/21/22 at 1100, Until Discontinu ed, Routine [facility] iron dextran (INFED) 25 mg in NaCl 0.9% (NS) 100 mL IV piggyback 12-21 14:00: 00 12-21 14:08 :00 No 25mg 25 mg, IV Piggyback, ONCE, 1 dose, On 12/21/22 at 0900, Administer over 15 Minutes, 100 mL [facility] iron dextran (INFED) 1,000 mg in NaCl 0.9% (NS) 500 mL IV infusion 12-21 14:00: 00 12-21 15:41 :00 No 1000mg 1,000 mg, IV Infusion, ONCE, 1 dose, On 12/21/22 at 0900, Administer over 1.5 Hours, 500 mL [facility] glycerin/mi neral oil (AGLO ENEMA) (COMPOUNDED ) Enem 225 mL 12-21 08:45: 00 12-21 09:28 :00 No 225mL 225 mL, Rectal, ONCE, 1 dose, On 12/21/22 at 0345, Routine [facility] lactated ringers IV infusion 500 mL 12-21 08:15: 00 12-21 13:38 :00 No 500mL at 100 mL/hr, 500 mL, Intravenou s, ONCE, 1 dose, On 12/21/22 at 0315, Routine [facility] acetaminoph en ADULT (OFIRMEV) injection 741 mg 12-21 07:00: 00 12-21 07:18 :00 No 741mg 741 mg, IV Infusion, at 296.4 mL/hr Administer over 15 Minutes, ONCE, 1 dose, On 12/21/22 at 0200, Routine
Indicatio n: Non-periop erative Patient
Approved by: Per Policy (NPO Status) [facility] ondansetron (ZOFRAN (PF)) injection 4 mg 12-21 06:02: 25 Yes 4mg 4 mg, Slow IV Push, Q6HPRN, Nausea and Vomiting (N/V), Starting on 12/21/22 at 0102
Do ses of ondansetro n 16 mg and above need to be administer ed via IV piggyback. For Dose >=24mg ECG monitoring is advisable.
[facility] ondansetron (ZOFRAN (PF)) injection 4 mg 12-21 06:02: 25 Yes 4mg 4 mg, Slow IV Push, Q6HPRN, Nausea and Vomiting (N/V), Starting on 12/21/22 at 0102
Do ses of ondansetro n 16 mg and above need to be administer ed via IV piggyback. For Dose >=24mg ECG monitoring is advisable.
[facility] ondansetron (ZOFRAN (PF)) injection 4 mg 12-21 06:02: 25 12-24 01:22 :18 No 4mg 4 mg, Slow IV Push, Q6HPRN, Nausea and Vomiting (N/V), Starting on 12/21/22 at 010
Do ses of ondansetro n 16 mg and above need to be administer ed via IV piggyback. For Dose >=24mg ECG monitoring is advisable.
[facility] acetaminoph en (TYLENOL) tablet 650 mg 12-21 05:47: 47 Yes 650mg 650 mg, Oral, Q6HPRN, Starting on 12/21/22 at 0047, Until Discontinu ed, Routine, Pain (scale 1-3) [facility] acetaminoph en (TYLENOL) tablet 650 mg 12-21 05:47: 47 12-24 01:22 :18 No 650mg 650 mg, Oral, Q6HPRN, Starting on 12/21/22 at 0047, Until 12/23/22 at 2021, Routine, Pain (scale 1-3) [facility] polyethylen e glycol 3350 powder 17 g 12-21 05:15: 00 Yes 17g 17 g, Oral, DAILY, First dose on 12/21/22 at 0015, Until Discontinu ed, Routine [facility] sennosides- docusate sodium (SENOKOT-S) 8.6-50 mg per tablet 1 tablet 12-21 05:15: 00 Yes 1{tbl} 1 tablet, Oral, DAILY, First dose on 12/21/22 at 0015, Until Discontinu ed, [facility] 3350 powder 17 g 12-21 05:15: 00 12-24 01:22 :18 No 17g 17 g, Oral, DAILY, First dose on 12/21/22 at 0015, Until Discontinu ed, Routine [facility] sennosides- docusate sodium (SENOKOT-S) 8.6-50 mg per tablet 1 tablet 12-21 05:15: 00 12-24 01:22 :18 No 1{tbl} 1 tablet, Oral, DAILY, First dose on 12/21/22 at 0015, Until Discontinu ed, Routine [facility] pantoprazol e (PROTONIX) injection 40 mg 12-21 05:15: 00 12-23 17:31 :43 No 40mg 40 mg, Slow IV Push, Q12H, First dose on Fri12/21/22 at 0015, Until Discontinu ed [facility] NaCl 0.9% (NS) bolus infusion 1,000 mL 12-21 03:30: 00 12-21 03:30 :00 No 1000mL at 999 mL/hr, 1,000 mL, IV Infusion, ONCE, 1 dose, On Fri12/20/22 at 2230, STAT [facility] FENTanyl PF (SUBLIMAZE (PF)) injection 50 mcg 12-21 03:15: 00 12-21 02:31 :00 No 50ug 50 mcg, Slow IV Push, ONCE, 1 dose, On Fri12/20/22 at 2215, [facility] (ZOFRAN (PF)) injection 4 mg 12-21 01:15: 00 12-21 01:40 :00 No 4mg 4 mg, Slow IV Push, ONCE, 1 dose, On Fri12/20/22 at 2015, [facility] iopamidol (ISOVUE 370-500 mL) injection 100 mL 12-20 11:15: 00 12-20 11:15 :00 No [id number] 100mL 100 mL, Intravenou s, ONCE, 1 dose, On Fri12/20/22 at 0615, [facility] NaCl 0.9% (NS) IV infusion 250 mL 12-20 10:15: 00 12-20 09:44 :00 No 250mL at 999 mL/hr, Intravenou s, ONCE, 1 dose, On Fri12/20/22 at 0515, [facility] FENTanyl PF (SUBLIMAZE (PF)) injection 50 mcg 12-20 10:15: 00 12-20 09:22 :00 No 50ug 50 mcg, Slow IV Push, ONCE, 1 dose, On Fri12/20/22 at 0515, [facility] ondansetron (ZOFRAN (PF)) injection 4 mg 12-20 09:15: 00 12-20 09:21 :00 No 4mg 4 mg, Slow IV Push, ONCE, 1 dose, On Fri12/20/22 at 0415, [facility] amitriptyli ne 100 mg tablet Take 1 tablet every day by oral route for 30 days. amitriptyli ne 100 mg tablet Take 1 tablet every day by oral route for 30 days. No 1 Q1D amitriptyl ine 100 mg tablet Take 1 tablet every day by oral route for 30 days. [facility] amitriptyli ne 50 mg tablet Take 1 tablet every day by oral route at bedtime for 30 days. amitriptyli ne 50 mg tablet Take 1 tablet every day by oral route at bedtime for 30 days. No 1 Q1D amitriptyl ine 50 mg tablet Take 1 tablet every day by oral route at bedtime for 30 days. [facility] cyclobenzap rine 10 mg tablet TAKE 1 TABLET BY MOUTH THREE TIMES DAILY NEEDED cyclobenzap rine 10 mg tablet TAKE 1 TABLET BY MOUTH THREE TIMES DAILY NEEDED No cyclobenza trae 10 mg tablet TAKE 1 TABLET BY MOUTH THREE TIMES DAILY NEEDED [facility] gabapentin 800 mg tablet Take 1 tablet 4 times a day by oral route for 30 days. gabapentin 800 mg tablet Take 1 tablet 4 times a day by oral route for 30 days. No 1 QID gabapentin 800 mg tablet Take 1 tablet 4 times a day by oral route for 30 days. [facility] levetiracet am 500 mg tablet Take 2 tablets twice a day by oral route for 30 days. levetiracet am 500 mg tablet Take 2 tablets twice a day by oral route for 30 days. No 2 BID levetirace vera 500 mg tablet Take 2 tablets twice a day by oral route for 30 days. [facility] Lyrica 150 mg capsule Take 1 capsule 3 times a day by oral route for 30 days. Lyrica 150 mg capsule Take 1 capsule 3 times a day by oral route for 30 days. No 1capsul e(s) TID Lyrica 150 mg capsule Take 1 capsule 3 times a day by oral route for 30 days. [facility] pantoprazol e 40 mg tablet,annalee yed release Take 1 tablet twice a day by oral route for 30 days. pantoprazol e 40 mg tablet,annalee yed release Take 1 tablet twice a day by oral route for 30 days. No 1 BID pantoprazo le 40 mg tablet,del ayed release Take 1 tablet twice a day by oral route for 30 days. [facility] triamterene 75 mg-hydrochl orothiazide 50 mg tablet Take 1 tablet every day by oral route for 30 days. triamterene 75 mg-hydrochl orothiazide 50 mg tablet Take 1 tablet every day by oral route for 30 days. No 1 Q1D triamteren e 75 mg-hydroch lorothiazi de 50 mg tablet Take 1 tablet every day by oral route for 30 days. [facility] venlafaxine ER 150 mg capsule,ext ended release 24 hr TAKE 1 CAPSULE BY MOUTH THREE TIMES DAILY venlafaxine ER 150 mg capsule,ext ended release 24 hr TAKE 1 CAPSULE BY MOUTH THREE TIMES DAILY No venlafaxin e ER 150 mg capsule,ex tended release 24 hr TAKE 1 CAPSULE BY MOUTH THREE TIMES DAILY [facility] Vital Signs Vital Name Observation Time Observation Value Comments S michele Systolic blood pressure 2022-12-23 20:35:00 116 mm[Hg] [facility] Diastolic blood pressure 2022-12-23 20:35:00 76 mm[Hg] [facility] Heart rate 2022-12-23 20:35:00 65 /min [facility] Body temperature 2022-12-23 20:35:00 35.94 Ashley [facility] Respiratory rate 2022-12-23 20:35:00 18 /min [facility] Oxygen saturation in Arterial blood by Pulse oximetry 2022-12-23 20:35:00 95 /min [facility] Body height 2022-12-21 14:14:00 167.6 cm [facility] Body weight 2022-12-21 14:14:00 49.4 kg Univ [facility] BMI 2022-12-21 14:14:00 17.58 kg/m2 [facility] Systolic blood pressure 2022-12-23 12:45:00 107 mm[Hg] [facility] Diastolic blood pressure 2022-12-23 12:45:00 62 mm[Hg] [facility] Heart rate 2022-12-23 12:45:00 65 /min [facility] Body temperature 2022-12-23 12:45:00 36.11 Ashley [facility] Respiratory rate 2022-12-23 12:45:00 14 /min [facility] Oxygen saturation in Arterial blood by Pulse oximetry 2022-12-23 12:45:00 94 /min [facility] Body height 2022-12-21 14:14:00 167.6 cm [facility] Body weight 2022-12-21 14:14:00 49.4 kg [facility] BMI 2022-12-21 14:14:00 17.58 kg/m2 [facility] Systolic blood pressure 2022-12-20 08:50:00 111 mm[Hg] [facility] Diastolic blood pressure 2022-12-20 08:50:00 65 mm[Hg] [facility] Heart rate 2022-12-20 08:50:00 91 /min [facility] Body temperature 2022-12-20 08:50:00 37 Ashley [facility] Respiratory rate 2022-12-20 08:50:00 16 /min [facility] Oxygen saturation in Arterial blood by Pulse oximetry 2022-12-20 08:50:00 99 /min [address] [facility] Body height 2022-12-20 08:48:00 167.6 cm [facility] Body weight 2022-12-20 08:48:00 49.442 kg [facility] BMI 2022-12-20 08:48:00 17.59 kg/m2 [facility] BP Diastolic 2019-12-06 00:00:00 73 mm[Hg] [facility] Height 2019-12-06 00:00:00 66 [in_i] [facility] BMI (Body Mass Index) 2019-12-06 00:00:00 21.6 kg/m2 [facility] BP Systolic 2019-12-06 00:00:00 113 mm[Hg] [facility] Body Weight 2019-12-06 00:00:00 2145.6 [oz_av] [facility] BP Diastolic 2019-04-07 00:00:00 75 mm[Hg] [facility] Height 2019-04-07 00:00:00 66 [in_i] [facility] BMI (Body Mass Index) 2019-04-07 00:00:00 22.8 kg/m2 [facility] BP Systolic 2019-04-07 00:00:00 112 mm[Hg] [facility] Body Weight 2019-04-07 00:00:00 2256 [oz_av] [facility] BP Diastolic 2019-03-10 00:00:00 77 mm[Hg] [facility] Height 2019-03-10 00:00:00 66 [in_i] [facility] BMI (Body Mass Index) 2019-03-10 00:00:00 21.8 kg/m2 [facility] BP Systolic 2019-03-10 00:00:00 120 mm[Hg] [facility] Body Weight 2019-03-10 00:00:00 2160 [oz_av] [facility] BP Diastolic 2018-08-11 00:00:00 60 mm[Hg] [facility] Height 2018-08-11 00:00:00 66 [in_i] [facility] BMI (Body Mass Index) 2018-08-11 00:00:00 21.5 kg/m2 [facility] BP Systolic 2018-08-11 00:00:00 98 mm[Hg] [facility] Body Weight 2018-08-11 00:00:00 2128 [oz_av] [facility] Procedures Procedure Date / Time Performed Performing Clinician Source TRANSTHORACIC ECHO (TTE) COM PLETE W/ CONTRAST 2022-12-23 16:02:03 Christian Newby [facility] TRANSTHORACIC ECHO (TTE) COM PLETE W/ CONTRAST 2022-12-23 16:02:03 Christian Newby [facility] ESOPHAGOGASTRODUODENOSCOPY 2022-12-23 13:09:00 Maico Morrison [facility] EGD (ENDO) 2022-12-23 12:55:53 Doctor Unassigned, [place] [facility] EGD (ENDO) 2022-12-23 12:55:53 Doctor Unassigned, [place] [facility] MAGNESIUM 2022-12-23 09:15:00 Jalen Vega [facility] BASIC METABOLIC PANEL (NA, K , CL, CO2, GLUCOSE, BUN, CREATININE, CA) 2022-12-23 09:15:00 Jalen Vega [facility] MAGNESIUM 2022-12-23 09:15:00 Jalen Vega [facility] BASIC METABOLIC PANEL (NA, K , CL, CO2, GLUCOSE, BUN, CREATININE, CA) 2022-12-23 09:15:00 Jalen Vega [facility] ENDOSCOPY PROCEDURE DOCUMENTATION 12-23 05:01:00 Doctor Unassigned, [place] [facility] CBC WITHOUT DIFF 2022-12-22 13:41:00 Jessica, [facility] CBC WITHOUT DIFF 2022-12-22 13:41:00 Jessica [facility] CBC WITHOUT DIFF 2022-12-22 09:29:00 Jessica [facility] CBC WITHOUT DIFF 2022-12-22 09:29:00 Jessica [facility] CBC WITHOUT DIFF 2022-12-21 14:08:00 Christian Newby [facility] CBC WITHOUT DIFF 2022-12-21 14:08:00 Christian Newby [facility] PREPARE PACKED RBC 2022-12-21 08:09:44 Jf Calabrese Rupert [facility] PREPARE PACKED RBC 2022-12-21 08:09:44 Jf Calabrese [facility] HB ECG ROUTINE & RHYTHM STRIP 2022-12-21 06:54:09 Jf Calabrese [facility] HB ECG ROUTINE & RHYTHM STRIP 2022-12-21 06:54:09 Jf Calabrese [facility] MAGNESIUM 2022-12-21 05:50:00 Jf Calabrese [facility] FERRITIN SERUM 2022-12-21 05:50:00 Jf Calabrese Rupert [facility] VITAMIN B12, LEVEL 2022-12-21 05:50:00 Jf Calabrese [facility] FOLATE 2022-12-21 05:50:00 Jf Calabrese [facility] HEPATIC FUNCTION PANEL (8007 [id number]) (ALB,T.PRO,BILI T,BU/BC,ALT,AST,ALK PHOS) 2022-12-21 05:50:00 Jf Calabrese [facility] IRON PANEL 2022-12-21 05:50:00 Jf Calabrese [facility] DIFF CONSULT BY PATHOLOGIST 2022-12-21 05:50:00 Jf Calabrese [facility] CBC WITH DIFF 2022-12-21 05:50:00 Jf Calabrese [facility] PROTHROMBIN TIME / INR 2022-12-21 05:50:00 Jf Calabrese [facility] ACTIVATED PARTIAL THRMPLAS CHINMAY 2022-11-24 9 05:50:00 Jf Calabrese [facility] FIBRINOGEN 2022-12-21 05:50:00 Jf Calabrese [facility] RETICULOCYTES AUTOMATED 2022-12-21 05:50:00 Jf Calabrese [facility] DIFF CONSULT INTERPRETATION 2022-12-21 05:50:00 Jf Calabrese [facility] MRSA / MSSA SCREEN BY PCR, KINGAES 2022-11 05:50:00 Jf Calabrese [facility] MAGNESIUM 2022-12-21 05:50:00 Jf Calabrese [facility] FERRITIN SERUM 2022-12-21 05:50:00 Jf Calabrese [facility] VITAMIN B12, LEVEL 2022-12-21 05:50:00 Jf Calabrese [facility] FOLATE 2022-12-21 05:50:00 Jf Calabrese [facility] HEPATIC FUNCTION PANEL (8007 [id number]) (ALB,T.PRO,BILI T,BU/BC,ALT,AST,ALK PHOS) 2022-12-21 05:50:00 Jf Calabrese [facility] IRON PANEL 2022-12-21 05:50:00 Jf Calabrese [facility] DIFF CONSULT BY PATHOLOGIST 2022-12-21 05:50:00 Jf Calabrese [facility] CBC WITH DIFF 2022-12-21 05:50:00 Jf Calabrese [facility] PROTHROMBIN TIME / INR 2022-12-21 05:50:00 Jf Calabrese [facility] ACTIVATED PARTIAL THRMPLAS CHINMAY 2022-11-24 9 05:50:00 Jf Calabrese [facility] FIBRINOGEN 2022-12-21 05:50:00 Jf Calabrese [facility] RETICULOCYTES AUTOMATED 2022-12-21 05:50:00 Jf Calabrese [facility] DIFF CONSULT INTERPRETATION 2022-12-21 05:50:00 fJ Calabrese [facility] MRSA / MSSA SCREEN BY PCR, YURI 2022-11 05:50:00 Jf Calabrese [facility] ABORH CONFIRMATION (LAB ONLY) 2022-12-21 03:20:00 Banipal Vernon, [facility] ABORH CONFIRMATION (LAB ONLY) 2022-12-21 03:20:00 Banipal Vernon, [facility] XR CHEST 2 VW 2022-12-21 02:58:00 Banipal Vernon, [facility] XR CHEST 2 VW 2022-12-21 02:58:00 Banvashtil Vernon, [facility] HB ECG ROUTINE & RHYTHM STRIP 2022-12-21 02:39:08 Banipal Morrical, [facility] HB ECG ROUTINE & RHYTHM STRIP 2022-12-21 02:39:08 Banipal Vernon, [facility] BLOOD CULTURE SCREEN 2022-12-21 02:30:00 Banipal Vernon, [facility] HB ABO GROUPING 2022-12-21 02:30:00 Banipal Vernon [facility] BLOOD CULTURE SCREEN 2022-12-21 02:30:00 Banipal Luis Eduradorical, [facility] HB ABO GROUPING 2022-12-21 02:30:00 Banipal Vernon, [facility] LIPASE 2022-12-21 01:38:00 Banipal Vernon [facility] TROPONIN I 2022-12-21 01:38:00 Banvashtil Vernon [facility] COMP. METABOLIC PANEL ([id number]) 2022-12-21 01:38:00 Too Junior [facility] CBC WITH DIFF 2022-12-21 01:38:00 Banipal Vernon [facility] URINALYSIS 2022-12-21 01:38:00 Dorcasl Vernon [facility] EXTRA TUBE URINE CULTURE 2022-12-21 01:38:00 Dorcasl Vernon [facility] LIPASE 2022-12-21 01:38:00 Banipal Vernon [facility] TROPONIN I 2022-12-21 01:38:00 Banipal Vernon [facility] COMP. METABOLIC PANEL ([id number]) 2022-12-21 01:38:00 Carlos Patrick [facility] CBC WITH DIFF 2022-12-21 01:38:00 Carlos Patrick [facility] URINALYSIS 2022-12-21 01:38:00 Carlos Patrick [facility] EXTRA TUBE URINE CULTURE 2022-12-21 01:38:00 Carlos Patrick [facility] CONSENT/REFUSAL FOR DIAGNOSI S AND TREATMENT 2022-12-20 23:26:30 Doctor Unassigned, [place] [facility] CONSENT/REFUSAL FOR DIAGNOSI S AND TREATMENT 2022-12-20 23:26:30 Doctor Unassigned, [place] [facility] COVID-19 (ID NOW RAPID TESTING) 09:44:00 Babar Antony [facility] LIPASE 2022-12-20 09:18:00 Babar Antony [facility] COMP. METABOLIC PANEL ([id number]) 2022-12-20 09:18:00 Babar Antony [facility] CBC WITH DIFF 2022-12-20 09:18:00 Babar Antony [facility] URINALYSIS 2022-12-20 09:18:00 Babar Antony [facility] NOTICE OF PRIVACY PRACTICES 2022-12-20 08:43:33 Doctor Unassigned, [place] [facility] CONSENT/REFUSAL FOR DIAGNOSI S AND TREATMENT 2022-12-20 08:43:03 Doctor Unassigned, [place] [facility] AGREEMENTS AUTHORIZATIONS AN D IRREVOCABLE ASSIGNMENTS (FORM 2001) 2022-12-20 05:01:00 Doctor Unassigned, [place] [facility] [U] XRAY SPINE CERVICAL 2 OR 3 S [id number] 2019-07-26 00:00:00 [facility] [U] XRAY FOOT MIN 3 VWS RIGH T [id number] 2019-05-04 00:00:00 [facility] [U] XRAY KNEE 1 OR 2 VWS LEF T [id number] 2019-05-04 00:00:00 [facility] Physical Therapy 2019-04-27 00:00:00 [facility] [U] XRAY SPINE CERVICAL 2 OR 3 VWS [id number] 2019-04-26 00:00:00 [facility] [U] XRAY SPINE CERVICAL 2 OR 3 VWS [id number] 2019-03-09 00:00:00 [facility] MA Bone Density Scan [id number] 2019-02-12 00:00:00 [facility] [U] XRAY KNEE 1 OR 2 VWS LEF T [id number] 2019-02-12 00:00:00 [facility] DEXA Bone Density with WB Composition DX 2019-02-10 00:00:00 [facility] [U] XRAY SPINE CERVICAL 2 OR 3 VWS [id number] 2019-02-08 00:00:00 [facility] Tibial Arthroscopy/surgery 2018-12-26 00:00:00 [facility] Primary Fusion of Cervical Spine 2018-12 00:00:00 [facility] Gastric Bypass 2012-05-26 00:00:00 [facility] Colonoscopy 2011-05-26 00:00:00 [facility] Appendectomy [facility] Cholecystectomy [facility] Tonsillectomy [facility] Hysterectomy [facility] Plan of Care Planned Activity Planned Date Details Comments Source Diagnostic Test Pending 2019-04-07 00:00:00 BMP, serum or plasma [code = BMP, serum or plasma] [facility] Encounters Start Date/Time End Date/Time Encounter Type Admission Type Attending Clinicians Care Facility Care Department Encounter ID Source 2023-04-10 00:00:00 2023-04-10 00:00:00 Outpatient [facility]un[facility] [id number] [facility] 2023-04-04 15:21:00 2023-04-04 21:10:00 emergency [facility] [id number] 2023-04-04 15:21:00 2023-04-04 21:10:00 Emergency ER Alexei Tiara [facility] [id number] [facility] 2023-04-02 07:52:01 2023-04-02 07:52:01 Outpatient [facility] [id number] [facility] 2023-03-21 14:15:28 2023-03-21 14:15:28 Outpatient [facility] [id number] [facility] 2023-03-11 00:00:00 2023-03-11 00:00:00 [facility] [id number] [facility] 2023-02-24 22:19:00 2023-02-25 05:05:00 Emergency ER SID GOTTLIEB [facility] [id number] [facility] 2023-02-04 12:30:00 2023-02-06 15:41:00 Inpatient ER ALEJA VIDALES [facility] [id number] [facility] 2023-01-31 00:00:00 2023-01-31 00:00:00 Telephone Charmaine Mckenzie [facility] 1.840.114 350.1.13.10 4.2.7.2.686 [id number] [facility] 2023-01-06 16:34:59 2023-01-06 16:34:59 Outpatient [facility] [id number] [facility] 2023-01-01 16:20:55 2023-01-01 16:20:55 Outpatient [facility] [id number] [facility] 2022-12-30 00:00:00 2022-12-30 00:00:00 Telephone Charmaine Mckenzie [facility] 1.840.114 350.1.13.10 4.2.7.2.686 [id number] [facility] 2022-12-24 00:00:00 2022-12-24 00:00:00 Transition of Care Cathy Pacheco 1.840.114 350.1.13.10 [id number] [id number] [facility] 2022-12-20 18:44:00 2022-12-23 18:20:00 Inpatient X LENORE GONSALEZ [facility] [id number] [facility] 2022-12-20 18:44:00 2022-12-23 18:20:00 Hospital Encounter Lianne Garcia Lula Too Moreda, Carlos Liao, Ludin Gonsalez, Lenore Castillo [facility] [id number] 350.1.13.10 4.2.7.2.686 [id number] [facility] 2022-12-23 08:18:00 2022-12-23 08:53:00 Anesthesia Event Rosalva Smith Robert [facility] 1.20.114 350.1.13.10 4.2.7.2.686 [id number] [facility] 2022-12-23 07:15:00 2022-12-23 07:55:00 Surgery LesaMaico sexton Anjel [facility] 1.2840.114 350.1.13.10 4.2.7.2.686 [id number] [facility] 2022-12-20 03:43:00 2022-12-20 06:50:00 Emergency Babar Antony [facility] [id number] 350.1.13.10 4.2.7.2.686 [id number] [facility] 2022-12-20 03:43:00 2022-12-20 06:50:00 Emergency X BABAR ANTONY [facility] E[facility] [id number] [facility] 2022-11-13 11:10:07 2022-11-13 11:10:07 Outpatient [facility] [id number] [facility] 2020-06-29 01:08:00 2020-06-29 01:08:00 Outpatient Zuniga_F [facility] MMG [id number] [facility] 2020-04-27 01:04:00 2020-04-27 01:04:00 Outpatient [facility] MMG [id number] [facility] 2020-04-12 02:32:00 2020-04-12 02:32:00 Outpatient Z[facility]F [facility]G [id number] [facility] 2020-03-23 01:04:00 2020-03-23 01:04:00 Outpatient Zuniga_F [facility] MMG [id number] [facility] 2020-02-17 03:07:00 2020-02-17 03:07:00 Outpatient Z[facility]iga_F [facility] MMG [id number] [facility] 2020-02-16 11:05:00 2020-02-16 11:05:00 Outpatient Z[facility]iga_F [facility] MMG [id number] [facility] 2020-02-14 09:30:00 2020-02-14 09:30:00 Outpatient [facility]F [facility] [id number] [facility] 2020-02-06 14:34:00 2020-02-08 16:39:00 Inpatient ER TavarezTaran [facility] [id number] [facility] 2020-02-08 05:04:00 2020-02-08 05:04:00 Outpatient Zuniga_F [facility] MMG [id number] [facility] 2020-01-12 12:39:00 2020-01-12 12:39:00 Outpatient Z[facility]F [facility]G [id number] [facility] 2019-12-08 12:57:00 2019-12-08 12:57:00 Outpatient Z[facility]iga_F [facility] MMG [id number] [facility] 2019-12-06 00:00:00 2019-12-06 00:00:00 Linn Rodriguez, OPEN SOAPER TENDER: [address] [place] [id number] , Ph. Colin_Malika MM[facility] [id number] [facility] 2019-07-27 11:00:00 2019-07-27 11:00:00 Appointmen t; HIRO CASAREZ M.D. DODWAD, SHAH-NAWAZ, M.D. [facility] Orthopedics at [facility] [id number] [place] [facility] 2019-06-25 12:04:00 2019-06-25 12:04:00 Outpatient Martha [facility] [id number] [facility] 2019-05-10 10:30:00 2019-05-10 10:30:00 Appointmen t; LINA TEJADA PA HANSEN, DENISE, PA [facility] Orthopedics Trauma [facility] [id number] [place] [facility] 2019-04-27 09:30:00 2019-04-27 09:30:00 Appointmen t; HIRO CASAREZ M.D. DODWAD, SHAH-NAWAZ, M.D. [facility] Orthopedics at [facility] [id number] [place] [facility] 2019-04-07 09:36:00 2019-04-07 09:36:00 Outpatient Taran Smith [facility] [id number] [facility] 2019-04-07 00:00:00 2019-04-07 00:00:00 Taran Tavarez MD: [address], [place] [address] , [facility] [address] [facility] 2019-03-29 10:30:00 2019-03-29 10:30:00 Appointmen t; LINA TEJADA PA HANSEN, DENISE, PA [facility] Orthopedics Tra[facility] [id number] [place] [facility] 2019-03-15 10:45:00 2019-03-15 10:45:00 Appointmen t; LINA TEJADA PA HANSEN, DENISE, PA [facility] [id number] [place] [facility] [place] 2019-03-11 12:40:00 2019-03-11 12:40:00 Appointmen t; WES LYLE P.A. ALDRIDGE, ALEXANDRA, P.A. [facility] Orthopedics at [facility] Orthopedic [facility] [id number] [place] [facility] 2019-03-10 12:31:00 2019-03-10 12:31:00 Outpatient Taran Smith [facility] [id number] [facility] 2019-03-10 00:00:00 2019-03-10 00:00:00 Taran Tavarez MD: [address], [place] [address] , Ph. [facility] 101[address] [facility] 2019-02-15 09:15:00 2019-02-15 09:15:00 Appointmen t; LINA TEJADA PA HANSEN, DENISE, PA [facility] Orthopedics Trauma Clinic [facility] [id number] [place] [facility] [place] 2019-02-10 15:20:00 2019-02-10 15:20:00 Appointmen t; WES LYLE P.A. ALDRIDGE, ALEXANDRA, P.A. [facility] Orthopedics at [facility] Orthopedic [facility] [id number] [place] [facility] 2018-08-11 00:00:00 2018-08-11 00:00:00 Taran Tavarez MD: [address], [address], [place] [address] , Ph. [facility] 03[address] [facility] 2007-01-08 11:20:00 2007-01-08 18:58:00 Inpatient ER RICHI MAXWELL [facility] MED [id number] [facility] 2006-07-02 02:00:00 2006-07-04 08:45:00 Inpatient ER YOLANDA [facility] [id number] [facility] 2005-07-25 11:38:00 2005-07-25 11:38:00 Outpatient UR YUDELKA GARCIA [facility] [id number] [facility] 2005-07-17 16:17:00 2005-07-17 16:17:00 Outpatient UR YUDELKA GARCIA [facility] [id number] [facility] 2005-05-31 18:15:00 2005-05-31 22:55:00 Emergency ER STARR NANY [facility] [id number] [facility] 2005-01-04 12:15:00 2005-01-04 12:15:00 Outpatient UR YUDELKA GARCIA [facility] [id number] [facility] 2004-03-09 16:40:00 2004-03-09 16:40:00 Outpatient UR YUDELKA GARCIA [facility] [id number] [facility] 2003-08-05 10:06:00 2003-08-05 10:06:00 Outpatient UR YUDELKA GARCIA [facility] [id number] [facility] 2003-06-27 14:55:00 2003-06-27 15:30:00 Emergency ER ALLYSONMILEYKARLEY LeAnjel [facility] [id number] [facility] 2003-06-13 17:52:00 2003-06-13 17:52:00 Outpatient UR ADEEL FRAZIER [facility] [id number] [facility] 2002-08-02 07:13:00 2002-08-02 09:42:00 Emergency ER ZAIN SPAIN [facility] [id number] [facility] 2002-05-08 22:33:00 2002-05-09 00:15:00 Emergency ER DEQUAN COPELAND [facility] [id number] [facility] 2000-11-08 13:16:00 2000-11-09 13:32:00 Inpatient CHINYERE FARR [facility] MSSTEFANIE [id number] [facility] Results Test Description Test Time Test Comments Results Resul t Comments Source DIFF CONSULT INTERPRETATION 2022-11-25 19:27:27 LEUKOCYTOSIS WITH IMMATURE GRANULOCYTOSIS/LE FT SHIFT. MICROCYTIC, HYPOCHROMIC ANEMIA CONSISTENT WITH PATIENT'S KNOWN HISTORY BLEEDING. THROMBOCYTES ARE UNREMARKABLE. [facility] DIFF CONSULT INTERPRETATION 2022-11-25 19:27:27 LEUKOCYTOSIS WITH IMMATURE GRANULOCYTOSIS/LE FT SHIFT. MICROCYTIC, HYPOCHROMIC ANEMIA CONSISTENT WITH PATIENT'S KNOWN HISTORY BLEEDING. THROMBOCYTES ARE UNREMARKABLE. [facility] [id number] 14:17:02* Test Item Value Reference Range Interpretation Comme nts WBC (test code = 6690-2) 9.88 See_Comment [Automated message] The system which generated this result transmitted reference range: 4.30 - 11.10 10*3/?L. The reference range was not used to interpret this result as normal/abnormal. RBC (test code = 789-8) 3.54 See_Comment L [Automated message] The system which generated this result transmitted reference range: 3.93 - 5.25 10*6/?L. The reference range was not used to interpret this result as normal/abnormal. HGB (test code = 718-7) 8.0 g/dL 11.6-15.0 L HCT (test code = 4544-3) 25.6 % 35.7-45.2 L MCH (test code = 785-6) 22.6 pg 25.9-32.8 L MCV (test code = 787-2) 72.3 fL 80.6-95.5 L MCHC (test code = 786-4) 31.3 g/dL 31.6-35.1 L PLT (test code = 777-3) 339 See_Comment [Automated message] The system which generated this result transmitted reference range: 166 - 358 10*3/?L. The reference range was not used to interpret this result as normal/abnormal. MPV (test code = 41517-6) 9.6 fL 9.5-12.9 RDW-CV (test code = 788-0) 20.3 % 12.0-15.5 H RDW-SD (test code = 34118-2) 51.7 fL 39.0-49.9 H NRBC x10^3 (test code = 2080873297) See_Comment [Automated messa ge] The system which generated this result transmitted reference range: 10*3/?L. The reference range was not used to interpret this result as normal/abnormal. NRBC/100 WBC (test code = 5721756486) 0.0 See_Comment [Automated messa ge] The system which generated this result transmitted reference range: 0.0 - 10.0 /100 WBCs. The reference range was not used to interpret this result as normal/abnormal. IPF % (test code = 0469706874) Lab Interpretation (test code = 62102-2) [facility]51021[facility] (ALB,T.PRO,BILI T,BU/BC,ALT,AST,ALK PHOS)2022-12-21 09:59:29* Test Item Value Reference Range Interpretation Comme nts TOTAL BILI (test code = 4771724920) 0.1-1.1 L BILI UNCON (test code = 6829433453) Interfering substance. Refer to TBIL BILI CONJ (test code = 3180234660) Interfering substance. Refer to TBIL T PROTEIN (test code = 3007317994) 7.0 g/dL 6.3-8.2 ALBUMIN (test code = 9319622738) 3.7 g/dL 3.5-5.0 ALK PHOS (test code = 1175920623) 97 U/L 34-122 ALTv (test code = 1742-6) 30 U/L 5-35 AST(SGOT) (test code = 1783781250) 26 U/L 13-40 Lab Interpretation (test code = 43667-7) [facility]normal [facility] (29979) (ALB,T.PRO,BILI T,BU/BC,ALT,AST,ALK PHOS)2022-12-21 09:59:29* Test Item Value Reference Range Interpretation Comme nts TOTAL BILI (test code = 2437044127) 0.1-1.1 L BILI UNCON (test code = 8598355685) Interfering substance. Refer to TBIL BILI CONJ (test code = 8218995084) Interfering substance. Refer to TBIL T PROTEIN (test code = 4287340340) 7.0 g/dL 6.3-8.2 ALBUMIN (test code = 5541780473) 3.7 g/dL 3.5-5.0 ALK PHOS (test code = 7309850725) 97 U/L 34-122 ALTv (test code = 1742-6) 30 U/L 5-35 AST(SGOT) (test code = 1658477342) 26 U/L 13-40 Lab Interpretation (test code = 36622-8) [facility]normal [facility] B12, [id number] 09:07:55* Test Item Value Reference Range Interpretation Comme nts VIT B12 (test code = 6855376604) 587 pg/mL 240-930 KINGA (test code = KINGA) Biotin has been reported to cause a positive bias, interpret results relative to patient's use of biotin. Lab Interpretation (test code = 20478-0) Normal [facility] B12, [id number] 09:07:55* Test Item Value Reference Range Interpretation Comme nts VIT B12 (test code = 8034930978) 587 pg/mL 240-930 KINGA (test code = KINGA) Biotin has been reported to cause a positive bias, interpret results relative to patient's use of biotin. Lab Interpretation (test code = 57618-2) Normal [facility]2023-07-29 08:37:48* Test Item Value Reference Range Interpretation Comme nts FOLATE SER (test code = 2402491216) 5.1 ng/mL 3.0-20.0 Lab Interpretation (test cod e = 53487-5) Normal [facility] 08:37:48* Test Item Value Reference Range Interpretation Comme nts FOLATE SER (test code = 6760968007) 5.1 ng/mL 3.0-20.0 Lab Interpretation (test cod e = 57686-0) Normal [facility] Packed RBC (in units), 1 Units 2022-12-21 08:09:44* Test Item Value Reference Range Interpretation Comme nts Cross Match Result (test code = 4409) Compatible ISBT Blood Type Code (test code = 738918) 5100 Unit Blood Type (test code = 4410) O Pos Unit Number (test code = 4411) [id number] Blood Expiration Date & Time (test code = 459084) 750981935200 Status Information (test code = 4412) Issued Product Identification (test code = 4413) Red Blood Cells Product Code (test code = 4414) [id number] Performed at [facility] Blood [address] Free: [phone] No. [id number] [facility] Packed RBC (in units), 1 Units 2022-12-21 08:09:44* Test Item Value Reference Range Interpretation Comme nts Cross Match Result (test code = 4409) Compatible ISBT Blood Type Code (test code = 299570) 5100 Unit Blood Type (test code = 4410) O Pos Unit Number (test code = 4411) [id number] Blood Expiration Date & Time (test code = 851912) 102530092442 Status Information (test code = 4412) Issued Product Identification (test code = 4413) Red Blood Cells Product Code (test code = 4414) [id number] Performed at [address] Free: [phone] No. [id number] [facility] [id number] 08:06:48* Test Item Value Reference Range Interpretation Comme nts FERRITIN (test code = 3381373625) 8.2 ng/mL 11.0-264.0 L KINGA (test code = KINGA) Biotin has been reported to cause a negative bias, interpret results relative to patient's use of biotin. Lab Interpretation (test code = 53083-1) Abnormal [facility] [id number] 08:06:48* Test Item Value Reference Range Interpretation Comme nts FERRITIN (test code = 1335024769) 8.2 ng/mL 11.0-264.0 L KINGA (test code = KINGA) Biotin has been reported to cause a negative bias, interpret results relative to patient's use of biotin. Lab Interpretation (test code = 05640-6) Abnormal [facility] HospitalProthrombin Time / [id number] 07:44:04* Test Item Value Reference Range Interpretation Comme nts PROTIME PATIENT (test code = 5964-2) 11.5 See_Comment [Automated messa ge] The system which generated this result transmitted reference range: 10.1 - 12.6 Seconds. The reference range was not used to interpret this result as normal/abnormal. INR (test code = 6301-6) 1.0 Normal INR <1.1; Warfarin Therapeutic range 2.0 to 3.0 or 2.5 to 3.5, depending upon the indications. Lab Interpretation (test code = 22354-3) Normal [facility] HospitalaPTT2023-[facility]-29 07:44:04* Test Item Value Reference Range Interpretation Comme [facility] APTT Patient (test code = 3173-2) 32 See_Comment [Automated messa ge] The system which generated this result transmitted reference range: 26 - 36 Seconds. The reference range was not used to interpret this result as normal/abnormal. Lab Interpretation (test code = 83334-4) Normal [facility] HospitalProthrombin Time / [id number] 07:44:04* Test Item Value Reference Range Interpretation Comme nts PROTIME PATIENT (test code = 5964-2) 11.5 See_Comment [Automated messa ge] The system which generated this result transmitted reference range: 10.1 - 12.6 Seconds. The reference range was not used to interpret this result as normal/abnormal. INR (test code = 6301-6) 1.0 Normal INR <1.1; Warfarin Therapeutic range 2.0 to 3.0 or 2.5 to 3.5, depending upon the indications. Lab Interpretation (test code = 37169-6) Normal [facility] Hospital[facility]TT2023-07-29 07:44:04* Test Item Value Reference Range Interpretation Comme nts APTT Patient (test code = 3173-2) 32 See_Comment [Automated messa ge] The system which generated this result transmitted reference range: 26 - 36 Seconds. The reference range was not used to interpret this result as normal/abnormal. Lab Interpretation (test code = 18179-0) Normal [facility] [id number] 07:18:02* Test Item Value Reference Range Interpretation Comme nts IRON (test code = 3885209805) 13 ug/dL 50-160 L TIBC (test code = 2071759268) 492 ug/dL 250-410 H % FE SAT (test code = 1981695694) 3 % 20-50 L Lab Interpretation (test cod e = 22289-9) Abnormal [facility] [id number] 07:18:02* Test Item Value Reference Range Interpretation Comme nts IRON (test code = 0946917016) 13 ug/dL 50-160 L TIBC (test code = 9577220285) 492 ug/dL 250-410 H % FE SAT (test code = 3646451772) 3 % 20-50 L Lab Interpretation (test cod e = 20181-2) [facility] 07:09:00* Test Item Value Reference Range Interpretation Comme nts MAGNESIUM (test code = 0161112975) 2.1 mg/dL 1.7-2.4 Lab Interpretation (test cod e = 64937-5) Normal [facility]UM2023-07-29 07:09:00* Test Item Value Reference Range Interpretation Comme nts MAGNESIUM (test code = 8426708385) 2.1 mg/dL 1.7-2.4 Lab Interpretation (test cod e = 40792-5) Normal [facility] HospitalFIBRINOGEN2023-07-29 06:15:08* Test Item Value Reference Range Interpretation Comme nts Fibrinogen (test code = 0447622114) 395 mg/dL 167-453 Lab Interpretation (test cod e = 97569-8) Normal [facility] Hospital[facility]IB[facility]INOGEN2023-07-29 06:15:08* Test Item Value Reference Range Interpretation Comme nts Fibrinogen (test code = 9669490105) 395 mg/dL 167-453 Lab Interpretation (test cod e = 78522-6) Normal [facility] HospitalRETICULOCYTES [id number] 06:11:50* Test Item Value Reference Range Interpretation Comme nts RETIC Count Automated (test code = 1928619007) 1.53 % 0.51-1.90 RETIC Absolute Count (test code = 3813047221) 0.0494 See_Comment [Automa nany message] The system which generated this result transmitted reference range: 0.0230 - 0.0950 10*6/?L. The reference range was not used to interpret this result as normal/abnormal. IRF % (test code = 6191970749) 16.80 % 2.10-12.60 H RETIC-HE (test code = 2089350853) 20.6 pg 28.1-35.8 L Lab Interpretation (test code = 19043-7) Abnormal [facility] WITH [id number] 06:11:50* Test Item Value Reference Range Interpretation Comme nts WBC (test code = 6690-2) 13.62 See_Comment H [Automated messa ge] The system which generated this result transmitted reference range: 4.30 - 11.10 10*3/?L. The reference range was not used to interpret this result as normal/abnormal. RBC (test code = 789-8) 3.23 See_Comment L [Automated messa ge] The system which generated this result transmitted reference range: 3.93 - 5.25 10*6/?L. The reference range was not used to interpret this result as normal/abnormal. HGB (test code = 718-7) 6.9 g/dL 11.6-15.0 L HCT (test code = 4544-3) 22.8 % 35.7-45.2 L MCV (test code = 787-2) 70.6 fL 80.6-95.5 L MCH (test code = 785-6) 21.4 pg 25.9-32.8 L MCHC (test code = 786-4) 30.3 g/dL 31.6-35.1 L RDW-SD (test code = 97702-9) 50.3 fL 39.0-49.9 H RDW-CV (test code = 788-0) 20.0 % 12.0-15.5 H PLT (test code = 777-3) 374 See_Comment H [Automated messa ge] The system which generated this result transmitted reference range: 166 - 358 10*3/?L. The reference range was not used to interpret this result as normal/abnormal. MPV (test code = 18036-6) 9.5 fL 9.5-12.9 NRBC/100 WBC (test code = 2536208880) 0.0 See_Comment [Automated me ssage] The system which generated this result transmitted reference range: 0.0 - 10.0 /100 WBCs. The reference range was not used to interpret this result as normal/abnormal. NRBC x10^3 (test code = 8493964532) See_Comment [Automated messa ge] The system which generated this result transmitted reference range: 10*3/?L. The reference range was not used to interpret this result as normal/abnormal. GRAN MAT (NEUT) % (test code = 770-8) 68.9 % IMM GRAN % (test code = 6580369425) 0.40 % LYMPH % (test code = 736-9) 21.1 % MONO % (test code = 5905-5) 6.8 % EOS % (test code = 713-8) 2.2 % BASO % (test code = 706-2) 0.6 % GRAN MAT x10^3(ANC) (test code = 3257812307) 9.39 10*3/uL 1.88-7.09 H IMM GRAN x10^3 (test code = 0728264400) 0.05 10*3/uL 0.00-0.06 LYMPH x10^3 (test code = 731-0) 2.88 10*3/uL 1.32-3.29 MONO x10^3 (test code = 742-7) 0.92 10*3/uL 0.33-0.92 EOS x10^3 (test code = 711-2) 0.30 10*3/uL 0.03-0.39 BASO x10^3 (test code = 704-7) 0.08 10*3/uL 0.01-0.07 H Lab Interpretation (test code = 03291-8) Abnormal [facility] HospitalRETICULOCYTES [id number] 06:11:50* Test Item Value Reference Range Interpretation Comme nts RETIC Count Automated (test code = 2369924954) 1.53 % 0.51-1.90 RETIC Absolute Count (test code = 4289577436) 0.0494 See_Comment [Automa nany message] The system which generated this result transmitted reference range: 0.0230 - 0.0950 10*6/?L. The reference range was not used to interpret this result as normal/abnormal. IRF % (test code = 2179598397) 16.80 % 2.10-12.60 H RETIC-HE (test code = 8973289355) 20.6 pg 28.1-35.8 L Lab Interpretation (test code = 01615-9) Abnormal [facility] WITH [id number] 06:11:50* Test Item Value Reference Range Interpretation Comme nts WBC (test code = 6690-2) 13.62 See_Comment H [Automated messa ge] The system which generated this result transmitted reference range: 4.30 - 11.10 10*3/?L. The reference range was not used to interpret this result as normal/abnormal. RBC (test code = 789-8) 3.23 See_Comment L [Automated messa ge] The system which generated this result transmitted reference range: 3.93 - 5.25 10*6/?L. The reference range was not used to interpret this result as normal/abnormal. HGB (test code = 718-7) 6.9 g/dL 11.6-15.0 L HCT (test code = 4544-3) 22.8 % 35.7-45.2 L MCV (test code = 787-2) 70.6 fL 80.6-95.5 L MCH (test code = 785-6) 21.4 pg 25.9-32.8 L MCHC (test code = 786-4) 30.3 g/dL 31.6-35.1 L RDW-SD (test code = 17886-3) 50.3 fL 39.0-49.9 H RDW-CV (test code = 788-0) 20.0 % 12.0-15.5 H PLT (test code = 777-3) 374 See_Comment H [Automated messa ge] The system which generated this result transmitted reference range: 166 - 358 10*3/?L. The reference range was not used to interpret this result as normal/abnormal. MPV (test code = 63966-8) 9.5 fL 9.5-12.9 NRBC/100 WBC (test code = 4582974844) 0.0 See_Comment [Automated me ssage] The system which generated this result transmitted reference range: 0.0 - 10.0 /100 WBCs. The reference range was not used to interpret this result as normal/abnormal. NRBC x10^3 (test code = 6955129365) See_Comment [Automated messa ge] The system which generated this result transmitted reference range: 10*3/?L. The reference range was not used to interpret this result as normal/abnormal. GRAN MAT (NEUT) % (test code = 770-8) 68.9 % IMM GRAN % (test code = 7615994008) 0.40 % LYMPH % (test code = 736-9) 21.1 % MONO % (test code = 5905-5) 6.8 % EOS % (test code = 713-8) 2.2 % BASO % (test code = 706-2) 0.6 % GRAN MAT x10^3(ANC) (test code = 1125718404) 9.39 10*3/uL 1.88-7.09 H IMM GRAN x10^3 (test code = 8911872864) 0.05 10*3/uL 0.00-0.06 LYMPH x10^3 (test code = 731-0) 2.88 10*3/uL 1.32-3.29 MONO x10^3 (test code = 742-7) 0.92 10*3/uL 0.33-0.92 EOS x10^3 (test code = 711-2) 0.30 10*3/uL 0.03-0.39 BASO x10^3 (test code = 704-7) 0.08 10*3/uL 0.01-0.07 H Lab Interpretation (test code = 97998-1) [facility] [id number] 02:43:00 * Test Item Value Reference Range Interpretation Comme nts ABO & RH (test code = 20) O POSITIVE IAT (test code = 1185) [facility] [id number] 02:43:00 * Test Item Value Reference Range Interpretation Comme nts ABO & RH (test code = 20) O POSITIVE IAT (test code = 1185) Negative [facility][U] XRAY SPINE CERVICAL 2 OR 3 VWS [id number] 2019-04-27 09:42:00Images acquired, not reported on this accession number.[facility] PhysiciansBasic metabolic 2000 panel - Serum or [id number] 09:05:00* Test Item Value Reference Range Interpretation Comme nts glucose (test code = glucose) 57 mg/dL 74-106 L Urea nitrogen [Mass/volume] in Serum or Plasma (test code = 3094-0) 23 mg/dL 6-20 H osmolality calculated,serum (test code = osmolality calculated,serum) 279 mOsm/kg 280-300 L creatinine (test code = creatinine) 0.9 mg/dL 0.50-0.90 glomerular filtration rate ( test code = glomerular filtration rate) >60.00 Urea nitrogen/Creatinine [Ma ss Ratio] in Serum or Plasma (test code = 3097-3) 25.6 12-20 H sodium level (test code = so dium level) 139 mmol/L 135-145 Potassium [Moles/volume] in Body fluid (test code = 2821-7) 4.0 mmol/L 3.5-5.2 chloride level (test code = chloride level) 101 mmol/L 98-108 CO2 (test code = CO2) 28 mmol/L 21-32 anion gap (test code = anion gap) 14.0 mEq/L 12-20 calcium level (test code = calcium level) 9.0 mg/dL 8.6-10.0 [facility][U] XRAY HAND MIN 3 VWS RIGHT [id number] 12:19:00 Images acquired, not reported on this accession number.[facility][U] XRAY FOOT MIN 3 VWS RIGHT [id number] 10:36:00Images acquired, not reported on this accession number.[facility][U] XRAY KNEE 1 OR 2 VWS LEFT [id number] 10:36:00Images acquired, not reported on this accession number.[facility]iciansCB W Auto Differential panel - [id number] 10:50:00* Test Item Value Reference Range Interpretation Comme nts white blood count (test code = white blood count) 5.6 K/uL 4.0-11.5 red blood count (test code = red blood count) 5.09 M/uL 3.80-5.20 hemoglobin (test code = hemoglobin) 14.2 g/dL 10.5-15.7 hematocrit (test code = hematocrit) 45.1 % 34.0-50.0 Erythrocyte mean corpuscular volume [Entitic volume] (test code = 83241-4) 88.6 fL 86-100 mean corpuscular hemoglobin (test code = mean corpuscular hemoglobin) 27.9 pg 26.2-33.4 mean corpuscular HGB conc (t est code = mean corpuscular HGB conc) 31.5 g/dL 30-34 red cell distribution width (test code = red cell distribution width) 15.3 % 12.0-15.5 platelet count (test code = platelet count) 349 K/uL 165-450 mean platelet volume (test c ode = mean platelet volume) 8.8 fL 9.4-12.6 L Neutrophils.segmented/100 leukocytes in Blood (test code = 75345-1) 56.5 % 44.4-80.1 Granulocytes Immature [#/vol ume] in Blood (test code = 20655-7) 0.0 K/uL 0.0-0.03 lymphocyte% (test code = lymphocyte%) 31.8 % 10.0-50.0 mono % (test code = mono %) 7.9 % 3.6-12.0 eos % (test code = eos %) 2.1 % 0.0-5.4 Basophils/100 leukocytes in Unspecified specimen (test code = 61712-7) 1.3 % 0.1-1.2 H Neutrophils.band form [#/vol ume] in Blood (test code = 37747-0) 3.17 K/uL 1.56-6.13 Lymphocytes [#/volume] in Unspecified specimen by Automated count (test code = 27049-0) 1.8 K/uL 1.18-3.74 mono # (test code = mono #) 0.44 K/uL 0.24-0.86 eos # (test code = eos #) 0.12 K/uL 0.04-0.36 basophil # (test code = baso ramon #) 0.07 K/uL 0.01-0.08 NRBC% (test code = NRBC%) 0 /100 WBC 0-0.2 NRBC# (test code = NRBC#) 0 K/uL [facility] Biloxidifferential panel, [id number] 10:50:00 NeutrophilsBandLymphocyteAtypical LymphMonocyteEosinophilBasophilPlatelet EstimatePlatelet MorphologyHypochromasiaMatagoSouth Mississippi State HospitalBasi metabolic 2000 panel - Serum or [id number] 10:50:00* Test Item Value Reference Range Interpretation Comme nts Glucose [Mass/volume] in Ser um or Plasma (test code = 2345-7) 74 mg/dL 74-106 Urea nitrogen [Mass/volume] in Serum or Plasma (test code = 3094-0) 33 mg/dL 6-20 H osmolality calculated, serum (test code = osmolality calculated, serum) 276 280-300 L creatinine (test code = creatinine) 1.7 mg/dL 0.50-0.90 H glomerular filtration rate ( test code = glomerular filtration rate) 30.98 L Urea nitrogen/Creatinine [Ma ss Ratio] in Serum or Plasma (test code = 3097-3) 19.4 12-20 sodium level (test code = so dium level) 135 mmol/L 135-145 potassium level (test code = potassium level) 4.0 mmol/L 3.5-5.2 chloride level (test code = chloride level) 99 mmol/L 98-108 CO2 (test code = CO2) 23 mmol/L 21-32 anion gap (test code = anion gap) 17.0 mEq/L 12-20 calcium level (test code = c alcium level) 9.2 mg/dL 8.6-10.0 [facility] W Auto Differential panel - Tuxoe3334-24-38 10:50:00 * Test Item Value Reference Range Interpretation Comme nts white blood count (test code = white blood count) 5.6 K/uL 4.0-11.5 red blood count (test code = red blood count) 5.09 M/uL 3.80-5.20 hemoglobin (test code = hemoglobin) 14.2 g/dL 10.5-15.7 hematocrit (test code = hematocrit) 45.1 % 34.0-50.0 Erythrocyte mean corpuscular volume [Entitic volume] (test code = 55628-8) 88.6 fL 86-100 mean corpuscular hemoglobin (test code = mean corpuscular hemoglobin) 27.9 pg 26.2-33.4 mean corpuscular HGB conc (t est code = mean corpuscular HGB conc) 31.5 g/dL 30-34 red cell distribution width (test code = red cell distribution width) 15.3 % 12.0-15.5 platelet count (test code = platelet count) 349 K/uL 165-450 mean platelet volume (test c ode = mean platelet volume) 8.8 fL 9.4-12.6 L Neutrophils.segmented/100 leukocytes in Blood (test code = 19587-5) 56.5 % 44.4-80.1 Granulocytes Immature [#/vol ume] in Blood (test code = 15549-4) 0.0 K/uL 0.0-0.03 lymphocyte% (test code = lymphocyte%) 31.8 % 10.0-50.0 mono % (test code = mono %) 7.9 % 3.6-12.0 eos % (test code = eos %) 2.1 % 0.0-5.4 Basophils/100 leukocytes in Unspecified specimen (test code = 04406-0) 1.3 % 0.1-1.2 H Neutrophils.band form [#/vol ume] in Blood (test code = 03106-5) 3.17 K/uL 1.56-6.13 Lymphocytes [#/volume] in Unspecified specimen by Automated count (test code = 30823-5) 1.8 K/uL 1.18-3.74 mono # (test code = mono #) 0.44 K/uL 0.24-0.86 eos # (test code = eos #) 0.12 K/uL 0.04-0.36 basophil # (test code = baso ramon #) 0.07 K/uL 0.01-0.08 NRBC% (test code = NRBC%) 0 /100 WBC 0-0.2 NRBC# (test code = NRBC#) 0 K/uL [facility] Bil[facility]ifferential panel, sccxo1059-51-55 10:50:00 NeutrophilsBandLymphocyteAtypical LymphMonocyteEosinophilBasophilPlatelet EstimatePlatelet MorphologyHypochromasiaMaWhitfield [facility] metabolic 2000 panel - Serum or Oguvhs4250-56-92 10:50:00* Test Item Value Reference Range Interpretation Comme nts Glucose [Mass/volume] in Ser um or Plasma (test code = 2345-7) 74 mg/dL 74-106 Urea nitrogen [Mass/volume] in Serum or Plasma (test code = 3094-0) 33 mg/dL 6-20 H osmolality calculated, serum (test code = osmolality calculated, serum) 276 280-300 L creatinine (test code = creatinine) 1.7 mg/dL 0.50-0.90 H glomerular filtration rate ( test code = glomerular filtration rate) 30.98 L Urea nitrogen/Creatinine [Ma ss Ratio] in Serum or Plasma (test code = 3097-3) 19.4 12-20 sodium level (test code = so dium level) 135 mmol/L 135-145 potassium level (test code = potassium level) 4.0 mmol/L 3.5-5.2 chloride level (test code = chloride level) 99 mmol/L 98-108 CO2 (test code = CO2) 23 mmol/L 21-32 anion gap (test code = anion gap) 17.0 mEq/L 12-20 calcium level (test code = c alcium level) 9.2 mg/dL 8.6-10.0 [facility] W Auto Differential panel - Nsyiu8507-98-72 10:50:00 * Test Item Value Reference Range Interpretation Comme nts white blood count (test code = white blood count) 5.6 K/uL 4.0-11.5 red blood count (test code = red blood count) 5.09 M/uL 3.80-5.20 hemoglobin (test code = hemoglobin) 14.2 g/dL 10.5-15.7 hematocrit (test code = hematocrit) 45.1 % 34.0-50.0 Erythrocyte mean corpuscular volume [Entitic volume] (test code = 91615-4) 88.6 fL 86-100 mean corpuscular hemoglobin (test code = mean corpuscular hemoglobin) 27.9 pg 26.2-33.4 mean corpuscular HGB conc (t est code = mean corpuscular HGB conc) 31.5 g/dL 30-34 red cell distribution width (test code = red cell distribution width) 15.3 % 12.0-15.5 platelet count (test code = platelet count) 349 K/uL 165-450 mean platelet volume (test c ode = mean platelet volume) 8.8 fL 9.4-12.6 L Neutrophils.segmented/100 leukocytes in Blood (test code = 49081-8) 56.5 % 44.4-80.1 Granulocytes Immature [#/vol ume] in Blood (test code = 51062-6) 0.0 K/uL 0.0-0.03 lymphocyte% (test code = lymphocyte%) 31.8 % 10.0-50.0 mono % (test code = mono %) 7.9 % 3.6-12.0 eos % (test code = eos %) 2.1 % 0.0-5.4 Basophils/100 leukocytes in Unspecified specimen (test code = 17427-9) 1.3 % 0.1-1.2 H Neutrophils.band form [#/vol ume] in Blood (test code = 85788-7) 3.17 K/uL 1.56-6.13 Lymphocytes [#/volume] in Unspecified specimen by Automated count (test code = 20754-2) 1.8 K/uL 1.18-3.74 mono # (test code = mono #) 0.44 K/uL 0.24-0.86 eos # (test code = eos #) 0.12 K/uL 0.04-0.36 basophil # (test code = baso ramon #) 0.07 K/uL 0.01-0.08 NRBC% (test code = NRBC%) 0 /100 WBC 0-0.2 NRBC# (test code = NRBC#) 0 K/uL [facility], qxril5167-73-38 10:50:00 NeutrophilsBandLymphocyteAtypical LymphMonocyteEosinophilBasophilPlatelet EstimatePlatelet MorphologyHypochromasiaMatagoMonroe County Hospital GroupBasic metabolic 2000 panel - Serum or Tkjpfy1225-57-43 10:50:00* Test Item Value Reference Range Interpretation Comme nts Glucose [Mass/volume] in Ser um or Plasma (test code = 2345-7) 74 mg/dL 74-106 Urea nitrogen [Mass/volume] in Serum or Plasma (test code = 3094-0) 33 mg/dL 6-20 H osmolality calculated, serum (test code = osmolality calculated, serum) 276 280-300 L creatinine (test code = creatinine) 1.7 mg/dL 0.50-0.90 H glomerular filtration rate ( test code = glomerular filtration rate) 30.98 L Urea nitrogen/Creatinine [Ma ss Ratio] in Serum or Plasma (test code = 3097-3) 19.4 12-20 sodium level (test code = so dium level) 135 mmol/L 135-145 potassium level (test code = potassium level) 4.0 mmol/L 3.5-5.2 chloride level (test code = chloride level) 99 mmol/L 98-108 CO2 (test code = CO2) 23 mmol/L 21-32 anion gap (test code = anion gap) 17.0 mEq/L 12-20 calcium level (test code = c alcium level) 9.2 mg/dL 8.6-10.0 [facility] W Auto Differential panel - Fevps0178-04-79 10:50:00 * Test Item Value Reference Range Interpretation Comme nts white blood count (test code = white blood count) 5.6 K/uL 4.0-11.5 red blood count (test code = red blood count) 5.09 M/uL 3.80-5.20 hemoglobin (test code = hemoglobin) 14.2 g/dL 10.5-15.7 hematocrit (test code = hematocrit) 45.1 % 34.0-50.0 MCV [Entitic volume] (test c ode = 23239-7) 88.6 fL 86-100 mean corpuscular hemoglobin (test code = mean corpuscular hemoglobin) 27.9 pg 26.2-33.4 mean corpuscular HGB conc (t est code = mean corpuscular HGB conc) 31.5 g/dL 30-34 red cell distribution width (test code = red cell distribution width) 15.3 % 12.0-15.5 platelet count (test code = platelet count) 349 K/uL 165-450 mean platelet volume (test c ode = mean platelet volume) 8.8 fL 9.4-12.6 L Segmented neutrophils/100 leukocytes in Blood (test code = 14355-5) 56.5 % 44.4-80.1 Immature granulocytes [#/vol ume] in Blood (test code = 29554-5) 0.0 K/uL 0.0-0.03 lymphocyte% (test code = lymphocyte%) 31.8 % 10.0-50.0 mono % (test code = mono %) 7.9 % 3.6-12.0 eos % (test code = eos %) 2.1 % 0.0-5.4 Basophils/100 leukocytes in Unspecified specimen (test code = 98844-5) 1.3 % 0.1-1.2 H Band form neutrophils [#/vol ume] in Blood (test code = 00913-9) 3.17 K/uL 1.56-6.13 Lymphocytes [#/volume] in Unspecified specimen by Automated count (test code = 78302-4) 1.8 K/uL 1.18-3.74 mono # (test code = mono #) 0.44 K/uL 0.24-0.86 eos # (test code = eos #) 0.12 K/uL 0.04-0.36 basophil # (test code = baso ramon #) 0.07 K/uL 0.01-0.08 NRBC% (test code = NRBC%) 0 /100 WBC 0-0.2 NRBC# (test code = NRBC#) 0 K/uL [facility], method unspecified - Vlncx5594-68-98 10:50:00NeutrophilsBandLymphocyteAtypical LymphMonocyteEosinophilBasophilPlatelet EstimatePlatelet MorphologyHypochromasia [facility]iBasic metabolic 2000 panel - Serum or Jcpizl2870-99-10 10:50:00* Test Item Value Reference Range Interpretation Comme nts Glucose [Mass/volume] in Ser um or Plasma (test code = 2345-7) 74 mg/dL 74-106 Urea nitrogen [Mass/volume] in Serum or Plasma (test code = 3094-0) 33 mg/dL 6-20 H osmolality calculated, serum (test code = osmolality calculated, serum) 276 280-300 L creatinine (test code = creatinine) 1.7 mg/dL 0.50-0.90 H glomerular filtration rate ( test code = glomerular filtration rate) 30.98 L Urea nitrogen/Creatinine [Ma ss Ratio] in Serum or Plasma (test code = 3097-3) 19.4 12-20 sodium level (test code = so dium level) 135 mmol/L 135-145 potassium level (test code = potassium level) 4.0 mmol/L 3.5-5.2 chloride level (test code = chloride level) 99 mmol/L 98-108 CO2 (test code = CO2) 23 mmol/L 21-32 anion gap (test code = anion gap) 17.0 mEq/L 12-20 calcium level (test code = c alcium level) 9.2 mg/dL 8.6-10.0 [facility][U] XRAY KNEE 1 OR 2 VWS LEFT [id number] 10:36:00 Images acquired, not reported on this accession number.[facility] Consult Notes Date/Time Note Provider Source 2022-12-21 10:40:56 3963-70-58X21:40:56A ssociated Order(s): CONSULT GASTROENTEROLOGY Department of Gastroenterology & Hepatology Consult NoteRequesting Physician: Ludin Sharif*Service: [facility] Consultation: Coffee ground emesisDate of Service: 3CHIEF COMPLAINT: VomitingHistory of Present IllnessBrayanerjovana Raygoza is a 62 year old female with [...] is in place.Previous Endoscopy: No recordsASSESSMENT and PLANKimberly Jimena Raygoza is a 62 year old female with [...] with unknown CHF disease- Notify GI fellow technical healthcare consultant with any changesPatient was seen and discussed with Dr. Morrison. Please call with any questions.Sundeep Toney MDGastroenterology and hepatology fellow, PGY-5 ssociated attestation - Maico Morrison MD - 12/21/2022 9:07 PM CDT I personally examined the patient on 12/21/[address] Toney's note as written . I actively participated in the decision-making process. Please see the fellow's note for additional details. Jose Napier Professor of Internal MedicineDivision of Gastroenterology and Hepatology 79670-6Cjerfms [id number], Gabriel L1.2.840.898891.1.13.104.2.7.2.379519GmyqM qsigukKYW9970-35-39B90:07:54Consult noteTXT1.2.840.804872.1.13.104.2.7.2.00455 9|[id number] for patient bxds66348-2Txrfvcl noteLNUTPINON HEALTH CENTER - [address] DmelQ[id number] MDFPRGVLABJHDVZU4064-54-47Z77:07:541.2.840 .654398.1.72.3.15|1.2.840.231097.1.13.104. 2.7.2.727879_[id number] [facility] History and Physical Notes Date/Time Note Provider Source 2022-12-23 07:56:47 5859-52-78W90:56:47 Endoscopy H & PAge: 62 year old Sex: female ASA Class: 2Indication: coffee ground emesis, acute blood loss anemia Blood thinners: nonePrevious Endoscopy:No recordsSubjective/Interval history:Stefanie Raygoza is a 62 year old female with [...] 100 mg Oral DAILY 100 mg at 12/22/22 0828 HYDROcodone-acetaminophen (NORCO) 10-325 mg tablet 1 tablet 1 tablet Oral Q6HPRN 1 tablet at 12/23/22 0118 levETIRAcetam (KEPPRA) tablet 500 mg 500 mg Oral BID 500 mg at 12/22/221 mirtazapine (REMERON) tablet 30 mg 30 mg [...] soft, non tender Impression and Plan: Stefanie Raygoza is a 62 year old female with [...] complete the procedure, cardiovascular complications such as AK, stroke, arrhythmia, and . Informed consent obtained.Charmaine Mckenzie MDGastroenterology Fellow, DPR3Hlyvxwpuiaoatx signed by Maico Morrison MD at 12/23/2022 [...] fellow's note for additional details. Maico Morrison [facility] Professor of Internal MedicineDivision of Gastroenterology and Hepatology 23398-8Mjvvzpw and physical [id number], Gabriel L1.2.840.966325.1.13.104.2.7.2.797953Wnb sXvdgjomOMH7592-25-49Q14:04:58History and physical noteTXT1.2.840.701100.1.13.104.2.7.2.727 879|[id number] for patient cauh83667-0Hwzylnp and physical idxkTXYD-TRCEGVFQDLLVBNLEEP-HYERCXTXVJRO [address] Ys[id number] FSJFNJVHAFHWGAXILB8735-25-51M84:04:581.2 .840.250797.1.72.3.15|1.2.840.838007.1.1 3.104.2.7.2.727879_[id number] -GASTROENTERO [facility] 2022-12-20 23:44:37 2526-47-60U83:44:37 Medicine Intensive Care History and Physical Date of Service: 12/20/2022 23:44ICU Admit date: 12/21/22 Intubation Date: N/ACHIEF COMPLAINT: Coffee ground emesisHISTORY OF PRESENT ILLNESSStefanie Raygoza is a 62 year old female with [...] place, and time. Labs (pertinent only)/Imaging: ReviewedAssessment/Plan:Stefanie Raygoza is a 62 year old female admitted with:NeuroSyncopeStates LOC at home after emesis. Could be multifactorial. Orthostatic positive. Given 1L bolus in the ED.- EKG- 500 mL NS bolus- Possible TTERespDyspneaSelf reported at home. Sating well in the hospital. Monitor closely.- V7MSRqyrahvfrubrsoXf CHFLower extremity edemaSelf reported CHF with her [...] see the resident's note for additional details. 59839-1Jdplpip and physical [id number], Victor J1.2.840.998843.1.13.104.2.7.2.290479AuiDiomedes Ortiz MD2023-07-29T12:30:16History and physical noteTXT1.2.840.296945.1.13.104.2.7.2.727 879|[id number] for patient jrgu78178-8Mttbpjw and physical noteLNUTMB[address] Thompson [id number] WOQHLXIDLTOVHJGVJG0062-73-14Q75:30:161.2 .840.103704.1.72.3.15|1.2.840.129054.1.1 3.104.2.7.2.727879_[id number] [facility] Notes Date/Time Note Provider Source 2023-01-31 09:37:55 9865-09-69N46:37:55 Unable to reach patient by phone on several occasions, over several weeks. I have sent an email to schedulers to try to schedule her for GI clinic follow up to discuss EGD results and surveillance 18185-2Jcqnjrngs encounter MlufLV8297-81-96B43:38:50Telephone encounter NoteTXT1.2.840.200793.1.13.104.2.7. 2.933908|[id number] for patient wgfu23742-6GleoNZRK-KEVVEWDIUGREEAL LAKE CUMBERLAND REGIONAL HOSPITALGASTROENTER[address][id number] 1HFZVHOZCODZCCHEDJCNHRW4128-74-17H4 9:38:501.2.840.518887.1.72.3.15|1.2 .840.551812.1.13.104.2.7.2.727879_1 [id number] -GASTROENTEROLOGY [facility] 2022-12-24 14:27:39 1906-39-11Q04:27:39 2nd call no contact. 32218-0Cawanpund encounter AalpHX3657-78-18F62:27:52Telephone encounter NoteTXT1.2.840.743238.1.13.104.2.7. 2.238227|[id number] for patient iuen18833-8EpflEJ180119102Zziuzlgpy e Rivas [address] [id number] 3THBXFZDOZUJAATFXLSHOSJ3936-97-19Y8 4:27:521.2.840.451076.1.72.3.15|1.2 .840.659303.1.13.104.2.7.2.727879_1 [id number] Cathy Pacheco LVN [facility] 2022-12-24 13:34:42 8793-21-88O44:34:42 TRANSITIONAL CARE MANAGEMENT ASSESSMENT12/24/2022 Stefanie Lovingk599404AKimbmatt Raygoza is a 62 year old /White female was admitted on 12/20/[address] She was discharged on 12/23/22 with discharge disposition of HR- Routine Discharge.Admitting Physician: Lenore Gonsalez Diagnosis: Abdominal pain, unspecified abdominal location [R10.9]Left message to return call. No linked episodesTCM Wzg-kxxd-py-face outreach documentation: Future Appointments: 55188-3Oeckezkcf encounter NmuaWZ2362-30-65S15:35:18Telephone encounter NoteTXT1.2.840.717670.1.13.104.2.7. 2.865572|[id number] for patient kkkp12842-0YkfxTYZIKRNSCW[address][id number] 6YPLZHSYPZRRERYSBVVQJHL1745-93-85U1 3:35:181.2.840.211030.1.72.3.15|1.2 .840.331478.1.13.104.2.7.2.727879_1 [id number] [facility] 2022-12-23 15:58:25 6454-92-66G54:58:25 Problem: Discharge PlanningGoal: Adequate for dischargeOutcome: Adequate for dischargeGoal: Effective communicationOutcome: Adequate for discharge Problem: PainGoal: Control of pain at or below patient's documented comfort goalOutcome: Adequate for dischargeGoal: Reduction in pain sensationOutcome: Adequate for discharge Problem: Falls, Risk ofGoal: Absence of fallsOutcome: Adequate for discharge 25461-7Khxl of care waroNW3281-60-98R92:58:30Plan of care noteTXT1.2.840.851753.1.13.104.2.7. 2.229311|[id number] for patient yctb24991-2CnzgPJ684660290Fggkmm A Nigh RN[address] Co[id number] 5HGKPTXNTLVULXQKHSTCCCX3262-93-09M2 5:58:301.2.840.977837.1.72.3.15|1.2 .840.382976.1.13.104.2.7.2.727879_1 [id number] Chinyere Jaeger RN [facility] 2022-12-23 09:04:04 7352-12-93C55:04:04 Patient: Stefanie Raygoza Procedure Summary Date: 12/23/22 Room / Location: OSOULG30 / ENDOSCOPY ([facility]) OR LOCATION Anesthesia Start: 817 Anesthesia Stop: 852 Procedure: ESOPHAGOGASTRODUODENOSCOPY (Mouth) Diagnosis: Coffee ground emesis (Coffee ground emesis [K92.0]) Surgeons: Maico Morrison MD Responsible Provider: Jorge A Mckeon MD Anesthesia Type: MAC ASA Status: 2 Anesthesia Type: MACLast vitalsBP 113/83 (12/23/22854) Temp 36.3 ?C (97.3 ?F) (12/23/22854) Pulse 58 (12/23/22854) Resp 12 (12/23/22854) SpO2 97 % (12/23/22854) There were no known notable events for this encounter.Anesthesia Post EvaluationPatient location during evaluation: bedsidePatient participation: complete - patient participatedLevel of consciousness: awake and alertPain score: 0Pain management: adequateAirway patency: patentCardiovascular status: acceptableRespiratory status: acceptableHydration status: acceptable 83420-2Didkxmvqeraxmu Postoperative evaluation and management kyphGA8917-23-33F36:04:19Anesthesio logy Postoperative evaluation and management noteTXT1.2.840.366048.1.13.104.2.7. 2.025783|[id number] for patient wfap10356-9Rmzetcsv operation noteLNAN-ANESTHESIOLOGY ANESTHESIOLOGISTAN-ANESTHESIOLOGY ANESTHESIOLOGIST85 [address] StreetUk[id number] 3YGFKCMAIIOSUUGUPRAZJKU0260-08-55R9 9:04:191.2.840.694558.1.72.3.15|1.2 .840.630379.1.13.104.2.7.2.727879_1 [id number] AN-ANESTHESIOLOGY ANESTHESIOLOGIST [facility] 2022-12-23 07:49:53 7427-85-33K22:49:53 Name/ MRN / Age / Gender:Stefanie Raygoza, [id number] year old female BMI:Estimated body mass index is 17.58 kg/m? as calculated from the following: Height as of this encounter: 1.676 m (5' 6"). Weight as of this encounter: 49.4 kg (108 lb 14.5 oz). Allergies:Latex and Morphine Last Vitals:BP Readings from Last 1 Encounters: 12/23/22 107/62 Pulse Readings from Last 1 Encounters: 12/23/22 65 SpO2 Readings from Last 1 Encounters: 12/23/22 94% Date of Surgery: 12/23/2022Surgeon: Maico Morrison, MDProcedure: ESOPHAGOGASTRODUODENOSCOPY (Mouth)OR Location: ENDOSCOPY ([facility]) OR LOCATIONAnesthesia Preop Eval (physical exam) Anesthesia Preop: Chart Review and Gfyq-qd-EadmTVX Status VerifiedClear Liquids: > 2 HoursSolid Food/Non-Clear Liquids: > 8 HoursAnesthesia HistoryAnesthesia History Negative per Chart ReviewPrevious Anesthetics/AirwaysCardiovascularCa rdiovascular ROS Negative per Chart Review PulmonaryPulmonary ROS Negative per Chart Review Neuro/MusculoskeletalNeuro/Musculos keletal ROS Negative per Chart Review GI/Hepatic(+) GERD(+) PUD HematologyHematology ROS Negative per Chart Review RenalRenal ROS Negative per Chart Review SkinSkin ROS Negative per Chart Review Endo/Other Endocrine/other ROS Negative per Chart Review Other OB/GYNOB/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 Hold on DOS. Phentermine: Alert [facility] anesthesiologistSGLT2 Inhibitors: "gliflozins" to be held for 3 days prior to elective surgeries MAC Cases: Continue taking ANN MARIE inhibitors and ARBs ASA ClassificationASA: 2 Current Medications:Outpatient Medications Marked as Taking for the 12/20/22 encounter (Hospital Encounter) Medication Sig Dispense Refill baclofen 10 mg tablet Take 1 tablet by mouth in the morning. carvediloL (COREG) 3.125 mg tablet Take 1 tablet by mouth in the morning and 1 tablet in the evening. Take with meals. dicyclomine 10 mg capsule Take 1 capsule by mouth in the morning. furosemide 20 mg tablet Take 1 tablet by mouth as needed (leg swelling). gabapentin 100 mg capsule Take 1 capsule by mouth in the morning. HYDROcodone-acetaminophen (NORCO) 10-325 mg tablet Take 1 tablet by mouth every 6 (six) hours as needed for Pain (scale 7-10). levETIRAcetam (KEPPRA) 500 mg tablet Take 1 tablet by mouth in the morning and 1 tablet in the evening. mirtazapine 30 mg tablet Take 1 tablet by mouth at bedtime. pantoprazole 20 mg EC tablet Take 2 tablets by mouth in the morning. pregabalin 100 mg capsule Take 1 capsule by mouth in the morning and 1 capsule at noon and 1 capsule in the evening. QUEtiapine 100 mg tablet Take 1 tablet by mouth in the morning and 1 tablet in the evening. tiZANidine 4 mg capsule Take 1 capsule by mouth in the morning and 1 capsule at noon and 1 capsule in the evening. venlafaxine 100 mg tablet Take 3 tablets by mouth in the morning and 3 tablets in the evening. Previous Surgeries: No past surgical history on file.Anesthesia Physical ExamGeneralno apparent distress and alert and oriented x 3 Neuro/Psychneurological Dentalno notable dental hx Abdominal GI exam normal Airway Mallampati score:IITM distance:> 5 cmNeck ROM: fullMouth opening:normal Extremity Normal extremity Pulmonarypulmonary exam normal Other Cardiovascularcardiovascular exam normal Anesthesia Plan ASA Status: 2 Plan discussed during pre-op evaluation: MACAnesthetic plan on DOS: MACAnesthesia plan discussed with: patient or representative 22724-2Pymjzlxbmkiqgz Preoperative evaluation and management hcykTV6098-69-39B66:57:49Anesthesio logy Preoperative evaluation and management noteTXT1.2.840.163179.1.13.104.2.7. 2.883213|[id number] for patient omqm49252-2Rlihhius operation noteLNUT[address] Ts[id number] 4DIANEPWLXYJEBMWNFSHJLI1156-51-11E4 7:57:491.2.840.819433.1.72.3.15|1.2 .840.114308.1.13.104.2.7.2.727879_1 [id number] [facility] 2022-12-23 06:19:24 1430-33-64W09:19:24 Report from Olinda AAOx4, NPO, ambulatory, no oxygen no isolation. 75566-2Oocaj XrgoIM7591-78-09E74:23:32Nurse NoteTXT1.2.840.268817.1.13.104.2.7. 2.130805|[id number] for patient [id number] Hernandez RN[id number] 2STQHKFRCQOAWMDRKINNDAJ5916-70-55B7 6:23:321.2.840.166320.1.72.3.15|1.2 .840.893415.1.13.104.2.7.2.727879_1 [id number] Tejal Noel RN [facility] 2022-12-23 00:03:05 3956-62-56M28:03:05 Problem: Discharge PlanningGoal: Adequate for dischargeOutcome: Progressing as expectedGoal: Effective communicationOutcome: Progressing as expected Problem: PainGoal: Control of pain at or below patient's documented comfort goalOutcome: Progressing as expectedGoal: Reduction in pain sensationOutcome: Progressing as expected Problem: Falls, Risk ofGoal: Absence of fallsOutcome: Progressing as expected 33334-1Kcig of care lwjiLA3729-83-00E50:03:09Plan of care noteTXT1.2.840.894500.1.13.104.2.7. 2.196446|[id number] for patient [id number] N Tolentino RN[id number] 1BQNFGWDCECXUMTMOKLGUKG2007-81-96A8 0:03:091.2.840.956780.1.72.3.15|1.2 .840.028302.1.13.104.2.7.2.727879_1 [id number] Michelle Castellon RN [facility] 2022-12-22 19:07:24 8786-49-09O31:07:24 Problem: Discharge PlanningGoal: Adequate for dischargeOutcome: Progressing as expectedGoal: Effective communicationOutcome: Progressing as expected Problem: PainGoal: Control of pain at or below patient's documented comfort goalOutcome: Progressing as expectedGoal: Reduction in pain sensationOutcome: Progressing as expected Problem: Falls, Risk ofGoal: Absence of fallsOutcome: Progressing as expected 09767-1Ggaq of care oufoQV2991-15-61J91:07:29Plan of care noteTXT1.2.840.190179.1.13.104.2.7. [id number] for patient [id number][id number] [id number] 9:07:291.2.840.238001.1.72.3.15|1.2 .840.292774.1.13.104.2.7.2.727879_1 [id number] [facility] 2022-12-22 02:07:41 1798-90-51D47:07:41 Problem: Discharge PlanningGoal: Adequate for dischargeOutcome: Progressing as expectedGoal: Effective communicationOutcome: Progressing as expected Problem: PainGoal: Control of pain at or below patient's documented comfort goalOutcome: Progressing as expectedGoal: Reduction in pain sensationOutcome: Progressing as expected Problem: Falls, Risk ofGoal: Absence of fallsOutcome: Progressing as expected 96173-1Gjwf of care qdlzJF5732-39-29M02:07:45Plan of care noteTXT1.2.840.268576.1.13.104.2.7. 2.946644|[id number] for patient qrcd78476-5TnbhLPPFVPUEDL[address] StreetEp[id number] 1RVLRTRRTOOGZXHQABDMSCD6778-84-16O9 2:07:451.2.840.660546.1.72.3.15|1.2 .840.396526.1.13.104.2.7.2.727879_1 [id number] [facility] 2022-12-21 19:14:31 1132-57-81A26:14:31 Problem: Discharge PlanningGoal: Adequate for dischargeOutcome: Progressing as expectedGoal: Effective communicationOutcome: Progressing as expected Problem: PainGoal: Control of pain at or below patient's documented comfort goalOutcome: Progressing as expectedGoal: Reduction in pain sensationOutcome: Progressing as expected Problem: Falls, Risk ofGoal: Absence of fallsOutcome: Progressing as expected 62769-1Qqjo of care pudaGJ7676-77-39K14:14:45Plan of care noteTXT1.2.840.228066.1.13.104.2.7. 2.688208|[id number] for patient [id number] F Tom RN[id number] 0ZCDWCACIZHXHHSENKUDBSH6023-03-91M6 9:14:451.2.840.413525.1.72.3.15|1.2 .840.767487.1.13.104.2.7.2.727879_1 [id number] Clay Blas RN [facility] 2022-12-20 23:54:23 8707-47-28I93:54:23 Pt stable for transfer to ICU 821. Pt to floor with ED RN and ERT. Pt on stretcher, Zoll defibrillator and ambu bag present on bed, pt on tele monitoring [place]. 22229-1Ouojonzjw department AcolAJ5991-25-70S38:54:39[facility] NoteTXT1.2.840.037352.1.13.104.2.7. 2.411039|[id number] for patient jrik12157-1BojsDB338542369Ukifton B Mulford RN[id number] 8COPJDCUZYNOHEVRCWAGWTY1292-77-73M0 3:54:391.2.840.664539.1.72.3.15|1.2 .840.924497.1.13.104.2.7.2.727879_1 [id number] Gabrielle Ackerman RN [facility] 2022-12-20 23:47:37 8244-73-52C42:47:37 Report to Dante MAGDALENO. [address] by Gabrielle Ackerman RN at 12/20/2022 11:47 PM IYY84326-4Vakwfvuan department MbbgUS1942-45-66R63:47:54[facility] department NoteTXT1.2.840.566538.1.13.104.2.7. 2.857241|[id number] for patient maut62325-3YvoxNUPVQUJUZI[id number] 5EQYCDRZGKMMEOXWNLGNJBI4555-16-70U8 3:47:541.2.840.709904.1.72.3.15|1.2 .840.284276.1.13.104.2.7.2.727879_1 [id number] [facility] 2022-12-20 21:49:44 3564-51-09M21:49:44 Patient to xray 01795-0Fjkjirbdk department GndzBS0775-01-71R84:49:50[facility] NoteTXT1.2.840.582058.1.13.104.2.7. 2.436339|[id number] for patient rdrw23949-5QrjrKMYDJUZQZK[id number] 8MWXNLDSXYUTWHBHBEBRPXC5381-45-93B9 1:49:501.2.840.501450.1.72.3.15|1.2 .840.647761.1.13.104.2.7.2.727879_1 [id number] [facility] 2022-12-20 21:08:41 4153-14-93Y74:08:41 Dr. Gage at bedside 73621-7Nactwqubw department TkpeXY1496-21-38I19:08:51[facility] NoteTXT1.2.840.171591.1.13.104.2.7. 2.995495|[id number] for patient swqj26676-6VliwVXTLHXDMWD[id number] 5GNCHLXEQSYUDUMNQIEFQET1342-45-22F1 1:08:511.2.840.179227.1.72.3.15|1.2 .840.776882.1.13.104.2.7.2.727879_1 [id number] [facility] 2022-12-20 21:01:05 0549-10-52Y82:01:05 notified pt requesting pain medication.Provided warm blanket 05956-3Qtmlttrje department CdbrIC0007-56-08R60:01:44[facility] NoteTXT1.2.840.882011.1.13.104.2.7. 2.898337|[id number] for patient ygag90805-0IdipCNMXMQHUML[id number] 0FEZVSVWNIAIVVDORFQXDOL5468-84-68L9 1:01:441.2.840.246883.1.72.3.15|1.2 .840.834136.1.13.104.2.7.2.727879_1 [id number] [facility] 2022-12-20 20:48:56 0631-76-60C88:48:56 Patient received to room in from triage 22784-0[place] department EtmnKK8535-75-70P36:49:09[facility] department NoteTXT1.2.840.504702.1.13.104.2.7. 2.512844|[id number] for patient sdjp31219-8DcyrQCKSNVVTZY[id number] 0QVOFYVUBRDBNAJIOALSYGQ0475-41-88N1 0:49:091.2.840.645839.1.72.3.15|1.2 .840.706488.1.13.104.2.7.2.727879_1 [id number] [facility] 2022-12-20 18:37:36 7581-28-81L45:37:36 Stefanie Raygoza is a 62 year old female received from triage with CC of abd pain. Pt stated, "Fell last night, unwitnessed LOC. 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 My O2 stat was 82% and Hgb 7.4 per MD. At 2 am fever at 102.1F and took OTC meds than vomited coffee grounds. Abd pain radiating to my back. 7/10 pain, sharp."Pt is A/Ox4/min assist, RA, RR e/u, GCS 15, sending to room for evaluation. 63091-0Hewvqpqlu department Triage wwuxSU9091-50-48A66:42:21[facility] department Triage noteTXT1.2.840.043617.1.13.104.2.7. 2.916949|[id number] for patient jeeb99160-9Ulxcfnjoy department EddaUB902096599Sqgzrv [place] [id number] 7QZDYQEYATXRXJVWQLSVDRT9163-69-50J6 8:42:211.2.840.622482.1.72.3.15|1.2 .840.494767.1.13.104.2.7.2.727879_1 [id number] Amado Schafer RN [facility] 2022-12-20 06:30:00 8301-00-16J25:30:00 Pt stated she did not want to be transported to [place] because she would not have a ride home. Pt highly educated on need to see GI doctor and stated she would drive herself. Dr. Antony spoke with pt and educated on risk of leaving AMA. Pt v/u and signed AMA form. 16529-7Guhppnlbe department YmquEK2026-76-09Z97:50:00[facility] department NoteTXT1.2.840.021249.1.13.104.2.7. 2.589048|[id number] for patient [id number] D Roman RNUT[address] BbrbJf[id number] 1MSZERQCRIWYVTRBMZLXNZZ6099-24-47O1 6:50:001.2.840.539934.1.72.3.15|1.2 .840.949727.1.13.104.2.7.2.727879_1 [id number] Rosaura Nevarez RN [facility] 2022-12-20 03:50:04 9832-43-94Q17:50:04 Pt arrives ambulatory to ED c/o abdominal pain, N/V, reports that emesis appears to be coffee ground-like. Pt states that in August she was dx w/ colitis and had similar pain @ that time. 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 78456-4Meivmkqzs department Triage salvGK8830-09-87V68:55:07[facility] Triage noteTXT1.2.840.228809.1.13.104.2.7. 2.301906|[id number] for patient [id number] 5ADLOTFHALEWEUNXBTMKZIK5682-64-41U4 3:55:071.2.840.321691.1.72.3.15|1.2 .840.878933.1.13.104.2.7.2.727879_1 [id number] [facility]
--- NOTE | 2023-05-05 15:55 | RAD REPORT ---
EXAM DESCRIPTION: Rufino Single View05/05/2023 3:36 pm CLINICAL HISTORY: Chest pain COMPARISON: April 06, 2023 FINDINGS: Mild to moderate bibasilar interstitial lung opacities Heart is normal size IMPRESSION: Mild to moderate bibasilar interstitial lung opacities may represent a pneumonitis super imposed over chronic changes
[2023-05-05 17:22] LABS: Absolute Lymphocytes (CBC) 1.7 K/uL (0.7-4.9); Hematocrit 33.9 % (36.0-45.0); Lymphocytes % 14.3 % (15.3-44.8); MCV 94.1 fL (80-100); MPV 7.6 fL (7.6-11.3); Platelets 391 thou/uL (152-406)
[2023-05-05 17:32] LABS: ALT/SGPT 14 U/L (13-56); AST/SGOT 12 U/L (15-37); Alkaline Phosphatase 144 U/L (45-117); BUN Blood Urea Nitrogen 33 mg/dL (7-18); Bicarbonate 23 mEq/L (21-32); Bilirubin Total 0.2 mg/dL (0.2-1.0); Glomerular Filtration Rate 44 ml/min (=/>90); Glucose Level 101 mg/dL (74-106); Magnesium 2.2 mg/dL (1.6-2.4); Potassium 4.7 mEq/L (3.5-5.1); Protein, Total 8.1 g/dL (6.4-8.2); Sodium Level 138 mEq/L (136-145); Troponin High Sensitivity 4.1 pg/mL (<58.9)
[2023-05-05 17:42] LABS: Bilirubin Direct < 0.1 mg/dL (0-0.2)
[2023-05-05 17:43] LABS: Bilirubin Indirect, Calculated ND mg/dL (0.2-0.8)
[2023-05-05] MEDS ORDERED: LEVALBUTEROL 1.25 MG/3 ML NEB ONE (20:05)
[2023-05-05] MEDS ORDERED: METHYLPREDNISOLONE 125 MG INJ ONE (20:05)
--- NOTE | 2023-05-05 20:10 | ER ---
Nurse's Notes [facility] Name: Stefanie Rudd Age: 62 yrs Sex: Female : 1960 Arrival Date: 05/05/2023 Time: 14:50 Bed 11 Private MD: Diagnosis: Chest pain, unspecified;Nausea with vomiting, unspecified;Pneumonitis Presentation: 05/05 15:09 Chief complaint: EMS states: toned out for chest pain. Reports patient has had a me1 productive cough/congestion and sore throat x 2 days. Today at work reports sudden onset chest pain to left side of chest that radiates to left jaw with sob and nausea. Room air sat 91% that improved to 96% on 2 LPM via NC. Coronavirus screen: Vaccine status: Patient reports receiving the 2nd dose of the covid vaccine. Ebola Screen: No symptoms or risks identified at this time. Initial Sepsis Screen: Does the patient meet any 2 criteria? No. Patient's initial sepsis screen is negative. Does the patient have a suspected source of infection? Yes: Productive cough/pneumonia. Risk Assessment: Do you want to hurt yourself or someone else? Patient reports no desire to harm self or others. Onset of symptoms was May 05, 2023. 15:09 Method Of Arrival: EMS me1 15:09 Acuity: PIPER 3 me1 Historical: - Allergies: 15:13 Avelox; me1 15:13 Morphine; me1 15:13 Dilantin; me1 15:13 Phenobarbital; me1 15:13 Latex; me1 - PMHx: 15:13 CHF; COPD (Total abdominal hys); post -chemo; PVD (Total abdominal hys); Seizure; me1 - PSHx: 15:13 Appendectomy; Cholecystectomy; Spinal surgery; gastric sleeve; Total abdominal me1 hysterectomy; - Immunization history:: Adult Immunizations up to date. - Social history:: Smoking status: Patient reports the use of cigarette tobacco products, smokes one pack cigarettes per day. Screenin:15 [facility] ED Fall Risk Assessment (Adult) History of falling in the last 3 months, me1 including since admission No falls in past 3 months (0 pts) Confusion or Disorientation No (0 pts) Intoxicated or Sedated No (0 pts) Impaired Gait No (0 pts) Mobility Assist Device Used No (0 pt) Altered Elimination No (0 pt) Score/Fall Risk Level 0 - 2 = Low Risk Maintained a safe environment, Provided non-skid footwear, Hourly rounding (assess needs \T\ fall precautionary measures) done. Abuse screen: Denies threats or abuse. Nutritional screening: No deficits noted. Tuberculosis screening: No symptoms or risk factors identified. Assessment: 15:15 General: Appears uncomfortable, well groomed, well developed, well nourished, Behavior me1 is calm, cooperative, appropriate for age, Reports that she has had a sore throat and productive cough/congestion x 2 days. Today patient reports sudden onset of chest pain on left chest that radiates to left jaw with sob and nausea. Pain: Complains of pain in chest Pain radiates to left jaw Pain currently is 4 out of 10 on a pain scale. Quality of pain is described as heavy, shooting, Pain began suddenly, Is continuous. Neuro: Level of Consciousness is awake, alert, obeys commands, Oriented to person, place, time, situation, Appropriate for age. Cardiovascular: Capillary refill < 3 seconds Patient's skin is warm and dry. Cardiovascular: Reports chest pain, nausea, shortness of breath. Respiratory: Airway is patent Respiratory effort is even, unlabored, Respiratory pattern is regular, symmetrical. Vital Signs: 15:09 BP 107 / 69; Pulse 89; Resp 17; Temp 98.4(O); Pulse Ox 94% on R/A; Weight 54.43 kg; me1 Height 5 ft. 6 in. ; 16:00 BP 92 / 62; Pulse 74; Resp 10; Pulse Ox 93% on R/A; me1 16:30 BP 101 / 67; Pulse 74; Resp 10; Pulse Ox 94% on R/A; me1 17:00 BP 98 / 78; Pulse 79; Resp 14; Pulse Ox 96% on R/A; me1 18:00 BP 126 / 79; Pulse 80; Resp 18; Pulse Ox 96% on R/A; me1 19:00 BP 139 / 84; Pulse 71; Resp 15; Pulse Ox 100% on R/A; me1 20:00 BP 129 / 84; Pulse 74; Resp 13; Pulse Ox 92% on R/A; me1 20:00 BP 132 / 74; Pulse 75; Resp 16; Pulse Ox 97% on R/A; me1 15:09 Body Mass Index 19.37 (54.43 kg, 167.64 cm) me1 ED Course: 15:00 Patient arrived in ED. ms3 15:00 Rashawn Helm DO is Attending Physician. ms3 15:09 Judy Vital, RN is Primary Nurse. me1 15:13 Triage completed. me1 15:15 Patient has correct armband on for positive identification. Placed in gown. Bed in low me1 position. Call light in reach. Side rails up X2. Provided Education on: POC. Verbalized understanding. . Client placed on continuous cardiac and pulse oximetry monitoring. NIBP monitoring applied. court recording monitor on. 15:15 No provider procedures requiring assistance completed. Patient maintains SpO2 me1 saturation greater than 95% on room air. 15:38 XRAY Chest (1 view) In Process Unspecified. EDMS 16:03 Missed attempt(s): 22 gauge in right hand. me1 17:02 Basic Metabolic Panel Sent. me1 17:02 CBC with Diff Sent. me1 17:02 LFT's Sent. me1 17:02 Magnesium Sent. me1 17:03 Troponin HS Sent. me1 19:07 Attending Physician role handed off by Rashawn Helm DO rn 19:07 Roque Ogden MD is Attending Physician. rn 19:41 Inserted saline lock: 20 gauge in right upper arm, using aseptic technique. Blood pf1 collected. US guided IV. 19:42 Troponin High Sensitivity: draw at 1900 Sent. pf1 19:48 Troponin High Sensitivity: draw at 1900 Sent. jb4 20:09 Maco Jay MD is Referral Physician. cp 20:22 Attending Physician role handed off by Roque Ogden MD sp4 20:22 Brock Albright MD is Attending Physician. sp4 20:47 Arm band placed on Patient placed in an exam room. me1 20:47 IV discontinued, intact, bleeding controlled, No redness/swelling at site. Pressure me1 dressing applied. Administered Medications: 19:52 Drug: Levalbuterol Inhalation 1.25 mg Inhalation once Route: Inhalation; jb4 20:36 Follow up: Response: No adverse reaction me1 19:52 Drug: MethylPrednisoLONE IVP 125 mg IVP once Route: IVP; Site: right upper arm; jb4 20:36 Follow up: Response: No adverse reaction me1 Medication: 15:15 VIS not applicable for this client. me1 Outcome: 20:09 Discharge ordered by . cp 20:52 Discharged to home ambulatory, me1 20:52 Condition: stable 20:52 Discharge instructions given to patient, Instructed on discharge instructions, follow up and referral plans. medication usage, Demonstrated understanding of instructions, follow-up care, medications, Prescriptions given X 3, 20:52 Patient left the ED. me1 Signatures: Dispatcher [employer] EDMS Roque Ogden MD MD rn Luis Madrid PA PA cp Bryson, James, RN RN jb4 Rashawn Helm DO DO ms3 Olivia Jones RN RN pf1 Brock Albright MD MD sp4 Judy Vital RN RN me1
--- NOTE | 2023-05-05 20:10 | EDPHYS ---
Physician Documentation [facility] Name: Stefanie Rudd Age: 62 yrs Sex: Female : 1960 Arrival Date: 05/05/2023 Time: 14:50 Bed 11 Private MD: ED Physician Brock Albright HPI: 05/05 15:13 This 62 yrs old Female presents to ER via EMS with complaints of Chest Pain > 30 y/o. ms3 15:13 62-year-old female with past medical history of congestive heart failure, seizures, ms3 bone cancer presents to the emergency department for left chest pain that radiated to her jaw. Patient states symptoms began 20 minutes prior to arrival. 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 Patient states she is having moderate discomfort. Patient denies any alleviating or inciting factors.. Historical: - Allergies: 15:13 Avelox; me1 15:13 Morphine; me1 15:13 Dilantin; me1 15:13 Phenobarbital; me1 15:13 Latex; me1 - PMHx: 15:13 CHF; COPD (Total abdominal hys); post -chemo; PVD (Total abdominal hys); Seizure; me1 - PSHx: 15:13 Appendectomy; Cholecystectomy; Spinal surgery; gastric sleeve; Total abdominal me1 hysterectomy; - Immunization history:: Adult Immunizations up to date. - Social history:: Smoking status: Patient reports the use of cigarette tobacco products, smokes one pack cigarettes per day. ROS: 15:13 Constitutional: Negative for fever, and chills. Neck: Negative for injury, pain, and ms3 swelling, Abdomen/GI: Negative for abdominal pain, nausea, vomiting, diarrhea, and constipation, 15:13 Skin: Negative for injury, rash, and discoloration, 15:13 Cardiovascular: Positive for chest pain, 15:13 Abdomen/GI: Positive for nausea, 15:13 All other systems are negative, Exam: 15:13 Constitutional: This is a well developed, well nourished patient who is awake, alert, ms3 and in no acute distress. Head/Face: Normocephalic, atraumatic. Chest/axilla: Normal chest wall appearance and motion. Nontender with no deformity. Cardiovascular: Regular rate and rhythm with a normal S1 and S2. No gallops, murmurs, or rubs. Normal PMI, no JVD. No pulse deficits. Respiratory: Lungs have equal breath sounds bilaterally, clear to auscultation and percussion. No rales, rhonchi or wheezes noted. No increased work of breathing, no retractions or nasal flaring. Abdomen/GI: Soft, non-tender, with normal bowel sounds. No distension or tympany. No guarding or rebound. No evidence of tenderness throughout. Skin: Warm, dry with normal turgor. Normal color with no rashes, no lesions, and no evidence of cellulitis. MS/ Extremity: Pulses equal, no cyanosis. Neurovascular intact. Full, normal range of motion. 17:03 ECG was reviewed by the Attending Physician. ms3 Vital Signs: 15:09 BP 107 / 69; Pulse 89; Resp 17; Temp 98.4(O); Pulse Ox 94% on R/A; Weight 54.43 kg; me1 Height 5 ft. 6 in. ; 16:00 BP 92 / 62; Pulse 74; Resp 10; Pulse Ox 93% on R/A; me1 16:30 BP 101 / 67; Pulse 74; Resp 10; Pulse Ox 94% on R/A; me1 17:00 BP 98 / 78; Pulse 79; Resp 14; Pulse Ox 96% on R/A; me1 18:00 BP 126 / 79; Pulse 80; Resp 18; Pulse Ox 96% on R/A; me1 19:00 BP 139 / 84; Pulse 71; Resp 15; Pulse Ox 100% on R/A; me1 20:00 BP 129 / 84; Pulse 74; Resp 13; Pulse Ox 92% on R/A; me1 20:00 BP 132 / 74; Pulse 75; Resp 16; Pulse Ox 97% on R/A; me1 15:09 Body Mass Index 19.37 (54.43 kg, 167.64 cm) me1 MDM: 15:00 Patient medically screened. ms3 15:13 Differential diagnosis: abnormal EKG, acute myocardial infarction, coronary artery ms3 disease. The patient was not given aspirin in the Emergency Department. Patient reports taking aspirin within the past 24 hours. 19:07 ED course: Patient signed out to me by Dr. Helm, plan was to repeat troponin and if rn negative discharge home. Dr. Helm believes more infectious etiology and was going to prescribe Zithromax and as needed nausea medication.. 05/05 15:03 Order name: Basic Metabolic Panel; Complete Time: 18:12 ms3 05/05 15:03 Order name: CBC with Diff; Complete Time: 18:12 ms3 05/05 15:03 Order name: LFT's; Complete Time: 18:12 ms3 05/05 15:03 Order name: Magnesium; Complete Time: 18:12 ms3 05/05 15:03 Order name: Troponin HS; Complete Time: 18:12 ms3 05/05 18:17 Order name: Troponin High Sensitivity: draw at 1900; Complete Time: 20:09 rn 05/05 20:09 Interpretation: Reviewed. cp 05/05 15:03 Order name: XRAY Chest (1 view); Complete Time: 17:04 ms3 05/05 15:03 Order name: EKG; Complete Time: 15:03 ms3 05/05 15:03 Order name: Cardiac monitoring; Complete Time: 17:02 ms3 05/05 15:03 Order name: EKG - Nurse/Tech; Complete Time: 17:02 ms3 05/05 15:03 Order name: IV Saline Lock; Complete Time: 19:48 ms3 05/05 15:03 Order name: Labs collected and sent; Complete Time: 17:02 ms3 05/05 15:03 Order name: O2 Per Protocol; Complete Time: 16:04 ms3 05/05 15:03 Order name: O2 Sat Monitoring; Complete Time: 16:04 ms3 EC:03 Rate is 79 beats/min. Rhythm is regular. QRS Ethel is Normal. MT interval is normal. ms3 Clinical impression: Normal ECG. Interpreted by me. Reviewed by me. Administered Medications: 19:52 Drug: Levalbuterol Inhalation 1.25 mg Inhalation once Route: Inhalation; jb4 20:36 Follow up: Response: No adverse reaction me1 19:52 Drug: MethylPrednisoLONE IVP 125 mg IVP once Route: IVP; Site: right upper arm; jb4 20:36 Follow up: Response: No adverse reaction me1 Disposition Summary: 05/05/23 20:09 Discharge Ordered Notes: Location: Home cp Problem: new cp Symptoms: have improved cp Condition: Stable cp Diagnosis - Chest pain, unspecified cp - Nausea with vomiting, unspecified cp - Pneumonitis cp Followup: ms3 - With: Maco Jay MD - When: 1 - 2 days - Reason: Recheck today's complaints Discharge Instructions: - Discharge Summary Sheet ms3 - Nonspecific Chest Pain, Adult ms3 - Nausea and Vomiting, Adult ms3 - Pneumonitis ms3 Forms: - Medication Reconciliation Form cp - Thank You Letter cp - Antibiotic Education cp - Prescription Opioid Use cp - Patient Portal Instructions cp - Leadership Thank You Letter cp - Work release form me1 Prescriptions: - Prednisone 20 mg Oral Tablet - take 3 tablets ORAL route once daily for 5 days; 15 tablet; Refills: 0, Product sp4 Selection Permitted - Zithromax Z-Adryan 250 mg Oral Tablet - take 1 tablet ORAL route as directed for 5 days Day 1 - take two (2) tablets sp4 one time. Day 2, 3, 4 , 5 take one (1) tablet once daily.; 6 tablet; Refills: 0, Product Selection Permitted - promethazine 25 mg Oral tablet - take 1 tablet ORAL route every 6 hours As needed PRN nausea; 30 tablet; sp4 Refills: 0, Product Selection Permitted Signatures: Dispatcher [employer] Roque Tinajero MD MD rn Page, Corey, PA PA cp Blair Trivedi, RN RN jb4 Rashawn Helm DO DO ms3 Judy Vital, RN RN me1
[2023-05-05 20:58] VITALS: TEMP 98.4
[2023-05-05 21:06] VITALS: BP 132/74; O2SAT 97
--- NOTE | 2023-05-06 13:41 | EKG ---
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
== END 2023-05-05 20:52 | disposition home or self-care (01) ==
LOC: ER 14:50
DX: J98.4 Other disorders of lung (principal); R11.2 Nausea with vomiting, unspecified
CPT/HCPCS: 36415; 71045; 80048; 80076; 83735; 84484; 85025; 93005; 96374; 99285; J2930; J7614